=== PATIENT | female | born 1940 | race Caucasian/White ===

== ENCOUNTER → 2016-08-02 | Outpatient (CLI) | payer OTHER ==
[~2016-08-02] MED LIST: ALBUAER19 INH; ARTIOIN27 OPB; CARV6.25 PO; CHOL4POW6 PO; CILO100T PO; CLOP1TAB15 PO; COEN100C11 PO; ERGO1CAP35 PO; HYDR25TA4 PO; LORA-741 PO; MAGN1TAB15 PO; MISCCAP80 PO; MULT-190 PO; NAPR-1168 PO; NITR0.4S UT; OMEG10002 PO; POLYSOL OPB; PXL/40 PO; TIOTCAP INH; januvia PO
--- NOTE | 2016-08-02 15:49 | MAMMOGRAPHY REPORT ---
UNILATERAL LEFT DIGITAL DIAGNOSTIC MAMMOGRAM TOMOSYNTHESIS AND TARGETED LEFT ULTRASOUND: 08/02/2016 CLINICAL HISTORY: 76 year old woman called back from screening mammography for clustered microcalcif ications and nodular asymmetry within the left breast. Family history of breast cancer = sister. TECHNIQUE: Spot magnification left CC and ML, spot compression left CC and MLO 2-D digital anterolis thesis images were obtained. COMPARISON: Comparison is made to exam dated: 07/15/2016 mammogram - [facility]. BREAST COMPOSITION: The tissue of the left breast is almost entirely fatty. FINDINGS: There is an 8 mm cluster of amorphous and smudgy microcalcifications in the upper outer m iddle one third of the left breast. Although these could represent benign fibrocystic changes, no c lear layering is demonstrated on the spot magnification MLO view and therefore they're indeterminate . Further evaluation with a stereotactic guided biopsy is recommended. On the spot compression CC and MLO views of the anterior left breast including tomosynthesis images, there is no obvious focal mass or architectural distortion. There is an asymmetric 4 cm island of tissue when comparing to th e contralateral right breast. Further evaluation with ultrasound was performed. Targeted ultrasound was performed in the upper outer anterior left breast. There is an island of de nse fibronodular glandular tissue with irregular hypoechoic ducts within, measuring approximately 13 .6 x 7.9 x 13.4 mm. This correlates with the asymmetry seen mammographically in the left upper oute r anterior breast. Although this may simply represent stromal fibrosis, it is indeterminate and fur ther evaluation with tissue sampling is recommended. IMPRESSION: ACR BI-RADS CATEGORY 4B: INTERMEDIATE SUSPICION FOR MALIGNANCY, TARGETED ULTRASOUND ACR BI-RADS CATEGORY 4B: INTERMEDIATE SUSPICION FOR MALIGNANCY 1. Stereotactic guided left breast biopsy is recommended for a cluster of amorphous microcalcificat ions in the upper outer quadrant. 2. Ultrasound guided core needle biopsy is recommended for an island of dense fibroglandular tissue with irregular hypoechoic ducts in the 1:00 periareolar left breast. These results and recommendations were discussed with the patient at the time of the exam. She tent atively scheduled the biopsies prior to leaving our department. Approximately 10% of breast cancers are not detected with mammography. A negative mammographic repor t should not delay biopsy if a clinically suggestive mass is present. Karen Parra M.D. ay/:08/02/2016 15:09:58 Senior Accountant Cpa: Linnea Zuniga RT(R)(M), [facility] letter sent: Abnormal / BI-RADS Code: ACR BI-RADS Category 4B: Intermediate Suspicion For Malignancy Ultrasound BI-RADS: AC R BI-RADS Category 4B: Intermediate Suspicion For Malignancy
== END | disposition home or self-care (01) ==
LOC: C.MAMM 13:57
PROVIDERS: ATTEND Nurse Practitioner Family
DX: R92.0 Mammographic microcalcification found on diagnostic imaging of breast (principal); N64.9 Disorder of breast, unspecified

== ENCOUNTER → 2016-08-16 | Outpatient (CLI) | payer OTHER ==
--- NOTE | 2016-08-16 11:03 | Discharge Instructions ---
Discharge Instructions Procedure Procedure Date: Aug 16, 2016. Reason for visit: Left breast clustered microcalcifications and solid mass. Discharge Discharge Date: Aug 16, 2016. Discharge Diagnosis: post left breast stereotactic guided biopsy and ultrasound guided core biopsy Medications Restart Stopped Medication(s): continue regular medications Instructions Activity Recommendations: Additional Limitations (see below) Return to School/Work: no limitations Recommended Home Diet: No Limitations Provider Instructions: ACTIVITY RECOMMENDATIONS: * No lifting, pushing, pulling or exercising the affected side for three days. RETURN TO SCHOOL/WORK: * You may return to work/school after the procedure, but do not perform any strenuous activities for 24 to 48 hours. MEDICATIONS: * Tylenol (two 325 mg) every four to six hours if needed for mild pain (if not allergic to Tylenol). DIET: * Resume previous diet. SPECIAL CARE INSTRUCTIONS: * Keep biopsy site dry for 24 hours. May shower after 24 hours, but do not soak (bathe) incision. * May remove Tegaderm (plastic patch) tomorrow AFTER showering. * Leave the steri-strips on for one week. Allow the steri-strips to fall off by themselves. If not off after one week, you may remove them. You may place a Bandaid crosswise over the strips, if desired. * Apply ice 10 minutes on and 10 minutes off as needed. * Wear a bra at bedtime to sleep more comfortably for 2-3 days. * Your referring physician should have the results after approximately 5 to 7 business days. * Call for unusual bleeding, fever, drainage, etc or if you have any questions call [phone] during normal business hours or after hours call Dr Parra, . FOLLOW UP VISIT: Follow-up with Referring Physician as scheduled. Allergies Coded Allergies: Tramadol (Verified Allergy, Intermediate, "OUT OF BODY EXPERIENCE", ) Codeine (Unverified Allergy, Unknown, "OUT OF BODY EXPERIENCE", 04/19/16) ONLY HAPPENED WITH CODEINE + TYLENOL: CODEINE BY ITSELF IS OKAY Ifrah Royal Recommendations: Call your doctor if: * Temperature above 101 degrees * Pain not relieved by pain medicine ordered * There is increased drainage or redness from any incision * You have any unanswered questions or concerns. Your Doctors Instructions noted above were prepared by provider Karen Parra. Patient Signature Section: Patient Instructions Signature Page Paige Kat Patient (or Guardian) Signature/Date: I have read and understand the instructions given to me by my caregivers. Caregiver/RN/Doctor Signature/Date: The above-named patient and/or guardian has received patient instructions on this date. + Original Patient Signature Page (only) stays with chart. Please make copy for patient.
--- NOTE | 2016-08-16 12:34 | MAMMOGRAPHY REPORT ---
MULTIPLE STEREOTACTIC GUIDED BIOPSIES LEFT BREAST: 08/16/2016 CLINICAL HISTORY: Indeterminate clustered microcalcifications in the upper outer middle one third of the left breast, and indeterminate island of dense fibroglandular tissue with irregular intersperse d milk ducts in the 1:00 periareolar left breast. Patient presented for stereotactic guided biopsy and ultrasound guided core biopsy in the left breast. PATIENT CONSENT: After explaining the risks, benefits and alternatives of the procedure to the patie nt, informed consent was obtained both verbally and in writing. Specific risks include: Bleeding, i nfection, puncture of adjacent structure, nontarget biopsy, sampling error and medication reaction. The patient's risk of bleeding and bruising is slightly higher considering she is currently taking Plavix, but the procedure is low risk and considered safe to perform. PROCEDURE DESCRIPTION: A time-out was performed and the left breast was confirmed as the site of bot h biopsies. The stereotactic guided biopsy was performed first. The patient was placed prone on the stereotactic biopsy table and the left breast was placed in CC f rom above compression. A public health dentist image was obtained that demonstrated the clustered microcalcification s in question. They are amenable to sterotactic biopsy. Then +15 and -15 stereo pair images were obtained. The calcifications were targeted utilizing the coordinates obtained by the computer. The skin was prepped with Betadine. 1% Lidocaine with and without epinipherine was administered as local anesthesia. A small skin incision was made. Through the incision, the needle was inserted to the d epth determined by the computer. 10 samples were obtained using a Kybalioniva 9-gauge vacuum-assiste d biopsy device. The specimen radiograph demonstrated several apparel trimmings sales representative microcalcifications, th erefore, a metallic marker was placed at the biopsy site. There was no immediate complication. Hemos tasis was achieved after several minutes of manual compression. The samples were sent to pathology in an appropriately labeled container. Then the ultrasound-guided core needle biopsy in the 1:00 periareolar left breast was performed. Wi th the patient supine, repeat targeted ultrasound was performed in the 1:00 periareolar left breast. The island of dense fiber granular tissue with irregular milked ducts is again identified. 1% buf fered lidocaine with and without epinephrine was administered as local anesthesia. A small incision was made in the skin of the breast. Through the incision, 4 samples were obtained with a 12-gauge the lateral biopsy device. A ribbon shaped metallic marker was placed at the biopsy site. The edith ent tolerated the procedure well and there was no immediate complication. Hemostasis was achieved a fter manual compression. Postprocedure CC and ML views of the left breast were obtained. There is a new dumbbell-shaped meta llic biopsy marker in the upper outer middle one third of the breast, at the site of the stereotacti c guided biopsy. There is a small 1.8 x 1.6 x 3.8 cm hematoma at the site of the stereotactic biops y. No significant postbiopsy hematoma is seen in the 1:00 periareolar left breast at the site of th e ultrasound-guided biopsy. IMPRESSION: STEREOTACTIC GUIDED BIOPSY Status post the retracted guided biopsy and ultrasound-guided core biopsy in the upper outer quadran t of the left breast, with biopsy markers placed at each site. The patient will receive notification of the biopsy results from referring physician. Karen Parra M.D. ay/:08/16/2016 11:17:16 [employer] Administrator: Jacqueline CONTEH (R)), [facility]
--- NOTE | 2016-08-16 12:34 | MAMMOGRAPHY REPORT ---
THIS REPORT HAS BEEN AMENDED. ULTRASOUND GUIDED BIOPSY: 08/16/2016 CLINICAL HISTORY: Indeterminate island of dense tissue with irregular ducts within. Patient present s for ultrasound-guided core biopsy. Also stereotactic biopsy of indeterminate clustered micro-calc ifications in the upper outer middle one third of the left breast. Please refer to the report from left breast stereotactic guided biopsy performed at the same time fo r full detail. IMPRESSION: ULTRASOUND GUIDED BIOPSY Please refer to the report from left breast stereotactic guided biopsy performed at the same time fo r full detail. Karen Parra M.D. ay/:08/16/2016 11:06:20 Alum Mixer: Jacqueline MCCRAY(R)(M), [facility] AMENDMENT: 08/25/2016 Karen Parra M.D. Pathology from the stereotactic guided biopsy of clustered microcalcifications in the upper outer mi ddle one third of the left breast yielded fibroadenomatoid change with associated microcalcification . Atypical lobular hyperplasia noted within fibroadenomatoid change. Negative for DCIS and invasiv e carcinoma. Pathology results from the ultrasound-guided core biopsy in the 1:00 periareolar left breast yielded fibrocystic change, usual ductal hyperplasia. Negative for DCIS and invasive carcinoma. Given the finding of atypical lobular hyperplasia at the site of the stereotactic biopsy in the uppe r outer middle one third of the left breast, which is denoted by the linear biopsy marker clip as op posed to the ribbon clip which is located anteriorly within the breast (this biopsy is located 9.6 c m distal to the nipple), surgical consultation for surgical excision is recommended.
--- NOTE | 2016-08-16 12:37 | MAMMOGRAPHY REPORT ---
UNILATERAL LEFT DIAGNOSTIC MAMMOGRAM WITH CAD: 08/16/2016 CLINICAL HISTORY: Status post left breast stereotactic biopsy and ultrasound-guided core biopsy. Please refer to the report from left breast stereotactic guided biopsy performed at the same time fo r full detail. IMPRESSION: POST PROCEDURE IMAGING FOR MARKER PLACEMENT Please refer to the report from left breast stereotactic guided biopsy performed at the same time fo r full detail. Approximately 10% of breast cancers are not detected with mammography. A negative mammographic repor t should not delay biopsy if a clinically suggestive mass is present. Karen Parra M.D. ay/:08/16/2016 11:05:17 Flight Communications Officer: Jacqueline MCCRAY(R)(M), [facility] BI-RADS Code: Post Procedure Imaging For Marker Placement
== END | disposition home or self-care (01) ==
LOC: C.MAMM 09:33
PROVIDERS: ATTEND Nurse Practitioner Family
DX: D24.2 Benign neoplasm of left breast (principal); R92.0 Mammographic microcalcification found on diagnostic imaging of breast; N60.12 Diffuse cystic mastopathy of left breast

== ENCOUNTER → 2016-10-19 | Outpatient (CLI) | payer OTHER ==
[2016-10-19 11:10] LABS: BASO % 0.4 %; BASO ABS # 0.02 K/uL (0-0.2); COMPLETE YES; EOS % 1.6 %; HEMATOCRIT 39.2 % (37-47); IG% 0.5 %; LYMPH % 34.1 %; LYMPH ABS # 1.86 K/uL (1.2-3.4); MEAN CELL VOLUME 92.7 fL (80-100); MEAN CORPUSCULAR HEMOGLOBIN 31.7 pg (25-34); MEAN CORPUSCULAR HGB CONC 34.2 g/dl (32-36); MEAN PLATELET VOLUME 10.7 fL (7.4-10.4); MONO % 6.6 %; NEUT % 56.8 %; PLATELET COUNT 230 K/uL (130-400); RED BLOOD COUNT 4.23 M/uL (4.2-5.4); WHITE BLOOD COUNT 5.46 K/uL (4.8-10.8)
[2016-10-19 11:27] LABS: ESTIMATED AVERAGE GLUCOSE 143 mg/dl; HA1C FLAG Normal (Normal)
[2016-10-19 11:47] LABS: ALT/SGPT 26 U/L (12-78); AST/SGOT 17 U/L (15-37); BLOOD UREA NITROGEN 16 mg/dl (7-18); BUN/CREATININE RATIO 21.1 (10-20); CALCIUM 8.9 mg/dl (8.5-10.1); CARBON DIOXIDE 31 mmol/L (21-32); CHLORIDE 104 mmol/L (98-107); CREATININE 0.77 mg/dl (0.60-1.20); GLUCOSE 158 mg/dl (70-99); MAGNESIUM 1.9 mg/dl (1.8-2.4); POTASSIUM 3.6 mmol/L (3.5-5.1); SODIUM 142 mmol/L (136-145)
[2016-10-19 11:55] LABS: ALKALINE PHOSPHATASE 77 U/L (45-117); CHOLESTEROL 237 mg/dl (0-200); CHOLESTEROL/HDL RATIO 4.6; HDL CHOLESTEROL 51 mg/dl; LDL CHOLESTEROL CALCULATED 131 mg/dl; TRIGLYCERIDES 273 mg/dl (0-150); VERY LOW DENSITY LIPOPROT CALC 55 mg/dl
== END | disposition home or self-care (01) ==
LOC: C.LAB 10:35
PROVIDERS: ATTEND Nurse Practitioner Family
DX: I10 Essential (primary) hypertension (principal); E78.00 Pure hypercholesterolemia, unspecified; E11.9 Type 2 diabetes mellitus without complications; E83.42 Hypomagnesemia; I51.9 Heart disease, unspecified; E55.9 Vitamin D deficiency, unspecified

== ENCOUNTER → 2017-03-16 | Outpatient (CLI) | payer OTHER ==
--- NOTE | 2017-03-16 15:20 | MAMMOGRAPHY REPORT ---
UNILATERAL LEFT DIGITAL DIAGNOSTIC MAMMOGRAM TOMOSYNTHESIS WITH CAD AND TARGETED LEFT ULTRASOUND: 03/01 CLINICAL HISTORY: 77-year-old woman presents for evaluation of the left breast. She is experiencing severe pain both medially and laterally in the left breast and also an occasional abnormal sensation of her left nipple in which even fabric touching it is painful. She has a history of 2 prior biopsie s in the left breast performed August 2016. The stereotactic biopsy in the upper outer middle one t hird of the left breast denoted an area of atypia. The anterior biopsy marker clip denoted an area o f benign tissue. TECHNIQUE: Left breast tomosynthesis in addition to standard 2D mammography was performed. Current st udy was also evaluated with a Computer Aided Detection (CAD) system. COMPARISON: Comparison is made to exams dated: 08/16/2016 ultrasound biopsy, 08/16/2016 mammogram, 08/01 stereotactic biopsy, 08/02/2016 ultrasound, 08/02/2016 mammogram, and 07/15/2016 mammogram - [facility]. BREAST COMPOSITION: The tissue of the left breast is almost entirely fatty. FINDINGS: Square-shaped pain markers overlie the lateral and medial middle one third of the left kalin st. 2 metallic biopsy marker clips remain in place from prior stereotactic and ultrasound-guided bio psies. The dumbbell-shaped clip in the upper outer middle one third of the left breast has an associ ated 2 cm linear dense tract, denoting the tract of the biopsy needle. This also represents the area of biopsy-proven atypia. No new suspicious mass, architectural distortion or cluster of microcalcif ications is seen in the left breast. Targeted ultrasound was performed of the left breast with particular attention to the medial and late ral aspects as well as the periareolar breast in the areas of pain described by the patient. Sonogra phically normal tissue is seen without evidence of a suspicious solid or cystic mass. IMPRESSION: ACR BI-RADS CATEGORY 4: SUSPICIOUS, TARGETED ULTRASOUND ACR BI-RADS CATEGORY 4: SUSPICIO US 1. Surgical consultation for surgical excision is recommended in the area of prior stereotactic biop sy, which yielded atypia on pathology. This is represented by the dumbbell-shaped metallic biopsy ma rker clip in the upper outer middle one third of the left breast. Several surgeon's names and phone numbers were provided to the patient. 2. No new suspicious mammographic or targeted sonographic abnormalities to explain the patient's lat eral, periareolar and medial left breast pain. A biopsy tract is still visible in the upper outer mi ddle one third of the left breast, suggesting this could be contributing to the lateral pain, but it is doubtful this would be causing the periareolar or medial pain. Therefore, clinical follow-up is r ecommended. Conservative management with NSAIDs, Evening Charlotte Oil and mineral supplements were d iscussed with the patient. 3. Bilateral mammography is due in July 2017Jan2017, and would recommend remaining a diagn ostic patient to evaluate post surgical changes in the left breast and also for routine mammography o f the right breast. These results and recommendations were discussed with the patient at the time of the exam. Approximately 10% of breast cancers are not detected with mammography. A negative mammographic report should not delay biopsy if a clinically suggestive mass is present. Karen Parra M.D. ay/:03/16/2017 12:17:32 Stock Driver: Shannan Hendrickson, [facility] letter sent: Abnormal 4/5 BI-RADS Code: ACR BI-RADS Category 4: Suspicious Ultrasound BI-RADS: ACR BI-RADS Category 4: Suspici ous
== END | disposition home or self-care (01) ==
LOC: C.MAMM 09:55
PROVIDERS: ATTEND Family Medicine
DX: N64.4 Mastodynia (principal)

== ENCOUNTER → 2017-07-19 | Outpatient (CLI) | payer OTHER ==
[2017-07-19 13:14] LABS: BASO % 0.4 %; BASO ABS # 0.03 K/uL (0-0.2); COMPLETE YES; EOS % 1.5 %; HEMATOCRIT 43.3 % (37-47); LYMPH % 29.7 %; LYMPH ABS # 2.18 K/uL (1.2-3.4); MEAN CELL VOLUME 95.6 fL (80-100); MEAN CORPUSCULAR HEMOGLOBIN 32.7 pg (25-34); MEAN CORPUSCULAR HGB CONC 34.2 g/dl (32-36); MONO % 8.5 %; NEUT % 58.9 %; PLATELET COUNT 267 K/uL (130-400); RED BLOOD COUNT 4.53 M/uL (4.2-5.4); WHITE BLOOD COUNT 7.33 K/uL (4.8-10.8)
[2017-07-19 13:37] LABS: ESTIMATED AVERAGE GLUCOSE 123 mg/dl; HA1C FLAG Normal (Normal)
[2017-07-19 13:45] LABS: ALT/SGPT 36 U/L (12-78); AST/SGOT 28 U/L (15-37); BLOOD UREA NITROGEN 14 mg/dl (7-18); CALCIUM 8.9 mg/dl (8.5-10.1); CARBON DIOXIDE 28 mmol/L (21-32); CHLORIDE 105 mmol/L (98-107); CHOLESTEROL 295 mg/dl (0-200); CREATININE 0.92 mg/dl (0.60-1.20); GLUCOSE 127 mg/dl (70-99); POTASSIUM 3.6 mmol/L (3.5-5.1); SODIUM 140 mmol/L (136-145)
[2017-07-19 13:48] LABS: ALKALINE PHOSPHATASE 87 U/L (45-117); CHOLESTEROL/HDL RATIO 5.9; HDL CHOLESTEROL 50 mg/dl; TRIGLYCERIDES 464 mg/dl (0-150)
[2017-07-19 15:45] LABS: RATIO 230.6 mcg/mg (0-30.0)
== END | disposition home or self-care (01) ==
LOC: C.LAB 12:42
PROVIDERS: ATTEND Nurse Practitioner Family
DX: I10 Essential (primary) hypertension (principal); E78.00 Pure hypercholesterolemia, unspecified; E11.9 Type 2 diabetes mellitus without complications; R32 Unspecified urinary incontinence; M81.0 Age-related osteoporosis without current pathological fracture; F41.8 Other specified anxiety disorders

== ENCOUNTER → 2017-10-03 | Outpatient (CLI) | payer OTHER ==
--- NOTE | 2017-10-03 15:42 | MAMMOGRAPHY REPORT ---
BILATERAL DIGITAL DIAGNOSTIC MAMMOGRAM TOMOSYNTHESIS WITH CAD: 10/03/2017 CLINICAL HISTORY: 77-year-old woman presents for bilateral mammography. She has a history of prior l eft breast biopsies in which a stereotactic biopsy performed in the left upper outer middle one third of the breast yielded atypical lobular hyperplasia. She has not yet had that area excised but has c onsultation with a breast surgeon scheduled for next week. TECHNIQUE: Bilateral breast tomosynthesis in addition to standard 2D mammography was performed. 2D e xaggerated lateral CC views were also obtained. Current study was also evaluated with a Computer Aid ed Detection (CAD) system. COMPARISON: Comparison is made to exams dated: 03/16/2017 ultrasound, 03/16/2017 mammogram, 08/16/2016 ultrasound biopsy, 08/16/2016 mammogram, 08/02/2016 ultrasound, and 07/15/2016 mammogram - [facility]. BREAST COMPOSITION: The tissue of both breasts is almost entirely fatty. FINDINGS: There are stable biopsy marker clips in the left upper outer anterior and middle one third of the breast. The biopsy proven atypical lobular hyperplasia is denoted by the dumbbell-shaped biop sy marker clip in the middle one third of the left upper outer quadrant, approximately 10 cm from the nipple. Surgical consultation for surgical excisional biopsy is recommended. A ribbon-shaped biopsy marker clip is seen in the upper outer anterior left breast, denoting a prior benign biopsy. There are mild vascular calcifications bilaterally. No new suspicious masses, cluste red calcifications, areas of architectural distortion or asymmetries are seen bilaterally. IMPRESSION: ACR BI-RADS CATEGORY 4: SUSPICIOUS 1. Surgical consultation and surgical excisional biopsy is recommended for biopsy-proven atypia in t he upper outer middle one third of the left breast, denoted by a dumbbell-shaped biopsy marker clip l ocated approximately 10 cm from the nipple. 2. Otherwise stable mammographic appearance of the breasts, without mammographic evidence of maligna ncy bilaterally. These results and recommendations were discussed with the patient at the time of the exam. She johniee ntly has a surgical consultation scheduled for next week. Approximately 10% of breast cancers are not detected with mammography. A negative mammographic report should not delay biopsy if a clinically suggestive mass is present. Karen Parra M.D. ay/:10/03/2017 11:43:20 Milk Driver: Vida MCCRAY(R)(M), [facility] letter sent: Abnormal 4/5 BI-RADS Code: ACR BI-RADS Category 4: Suspicious
== END | disposition home or self-care (01) ==
LOC: C.MAMM 10:56
PROVIDERS: ATTEND Nurse Practitioner Family
DX: N62 Hypertrophy of breast (principal)

== ENCOUNTER → 2017-11-23 | Outpatient (CLI) | payer OTHER | END | disposition home or self-care (01) | LOC: C.LAB 15:44 | PROVIDERS: ATTEND Physician Assistant | DX: I48.91 Unspecified atrial fibrillation (principal) ==

== ENCOUNTER → 2017-12-06 | Outpatient (CLI) | payer OTHER ==
[2017-11-16 16:39] LABS: HEMATOCRIT 41.3 % (37-47); HEMOGLOBIN 14.1 g/dL (12.0-16.0); MEAN CELL VOLUME 94.5 fL (80-100); MEAN CORPUSCULAR HEMOGLOBIN 32.3 pg (25-34); MEAN CORPUSCULAR HGB CONC 34.1 g/dl (32-36); MEAN PLATELET VOLUME 11.6 fL (7.4-10.4); PLATELET COUNT 242 K/uL (130-400); RED CELL DISTRIBUTION WIDTH CV 13.9 % (11.5-14.5); RED CELL DISTRIBUTION WIDTH SD 48.1 fL (36.4-46.3); WHITE BLOOD COUNT 6.04 K/uL (4.8-10.8)
[2017-11-16 17:04] LABS: ALBUMIN 3.8 gm/dl (3.4-5.0); ALT/SGPT 32 U/L (12-78); AST/SGOT 21 U/L (15-37); BLOOD UREA NITROGEN 14 mg/dl (7-18); CALCIUM 9.6 mg/dl (8.5-10.1); CARBON DIOXIDE 26 mmol/L (21-32); CREATININE 0.85 mg/dl (0.60-1.20); GLUCOSE 108 mg/dl (70-99); POTASSIUM 3.5 mmol/L (3.5-5.1); SODIUM 142 mmol/L (136-145)
[2017-11-16 17:14] LABS: ALKALINE PHOSPHATASE 89 U/L (45-117); TOTAL PROTEIN 7.3 gm/dl (6.4-8.2)
[~2017-12-06] MED LIST changes: +GADAVIST IV PRN
--- NOTE | 2017-12-07 15:08 | MAMMOGRAPHY REPORT ---
BREAST MRI OF BOTH BREASTS : 12/06/2017 CLINICAL HISTORY: 77-year-old woman presents for preoperative assessment. A stereotactic guided left breast biopsy performed on 08/16/2016 in the upper outer quadrant approximate 2:00 axis yielded atypi marlena lobular hyperplasia. Patient has a family history of breast cancer = sister. COMPARISON: Comparison is made to exams dated: 08/02/2016 mammogram, 08/02/2016 ultrasound, 08/16/2016 st ereotactic biopsy, 08/16/2016 mammogram, 08/16/2016 ultrasound biopsy, and 03/16/2017 mammogram - [facility]. TECHNIQUE: Using a 1.5 Tori magnet and dedicated breast coil, multisequence axial images were obtain ed through the breasts. After uneventful IV administration of 11.5 mL of Gadavist, dynamic multiphas e contrast-enhanced axial images, and sagittal postcontrast were obtained. Temporal subtraction axia l images and 3-D MIP images are provided. Everything was then reviewed on a 3-D workstation, [employer]. FINDINGS: There is no significant background parenchymal enhancement in either breast. There is a focus of mark ceptibility artifact in the 2:00 middle one third of the left breast, denoting the site of prior ster eotactic guided biopsy which yielded atypical lobular hyperplasia within fibroadenomatoid change. Th ere is no appreciable enhancement in the area of prior biopsy within the left 2:00 breast. Overall, no suspicious enhancing mass, non-mass enhancement, suspicious kinetics or architectural distortion i s identified bilaterally. No focal area of skin thickening or nipple retraction. No suspicious axil sulema lymphadenopathy. IMPRESSION: ACR BI-RADS CATEGORY 4: SUSPICIOUS 1. Focus of susceptibility artifact in the 2:00 middle one third of the left breast denoting the sit e of prior stereotactic guided biopsy which yielded atypical lobular hyperplasia. No appreciable enh ancement is identified in the area of prior biopsy on the current MRI, nevertheless surgical excision is still recommended given the initial pathology results. 2. No other suspicious findings in the left breast. 3. No MRI evidence of malignancy in the right breast. The patient will be called to schedule an appointment. Karen Parra M.D. ay/:12/06/2017 21:48:57 Drum Builder: manufacturing assistant, [facility] letter sent: Abnormal 4/5 BI-RADS Code: ACR BI-RADS Category 4: Suspicious
== END | disposition home or self-care (01) ==
LOC: C.MRI 13:58
PROVIDERS: ATTEND Surgery
DX: N60.92 Unspecified benign mammary dysplasia of left breast (principal); Z01.818 Encounter for other preprocedural examination; Z80.3 Family history of malignant neoplasm of breast

== ENCOUNTER 2020-02-17 13:37 | Inpatient (IN) ==
[2020-02-17] MEDS ORDERED: STAT IV Infusion **Titration per Protocol STA (13:53)
[2020-02-17] MEDS ORDERED: dilTIAZem HCl 5 MG/ML 5 ML VIAL IV STA (13:53)
--- NOTE | 2020-02-17 14:06 | Emergency Department Note ---
Impression & Plan Acute dyspnea, Near syncope, Atrial fibrillation with rapid ventricular response ED Provider Note Provider: Craig Reeves MD DATE OF SERVICE: 02/17/2020 CHIEF COMPLAINT: Shortness of breath, near syncope HISTORY OF PRESENT ILLNESS: Patient is a 80-year-old female with a history of COPD, diabetes, hypertension, atrial fibrillation currently on Xarelto, metoprolol, and digoxin presenting today via ambulance from home. Patient states yesterday she began to notice some shortness of breath with exertion and prickly this morning had shortness of breath when getting up try to walk across the room. Denies home oxygen use at this time. States compliance with her medications. Patient denies any chest pain or recent fever. Patient states that she did not have any falls or actual syncope. Patient states she is feeling good better now having laid still for a while but she states she was very fearful that she would earlier. She states she follows with Dr. Wiggins of cardiology. REVIEW OF SYSTEMS: A total of 10 review of systems was obtained and negative except as stated above in the HPI. PAST MEDICAL HISTORY: As noted above MEDICATIONS: Reviewed medication list which includes digoxin, Xarelto among others SOCIAL HISTORY: Lives at home with , former smoker PHYSICAL EXAM: GENERAL: alert and oriented in no acute distress on stretcher on oxygen nasal cannula Head: normocephalic and atraumatic EYES: No injection, discharge or icterus. ENT: Mucous membranes pink and moist. LUNGS: Airway patent. No retractions. Breath sounds clear HEART: Irregularly irregular and tachycardic rate and rhythm. No chest wall tenderness ABDOMEN: Soft and non-tender, without guarding or rebound. SKIN: Acyanotic, warm, dry, without rashes EXTREMITIES: Without significant tenderness or deformity with trace pedal edema bilaterally. NEUROLOGICAL: No focal deficits. No aphasia. No facial droop or slurred speech. EK bpm atrial fibrillation with rapid ventricular response, diffuse inferior lateral ST depression and T wave inversions noted. There is question of some slight ST elevation in aVR and V1. Compared to previous CONTINUOUS CARDIAC MONITORING: was ordered and showed a heart rate of 110's- 150's bpm in atrial fibrillation with rapid ventricular response Patient's hypertension was referred to the hospitalist HOSPITAL COURSE: 1400 Patient was first seen and H&P performed. 1537 Patient reassessed and updated. Patient was agreed with the plan for admission. Heart rates now in the 110's, SBP 123. [address] Urias the hospitalist service. Patient's laboratory studies and imaging reviewed. Differential includes Infection, dehydration, metabolic abnormality, hypo/hyperglycemia, electrolyte disturbance, anemia, hypoxia, cardiac sources, intracerebral event, toxicologic, neurologic, as well as other pathologies. IMPRESSION/MEDICAL DECISION MAKING: Patient presents complaint of shortness of breath starting yesterday with exertion as well as near syncope several times. No actual trauma reported. No fever reported. Low suspicion this represent an infectious cause or coronavirus. Some trace pedal edema but no gross evidence of fluid overload on exam. Chest x-ray without evidence of pneumonia pneumothorax or pulmonary edema. Patient denies a history of oxygen usage and now requiring oxygen as she is satting in the 80s at home. Reading the recent primary care visit this week it does appear that she qualified for home oxygen although has not been set up yet. Patient's EKG is concerning with mild ischemic changes although again the patient denies any active chest pain and actually states feeling better since he is been laying flat. The A. fib RVR consider either him to start on diltiazem drip. Patient states compliance with Xarelto at home for anticoagulation. Electrolytes and thyroid function were sent. Electrolytes without significant abnormality besides some mild hypomagnesemia and IV magnesium supplementation was ordered. Troponin value is detectable but not abnormal question some demand component related to her rapid rate. DIAGNOSIS: Shortness of breath, near-syncope, atrial fibrillation with rapid ventricular response DISPOSITION: Hospitalist will evaluate Patient was agreeable with this plan. Critical Care I have personally spent 33 minutes of critical care time in the direct management of this patient. This includes bedside care, interpretation of diagnostic studies, and testing, discussion with consultants, patient, and family members, and other required patient management activities. These 33 minutes is in excess of all separately billable procedures. Past Med/Surg History Social History Preferred Language: German Communication Ability: Effective Visual Impairment: No Limitations Hearing Ability: Hard of Hearing marital status: Current Living Situation: Spouse current occupational status: retired Feels Safe at Home: Yes Smoking Status: Former smoker Tobacco Type: cigarettes ; Age Started Using Tobacco: 16 ; Age Quit Using Tobacco: 62 ; packs per day: 0.5 ; Second Hand Exposure: No ; Hx Alcohol Use: Yes Alcohol type: wine Alcohol Intake Frequency: Daily Alcohol Intake Frequency Comment: 1-2 drinks/day Hx Substance Use: No Childhood Exposure to Second-Hand Smoke: Yes Dental Care, Regularly: Yes Physical Activity Frequency: Does not Exercise Seatbelt Use: always Sunscreen Use: No Allergies Allergies Allergy/AdvReac Type Severity Reaction Status Date / Time tramadol Allergy Intermediate "OUT OF Verified 02/14/20 15:51 BODY EXPERIENCE" codeine Allergy Unknown "OUT OF Verified 02/14/20 15:51 BODY EXPERIENCE" metformin AdvReac Intermediate Diarrhea Verified 02/14/20 15:51 raloxifene AdvReac Unknown SWELLING Verified 02/14/20 15:51 Home Meds Home Medications Medication Instructions Recorded Confirmed coenzyme Q10 200 mg tablet PO tab 12/18/18 02/14/20 nitroglycerin 0.4 mg sublingual SL .place 1 tab under th #1 tab 12/18/18 02/14/20 tablet varicella-zoster gE vac,2 of 2 50 0.5 ml IM .INJECT 0.5 ML Once A 12/18/18 02/14/20 mcg IM suspension #0.5 ea blood sugar diagnostic #10 ea 01/19/19 02/14/20 lancets #50 ea 01/19/19 02/14/20 magnesium chloride 71.5 mg 71.5 mg PO DAILY tab 01/19/19 02/14/20 (magnesium chloride) tablet,delayed release vitamin A-vitamin C-vit E-min 1 tab PO DAILY 01/19/19 02/14/20 naproxen sodium 550 mg tablet PO .TAKE 1 TABLET DAILY. PRN #30 09/04/19 02/14/20 tab cholestyramine (with sugar) 4 gram 4 gm PO .COMPLEX ea 02/14/20 02/14/20 powder for susp in a packet Previous Rx's Medication Instructions Recorded albuterol sulfate 90 mcg/actuation See Rx Instructions INHALATION 01/25/19 aerosol inhaler .COMPLEX PRN #18 gm fluticasone 250 mcg-salmeterol 50 1 puffs INH BID #14 ea 02/09/19 mcg/dose blistr powdr for inhalation lorazepam 0.5 mg tablet 0.5 mg PO BID PRN #30 tab 07/07/19 glimepiride 1 mg tablet 1 mg PO DAILY #90 tab 01/03/20 rivaroxaban 20 mg tablet 20 mg PO DAILY #90 tab 09/04/19 cyanocobalamin (vitamin B-12) 1,000 mcg SL DAILY #90 tab 10/02/19 1,000 mcg sublingual tablet ergocalciferol (vitamin D2) 1,250 1,250 mcg PO WEEKLY #12 cap 10/02/19 mcg (50,000 unit) capsule paroxetine HCl 40 mg tablet 40 mg PO DAILY #90 tab 10/02/19 nitrofurantoin macrocrystal 100 mg 100 mg PO HS #30 cap 10/03/19 capsule nitrofurantoin 100 mg PO BID 14 Days #28 cap 10/08/19 monohydrate/macrocrystals 100 mg capsule atorvastatin 80 mg tablet 80 mg PO DAILY #90 tab 11/26/19 digoxin 125 mcg (0.125 mg) tablet 125 mcg PO DAILY #90 tab 11/26/19 ezetimibe 10 mg tablet 10 mg PO DAILY #90 tab 11/27/19 metoprolol succinate 100 mg 150 mg PO .COMPLEX #75 tab 12/05/19 tablet,extended release 24 hr umeclidinium 62.5 mcg/actuation 1 puffs INH DAILY #30 ea 01/29/20 blister powder for inhalation diphth,pertus(acell),tetanus 2.5 0.5 ml IM ONCE #0.5 ml 02/14/20 Lf unit-8 mcg-5 Lf/0.5mL IM syringe oxycodone-acetaminophen 5 mg-325 1 tab PO Q8H PRN #60 tab 02/14/20 mg tablet blood-glucose meter #1 ea 02/15/20 Results & Data (ED) Vital Signs Vital Signs - 24 hr 02/17/20 13:37 02/17/20 13:52 Temperature 36.7 C 36.7 C Temperature Source Oral Oral Pulse Rate 150 H 150 H Pulse Rate [Apical] 150 H Pulse Rhythm Irregular Respiratory Rate 28 H 28 H Respiratory Effort / Characteristics Short of Breath Short of Breath Respiratory Pattern Tachypnea Blood Pressure 121/100 Blood Pressure [Right Arm] 121/100 Blood Pressure Mean 107 Blood Pressure Mean [Right Arm] 107 Blood Pressure Position Sitting Pulse Oximetry 99 99 Oxygen Delivery Method Nasal Cannula Nasal Cannula Oxygen Flow Rate 4 4 Sepsis Recent Fever Within 48 Hours No Sepsis New/Unexplained Change in Mental Status N/A Sepsis Action Taken by Nursing No Action Required Laboratory Data Result diagrams: 02/17/20 14:00 02/17/20 14:00 Lab Results 02/17/20 02/17/20 02/17/20 Range/Units 14:00 14:00 14:00 WBC 9.16 (4.8-10.8) K/uL RBC 4.90 (4.2-5.4) M/uL Hgb 15.7 (12.0-16.0) g/dL Hct 45.3 (37-47) % MCV 92.4 (80-100) fL MCH 32.0 (25-34) pg MCHC 34.7 (32-36) g/dL RDW Std Deviation 47.3 H (36.4-46.3) fL RDW Coeff of Loli 14.0 (11.5-14.5) % Plt Count 256 (130-400) K/uL MPV 11.4 H (7.4-10.4) fL Immature Gran % (Auto) 0.4 % Neut % (Auto) 71.4 % Lymph % (Auto) 19.9 % [place] % (Auto) 7.5 % Eos % (Auto) 0.5 % Baso % (Auto) 0.3 % Neut # (Auto) 6.53 H (1.4-6.5) K/uL Lymph # (Auto) 1.82 (1.2-3.4) K/uL [place] # (Auto) 0.69 H (0.11-0.59) K/uL Eos # (Auto) 0.05 (0-0.5) K/uL Baso # (Auto) 0.03 (0-0.2) K/uL Immature Gran # (Auto) 0.04 H (0.00-0.02) K/uL PT 11.5 (9.0-12.0) Seconds INR 1.1 (0.9-1.1) APTT 25.1 (21.0-31.0) Seconds PTT Ratio 0.9 Sodium 142 (136-145) mmol/L Potassium 3.6 (3.5-5.1) mmol/L Chloride 108 H (98-107) mmol/L Carbon Dioxide 23 (21-32) mmol/L Anion Gap 12.0 H (3-11) BUN 20 H (7-18) mg/dl Creatinine 1.12 (0.6-1.2) mg/dl Est Cr Clr Drug Dosing 52.9 ml/min Est GFR ( Amer) 53.7 Est GFR (Non-Af Amer) 46.4 BUN/Creatinine Ratio 17.4 (10-20) Glucose 206 H (70-99) mg/dl Calcium 9.5 (8.5-10.1) mg/dl Magnesium 1.7 L (1.8-2.4) mg/dl Total Bilirubin 1.0 (0.2-1) mg/dl AST 20 (15-37) U/L ALT 22 (12-78) U/L Alkaline Phosphatase 89 (45-117) U/L Troponin I 0.035 (0-0.045) ng/ml Total Protein 7.6 (6.4-8.2) gm/dl Albumin 3.5 (3.4-5.0) gm/dl Globulin 4.1 H (2.5-4.0) gm/dl Albumin/Globulin Ratio 0.9 (0.9-2) TSH (0.300-4.500) uIu/ml Free T4 (0.8-1.6) ng/dl Digoxin (0.8-2.0) ng/ml 02/17/20 02/17/20 Range/Units 14:00 14:00 WBC (4.8-10.8) K/uL RBC (4.2-5.4) M/uL Hgb (12.0-16.0) g/dL Hct (37-47) % MCV (80-100) fL MCH (25-34) pg MCHC (32-36) g/dL RDW Std Deviation (36.4-46.3) fL RDW Coeff of Loli (11.5-14.5) % Plt Count (130-400) K/uL MPV (7.4-10.4) fL Immature Gran % (Auto) % Neut % (Auto) % Lymph % (Auto) % [place] % (Auto) % Eos % (Auto) % Baso % (Auto) % Neut # (Auto) (1.4-6.5) K/uL Lymph # (Auto) (1.2-3.4) K/uL [place] # (Auto) (0.11-0.59) K/uL Eos # (Auto) (0-0.5) K/uL Baso # (Auto) (0-0.2) K/uL Immature Gran # (Auto) (0.00-0.02) K/uL PT (9.0-12.0) Seconds INR (0.9-1.1) APTT (21.0-31.0) Seconds PTT Ratio Sodium (136-145) mmol/L Potassium (3.5-5.1) mmol/L Chloride (98-107) mmol/L Carbon Dioxide (21-32) mmol/L Anion Gap (3-11) BUN (7-18) mg/dl Creatinine (0.6-1.2) mg/dl Est Cr Clr Drug Dosing ml/min Est GFR ( Amer) Est GFR (Non-Af Amer) BUN/Creatinine Ratio (10-20) Glucose (70-99) mg/dl Calcium (8.5-10.1) mg/dl Magnesium (1.8-2.4) mg/dl Total Bilirubin (0.2-1) mg/dl AST (15-37) U/L ALT (12-78) U/L Alkaline Phosphatase (45-117) U/L Troponin I (0-0.045) ng/ml Total Protein (6.4-8.2) gm/dl Albumin (3.4-5.0) gm/dl Globulin (2.5-4.0) gm/dl Albumin/Globulin Ratio (0.9-2) TSH 5.580 H (0.300-4.500) uIu/ml Free T4 1.14 (0.8-1.6) ng/dl Digoxin 0.3 L (0.8-2.0) ng/ml Administered Medications Diltiazem HCl 125 mg/ Dextrose 125 mls @ 5 mls/hr IV .Q24H [facility]; Protocol Stop: 03/18/20 13:59 Last Admin: 02/17/20 14:46 Dose: 5 mg/hr, 5 mls/hr Documented by: [id number] Cosigned by: [id number] Discontinued Medications Diltiazem HCl (Cardizem) 10 mg IV NOW STA Stop: 02/17/20 13:54 Last Admin: 02/17/20 14:46 Dose: 10 mg Documented by: [id number] Cosigned by: [id number] Magnesium Sulfate/Dextrose (Magnesium Sulfate / D5w) 1 gm in 100 mls @ 100 mls/hr IV NOW STA Stop: 02/17/20 15:34 Last Admin: 02/17/20 15:36 Dose: 100 mls/hr Documented by: [id number] Miscellaneous () 1 ea N/A NOW STA Stop: 02/17/20 13:54 Last Admin: 02/17/20 15:45 Dose: Not Given Documented by: [id number] Discharge Plan Visit Data Chief Complaint: Shortness of Breath/Dyspnea Stated Complaint: sob ED Provider: Craig Reeves Discharge Problem: Acute dyspnea, Near syncope, Atrial fibrillation with rapid ventricular response Forms Stand Alone Forms: [facility] [employer] [facility] Prescriptions Prescriptions: No Action fluticasone propion-salmeterol [Advair Diskus] 250-50 mcg/dose blister with device 1 puffs INH BID Qty: 14 RF: 2 lorazepam 0.5 mg tablet 0.5 mg PO BID PRN (Reason: anxiety) Qty: 30 RF: 0 glimepiride 1 mg tablet 1 mg PO DAILY Qty: 90 RF: 1 cyanocobalamin (vitamin B-12) 1,000 mcg tablet, sublingual 1,000 mcg SL DAILY Qty: 90 RF: 1 ergocalciferol (vitamin D2) 1,250 mcg (50,000 unit) capsule 1,250 mcg PO WEEKLY Qty: 12 RF: 1 paroxetine HCl 40 mg tablet 40 mg PO DAILY Qty: 90 RF: 1 nitrofurantoin monohyd/m-cryst [Macrobid] 100 mg capsule 100 mg PO BID 14 Days Qty: 28 RF: 0 atorvastatin 80 mg tablet 80 mg PO DAILY Qty: 90 RF: 3 digoxin 125 mcg (0.125 mg) tablet 125 mcg PO DAILY Qty: 90 RF: 3 ezetimibe [Zetia] 10 mg tablet 10 mg PO DAILY Qty: 90 RF: 1 metoprolol succinate 100 mg tablet extended release 24 hr 150 mg PO .COMPLEX Qty: 75 RF: 3 Incruse Ellipta 62.5 mcg/actuation blister with device 1 puffs INH DAILY Qty: 30 RF: 5 (DME) blood-glucose meter [[employer] Verio Flex meter] Misc See Rx Instructions .ROUTE .MEDSUPPLY Qty: 1 RF: 0 Boostrix Tdap 2.5-8-5 Lf-mcg-Lf/0.5mL syringe 0.5 ml IM ONCE Qty: 0.5 RF: 0 oxycodone-acetaminophen 5-325 mg tablet 1 tab PO Q8H PRN (Reason: pain) Qty: 60 RF: 0 nitrofurantoin macrocrystal 100 mg capsule 100 mg PO HS Qty: 30 RF: 6 rivaroxaban 20 mg tablet 20 mg PO DAILY Qty: 90 RF: 1 coenzyme Q10 200 mg tablet PO RF: 0 varicella-zoster gE vac,2 of 2 50 mcg suspension for reconstitution 0.5 ml IM .INJECT 0.5 ML Once A Qty: 0.5 RF: 0 nitroglycerin 0.4 mg tablet, sublingual SL .place 1 tab under th Qty: 1 RF: 0 vitamin A-vitamin C-vit E-min tablet 1 tab PO DAILY RF: 0 (DME) lancets [OneTouch UltraSoft Lancets[place] [facility] [place] Dose Instructions .ROUTE .MEDSUPPLY Qty: 50 RF: 0 (DME) OneTouch Verio test strips strip See Dose Instructions .ROUTE .MEDSUPPLY Qty: 10 RF: 0 Slow-Mag 71.5 mg tablet,delayed release (DR/EC) 71.5 mg PO DAILY RF: 0 albuterol sulfate 90 mcg/actuation HFA aerosol inhaler See Rx Instructions inhalation .COMPLEX PRN (Reason: shortness of breath or wheezing) Qty: 18 RF: 2 naproxen sodium 550 mg tablet PO .TAKE 1 TABLET DAILY. PRNQty: 30 RF: 0 cholestyramine (with sugar) 4 gram powder in packet 4 gm PO .COMPLEX RF: 0
[2020-02-17 14:22] LABS: INR 1.1 (0.9-1.1); Partial Thromboplastin Ratio 0.9; Partial Thromboplastin Time 25.1 Seconds (21.0-31.0); Prothrombin Time 11.5 Seconds (9.0-12.0)
--- NOTE | 2020-02-17 14:30 | XRay Report ---
XR chest 1V portable HISTORY: Dyspnea COMPARISON: Chest 01/01/2016. FINDINGS: The heart remains mildly enlarged. No pneumothorax. No pleural effusions. No new focal lung consolidations to suggest pneumonia. Mild diffuse interstitial thickening which is likely chronic. N o evidence for pulmonary edema. IMPRESSION: No significant change compared to the prior study. No acute process. Stable cardiomegaly. ACT 112: Negative or not required by law. Electronically signed by: Darshan Naranjo M.D. 02/17/2020 2:29 PM
[2020-02-17 14:33] LABS: Albumin Level 3.5 gm/dl (3.4-5.0); BUN Creatinine Ratio 17.4 (10-20); Calcium 9.5 mg/dl (8.5-10.1); Creatinine Clr Calc Pharmacy 52.9 ml/min; Est GFR (African American) 53.7; Est GFR (Non-African American) 46.4; Magnesium 1.7 mg/dl (1.8-2.4); Potassium 3.6 mmol/L (3.5-5.1)
[2020-02-17] MEDS ORDERED: MAGNESIUM SULFATE / D5W 1 GM/100 ML BAG IV STA (14:35)
[2020-02-17 14:38] LABS: Albumin Globulin Ratio 0.9 (0.9-2); Globulin 4.1 gm/dl (2.5-4.0); Total Protein 7.6 gm/dl (6.4-8.2); Troponin I 0.035 ng/ml (0-0.045)
[2020-02-17 14:45] LABS: Basophils # (auto) 0.03 K/uL (0-0.2); Basophils % (auto) 0.3 %; Eosinophils # (auto) 0.05 K/uL (0-0.5); Eosinophils % (auto) 0.5 %; Hematocrit (blood only) 45.3 % (37-47); Hemoglobin 15.7 g/dL (12.0-16.0); Immature Granulocytes # (auto) 0.04 K/uL (0.00-0.02); Immature Granulocytes % (auto) 0.4 %; Lymphocytes # (auto) 1.82 K/uL (1.2-3.4); Lymphocytes % (auto) 19.9 %; Mean Corpuscular Hgb Conc 34.7 g/dL (32-36); Mean Corpuscular Volume 92.4 fL (80-100); Mean Platelet Volume 11.4 fL (7.4-10.4); Monocytes # (auto) 0.69 K/uL (0.11-0.59); Monocytes % (auto) 7.5 %; Neutrophils # (auto) 6.53 K/uL (1.4-6.5); Neutrophils % (auto) 71.4 %; Platelet Count 256 K/uL (130-400); RDW Standard Deviation 47.3 fL (36.4-46.3); White Blood Count 9.16 K/uL (4.8-10.8)
[2020-02-17] MEDS: dilTIAZem HCL 125 MG in DEXTROSE 5% 100 ML IV SCH (14:46)
[2020-02-17 15:06] LABS: Thyroid Stimulating Hormone 5.58 uIu/ml (0.300-4.500)
[2020-02-17 15:19] LABS: T4 Free Thyroxine 1.14 ng/dl (0.8-1.6)
--- NOTE | 2020-02-17 15:57 | History & Physical Report ---
Date of Service February 17, 2020 Assessment & Plan (1) Atrial fibrillation with rapid ventricular response: Due to missing 48 hours of home rate control medications. - Continue on Cardizem drip, will give dose of metoprolol succinate 100 mg now as well as digoxin 0.125 mg now - Consider cardiology consult, follows with Dr. Wiggins as outpatient - Check 2D echo - Melinda for anticoagulation - Check troponin now, not obtained in the ER, if elevated will trend - Allow heart healthy diet - Recently had A1c and lipids checked as outpatient (2) Acute dyspnea: Secondary to above. CXR reviewed, no acute processes. No COVID-19 known contacts, no recent travel, afebrile, no cough- no suspicion for COVID-19 infection. Unlikely PE because pt is already anticoagulated. - As above (3) COPD (chronic obstructive pulmonary disease): History of such, patient has recently been seen by PCP within the past week and is being set up for home supplemental oxygen. - Will ask CM to assist with planning if needed. - Per outpatient notes, patient is required to have a Tdap prior to being qualified for oxygen - Continue Incruse inhaler - Noted that pt is on oxycodone/acetaminophen for pain and ativan for anxiety (4) Diastolic dysfunction: Chronic, stable. - Echo as above (5) Essential hypertension: BP was 120/80 in the ED; lower while on diltiazem gtt. - Continue metoprolol, digoxin as above (6) Hypercholesterolemia: Recent lipid panel reveals total cholesterol of 283. - Continue high intensity statin, atorvastatin 80 mg daily, acetamide 10 mg daily - HH/DM diet, encourage exercise (7) Peripheral vascular disease: History of such (8) Type 2 diabetes mellitus: Last A1c = 6.3 on 02/11/2020. - Hold glimepiride - ISS with Accu-Thai ACH (9) Osteoporosis: Remote smoking hx. - Continue Vit D supplementation - Encouraged weight-bearing exercises (10) Vitamin D deficiency: - Continue vitamin D supplementation (11) Urge and stress incontinence: Follows with [facility] [place] urology as outpatient, will need follow-up prior to discharge. Patient has recently finished taking long course of nitrofurantoin as outpatient for UTI: In September had E. coli (resistant to Cipro and Levaquin) and Jul 2019 had Proteus mirabilis (resistant to ampicillin and cefazolin). - Pt planning on using azo as an outpatient - consider asking urology for recs regarding OTC meds? (12) DVT prophylaxis: Melinda Griffin CODE: Full code History of Present Illness Primary Care Provider: Yusuf Chaudhry, III, [employer] This is a 80-year-old female with PMHx of CAD, chronic diastolic CHF, HTN, A. fib on Xarelto, HLD, DM type II, COPD, remote smoking history, peripheral vascular disease, osteoporosis, vitamin D deficiency who presented to the ER today via ambulance due to increased dyspnea on exertion. Her is present with her bedside and supports the history. Last evening she began feeling worse and therefore did not take her medications at that time either. She reports significant sensation of shortness of breath especially on exertion, worse whenever she attempted to stand up earlier this morning. "I felt the worst I ever have felt in my life, it was very scary". Pt is well aware of her diagnosis of afib, although has never felt palpitations before, she felt the blood rushing through her veins this morning. She admits to nausea but no vomiting, and denies any sensation of heart palpitations or flutter, no dizziness, lightheadedness, LOC or falls. Medications at home for rate control include digoxin and metoprolol succinate, and she has not taken either medication within the last 48 hours. She states sometimes she and her get up late in the morning, and therefore she skips her morning dose. Patient recently saw her PCP where they were initiating home oxygen therapy and filling out paperwork for her to be on home supplemental O2. She is currently on 4L in the ER. Patient states she feels much better at this point. Another complaint of the patient's includes overactive bladder, where she recently was seeing Dr. Urias, however since he has recently departed [facility], she has not been rescheduled. Patient reports chronic incontinence and was going to start taking [id number] Azo tomorrow (prior to this event), see if this improved her symptoms. Patient has been started on Cardizem drip, heart rate at bedside bounces between 110s to 120s. Will resume metoprolol and digoxin with doses now. Allergies Allergy/AdvReac Type Severity Reaction Status Date / Time tramadol Allergy Intermediate "OUT OF Verified 02/17/20 15:49 BODY EXPERIENCE" codeine Allergy Unknown "OUT OF Verified 02/17/20 15:49 BODY EXPERIENCE" metformin AdvReac Intermediate Diarrhea Verified 02/17/20 15:49 raloxifene AdvReac Unknown SWELLING Verified 02/17/20 15:49 Home Medications Home Medications Medication Instructions Recorded Confirmed Type coenzyme Q10 200 mg tablet 200 mg PO DAILY tab 12/18/18 02/17/20 History nitroglycerin 0.4 mg sublingual 0.4 mg SL UD PRN #1 tab 12/18/18 02/17/20 History tablet blood sugar diagnostic #10 ea 01/19/19 02/14/20 History lancets #50 ea 01/19/19 02/14/20 History magnesium chloride 71.5 mg 71.5 mg PO DAILY tab 01/19/19 02/17/20 History (magnesium chloride) tablet,delayed release fluticasone 250 mcg-salmeterol 50 1 puffs INH BID #14 ea 02/09/19 02/17/20 Rx mcg/dose blistr powdr for inhalation lorazepam 0.5 mg tablet 0.5 mg PO BID PRN #30 tab 07/07/19 02/17/20 Rx glimepiride 1 mg tablet 1 mg PO DAILY #90 tab 08/03/19 02/17/20 Rx naproxen sodium 550 mg tablet 550 mg PO DAILY PRN #30 tab 09/04/19 02/17/20 History rivaroxaban 20 mg tablet 20 mg PO DAILY #90 tab 09/04/19 02/17/20 Rx cyanocobalamin (vitamin B-12) 1,000 mcg SL DAILY #90 tab 10/02/19 02/17/20 Rx 1,000 mcg sublingual tablet ergocalciferol (vitamin D2) 1,250 1,250 mcg PO WEEKLY #12 cap 10/02/19 02/17/20 Rx mcg (50,000 unit) capsule paroxetine HCl 40 mg tablet 40 mg PO DAILY #90 tab 10/02/19 02/17/20 Rx atorvastatin 80 mg tablet 80 mg PO DAILY #90 tab 11/26/19 02/17/20 Rx digoxin 125 mcg (0.125 mg) tablet 125 mcg PO DAILY #90 tab 11/26/19 02/17/20 Rx ezetimibe 10 mg tablet 10 mg PO DAILY #90 tab 11/27/19 02/17/20 Rx metoprolol succinate 100 mg 150 mg PO .COMPLEX #75 tab 12/05/19 02/17/20 Rx tablet,extended release 24 hr umeclidinium 62.5 mcg/actuation 1 puffs INH DAILY #30 ea 01/29/20 02/17/20 Rx blister powder for inhalation oxycodone-acetaminophen 5 mg-325 1 tab PO Q8H PRN #60 tab 02/14/20 02/17/20 Rx mg tablet blood-glucose meter #1 ea 02/15/20 Rx C,E,zinc,copper 80-[id number]-grh 1 cap PO DAILY 02/17/20 02/17/20 History [Ocuvite Adult 50 Plus] multivit with min-folic acid 0 mcg PO DAILY 02/17/20 02/17/20 History [Adult Multivitamin Gummies] Past Med/Surg History Social History Preferred Language: [place] Communication Ability: Effective Visual Impairment: No Limitations Hearing Ability: Hard of Hearing Furnace Firer Required: No Beliefs That Will Affect Care: None marital status: Current Living Situation: Spouse current occupational status: retired Other Information That Helps Us Care for You: No Feels Safe at Home: Yes Safety Concerns: Feels Safe At This Time Smoking Status: Former smoker Tobacco Type: cigarettes ; Age Started Using Tobacco: 16 ; Age Quit Using Tobacco: 62 ; packs per day: 0.5 ; Second Hand Exposure: No ; Hx Alcohol Use: Yes Alcohol type: wine Alcohol Intake Frequency: Daily Alcohol Intake Frequency Comment: 1-2 drinks/day Hx Substance Use: No Childhood Exposure to Second-Hand Smoke: Yes Dental Care, Regularly: Yes Physical Activity Frequency: Does not Exercise Seatbelt Use: always Sunscreen Use: No Review of Systems Review of Systems: Constitutional: No fever, sweats or chills Eyes: No diplopia, no worsening or blurred vision ENT: normal hearing, no trouble swallowing Respiratory: No cough, sputum, dyspnea at rest or on exertion Cardiovascular: See HPI. No chest pain, tightness, pressure Abdomen: No pain, nausea, vomiting, diarrhea or constipation Musculoskeletal: No joint pain, calf pain, swelling Neurologic: No weakness, numbness/tingling, or balance problems Psychiatric: No anxiety or depression Skin: No rash or itch Physical Exam Physical Exam: General: awake, alert, no apparent distress Head: Normocephalic, atraumatic ENT: PERRL, EOMI, no pharyngeal exudate, mucous membranes moist Chest: Clear to auscultation, on 4L via NC, no adventitious breath sounds Cardiac: Irregularly irregular, HR bounces between 110-120s at bedside, no murmur, no JVD, irregular peripheral pulses, good capillary refill Abdominal: NABS x 4 quadrants, soft, nondistended, nontender to palpation, no rebound, guarding or tenderness Extremities: Normal inspection, no peripheral edema or erythema, calfs nontender to palpation Psych: Normal mood and affect Neuro: AAO x 3, strength intact bilaterally and rated 5/5, no motor deficits, speech is clear, no peripheral sensory deficits Results & Data Results & Data ([facility]) Vital Signs (Past 12 Hours) Vital Signs Temp Pulse Pulse Resp BP BP Pulse Ox 02/17/20 13:52 36.7 C 150 H 150 H 28 H 121/100 99 02/17/20 13:37 36.7 C 150 H 28 H 121/100 99 Diagnostic Findings XR chest 1V portable HISTORY: Dyspnea COMPARISON: Chest 01/01/2016. FINDINGS: The heart remains mildly enlarged. No pneumothorax. No pleural effusions. No new focal lung consolidations to suggest pneumonia. Mild diffuse interstitial thickening which is likely chronic. No evidence for pulmonary edema. IMPRESSION: No significant change compared to the prior study. No acute process. Stable cardiomegaly. Code Status & VTE Plan Code Status Full code-discussed with the patient and her Supervising Physician Co-Signing Physician Notes I supervised Rachelle Hopepr PA-C on this admission. I interviewed and examined the patient independently of her. The plan is as written in her note except for any following changes/exceptions: None Pleasant 80yo F w/ hx of afib who had seen Dr. Wiggins in the past. Didn't feel well the last few days and skipped home meds. In the ED, her HR was up to 150. Now on diltiazem gtt with HR in the 100 range when I saw her. Feeling better, and BP is remaining stable ~100/70. PG Care Time/CCT Total # of Minutes Spent Total Time Spent with Patient: Total time spent is greater than 50% in coordination of care (as documented) at patient's floor/unit and/or counseling patient: Coding Level of Care Code 25172 Initial Inpt Care Lvl 3 Diagnoses Atrial fibrillation with rapid ventricular response I48.91 Acute dyspnea R06.00 COPD (chronic obstructive pulmonary disease) J44.9 Diastolic dysfunction I51.89 Essential hypertension I10 Hypercholesterolemia E78.00 Peripheral vascular disease I73.9 Type 2 diabetes mellitus E11.9 Osteoporosis M81.0 Osteoporosis type: age-related Presence of current pathological fracture: without current pathological fracture Vitamin D deficiency E55.9 Urge and stress incontinence N39.46 DVT prophylaxis Z29.9 (1) Osteoporosis Osteoporosis type: age-related Presence of current pathological fracture: without current pathological fracture Qualified Code(s): M81.0 - Age-related osteoporosis without current pathological fracture
[2020-02-17] MEDS ORDERED: ONDANSETRON INJ 2 MG/ML 2 ML VIAL IV PRN (18:24)
[2020-02-17] MEDS ORDERED: GLUCOSE 40% GEL 15 GM TUBE PO PRN (18:24)
[2020-02-17] MEDS ORDERED: ACETAMINOPHEN 325 MG TAB PO PRN (18:24)
[2020-02-17] MEDS ORDERED: DEXTROSE 50% 50 ML SYRINGE IV PRN (18:24)
[2020-02-17] MEDS ORDERED: CARBOHYDRATES FOR HYPOGLYCEMIA PO PRN (18:24)
[2020-02-17] MEDS ORDERED: LORazepam 0.5 MG TAB PO PRN (18:24)
[2020-02-17] MEDS ORDERED: METOPROLOL SUCC 50MG EXT REL TAB PO STA (18:24)
[2020-02-17] MEDS ORDERED: GLUCOSE 10 TABS/TUBE PO PRN (18:24)
[2020-02-17] MEDS ORDERED: DIGOXIN 0.125 MG TAB PO STA (18:24)
[2020-02-17] MEDS ORDERED: GLUCAGON FOR INJ 1 MG VIAL SQ PRN (18:24)
[2020-02-17] MEDS ORDERED: Nursing to Pharmacy Communication SCH (19:00)
[2020-02-17] MEDS: INSULIN ASPART 100 UNITS/ML 3 ML PEN SC SCH ×2 (19:25→19:54)
[2020-02-17] MEDS: RIVAROXABAN 20 MG TAB PO SCH (20:14)
--- NOTE | 2020-02-17 23:16 | Electrocardiogram Report ---
Test Reason : Blood Pressure : / mmHG Vent. Rate : 146 BPM Atrial Rate : 153 BPM P-R Int : 000 ms QRS Dur : 086 ms QT Int : 310 ms P-R-T Axes : 000 008 221 degrees QTc Int : 483 ms Atrial fibrillation with rapid ventricular response Marked ST abnormality, possible inferolateral subendocardial injury Abnormal ECG When compared with ECG of 27-DEC-2004 13:25, Atrial fibrillation has replaced Sinus rhythm Vent. rate has increased BY [address] now depressed in Inferior leads ST now depressed in Lateral leads T wave inversion now evident in Inferior leads T wave inversion now evident in Lateral leads Confirmed by Chris Silva ([id number]) on 02/17/2020 11:15:47 PM Referred By: REFERRED SELF Confirmed By:Chris Silva
[2020-02-17 23:20] LABS: Appearance Urine Turbid (Clear); Bacteria Urine Automated 4+ (Negative); Blood Urine 1+ (Negative); Color Urine Dark Yellow; Epithelial Cell Urine Auto >30 /lpf (0-5); Glucose Urine UA Negative (Negative); Ketones Urine Trace (Negative); Leukocyte Esterase Urine 2+ (Negative); Nitrite Urine Negative (Negative); Protein Urine 3+ (Negative); Specific Gravity Urine 1.029 (1.000-1.030); Urobilinogen Urine Negative (Negative); WBC Urine Automated >30 /hpf (0-5)
[2020-02-17 23:29] LABS: Bilirubin Urine 1+ (Negative); Ictotest Urine Positive (Negative)
[2020-02-17 23:47] LABS: RBC Urine Automated 0-4 /hpf (0-4)
[2020-02-18] MEDS: dilTIAZem HCL 125 MG in DEXTROSE 5% 100 ML IV SCH (01:05)
[2020-02-18 05:57] LABS: Hematocrit (blood only) 42.7 % (37-47); Hemoglobin 14.1 g/dL (12.0-16.0); Mean Corpuscular Hemoglobin 31.3 pg (25-34); Mean Corpuscular Volume 94.7 fL (80-100); Mean Platelet Volume 11.4 fL (7.4-10.4); Platelet Count 250 K/uL (130-400); RDW Coefficient of Variation 14.4 % (11.5-14.5); RDW Standard Deviation 49.3 fL (36.4-46.3); Red Blood Count 4.51 M/uL (4.2-5.4); White Blood Count 8.93 K/uL (4.8-10.8)
[2020-02-18 06:33] LABS: Albumin Level 3.2 gm/dl (3.4-5.0); BUN Creatinine Ratio 20.1 (10-20); Calcium 9.1 mg/dl (8.5-10.1); Creatinine Clr Calc Pharmacy 41.5 ml/min; Est GFR (African American) 40.3; Est GFR (Non-African American) 34.8; Magnesium 2.1 mg/dl (1.8-2.4); Potassium 3.9 mmol/L (3.5-5.1)
[2020-02-18 06:36] LABS: Albumin Globulin Ratio 0.8 (0.9-2); Bilirubin,Total 0.8 mg/dl (0.2-1); Globulin 3.8 gm/dl (2.5-4.0)
[2020-02-18] MEDS: INSULIN ASPART 100 UNITS/ML 3 ML PEN SC SCH ×4 (08:14→20:54)
[2020-02-18] MEDS: METOPROLOL SUCC 50MG EXT REL TAB PO SCH ×2 (08:15→18:02)
[2020-02-18] MEDS: CYANOCOBALAMIN 500 MCG TABLET (VITAMIN B-12) PO SCH (08:16)
[2020-02-18] MEDS: FLUTICASONE/VILANTEROL 100/25MCG 14 PUFFS/INHALER INH SCH (08:16)
[2020-02-18] MEDS: PARoxetine HCL 20 MG TAB PO SCH (08:16)
[2020-02-18] MEDS: UMECLIDINIUM BROMIDE 62.5MCG/BLISTER 7 PUFFS/INHALER INH SCH (08:16)
[2020-02-18] MEDS: CEROVITE ADV FORMULA TAB PO SCH (08:17)
[2020-02-18] MEDS: MAGNESIUM CHLORIDE 64MG DELAYED REL TAB PO SCH (08:17)
[2020-02-18] MEDS: ATORVASTATIN 40 MG TAB PO SCH (08:17)
[2020-02-18] MEDS: EZETIMIBE 10 MG TABLET PO SCH (08:17)
[2020-02-18] MEDS ORDERED: GLIMEPIRIDE 2 MG TAB PO SCH ×2 (09:00)
[2020-02-18] MEDS ORDERED: NON-FORMULARY MEDICATION (Coenzyme Q10 200 MG) PO SCH (09:00)
[2020-02-18] MEDS ORDERED: RIVAROXABAN 20 MG TAB PO SCH (09:00)
--- NOTE | 2020-02-18 12:06 | XCELERA ---
[id number] \\[id number]
--- NOTE | 2020-02-18 14:47 | Hospitalist Progress Note ---
Date of Service February 18, 2020 Assessment & Plan (1) Acute dyspnea: Thought to be due to afib with RVR; however, NOT better today despite better rate control. CXR reviewed, no acute processes. No COVID-19 known contacts, no recent travel, afebrile, no cough- no suspicion for COVID-19 infection. Unlikely PE because pt is already anticoagulated. - Atypical angina? Cardiology consulted. (2) Atrial fibrillation with rapid ventricular response: Due to missing 48 hours of home rate control medications. - Continue on Cardizem drip - Continue beta-ana rosa and digoxin - Cardiology consult - Check 2D echo - Melinda for anticoagulation (3) COPD (chronic obstructive pulmonary disease): History of such, patient has recently been seen by PCP within the past week and is being set up for home supplemental oxygen. - Will ask CM to assist with planning if needed. - Continue Incruse inhaler - Noted that pt is on oxycodone/acetaminophen for pain and Ativan for anxiety (4) Diastolic dysfunction: Chronic, stable. - Echo as above (5) Essential hypertension: BP was 120/80 in the ED; lower while on diltiazem gtt. Now stable. - Continue metoprolol, digoxin as above (6) Hypercholesterolemia: Recent lipid panel reveals total cholesterol of 283. - Continue high intensity statin, atorvastatin 80 mg daily, acetamide 10 mg daily - HH/DM diet, encourage exercise (7) Type 2 diabetes mellitus: Last A1c = 6.3 on 02/11/2020. - Hold glimepiride - ISS with Accu-Cheks ACHS (8) Urge and stress incontinence: [place] [facility] [place], will need follow-up prior to discharge. Patient has recently finished taking long course of nitrofurantoin as outpatient for UTI: In September had E. coli (resistant to Cipro and Levaquin) and Jul 2019 had Proteus mirabilis (resistant to ampicillin and cefazolin). - Pt planning on using azo as an outpatient - consider asking urology for recs regarding OTC meds? (9) Osteoporosis: Remote smoking hx. - Continue Vit D supplementation - Encouraged weight-bearing exercises (10) DVT prophylaxis: TEDs Xarelto CODE: Full code Admission and Anticipated Discharge Date Admission Date: February 17, 2020 Subjective Still with shortness of breath when she moves or even talks and eats. Not much better even with rate control. Reports no fevers/chills, chest pain, abdominal pain, nausea, or vomiting. Physical Exam Constitutional: WD/WN, vitals as above Eyes: EOM intact bilaterally; no conjunctival abnormality ENMT: external ear and nose normal, oropharynx normal Neck: trachea midline, no thyromegaly normal visual inspection Respiratory: normal respiratory effort, lungs clear to auscultation no respiratory distress Cardiovascular: Rate/Rhythm: regular rate and + irregularly irregular Heart Sounds: normal S1 and normal S2 Vessels: no JVD Extremities: no edema Gastrointestinal (Abdomen): Inspection/Auscultation: abdomen normal to inspection; abdomen not distended Musculoskeletal: no cyanosis or clubbing, extremities motor strength 5/5 Skin: no rashes, warm and dry Neurologic: moves all extremities and awake Psychiatric: Orientation: alert, oriented to person and cooperative Results & Data Results & Data ([facility]) Vital Signs (Past 12 Hours) Vital Signs Temp Pulse Pulse Resp BP Pulse Ox Pulse Ox 02/18/20 11:15 36.8 C 91 H 20 116/73 20 L 02/18/20 08:08 97 H 02/18/20 08:00 92 02/18/20 07:53 97 H 02/18/20 07:22 36.4 C L 73 26 H 101/62 97 02/18/20 03:24 36.5 C 68 20 112/64 98 PG Care Time/CCT Total # of Minutes Spent Total Time Spent with Patient: Total time spent is greater than 50% in coordination of care (as documented) at patient's floor/unit and/or counseling patient: Coding Level of Care Code 69475 Subseq Hosp Care Lvl 3 Diagnoses Acute dyspnea R06.00 Atrial fibrillation with rapid ventricular response I48.91 COPD (chronic obstructive pulmonary disease) J44.9 Diastolic dysfunction I51.89 Essential hypertension I10 Hypercholesterolemia E78.00 Type 2 diabetes mellitus E11.9 Urge and stress incontinence N39.46 Osteoporosis M81.0 Osteoporosis type: age-related Presence of current pathological fracture: without current pathological fracture DVT prophylaxis Z29.9 (1) Osteoporosis Osteoporosis type: age-related Presence of current pathological fracture: without current pathological fracture Qualified Code(s): M81.0 - Age-related osteoporosis without current pathological fracture
[2020-02-18] MEDS: RIVAROXABAN 20 MG TAB PO SCH (20:52)
[2020-02-19] MEDS: FLUTICASONE/VILANTEROL 100/25MCG 14 PUFFS/INHALER INH SCH (07:55)
[2020-02-19] MEDS: UMECLIDINIUM BROMIDE 62.5MCG/BLISTER 7 PUFFS/INHALER INH SCH (07:55)
[2020-02-19] MEDS: METOPROLOL SUCC 50MG EXT REL TAB PO SCH ×2 (07:56→15:57)
[2020-02-19] MEDS: ATORVASTATIN 40 MG TAB PO SCH (07:56)
[2020-02-19] MEDS: MAGNESIUM CHLORIDE 64MG DELAYED REL TAB PO SCH (07:56)
[2020-02-19] MEDS: PARoxetine HCL 20 MG TAB PO SCH (07:56)
[2020-02-19] MEDS: CEROVITE ADV FORMULA TAB PO SCH (07:56)
[2020-02-19] MEDS: CYANOCOBALAMIN 500 MCG TABLET (VITAMIN B-12) PO SCH (07:57)
[2020-02-19] MEDS: EZETIMIBE 10 MG TABLET PO SCH (07:57)
[2020-02-19] MEDS: INSULIN ASPART 100 UNITS/ML 3 ML PEN SC SCH ×4 (07:59→20:09)
[2020-02-19 08:01] LABS: Hematocrit (blood only) 42.8 % (37-47); Hemoglobin 14.6 g/dL (12.0-16.0); Mean Corpuscular Hemoglobin 32.8 pg (25-34); Mean Corpuscular Hgb Conc 34.1 g/dL (32-36); Mean Corpuscular Volume 96.2 fL (80-100); Mean Platelet Volume 11.6 fL (7.4-10.4); Platelet Count 243 K/uL (130-400); RDW Coefficient of Variation 14.2 % (11.5-14.5); RDW Standard Deviation 50.1 fL (36.4-46.3); Red Blood Count 4.45 M/uL (4.2-5.4); White Blood Count 8.79 K/uL (4.8-10.8)
[2020-02-19 08:28] LABS: Albumin Level 3.3 gm/dl (3.4-5.0); Calcium 9.5 mg/dl (8.5-10.1); Creatinine Clr Calc Pharmacy 47.2 ml/min; Est GFR (Non-African American) 40.6; Magnesium 2.1 mg/dl (1.8-2.4); Potassium 3.7 mmol/L (3.5-5.1)
[2020-02-19 08:33] LABS: Albumin Globulin Ratio 0.8 (0.9-2); Globulin 3.9 gm/dl (2.5-4.0); Total Protein 7.2 gm/dl (6.4-8.2)
--- NOTE | 2020-02-19 09:45 | Cardiology Consultation ---
Date of Consultation February 19, 2020 Assessment & Plan (1) Atrial fibrillation with rapid ventricular response: AFib w/ RVR rate of 146 in the ED. Missed 2 days of metoprolol and Digoxin. Dilt drip during this admission 15mg->5mg, since tapered off. 02/17/20 ecg. AFIB w/ RVR. Ventricular rate of 146. Marked ST abnormality, possible inferolateral subendocardial injury. Interpreted by Dr. Silva. 02/18/20 ECHO: Normal LV systolic function. No regional wall motion abnormalities. borderline concentric LVH. EF 55-60%. Mild TR 02/17/20 cxr: No significant change compared to the prior study. No acute process. Stable cardiomegaly. Interpreted by Dr. Naranjo. Plan: Repeat ecg and troponin. Continue FRANCISCO J hoses. Present on Admission?: Yes (2) Acute dyspnea: Differential diagnosis: Subendocardial demand ischemia due to AFib w/ RVR vs. ACS vs. COPD exacerbation vs. PE. Patient's breathing has improved and lung exam CTAB, therefore less suggestive of etiology that needs immediate intervention. No chest pain, mild elevation of troponin and lack on ST elevation on ecg points more towards subendocardial demand ischemia as opposed to STEMI. Unremarkable cxr and clear lungs less likely COPD exacerbation. Anticoagulated and no overt risk factors for PE. Elevated NT-proBNP 7000s. No personal or family hx of blood clots or bleeding disorders. No prolonged immobilization, travel, hormone use. Patient passed walk test w/ desats to low 90s. Stable from cardiology standpoint. Plan: recheck ecg and troponin as per above. 1 dose of 325 mg Aspirin in the hospital. Continue home regimen of metroprolol succinate ER 150 mg PO daily, digoxin 125 mcg PO daily, and daily baby Aspirin. Present on Admission?: Yes (3) COPD (chronic obstructive pulmonary disease): Lung exam clear to auscultation bilaterally and is reassuring. Plan: Continue home regimen. Present on Admission?: Yes Supervising Physician Co-Signing Physician Notes Patient seen and examined. Agree with Dr. Elias's assessment and plan. Minor troponin elevation likely a supply demand mismatch (rapid AFib in the face of LVH). Encouraged medication compliance. Right heart enlarged but normal systolic function. Flattened interventricular septum suggested of RV pressure and volume overload. Suspect pulmonary etiology of her shortness of breath. History of Present Illness Attending Physician: Wong Urias MD History of Present Illness Paige Kat is an 80 year old female w/ hx of CAD s/p multiple stents, AFib on Xarelto, and COPD who presented w/ acute dyspnea on 02/17/20 after missing home medications for 48 hours. Described as "gasping for air." Patient denies any chest pain. Cardiology was consulted to rule out ACS because there were new ST depressions on ECG and a mildly elevated troponin of .097. ECG showed AVR w/ RVR w/ rate of 146 after which the patient was placed on diltiazem drip 15 mg, decreased to 5 mg, since tapered off 30 minutes ago. The patient notes that her breathing has improved from yesterday and current denies any complaints other than a single episode of sensation of "gasping for air" a few minutes ago. Denies any fever/chills, CARL, dizziness, vision changes, N/V, CP, SOB, constipation, diarrhea, urinary symptoms, weakness or numbness/tingling. Allergies Allergy/AdvReac Type Severity Reaction Status Date / Time tramadol Allergy Intermediate "OUT OF Verified 02/26/20 15:40 BODY EXPERIENCE" codeine Allergy Unknown "OUT OF Verified 02/26/20 15:40 BODY EXPERIENCE" metformin AdvReac Intermediate Diarrhea Verified 02/26/20 15:40 raloxifene AdvReac Unknown SWELLING Verified 02/26/20 15:40 Home Medications Home Medications Medication Instructions Recorded Confirmed Type coenzyme Q10 200 mg tablet 200 mg PO DAILY tab 12/18/18 02/28/20 History nitroglycerin 0.4 mg sublingual 0.4 mg SL UD PRN #1 tab 12/18/18 02/28/20 History tablet blood sugar diagnostic #10 ea 01/19/19 02/28/20 History lancets #50 ea 01/19/19 02/28/20 History magnesium chloride 71.5 mg 71.5 mg PO DAILY tab 01/19/19 02/28/20 History (magnesium chloride) tablet,delayed release glimepiride 1 mg tablet 1 mg PO DAILY #90 tab 08/03/19 02/28/20 Rx naproxen sodium 550 mg tablet 550 mg PO DAILY PRN #30 tab 09/04/19 02/28/20 History rivaroxaban 20 mg tablet 20 mg PO DAILY #90 tab 09/04/19 02/28/20 Rx ergocalciferol (vitamin D2) 1,250 1,250 mcg PO WEEKLY #12 cap 10/02/19 02/28/20 Rx mcg (50,000 unit) capsule paroxetine HCl 40 mg tablet 40 mg PO DAILY #90 tab 10/02/19 02/28/20 Rx atorvastatin 80 mg tablet 80 mg PO DAILY #90 tab 11/26/19 02/28/20 Rx digoxin 125 mcg (0.125 mg) tablet 125 mcg PO DAILY #90 tab 11/26/19 02/28/20 Rx ezetimibe 10 mg tablet 10 mg PO DAILY #90 tab 11/27/19 02/28/20 Rx oxycodone-acetaminophen 5 mg-325 1 tab PO Q8H PRN #60 tab 02/14/20 02/28/20 Rx mg tablet blood-glucose meter #1 ea 02/15/20 02/28/20 Rx Ocuvite Adult 50 Plus 1 cap PO DAILY 02/17/20 02/28/20 History aspirin [Aspir-81] 81 mg PO DAILY #30 tab 02/20/20 02/28/20 Rx metoprolol succinate 100 mg 150 mg PO .COMPLEX tab 02/26/20 02/28/20 History tablet,extended release 24 hr multivitamin with minerals-folic 200 mcg PO DAILY tab 02/26/20 02/28/20 History acid 200 mcg chewable tablet albuterol sulfate 90 mcg/actuation 2 puff INH Q6H PRN #18 gm 02/28/20 02/28/20 Rx aerosol inhaler umeclidinium 62.5 mcg-vilanterol 1 puffs INH DAILY #60 ea 02/28/20 02/28/20 Rx 25 mcg/actuation powdr for inhalation lorazepam 0.5 mg tablet 0.5 mg PO BID PRN #30 tab 03/06/20 Rx Patient History Medical History (Updated 02/28/20 @ 16:05 by Ary Chahal MD) Acute UTI Arteriosclerosis of coronary artery Atrial fibrillation Depression with anxiety Diastolic dysfunction Essential hypertension Former smoker Hypercholesterolemia Lobular hyperplasia, atypical, breast Memory loss Osteoporosis Peripheral vascular disease Sensorineural hearing loss (SNHL) of both ears Urge and stress incontinence Urgency incontinence Well tolerated Botox. RTO in 1 month with nursing, 2 months with MD with PVR. Call us sooner PRN issues. Bladder appears inflamed, persistent UTI effect possible - will extend Cipro x an additional week to ensure complete treatment gianfranco-procedure. Vitamin D deficiency Surgical History History of cataract surgery History of coronary artery stent placement RCA and LAD History of intravascular stent placement left superficial femoral artery History of oophorectomy left History of shoulder surgery left History of surgery on wrist History of tubal ligation Family History Sister Myocardial infarction Environmental allergies FH: deafness or hearing loss Breast cancer Mother Coronary heart disease Father Diabetes Denies family history of Ovarian cancer Prostate cancer Bleeding disorder Colorectal cancer Colonic polyp Social History Smoking Status: Former smoker Tobacco Type: Cigarettes Age Started Using Tobacco: 16; Age Quit Using Tobacco: 62; packs per day: 0.5; Second Hand Exposure: No; Hx Alcohol Use: Yes Alcohol type: wine Alcohol Intake Frequency Comment: 1-2 drinks/day Hx Substance Use: No Preferred Language: Maldivian Communication Ability: Effective Visual Impairment: No Limitations Hearing Ability: Hard of Hearing Translator And Interpreter Required: No Beliefs That Will Affect Care: None marital status: Current Living Situation: Spouse current occupational status: retired Feels Safe at Home: Yes Childhood Exposure to Second-Hand Smoke: Yes Dental Care, Regularly: Yes Physical Activity Frequency: Does not Exercise Seatbelt Use: always Sunscreen Use: No Review of Systems Review of Systems: Constitutional: Denies fever, chills, malaise, weight change Eyes: Denies vision changes Cardiovascular: Denies chest pain Respiratory: Denies shortness of breath Gastrointestinal: Denies abdominal pain, nausea, vomiting, constipation, diarrhea Genitourinary: Denies urinary symptoms including dysuria Musculoskeletal: Denies weakness, muscle aches/pain, joint aches/pain Neurological: Denies headache, numbness, tingling, focal weakness Physical Exam Physical Exam: Vital signs stable General: A&Ox3. NAD. Cooperative. HEENT: Atraumatic, normocephalic. EOMI. Pulm: CTAB A&P. -wheezes, -rales, -rhonchi. No increased work of breathing. No respiratory distress. Cardiac: Regular rate irregularly irregular rhythm, -mrg. No carotid bruits on auscultation. Radial pulses intact and symmetrical. Abdominal: Nontender, nondistended, soft. Musculoskeletal: 1+ bilateral lower extremity edema. Results & Data ([facility]) Vital Signs (Past 12 Hours) Vital Signs Temp Pulse Resp BP BP Pulse Ox 02/19/20 07:36 36.7 C 82 22 111/65 93 02/19/20 03:10 36.5 C 65 17 116/56 L 98 02/18/20 23:15 36.3 C L 83 22 131/79 96 PG Care Time/CCT Total # of Minutes Spent Total Time Spent with Patient: Total time spent is greater than 50% in coordination of care (as documented) at patient's floor/unit and/or counseling patient: 30 minutes Coding Level of Care Code 23732 Inpt Consult Level 4 Diagnoses Atrial fibrillation with rapid ventricular response I48.91 Acute dyspnea R06.00 COPD (chronic obstructive pulmonary disease) J44.9
[2020-02-19] MEDS: dilTIAZem HCL 125 MG in DEXTROSE 5% 100 ML IV SCH (14:40)
--- NOTE | 2020-02-19 18:24 | Hospitalist Progress Note ---
Date of Service February 19, 2020 Assessment & Plan (1) Acute dyspnea: Thought to be due to afib with RVR; however, NOT better today despite better rate control. CXR reviewed, no acute processes. No COVID-19 known contacts, no recent travel, afebrile, no cough- no suspicion for COVID-19 infection. Unlikely PE because pt is already anticoagulated. - Cardiology consulted & feel it is not related to angina and is more lung- related. (2) Atrial fibrillation with rapid ventricular response: Due to missing 48 hours of home rate control medications. - Stopped Cardizem drip on 02/18 for good HR control. - Continue beta-ana rosa and digoxin - Cardiology consult - Check 2D echo -> EF ok. - Xarelto for anticoagulation (3) COPD (chronic obstructive pulmonary disease): History of such, patient has recently been seen by PCP within the past week and is being set up for home supplemental oxygen. - Continue Incruse inhaler - Noted that pt is on oxycodone/acetaminophen for pain and Ativan for anxiety (4) Diastolic dysfunction: Chronic, stable. - Echo as above (5) Essential hypertension: BP was 120/80 in the ED; lower while on diltiazem gtt. Now stable at 110/70. - Continue metoprolol, digoxin as above (6) Hypercholesterolemia: Recent lipid panel reveals total cholesterol of 283. - Continue high intensity statin, atorvastatin 80 mg daily, acetamide 10 mg daily - HH/DM diet, encourage exercise (7) Type 2 diabetes mellitus: Last A1c = 6.3% on 02/11/2020. - Hold glimepiride - [facility] (8) Urge and stress incontinence: [place] [facility] [place], will need follow-up prior to discharge. Patient has recently finished taking long course of nitrofurantoin as outpatient for UTI: In September had E. coli (resistant to Cipro and Levaquin) and Jul 2019 had Proteus mirabilis (resistant to ampicillin and cefazolin). - Pt planning on using azo as an outpatient - consider asking urology for recs regarding OTC meds? (9) Osteoporosis: Remote smoking hx. - Continue Vit D supplementation - Encouraged weight-bearing exercises (10) DVT prophylaxis: Melinda Griffin Admission and Anticipated Discharge Date Admission Date: February 17, 2020 Subjective Doing better today, though still somewhat limited when it comes to exercise tolerance. Reports no fevers/chills, chest pain, abdominal pain, nausea, or vomiting. Physical Exam Constitutional: WD/WN, vitals as above Eyes: EOM intact bilaterally; no conjunctival abnormality ENMT: external ear and nose normal, oropharynx normal Neck: trachea midline, no thyromegaly normal visual inspection Respiratory: normal respiratory effort, lungs clear to auscultation no respiratory distress Cardiovascular: Rate/Rhythm: regular rate and + irregularly irregular Heart Sounds: normal S1 and normal S2 Vessels: no JVD Extremities: no edema Gastrointestinal (Abdomen): Inspection/Auscultation: abdomen normal to inspection; abdomen not distended Musculoskeletal: no cyanosis or clubbing, extremities motor strength 5/5 Skin: no rashes, warm and dry Neurologic: moves all extremities and awake Psychiatric: Orientation: alert, oriented to person and cooperative Results & Data Results & Data ([facility]) Vital Signs (Past 12 Hours) Vital Signs Temp Pulse Resp BP BP Pulse Ox 02/19/20 15:27 36.4 C L 83 18 112/71 93 02/19/20 11:32 36.6 C 75 18 115/66 94 02/19/20 07:36 36.7 C 82 22 111/65 93 PG Care Time/CCT Total # of Minutes Spent Total Time Spent with Patient: Total time spent is greater than 50% in coordination of care (as documented) at patient's floor/unit and/or counseling patient: Coding Level of Care Code 61012 Subseq Hosp Care Lvl 2 Diagnoses Acute dyspnea R06.00 Atrial fibrillation with rapid ventricular response I48.91 COPD (chronic obstructive pulmonary disease) J44.9 Diastolic dysfunction I51.89 Essential hypertension I10 Hypercholesterolemia E78.00 Type 2 diabetes mellitus E11.9 Urge and stress incontinence N39.46 Osteoporosis M81.0 Osteoporosis type: age-related Presence of current pathological fracture: without current pathological fracture DVT prophylaxis Z29.9 (1) Osteoporosis Osteoporosis type: age-related Presence of current pathological fracture: without current pathological fracture Qualified Code(s): M81.0 - Age-related osteoporosis without current pathological fracture
[2020-02-19] MEDS: RIVAROXABAN 20 MG TAB PO SCH (20:05)
[2020-02-20 06:09] LABS: Hematocrit (blood only) 42.4 % (37-47); Mean Corpuscular Hemoglobin 31.4 pg (25-34); Mean Corpuscular Volume 95.1 fL (80-100); Mean Platelet Volume 11.7 fL (7.4-10.4); Platelet Count 253 K/uL (130-400); RDW Coefficient of Variation 13.9 % (11.5-14.5); RDW Standard Deviation 48.1 fL (36.4-46.3); Red Blood Count 4.46 M/uL (4.2-5.4); White Blood Count 8.34 K/uL (4.8-10.8)
[2020-02-20 06:49] LABS: Albumin Globulin Ratio 0.8 (0.9-2); Albumin Level 3.2 gm/dl (3.4-5.0); BUN Creatinine Ratio 37.8 (10-20); Bilirubin,Total 0.6 mg/dl (0.2-1); Calcium 9.2 mg/dl (8.5-10.1); Creatinine Clr Calc Pharmacy 64.9 ml/min; Est GFR (African American) 68.2; Est GFR (Non-African American) 58.8; Globulin 4.1 gm/dl (2.5-4.0); Potassium 3.6 mmol/L (3.5-5.1); Total Protein 7.3 gm/dl (6.4-8.2)
[2020-02-20] MEDS: INSULIN ASPART 100 UNITS/ML 3 ML PEN SC SCH ×2 (08:01→11:52)
[2020-02-20] MEDS: FLUTICASONE/VILANTEROL 100/25MCG 14 PUFFS/INHALER INH SCH (08:05)
[2020-02-20] MEDS: CYANOCOBALAMIN 500 MCG TABLET (VITAMIN B-12) PO SCH (08:06)
[2020-02-20] MEDS: PARoxetine HCL 20 MG TAB PO SCH (08:06)
[2020-02-20] MEDS: UMECLIDINIUM BROMIDE 62.5MCG/BLISTER 7 PUFFS/INHALER INH SCH (08:06)
[2020-02-20] MEDS: ATORVASTATIN 40 MG TAB PO SCH (08:06)
[2020-02-20] MEDS: MAGNESIUM CHLORIDE 64MG DELAYED REL TAB PO SCH (08:07)
[2020-02-20] MEDS: METOPROLOL SUCC 50MG EXT REL TAB PO SCH (08:07)
[2020-02-20] MEDS: CEROVITE ADV FORMULA TAB PO SCH (08:07)
[2020-02-20] MEDS: EZETIMIBE 10 MG TABLET PO SCH (08:07)
--- NOTE | 2020-02-20 19:52 | Discharge Summary ---
Date of Service February 20, 2020 Admission HPI Per Admitting Provider This is a 80-year-old female with PMHx of CAD, chronic diastolic CHF, HTN, A. fib on Xarelto, HLD, DM type II, COPD, remote smoking history, peripheral vascular disease, osteoporosis, vitamin D deficiency who presented to the ER today via ambulance due to increased dyspnea on exertion. Her is present with her bedside and supports the history. Last evening she began feeling worse and therefore did not take her medications at that time either. She reports significant sensation of shortness of breath especially on exertion, worse whenever she attempted to stand up earlier this morning. "I felt the worst I ever have felt in my life, it was very scary". Pt is well aware of her diagnosis of afib, although has never felt palpitations before, she felt the blood rushing through her veins this morning. She admits to nausea but no vomiting, and denies any sensation of heart palpitations or flutter, no dizziness, lightheadedness, LOC or falls. Medications at home for rate control include digoxin and metoprolol succinate, and she has not taken either medication within the last 48 hours. She states sometimes she and her get up late in the morning, and therefore she skips her morning dose. Patient recently saw her PCP where they were initiating home oxygen therapy and filling out paperwork for her to be on home supplemental O2. She is currently on 4L in the ER. Patient states she feels much better at this point. Another complaint of the patient's includes overactive bladder, where she recently was seeing Dr. Urias, however since he has recently departed [facility], she has not been rescheduled. Patient reports chronic incontinence and was going to start taking [id number] Azo tomorrow (prior to this event), see if this improved her symptoms. Patient has been started on Cardizem drip, heart rate at bedside bounces between 110s to 120s. Will resume metoprolol and digoxin with doses now. Principal Diagnosis Atrial fibrillation with RVR Possible COPD vs. atypical angina -> Testing still pending Discharge Exam Constitutional WD/WN, vitals as above Eyes EOM intact bilaterally; no conjunctival abnormality ENMT external ear and nose normal, oropharynx normal Neck trachea midline, no thyromegaly normal visual inspection Respiratory normal respiratory effort, lungs clear to auscultation no respiratory distress Cardiovascular Rate/Rhythm: regular rate and + irregularly irregular Heart Sounds: normal S1 and normal S2 Vessels: no JVD Extremities: no edema Gastrointestinal (Abdomen) Inspection/Auscultation: abdomen normal to inspection; abdomen not distended Musculoskeletal no cyanosis or clubbing, extremities motor strength 5/5 Skin no rashes, warm and dry Neurologic moves all extremities and awake Psychiatric Orientation: alert, oriented to person and cooperative Discharge Data Allergies Allergy/AdvReac Type Severity Reaction Status Date / Time tramadol Allergy Intermediate "OUT OF Verified 02/17/20 15:49 BODY EXPERIENCE" codeine Allergy Unknown "OUT OF Verified 02/17/20 15:49 BODY EXPERIENCE" metformin AdvReac Intermediate Diarrhea Verified 02/17/20 15:49 raloxifene AdvReac Unknown SWELLING Verified 02/17/20 15:49 Consultations 02/17/20 15:24 ED Decision to Admit Stat 02/17/20 18:24 Consult Case Management - Discharge Planning Routine 02/18/20 14:47 Consult Cardiology Routine 02/20/20 12:56 [facility] COPD/Pnx Program Referral Routine Hospital Course (1) Acute dyspnea: Thought to be due to afib with RVR; however, NOT better today despite better rate control. CXR reviewed, no acute processes. No COVID-19 known contacts, no recent travel, afebrile, no cough- no suspicion for COVID-19 infection. Unlikely PE because pt is already anticoagulated. - Cardiology consulted & feel it is not related to angina and is more lung- related. - By discharge, it was ~50 - 60% improved. The patient wanted to go home which I feel was acceptable/safe for her to do with her in agreement. I did walk with her on the day of discharge, and she seems to get less out of breath and more just overall fatigued with walking. Would pursue the following testing outpatient as soon as able: 1) PFTs -> Had them several years ago, was possibly diagnosed with emphysema, but she is unclear. Currently on triple-therapy, so not sure if we can really improve this. No wheezing on exam and good air movement, so I felt COPD exacerbation was unlikely 2) Dobutamine stress test -> After walking with her today, I do feel that atypical angina needs to be ruled out. Her tiredness/dizziness could be an atypical angina symptom. She has had prior vascular stenting in 2013, so clearly she has some vascular disease. This should be done KASSIDY, and I did offer this to her, but she preferred going home. Discussed with CHF/COPD PA who will work with her to get this done. Can also follow up with her PCP. (2) Atrial fibrillation with rapid ventricular response: Due to missing 48 hours of home rate control medications. - Stopped Cardizem drip on 02/18 for good HR control. - Continue beta-ana rosa and digoxin - Cardiology consult - Check 2D echo -> EF ok. - Xarelto for anticoagulation - On discharge, home regimen was controlling heart rate. (3) COPD (chronic obstructive pulmonary disease): History of such, patient has recently been seen by PCP within the past week and is being set up for home supplemental oxygen. - Continue Incruse inhaler - Noted that pt is on oxycodone/acetaminophen for pain and Ativan for anxiety (4) Diastolic dysfunction: Chronic, stable. - Echo as above (5) Essential hypertension: BP was 120/80 in the ED; lower while on diltiazem gtt. Now stable at 110/70. - Continue metoprolol, digoxin as above (6) Hypercholesterolemia: Recent lipid panel reveals total cholesterol of 283. - Continue high intensity statin, atorvastatin 80 mg daily, acetamide 10 mg daily - HH/DM diet, encourage exercise (7) Type 2 diabetes mellitus: Last A1c = 6.3% on 02/11/2020. - Hold glimepiride - [facility] (8) Urge and stress incontinence: Follows with [facility] urology as outpatient, will need follow-up prior to discharge. Patient has recently finished taking long course of nitrofurantoin as outpatient for UTI: In September had E. coli (resistant to Cipro and Levaquin) and Jul 2019 had Proteus mirabilis (resistant to ampicillin and cefazolin). - Pt planning on using azo as an outpatient (9) Osteoporosis: Remote smoking hx. - Continue Vit D supplementation - Encouraged weight-bearing exercises (10) DVT prophylaxis: TEDs, Xarelto Total Time Total Time Spent Total Time Spent (In Minutes): 35 Discharge Plan Discharge Items Patient Disposition: Home - Self-Care Reason For Visit: AFIB W/RVR Discharge Diagnosis: Shortness of breath; likely atrial fibrillation with fast heart rate; also possibly COPD/emphysema worsening Activity: Resume your previous activity Non-emergency contact: Primary Care Provider, Weighbridge Operator and Certified Industrial Hygienist Call non-emergency contact if: your symptoms worsen Follow-up/Referrals: Ben Wiggins MD [Physician] - 02/26/20 3:15 pm (PLEASE ARRIVE 30 MINUTES BEFORE APPOINTMENT TIME) Yusuf Chaudhry III, CRNP [Primary Care Provider] - 02/26/20 9:20 am (PLLEASE ARRIVE 25 MINUTES BEFORE APPOINTMENT TIME) Britany Ching PA-C [Physician [employer] Solution Architect] - (Britany Ching will call on Tuesday to check in with you and arrange follow-up.) Diet: Heart Healthy Addtl Attending Provider Instructions: You were admitted with shortness of breath. We initially thought that this was due to your fast heart rate; however, as we discussed this morning, you are only feeling about 1/2 way better despite your heart rate being under control for about 2 days. We will maintain your medications to bring your heart back into a good rate. Take 1 1/2 tablets (150 mg) of metoprolol in the morning, then a 1/2 tablet (50 mg) in the afternoon as prescribed by your doctor. We also added a baby aspirin (81 mg) to help reduce risk of stroke and heart attack. Please wait to hear from Britany Ching on Tuesday. She is our "shortness of breath" expert and will help you navigate the next steps to help get you feeling back to your usual self. This will likely include a lung test called "PFTs" which you had done a few years back. It may also include a stress test to check that your heart is getting appropriate blood flow when you are exerting yourself. Please also touch base with your family doctor to be sure you are getting all the coordination of your care. Pending Studies at Discharge: No Stand-Alone Forms: [facility], Smoking Cessation Medications and DC Order Prescriptions: New aspirin [Aspir-81] 81 mg tablet,delayed release (DR/EC) 81 mg PO DAILY Qty: 30 RF: 0 Continued fluticasone propion-salmeterol [Advair Diskus] 250-50 mcg/dose blister with device 1 puffs INH BID Qty: 14 RF: 2 lorazepam 0.5 mg tablet 0.5 mg PO BID PRN (Reason: anxiety) Qty: 30 RF: 0 glimepiride 1 mg tablet 1 mg PO DAILY Qty: 90 RF: 1 cyanocobalamin (vitamin B-12) 1,000 mcg tablet, sublingual 1,000 mcg SL DAILY Qty: 90 RF: 1 ergocalciferol (vitamin D2) 1,250 mcg (50,000 unit) capsule 1,250 mcg PO WEEKLY Qty: 12 RF: 1 paroxetine HCl 40 mg tablet 40 mg PO DAILY Qty: 90 RF: 1 atorvastatin 80 mg tablet 80 mg PO DAILY Qty: 90 RF: 3 digoxin 125 mcg (0.125 mg) tablet 125 mcg PO DAILY Qty: 90 RF: 3 ezetimibe [Zetia] 10 mg tablet 10 mg PO DAILY Qty: 90 RF: 1 metoprolol succinate 100 mg tablet extended release 24 hr 150 mg PO .COMPLEX Qty: 75 RF: 3 Incruse Ellipta 62.5 mcg/actuation blister with device 1 puffs INH DAILY Qty: 30 RF: 5 (DME) blood-glucose meter [OneTouch Verio Flex meter] Misc See Rx Instructions .ROUTE .MEDSUPPLY Qty: 1 RF: 0 oxycodone-acetaminophen 5-325 mg tablet 1 tab PO Q8H PRN (Reason: pain) Qty: 60 RF: 0 rivaroxaban 20 mg tablet 20 mg PO DAILY Qty: 90 RF: 1 coenzyme Q10 200 mg tablet 200 mg PO DAILY RF: 0 nitroglycerin 0.4 mg tablet, sublingual 0.4 mg SL UD PRN (Reason: Chest Pain) Qty: 1 RF: 0 (DME) lancets [OneTouch UltraSoft Lancets] misc See Dose Instructions .ROUTE .MEDSUPPLY Qty: 50 RF: 0 (DME) OneTouch Verio test strips strip See Dose Instructions .ROUTE .MEDSUPPLY Qty: 10 RF: 0 Slow-Mag 71.5 mg tablet,delayed release (DR/EC) 71.5 mg PO DAILY RF: 0 naproxen sodium 550 mg tablet 550 mg PO DAILY PRN (Reason: Pain) Qty: 30 RF: 0 Adult Multivitamin Gummies 200 mcg Tablet,Chewable 0 mcg PO DAILY RF: 0 Ocuvite Adult 50 Plus 250-5-1 mg Capsule 1 cap PO DAILY RF: 0 Discharge Orders: Discharge Order (Routine); Ordered 02/20/20 Ordered By: Wong Urias Admission Data Admit Date/Time: 02/17/20 17:10 Attending Provider: Wong Urias Admit Provider: Christie Hopper Primary Care Provider: Yusuf Chaudhry III Other Providers: Wong Urias ; Ben Wiggins ; Britany Ching Other Interventions: Discharge Summary Assessment (RN) Last Done: 02/20/20 13:54 DC Date/Time DO NOT enter until pt leaves facility: 02/20/20 15:00 Coding Level of Care Code D/C Day Management >30 mins Diagnoses Acute dyspnea R06.00 Atrial fibrillation with rapid ventricular response I48.91 COPD (chronic obstructive pulmonary disease) J44.9 Diastolic dysfunction I51.89 Essential hypertension I10 Hypercholesterolemia E78.00 Type 2 diabetes mellitus E11.9 Urge and stress incontinence N39.46 Osteoporosis M81.0 Osteoporosis type: age-related Presence of current pathological fracture: without current pathological fracture DVT prophylaxis Z29.9
[2020-02-24] MEDS ORDERED: ERGOCALCIFEROL 50,000 UNITS CAP PO SCH (09:00)
== END 2020-02-20 15:00 | disposition home or self-care (01) | DRG 309 ==
LOC: ED 13:37 → 2E 17:10

== ENCOUNTER 2022-10-23 02:54 | Inpatient (IN) ==
[2022-10-23 03:48] LABS: Basophils # (auto) 0.05 K/uL (0-0.2); Basophils % (auto) 0.5 %; Eosinophils # (auto) 0.08 K/uL (0-0.50); Eosinophils % (auto) 0.8 %; Hematocrit (blood only) 41.5 % (37.0-47.0); Hemoglobin 13.8 g/dl (12.0-16.0); Immature Granulocytes # (auto) 0.24 K/uL (0.01-0.20); Immature Granulocytes % (auto) 2.3 %; Lymphocytes # (auto) 1.37 K/uL (1.2-3.4); Mean Corpuscular Hgb Conc 33.3 g/dL (32.0-36.0); Mean Corpuscular Volume 93.3 fL (80.0-100.0); Mean Platelet Volume 11.8 fL (9.4-12.4); Monocytes # (auto) 0.72 K/uL (0.11-0.59); Monocytes % (auto) 6.9 %; Neutrophils # (auto) 8.05 K/uL (1.40-6.50); Neutrophils % (auto) 76.5 %; Platelet Count 207 K/uL (130-400); RDW Coefficient of Variation 13.8 % (11.5-14.5); RDW Standard Deviation 47.5 fL (36.4-46.3); Red Blood Count 4.45 M/uL (4.20-5.40); White Blood Count 10.51 K/ul (4.8-10.8)
[2022-10-23] MEDS ORDERED: METOPROLOL TARTRATE 1 MG/ML VIAL IV STA ×2 (03:57→04:43)
[2022-10-23 04:02] LABS: Albumin Globulin Ratio 1.3 (0.9-2); Albumin Level 3.9 gm/dl (3.4-5.0); BUN Creatinine Ratio 23.5 (10-20); Bilirubin,Total 1.2 mg/dl (0.2-1.0); Calcium 8.9 mg/dl (8.6-10.3); Est GFR (African American) 62.3 ml/min; Est GFR (Non-African American) 53.7 ml/min; Globulin 3.1 gm/dl (2.5-4.0); Potassium 3.2 mmol/L (3.5-5.1)
[2022-10-23] MEDS: POTASSIUM CHLORIDE / WTR 10 MEQ/100 ML PLCT IV SCH ×2 (04:57→05:53)
[2022-10-23 05:18] LABS: Magnesium 1.6 mg/dl (1.7-2.4)
[2022-10-23] MEDS ORDERED: oxyCODONE/ACETAMINOPHEN 5mg/325mg TAB PO PRN (05:19)
[2022-10-23] MEDS ORDERED: LORazepam 0.5 MG TAB PO PRN (05:19)
[2022-10-23] MEDS ORDERED: CARBOHYDRATES FOR HYPOGLYCEMIA PO PRN (06:01)
[2022-10-23] MEDS ORDERED: DEXTROSE 50% 50 ML SYRINGE IV PRN (06:01)
[2022-10-23] MEDS ORDERED: GLUCAGON FOR INJ 1 MG VIAL SQ PRN (06:01)
[2022-10-23] MEDS ORDERED: GLUCOSE 10 TAB/TUBE PO PRN (06:01)
[2022-10-23] MEDS ORDERED: GLUCOSE 40% GEL 15 GM TUBE PO PRN (06:01)
--- NOTE | 2022-10-23 06:04 | History & Physical Report ---
Date of Service October 23, 2022 Assessment & Plan (1) COVID-19: Plan: 82yo female presenting with Covid-19 infection. Tested POSITIVE two days ago. She became fatigued and short of breath prompting her to come to the ER. Mildly hypoxic in the ER requiring supplemental O2. -Admit to medical -Maintain isolation precautions -Initiate Dexamethasone 6mg IV daily -Initiate Remdesivir per protocol -Tylenol as needed -Mucinex BID (2) COPD (chronic obstructive pulmonary disease): Plan: Chronic. No wheezing appreciated on exam -Albuterol HFA PRN -Continue Anoro Ellipta (3) Atrial fibrillation with rapid ventricular response: Plan: Patient presented in AF with RVR. Heart rate has improved with Metoprolol 5mg IV -Continue Rivaroxaban -Continue metoprolol 150mg po qAM and 100mg po qPM -Continue Digoxin -Check digoxin level (4) Type 2 diabetes mellitus: Plan: Chronic. Patient on Glimepiride as outpatient. Well controlled for age - HgbA1C on 09/09/22 = 6.3 -Hold oral agents -Lantus 5u BID with ISS -Goal blood sugar 110 - 140 (5) Hypercholesterolemia: Plan: Chronic. -Continue Atorvastatin (6) Essential hypertension: Plan: Chronic. Blood pressure stable -Continue Metoprolol (7) Depression with anxiety: Plan: Chronic -Continue Paxil F/E/N - Heplock. K repletion 40mEq, Mg repletion with 2gm IV, repeat chemistry in AM, CC/AHA diet as tolerated Ppx - Continue Rivaroxaban Code - Full Dispo - Admit to medical History of Present Illness Chief Complaint: Shortness of breath Primary Care Provider: Yusuf Chaudhry, III, GABRIELLE Paige Kat is an 82yo female with history of atrial fibrillation on Rivaroxaban anticoagulation, HLP, HTN, CAD presenting with Covid-19 infection. Patient reports that she and her took home Covid-19 tests 2 days ago which were POSITIVE. She has overall been feeling well. This evening prior to arrival she became acutely short of breath with racing heart and palpitations. Also with worsening fatigue. She came to the ER via EMS - saturations of 88% on room air. She does not use oxygen at home. Patient in atrial fibrillation with RVR upon arrival to the ER - HR of 120's. She was administered Metoprolol 5mg IV x 2 doses with some improvement. Saturations of 90% on room air. Supplemental O2 placed with improvement - now 95% on 3L. Patient is fully vaccinated. Has never had Covid before. ER Course: Metoprolol 5mg IV x 2 KCl 10mEq IV Allergies Allergy/AdvReac Type Severity Reaction Status Date / Time tramadol Allergy Intermediate "OUT OF Verified 09/30/22 12:53 BODY EXPERIENCE" codeine Allergy Unknown "OUT OF Verified 09/30/22 12:53 BODY EXPERIENCE" metformin AdvReac Intermediate Diarrhea Verified 09/30/22 12:53 raloxifene AdvReac Unknown SWELLING Verified 09/30/22 12:53 Home Medications Medication Instructions Recorded Confirmed Type coenzyme Q10 200 mg tablet 200 mg PO DAILY 12/18/18 09/30/22 History blood sugar diagnostic (OneTouch #10 ea 01/19/19 09/30/22 History Verio test strips) lancets (More[employer] Se[employer] InternationalTouch UltraSoft #50 ea 01/19/19 09/30/22 History Lancets) magnesium chloride 71.5 mg 71.5 mg PO DAILY 01/19/19 09/30/22 History (magnesium chloride) tablet,delayed release (Slow-Mag) oxycodone-acetaminophen 5 mg-325 1 tab PO Q8H PRN pain #60 tabs 02/14/20 09/30/22 Rx mg tablet blood-glucose meter (OneTouch #1 ea 02/15/20 09/30/22 Rx Verio Flex Meter) vit C,E,zinc,copper-[id number] 250 1 cap PO DAILY 02/17/20 09/30/22 History mg-lutein 5 mg-zeaxanthin 1 mg capsule (Ocuvite Adult 50 Plus) multivitamin with minerals-folic 200 mcg PO DAILY 02/26/20 09/30/22 History acid 200 mcg chewable tablet (Adult Multivitamin Gummies) umeclidinium 62.5 mcg-vilanterol 1 inh inhalation DAILY #1 inhaler 07/28/21 09/30/22 Rx 25 mcg/actuation powdr for inhalation (Anoro Ellipta) nitroglycerin 0.4 mg sublingual 0.4 mg sublingual UD PRN Chest 01/18/22 09/30/22 Rx tablet Pain #7 tabs atorvastatin 80 mg tablet 80 mg PO DAILY #90 tabs 02/24/22 09/30/22 Rx rivaroxaban 20 mg tablet 20 mg PO DAILY #90 tabs 03/11/22 09/30/22 Rx paroxetine HCl 40 mg tablet See Rx Instructions .Route 04/06/22 09/30/22 Rx .COMPLEX #90 tabs diclofenac sodium 1 % topical gel 2 g topical QID #100 grams 04/20/22 09/30/22 Rx glimepiride 1 mg tablet 1 mg PO DAILY #90 tabs 05/21/22 09/30/22 Rx metoprolol succinate 100 mg 150 mg PO .COMPLEX #225 tabs 06/16/22 09/30/22 Rx tablet,extended release 24 hr digoxin 125 mcg (0.125 mg) tablet 125 mcg PO DAILY #90 tabs 07/27/22 09/30/22 Rx ezetimibe 10 mg tablet (Zetia) 10 mg PO DAILY #90 tabs 07/27/22 09/30/22 Rx ergocalciferol (vitamin D2) 1,250 1,250 mcg PO WEEKLY #12 caps 08/16/22 09/30/22 Rx mcg (50,000 unit) capsule lorazepam 0.5 mg tablet 0.5 mg PO BID PRN anxiety #30 tabs 08/30/22 09/30/22 Rx albuterol sulfate 90 mcg/actuation 2 puff inhalation Q6H PRN 09/28/22 09/30/22 Rx aerosol inhaler Shortness Of Breath Or Wheezing #18 grams Past Med/Surg History Medical History Acute UTI Arteriosclerosis of coronary artery Atrial fibrillation Depression with anxiety Diastolic dysfunction Essential hypertension Former smoker Hypercholesterolemia Lobular hyperplasia, atypical, breast Memory loss Osteoporosis Peripheral vascular disease Sensorineural hearing loss (SNHL) of both ears Urge and stress incontinence Urgency incontinence Vitamin D deficiency Surgical History History of cataract surgery History of coronary artery stent placement History of intravascular stent placement History of oophorectomy History of shoulder surgery History of surgery on wrist History of tubal ligation Family History Sister Myocardial infarction Environmental allergies FH: deafness or hearing loss Breast cancer Mother Coronary heart disease Father Diabetes Denies family history of Ovarian cancer Prostate cancer Bleeding disorder Colorectal cancer Colonic polyp Social History Smoking Status: Former smoker Tobacco Type: Cigarettes Age Started Using Tobacco: 16; Age Quit Using Tobacco: 62; packs per day: 0.5; Second Hand Exposure: No; Hx Alcohol Use: Yes Alcohol type: wine Alcohol Intake Frequency: 4 or More x per/Week Alcohol Intake Frequency Comment: 1-2 drinks/day Hx Substance Use: No Preferred Language: Faroese Communication Ability: Effective Visual Impairment: No Limitations Hearing Ability: Hard of Hearing Sql Data Analyst Required: No Beliefs That Will Affect Care: None marital status: Current Living Situation: Spouse current occupational status: retired current occupation: retired inkeeper from [employer] Feels Safe at Home: Yes Childhood Exposure to Second-Hand Smoke: Yes Dental Care, Regularly: No Physical Activity Frequency: Does not Exercise Seatbelt Use: always Sunscreen Use: No Assistive Devices: Denture - Upper and Glasses Review of Systems Review of Systems: All systems reviewed & are unremarkable except as noted in HPI & below Physical Exam Physical Exam: General: patient resting comfortably, NAD, non-toxic in appearance, AA&O x 4 Skin: warm, dry, intact, no rashes or lesions HEENT: NC/AT, PERRL, EOMI, anicteric sclera, conjunctiva without injection, external ear normal to inspection and nontender, nares patent, moist mucus membranes, dentition intact, no oropharyngeal lesions, neck supple, trachea midline, no LAD, no thyromegaly, no JVD Heart: +S1/S2, regular, no m/r/g Lungs: equal air entry bilaterally, no rales/rhonchi/wheezes Abd: +BS, soft, NT/ND, no masses/organomegaly/ascites Ext: warm, 2+ pulses in UE/LE bilaterally, no clubbing/cyanosis or edema Neuro: nonfocal, patient AA&O x 4, speech intact, no facial droop, moving all extremities on command with equal strength 5/5 Results & Data Results & Data Vital Signs (Past 12 Hours) Vital Signs Temp Pulse Pulse Resp BP Pulse Ox O2 Del Method 10/23/22 05:00 97 H 22 125/74 95 Nasal Cannula 10/23/22 04:32 99 H 22 93 Nasal Cannula 10/23/22 04:09 116 H 20 128/81 95 Nasal Cannula 10/23/22 04:08 116 H 128/81 10/23/22 03:39 95 Nasal Cannula 10/23/22 03:16 90 Room Air, Nasal Cannula 10/23/22 03:16 Room Air 10/23/22 03:16 36.6 C 117 H 26 H 121/80 90 Room Air 10/23/22 03:07 120 H O2 Flow Rate 10/23/22 05:00 2 10/23/22 04:32 3 10/23/22 04:09 3 10/23/22 04:08 10/23/22 03:39 3 10/23/22 03:16 0 10/23/22 03:16 10/23/22 03:16 10/23/22 03:07 Laboratory Results Laboratory Results WBC 10.51 K/ul (4.8-10.8) 10/23/22 03:23 RBC 4.45 M/uL (4.20-5.40) 10/23/22 03:23 Hgb 13.8 g/dl (12.0-16.0) 10/23/22 03:23 Hct 41.5 % (37.0-47.0) 10/23/22 03: MCV 93.3 fL (80.0-100.0) 10/23/22 03:23 MCH 31.0 pg (25.0-34.0) 10/23/22 03: MCHC 33.3 g/dL (32.0-36.0) 10/23/22 03:23 RDW Std Deviation 47.5 fL (36.4-46.3) H 10/23/22 03:23 RDW Coeff of Loli 13.8 % (11.5-14.5) 10/23/22 03: Plt Count 207 K/uL (130-400) 10/23/22 03:23 MPV 11.8 fL (9.4-12.4) 10/23/22 03:23 Immature Gran % (Auto) 2.3 % 10/23/22 03:23 Neut % (Auto) 76.5 % 10/23/22 03:23 Lymph % (Auto) 13.0 % 10/23/22 03:23 [place] % (Auto) 6.9 % 10/23/22 03:23 Eos % (Auto) 0.8 % 10/23/22 03:23 Baso % (Auto) 0.5 % 10/23/22 03:23 Neut # (Auto) 8.05 K/uL (1.40-6.50) H 10/23/22 03:23 Lymph # (Auto) 1.37 K/uL (1.2-3.4) 10/23/22 03:23 [place] # (Auto) 0.72 K/uL (0.11-0.59) H 10/23/22 03:23 Eos # (Auto) 0.08 K/uL (0-0.50) 10/23/22 03: Baso # (Auto) 0.05 K/uL (0-0.2) 10/23/22 03: Immature Gran # (Auto) 0.24 K/uL (0.01-0.20) H 10/23/22 03:23 Sodium 145 mmol/L (136-145) 10/23/22 03: Potassium 3.2 mmol/L (3.5-5.1) L 10/23/22 03: Chloride 107 mmol/L (98-107) 10/23/22 03: Carbon Dioxide 27 mmol/L (21-32) 10/23/22 03:23 Anion Gap 11 (3-11) 10/23/22 03:23 BUN 23 mg/dl (6-23) 10/23/22 03: Creatinine 0.98 mg/dl (0.6-1.2) 10/23/22 03:23 Est Cr Clr Drug Dosing 54.0 ml/min 10/23/22 03:23 Est GFR ( Amer) 62.3 ml/min 10/23/22 03:23 Est GFR (Non-Af Amer) 53.7 ml/min 10/23/22 03:23 BUN/Creatinine Ratio 23.5 (10-20) H 10/23/22 03:23 Glucose 276 mg/dl (70-99(Fasting)) H 10/23/22 03:23 Calcium 8.9 mg/dl (8.6-10.3) 10/23/22 03:23 Magnesium 1.6 mg/dl (1.7-2.4) L 10/23/22 03:23 Total Bilirubin 1.2 mg/dl (0.2-1.0) H 10/23/22 03:23 AST 23 U/L (13-39) 10/23/22 03:23 ALT 19 U/L (7-52) 10/23/22 03:23 Alkaline Phosphatase 72 U/L (34-104) 10/23/22 03: Total Protein 7.0 gm/dl (6.0-8.3) 10/23/22 03: Albumin 3.9 gm/dl (3.4-5.0) 10/23/22 03: Globulin 3.1 gm/dl (2.5-4.0) 10/23/22 03: Albumin/Globulin Ratio 1.3 (0.9-2) 10/23/22 03:23 SARS-CoV-2, RNA, NAAT POSITIVE (NEGATIVE) A* 10/23/22 03:24 Code Status & VTE Plan VTE Prophylaxis Plan VTE Prophylaxis will be ordered: Yes PG Care Time/CCT Total # of Minutes Spent Total Time Spent with Patient: Total time spent is greater than 50% in coordination of care (as documented) at patient's floor/unit and/or counseling patient: Coding Level of Care Code 41657 INT INP/OBS CARE 3/75MIN Diagnoses COVID-19 U07.1 COPD (chronic obstructive pulmonary disease) J44.9 Atrial fibrillation with rapid ventricular response I48.91 Type 2 diabetes mellitus E11.9 Hypercholesterolemia E78.00 Essential hypertension I10 Depression with anxiety F41.8
--- NOTE | 2022-10-23 07:47 | Emergency Department Note ---
ED Provider Note CHIEF COMPLAINT: [] HISTORY OF PRESENT ILLNESS: This [] patient presents to the emergency department [] REVIEW OF SYSTEMS: A review of systems was performed with positives and pertinent negatives listed in the history of present illness. 10 systems were reviewed and are otherwise negative. ALLERGIES: see below MEDICATIONS: see below PMH: see below SOCIAL HISTORY: see below DDx: [] PHYSICAL EXAM: Vital signs reviewed. General: Well-appearing, in no significant distress. HEENT: No scleral icterus, PERRLA, neck supple. Atraumatic. Cardiovascular: Regular rate and rhythm, no extra sounds. Pulmonary: Clear to auscultation bilaterally, normal work of breathing. Abdomen: Soft, nontender, nondistended, positive bowel sounds. Musculoskeletal: Atraumatic, no peripheral edema. Neurologic: Patient awake alert and oriented x 3, speech is clear Skin: Warm, dry, no rash EMERGENCY DEPARTMENT COURSE/MDM: [] MONITORING: An order for cardiac monitoring was placed and the patient is noted to be in a [] at [] beats per minute. RADIOLOGY: EKG: DISPOSITION: Past Med/Surg History Medical History Acute UTI Arteriosclerosis of coronary artery Atrial fibrillation Depression with anxiety Diastolic dysfunction Essential hypertension Former smoker Hypercholesterolemia Lobular hyperplasia, atypical, breast Memory loss Osteoporosis Peripheral vascular disease Sensorineural hearing loss (SNHL) of both ears Urge and stress incontinence Urgency incontinence Vitamin D deficiency Surgical History History of cataract surgery History of coronary artery stent placement History of intravascular stent placement History of oophorectomy History of shoulder surgery History of surgery on wrist History of tubal ligation Family History Sister Myocardial infarction Environmental allergies FH: deafness or hearing loss Breast cancer Mother Coronary heart disease Father Diabetes Denies family history of Ovarian cancer Prostate cancer Bleeding disorder Colorectal cancer Colonic polyp Social History Smoking Status: Former smoker Tobacco Type: Cigarettes Age Started Using Tobacco: 16; Age Quit Using Tobacco: 62; packs per day: 0.5; Second Hand Exposure: No; Hx Alcohol Use: Yes Alcohol type: wine Alcohol Intake Frequency: 4 or More x per/Week Alcohol Intake Frequency Comment: 1-2 drinks/day Hx Substance Use: No Preferred Language: Portuguese Communication Ability: Effective Visual Impairment: No Limitations Hearing Ability: Hard of Hearing Application Development Liaison Required: No Beliefs That Will Affect Care: None marital status: Current Living Situation: Spouse current occupational status: retired current occupation: retired inkeeper from [employer] Feels Safe at Home: Yes Childhood Exposure to Second-Hand Smoke: Yes Dental Care, Regularly: No Physical Activity Frequency: Does not Exercise Seatbelt Use: always Sunscreen Use: No Assistive Devices: Denture - Upper and Glasses Allergies Allergies Allergy/AdvReac Type Severity Reaction Status Date / Time tramadol Allergy Intermediate "OUT OF Verified 10/23/22 06:26 BODY EXPERIENCE" codeine Allergy Unknown "OUT OF Verified 10/23/22 06:26 BODY EXPERIENCE" metformin AdvReac Intermediate Diarrhea Verified 10/23/22 06:26 raloxifene AdvReac Unknown SWELLING Verified 10/23/22 06:26 Home Meds Home Medications Medication Instructions Recorded Confirmed coenzyme Q10 200 mg tablet 200 mg PO DAILY 12/18/18 10/23/22 blood sugar diagnostic (OneTouch #10 ea 01/19/19 09/30/22 Verio test strips) lancets (OneTouch UltraSoft #50 ea 01/19/19 09/30/22 Lancets) magnesium chloride 71.5 mg 71.5 mg PO DAILY 01/19/19 10/23/22 (magnesium chloride) tablet,delayed release (Slow-Mag) vit C,E,zinc,copper-bhsgb5p 250 1 cap PO DAILY 02/17/20 10/23/22 mg-lutein 5 mg-zeaxanthin 1 mg capsule (Ocuvite Adult 50 Plus) multivitamin with minerals-folic 200 mcg PO DAILY 02/26/20 10/23/22 acid 200 mcg chewable tablet (Adult Multivitamin Gummies) Previous Rx's Medication Instructions Recorded oxycodone-acetaminophen 5 mg-325 1 tab PO Q8H PRN pain #60 tabs 02/14/20 mg tablet blood-glucose meter (OneTouch #1 ea 02/15/20 Verio Flex Meter) umeclidinium 62.5 mcg-vilanterol 1 inh inhalation DAILY #1 inhaler 07/28/21 25 mcg/actuation powdr for inhalation (Anoro Ellipta) nitroglycerin 0.4 mg sublingual 0.4 mg sublingual UD PRN Chest 01/18/22 tablet Pain #7 tabs atorvastatin 80 mg tablet 80 mg PO DAILY #90 tabs 02/24/22 paroxetine HCl 40 mg tablet See Rx Instructions .Route 04/06/22 .COMPLEX #90 tabs diclofenac sodium 1 % topical gel 2 g topical QID #100 grams 04/20/22 glimepiride 1 mg tablet 1 mg PO DAILY #90 tabs 05/21/22 metoprolol succinate 100 mg 150 mg PO .COMPLEX #225 tabs 06/16/22 tablet,extended release 24 hr digoxin 125 mcg (0.125 mg) tablet 125 mcg PO DAILY #90 tabs 07/27/22 ergocalciferol (vitamin D2) 1,250 1,250 mcg PO WEEKLY #12 caps 08/16/22 mcg (50,000 unit) capsule lorazepam 0.5 mg tablet 0.5 mg PO BID PRN anxiety #30 tabs 08/30/22 albuterol sulfate 90 mcg/actuation 2 puff inhalation Q6H PRN 09/28/22 aerosol inhaler Shortness Of Breath Or Wheezing #18 grams Results & Data (ED) Vital Signs Vital Signs - 24 hr 10/23/22 03:07 10/23/22 03:16 10/23/22 03:16 Temperature 36.6 C Temperature Source Oral Pulse Rate 120 H 117 H Pulse Rate [Apical] Respiratory Rate 26 H Respiratory Effort / Characteristics Short of Breath SOB on Exertion Respiratory Depth Normal Respiratory Pattern Tachypnea Blood Pressure 121/80 Blood Pressure Mean 93 Blood Pressure Position Semi-fowlers Pulse Oximetry 90 Oxygen Delivery Method Room Air Room Air Oxygen Flow Rate Sepsis Recent Fever Within 48 Hours No Sepsis New/Unexplained Change in Mental Status N/A Sepsis Action Taken by Nursing No Action Required Oxygen Flow Rate - Titration Pulse Oximetry Post Tiitration 10/23/22 03:16 10/23/22 03:39 10/23/22 04:08 Temperature Temperature Source Pulse Rate 116 H Pulse Rate [Apical] Respiratory Rate Respiratory Effort / Characteristics Respiratory Depth Respiratory Pattern Blood Pressure 128/81 Blood Pressure Mean Blood Pressure Position Pulse Oximetry 90 95 Oxygen Delivery Method Room Air Nasal Cannula Nasal Cannula Oxygen Flow Rate 0 3 Sepsis Recent Fever Within 48 Hours Sepsis New/Unexplained Change in Mental Status Sepsis Action Taken by Nursing Oxygen Flow Rate - Titration 2 Pulse Oximetry Post Tiitration 99 10/23/22 04:09 10/23/22 04:32 10/23/22 05:00 Temperature Temperature Source Pulse Rate 116 H 97 H Pulse Rate [Apical] 99 H Respiratory Rate 20 22 22 Respiratory Effort / Characteristics Non-Labored Spontaneous Respiratory Depth Normal Respiratory Pattern Regular Blood Pressure 128/81 125/74 Blood Pressure Mean 96 91 Blood Pressure Position Pulse Oximetry 95 93 95 Oxygen Delivery Method Nasal Cannula Nasal Cannula Nasal Cannula Oxygen Flow Rate 3 3 2 Sepsis Recent Fever Within 48 Hours Sepsis New/Unexplained Change in Mental Status Sepsis Action Taken by Nursing Oxygen Flow Rate - Titration Pulse Oximetry Post Tiitration 10/23/22 06:33 10/23/22 07:07 Temperature Temperature Source Pulse Rate 99 H 106 H Pulse Rate [Apical] Respiratory Rate 20 Respiratory Effort / Characteristics Respiratory Depth Respiratory Pattern Blood Pressure 121/61 Blood Pressure Mean 81 Blood Pressure Position Pulse Oximetry 95 Oxygen Delivery Method Nasal Cannula Oxygen Flow Rate 3 Sepsis Recent Fever Within 48 Hours Sepsis New/Unexplained Change in Mental Status Sepsis Action Taken by Nursing Oxygen Flow Rate - Titration Pulse Oximetry Post Tiitration Laboratory Data 10/23/22 03:23 10/23/22 03:23 Lab Results 10/23/22 10/23/22 10/23/22 Range/Units 03:23 03:23 03:24 WBC 10.51 (4.8-10.8) K/ul RBC 4.45 (4.20-5.40) M/uL Hgb 13.8 (12.0-16.0) g/dl Hct 41.5 (37.0-47.0) % MCV 93.3 (80.0-100.0) fL MCH 31.0 (25.0-34.0) pg MCHC 33.3 (32.0-36.0) g/dL RDW Std Deviation 47.5 H (36.4-46.3) fL RDW Coeff of Loli 13.8 (11.5-14.5) % Plt Count 207 (130-400) K/uL MPV 11.8 (9.4-12.4) fL Immature Gran % (Auto) 2.3 % Neut % (Auto) 76.5 % Lymph % (Auto) 13.0 % Newberry % (Auto) 6.9 % Eos % (Auto) 0.8 % Baso % (Auto) 0.5 % Neut # (Auto) 8.05 H (1.40-6.50) K/uL Lymph # (Auto) 1.37 (1.2-3.4) K/uL Newberry # (Auto) 0.72 H (0.11-0.59) K/uL Eos # (Auto) 0.08 (0-0.50) K/uL Baso # (Auto) 0.05 (0-0.2) K/uL Immature Gran # (Auto) 0.24 H (0.01-0.20) K/uL Sodium 145 (136-145) mmol/L Potassium 3.2 L (3.5-5.1) mmol/L Chloride 107 (98-107) mmol/L Carbon Dioxide 27 (21-32) mmol/L Anion Gap 11 (3-11) BUN 23 (6-23) mg/dl Creatinine 0.98 (0.6-1.2) mg/dl Est Cr Clr Drug Dosing 54.0 ml/min Est GFR ( Amer) 62.3 ml/min Est GFR (Non-Af Amer) 53.7 ml/min BUN/Creatinine Ratio 23.5 H (10-20) Glucose 276 H (70-99(Fasting)) mg/dl Calcium 8.9 (8.6-10.3) mg/dl Magnesium 1.6 L (1.7-2.4) mg/dl Total Bilirubin 1.2 H (0.2-1.0) mg/dl AST 23 (13-39) U/L ALT 19 (7-52) U/L Alkaline Phosphatase 72 (34-104) U/L Total Protein 7.0 (6.0-8.3) gm/dl Albumin 3.9 (3.4-5.0) gm/dl Globulin 3.1 (2.5-4.0) gm/dl Albumin/Globulin Ratio 1.3 (0.9-2) SARS-CoV-2, RNA, NAAT POSITIVE A* (NEGATIVE) Administered Medications Discontinued Medications Potassium Chloride (K Yovani / Wtr) 10 meq in 100 mls @ 100 mls/hr IV Q1H WINSTON; Protocol Stop: 10/23/22 06:44 Last Admin: 10/23/22 05:53 Dose: 100 mls/hr Documented By: Infusion: 10/23/22 05:53 Dose: 100 mls/hr Documented By: Admin: 10/23/22 04:57 Dose: 100 mls/hr Documented By: GILMAR Metoprolol Tartrate (Metoprolol Tartrate 1 Mg/Ml Vial) 5 mg IV NOW STA Stop: 10/23/22 03:58 Last Admin: 10/23/22 04:08 Dose: 5 mg Documented By: GILMAR Metoprolol Tartrate (Metoprolol Tartrate 1 Mg/Ml Vial) 5 mg IV NOW STA Stop: 10/23/22 04:44 Last Admin: 10/23/22 04:58 Dose: 5 mg Documented By: GILMAR Discharge Plan Visit Data Chief Complaint: Shortness of Breath/Dyspnea Stated Complaint: Covid Positive ED Provider: Keke Elizondo Forms Stand Alone Forms: [facility] [place] [employer] Prescriptions Prescriptions: No Action (DME) blood-glucose meter [[employer] Verio Flex meter] Misc See Rx Instructions .ROUTE .MEDSUPPLY Qty: 1 0RF Rx Instructions: Test once daily; Dx code- E11.9 umeclidinium-vilanterol [Anoro Ellipta] 62.5-25 mcg/actuation blister with device 1 inh inhalation DAILY 0RF Anoro Ellipta 62.5-25 mcg/actuation blister with device 1 inh INH DAILY Qty: 1 0RF nitroglycerin 0.4 mg tablet, sublingual 0.4 mg SL UD PRN (Reason: Chest Pain) Qty: 7 1RF atorvastatin 80 mg tablet 80 mg PO DAILY Qty: 90 3RF paroxetine HCl 40 mg tablet See Rx Instructions .ROUTE .COMPLEX Qty: 90 3RF Dose Instruction: TAKE ONE TABLET BY MOUTH DAILY Rx Instructions: TAKE ONE TABLET BY MOUTH DAILY glimepiride 1 mg tablet 1 mg PO DAILY Qty: 90 1RF metoprolol succinate 100 mg tablet extended release 24 hr 150 mg PO .COMPLEX Qty: 225 3RF Rx Instructions: 150 mg PO in the morning and 100MG in the afternoon digoxin 125 mcg (0.125 mg) tablet 125 mcg PO DAILY Qty: 90 3RF ergocalciferol (vitamin D2) 1,250 mcg (50,000 unit) capsule 1,250 mcg PO WEEKLY Qty: 12 1RF lorazepam 0.5 mg tablet 0.5 mg PO BID PRN (Reason: anxiety) Qty: 30 2RF albuterol sulfate 90 mcg/actuation HFA aerosol inhaler 2 puff INH Q6H PRN (Reason: Shortness Of Breath Or Wheezing) Qty: 18 3RF oxycodone-acetaminophen 5-325 mg tablet 1 tab PO Q8H PRN (Reason: pain) Qty: 60 0RF Xarelto 20 mg tablet 20 mg PO DAILY 0RF diclofenac sodium 1 % gel 2 g topical QID Qty: 100 3RF Rx Instructions: apply to single elbow, wrist or hand; for hand includes palm/fingers/back of hand coenzyme Q10 200 mg tablet 200 mg PO DAILY (DME) lancets [OneTouch UltraSoft Lancets] misc See Dose Instructions .ROUTE .MEDSUPPLY Qty: 50 Rx Instructions: As directed (DME) OneTouch Verio test strips strip See Dose Instructions .ROUTE .MEDSUPPLY Qty: 10 Rx Instructions: As directed Slow-Mag 71.5 mg tablet,delayed release (DR/EC) 71.5 mg PO DAILY Ocuvite Adult 50 Plus 250-5-1 mg Capsule 1 cap PO DAILY Adult Multivitamin Gummies 200 mcg tablet,chewable 200 mcg PO DAILY Referrals Referrals: Yusuf Chaudhry III, CRNP [Primary Care Provider] -
--- NOTE | 2022-10-23 08:03 | Hospitalist Progress Note ---
Date of Service October 23, 2022 Assessment & Plan (1) COVID-19: Plan: 82 y/o female w/ PMHx of pulm HTN, neurogenic bladder, COPD, DM2, diastolic CHF, HTN, HLD, anxiety/depression, and afib on Xarelto presenting with dyspnea, covid pos since 2 days ago, symptom onset ~6 days ago. -3L O2 requirement on admission, w/ increase to 5L on 10/23/22 late morning (desaturations to upper 80s on 3L-4L). -Continue IV dexamethasone 6mg daily and remdesivir protocol -Goal O2 90% or greater (2) Pulmonary embolism: Plan: -CTA PE w/ extensive bilateral PEs w/ likely LLL small pulmonary infarcts. Possible Xarelto treatment failure. -Last dose of Xarelto 4PM 10/23/22 (was ordered as QDD daily with dinner). -Consult hematology, recs appreciated. Recommends checking anti Xa level (should result within 30 minutes). Further management (timing of starting IV heparin standard no bolus) per manufacturing supervisor 2nd shift who will communicate w/ hematology. (3) Atrial fibrillation with rapid ventricular response: Plan: Patient presented in AF with RVR. ~120s? 1 dose of IV Lopressor given. Rate improved. -Continue home metoprolol succinate 150mg po qAM and 100mg po qPM -Continue Digoxin. Digoxin level 0.4, slightly subtherapeutic, but will defer increasing dose. -Replete K (goal 4.0) and Mg (goal 2.0). (4) COPD (chronic obstructive pulmonary disease): Plan: Chronic. No wheezing appreciated on exam -Albuterol HFA PRN -Continue Anoro Ellipta (5) Type 2 diabetes mellitus: Plan: Chronic. Patient on Glimepiride as outpatient. Well controlled for age - HgbA1C on 09/09/22 = 6.3 -Hold oral agents -Lantus 5u BID ->8u BID. SSI. -Goal blood sugar 120 - 160. (6) Hypercholesterolemia: Plan: Chronic. Continue Atorvastatin (7) Essential hypertension: Plan: Chronic. Blood pressure stable. Continue Metoprolol (8) Depression with anxiety: Plan: Chronic. Continue Paxil Plan F/E/N - H/H, DM2. anticoag: was on Xarelto, pending switch to IV heparin drip Code - Full Dispo - med surg ->PCU Supervising Physician Co-Signing Physician Notes I saw and examined patient. I agree with assessment and plan, and have discussed care with Dr. Vilchis. continue low dose heparin for now. Await further recs from Heme/Onc. Check TTE. continue treatment for COVID with Remdesivir and Dexamethasone. Pt started on IV protonix. Subjective Patient states that her breathing is only slightly better. Dizziness, worse w/ getting up. Unsure of onset of covid symptoms; near end of last weak. Has had productive sputum. No fevers. Review of Systems Review of Systems: All systems reviewed & are unremarkable except as noted in HPI & below Physical Exam Physical Exam: General: Grossly A&O. NAD. Cooperative. HEENT: Atraumatic, normocephalic. Pulm: CTAB. -wheezes, -rales, -rhonchi. No respiratory distress. Cardiac: RRR, -mrg. No LE edema. Abdominal: Nontender, nondistended, soft. Results & Data Results & Data Vital Signs (Past 12 Hours) Vital Signs Temp Pulse Pulse Resp BP Pulse Ox O2 Del Method 10/23/22 07:07 106 H 10/23/22 06:33 99 H 20 121/61 95 Nasal Cannula 10/23/22 05:00 97 H 22 125/74 95 Nasal Cannula 10/23/22 04:32 99 H 22 93 Nasal Cannula 10/23/22 04:09 116 H 20 128/81 95 Nasal Cannula 10/23/22 04:08 116 H 128/81 10/23/22 03:39 95 Nasal Cannula 10/23/22 03:16 90 Room Air, Nasal Cannula 10/23/22 03:16 Room Air 10/23/22 03:16 36.6 C 117 H 26 H 121/80 90 Room Air 10/23/22 03:07 120 H O2 Flow Rate 10/23/22 07:07 10/23/22 06:33 3 10/23/22 05:00 2 10/23/22 04:32 3 10/23/22 04:09 3 10/23/22 04:08 10/23/22 03:39 3 10/23/22 03:16 0 10/23/22 03:16 10/23/22 03:16 10/23/22 03:07 Diagnostic Findings Chest CTA 10/23/22 13:06 CT ANGIOGRAM OF THE CHEST CLINICAL HISTORY: Dyspnea. COMPARISON STUDY: Chest x-ray dated 10/23/2022. TECHNIQUE: Following the IV administration of 113 cc of Optiray 320, CT angiogram of the chest was performed from the upper abdomen to the thoracic inlet utilizing the pulmonary embolus protocol. Images are reviewed in the axial, sagittal, and coronal planes. 3-D MIPS images are created and assessed. IV contrast was administered without complication. A dose lowering technique was utilized adhering to the principles of ALARA. CT DOSE: 476.79 mGy.cm FINDINGS: Thyroid: Imaged portions of the thyroid gland are normal in size and attenuation. Thoracic aorta: There is atherosclerotic calcification of the thoracic aorta, which is normal in caliber and demonstrates standard bovine variant arch anatomy. The thoracic aorta is not well-opacified. Pulmonary vasculature: The pulmonary trunk is dilated measuring up to 3.6 cm in diameter. This suggests pulmonary artery hypertension. There is extensive bilateral pulmonary embolus. Thrombus is seen within the mid to distal right main pulmonary artery. This extends into the right upper, middle, and lower lobe pulmonary arteries into segmental and subsegmental branches. There is thrombus within the left lower lobe pulmonary artery which extends into segmental and subsegmental branches. There is segmental and subsegmental pulmonary embolus within branches of the left upper lobe and lingula. Heart: The heart is enlarged and without pericardial effusion. The coronary arteries are densely calcified. Lungs and pleural spaces: The trachea and central airways are clear. There are 2 groundglass opacities at the left apex seen on image #272 and #267 which measure up to 10 mm. An additional groundglass opacity in the right middle lobe is seen on image #141. A 5 mm left upper lobe pulmonary nodule is seen on image #245. There are foci of pleural-based consolidation in the left lower lobe. No pleural effusion is identified. There are scattered calcified granulomas. Mediastinum: There is no mediastinal lymphadenopathy. Yolanda: Clear. Axillae: There is no axillary lymphadenopathy. Upper abdomen: Partially visualized upper abdominal viscera is within normal limits. Skeletal structures: The skeletal structures are osteopenic. Degenerative change is noted in the shoulders and thoracic spine. A benign-appearing expansile lucency is noted in the left scapula. No destructive bony lesion is seen. IMPRESSION: 1. Extensive bilateral pulmonary embolus as above. 2. Cardiomegaly with evidence of pulmonary artery hypertension. 3. There are foci of subpleural consolidation in the left lower lobe which likely represent small pulmonary infarcts. 4. There are groundglass opacities in the right upper and middle lobes. These may be inflammatory. An additional 5 mm pulmonary nodule is seen in the left upper lobe. A 3-4 month follow-up chest CT is recommended for reassessment. 5. Additional findings as above. ACT 112: Positive. There are findings on this exam that require communication between the performing entity and the patient following Patient Test Result Information Act ([place] Act 112) guidelines. Electronically signed by: Miah Truong M.D. 10/23/2022 5:18 PM Resident Activity Tracking Resident Involvement: Resident Care Provided Care Provided: Adult Hospital Medicine
[2022-10-23] MEDS ORDERED: ALBUTEROL HFA 8 GM INHALER INH PRN (08:41)
[2022-10-23] MEDS ORDERED: POTASSIUM CHLORIDE CRTAB 20 MEQ TABCR PO STA (08:41)
[2022-10-23] MEDS ORDERED: ONDANSETRON INJ 2 MG/ML 2 ML VIAL IV PRN (08:41)
[2022-10-23] MEDS ORDERED: ACETAMINOPHEN 325 MG TAB PO PRN (08:41)
[2022-10-23] MEDS ORDERED: REMDESIVIR 200 MG in SODIUM CHLORIDE 0.9% 210 ML IV ONE (09:15)
--- NOTE | 2022-10-23 09:36 | XRay Report ---
SINGLE VIEW CHEST CLINICAL HISTORY: Dyspnea FINDINGS: An AP, portable, upright chest radiograph is compared to study dated 02/17/2020. The examina tion is degraded by portable technique and patient rotation. The heart is enlarged noting atheroscle rotic calcification of the thoracic aorta. The pulmonary vasculature is noncongested. Chronic interst itial thickening is similar to previous. The lungs and pleural spaces are clear noting bibasilar scar ring/atelectasis. No pneumothorax is seen. The skeletal structures are osteopenic. The bony thorax is grossly intact. Arthritic change is seen in the shoulders. IMPRESSION: Cardiomegaly with no active disease in the chest. ACT 112: Negative or not required by law. Electronically signed by: Miah Truong M.D. 10/23/2022 9:35 AM
[2022-10-23] MEDS: guaiFENesin 600 MG TABCR PO SCH ×2 (10:21→19:32)
[2022-10-23] MEDS: PARoxetine HCL 20 MG TAB PO SCH (10:21)
[2022-10-23] MEDS: dexAMETHasone 6 MG in SYRINGE 0 ML IV SCH (10:21)
[2022-10-23] MEDS: ATORVASTATIN 40 MG TAB PO SCH (10:23)
[2022-10-23] MEDS: METOPROLOL SUCC 50MG EXT REL TAB PO SCH ×2 (10:23→19:33)
[2022-10-23] MEDS: UMECLIDINIUM/VILANTEROL 62.5/25MCG 7 PUFFS/INHALER INH SCH (10:24)
[2022-10-23] MEDS: INSULIN ASPART PER UNIT CHARGE SC SCH ×4 (10:30→20:49)
[2022-10-23] MEDS: LANTUS PER UNIT CHARGE SQ SCH ×2 (11:20→20:51)
--- NOTE | 2022-10-23 12:33 | Electrocardiogram Report ---
Test Reason : Blood Pressure : / mmHG Vent. Rate : 106 BPM Atrial Rate : 110 BPM P-R Int : 000 ms QRS Dur : 088 ms QT Int : 366 ms P-R-T Axes : 000 -50 077 degrees QTc Int : 486 ms Poor data quality, interpretation may be adversely affected Atrial fibrillation with rapid ventricular response Left axis deviation Minimal voltage criteria for LVH, may be normal variant Inferior infarct , age undetermined Inferior ST abnormality Abnormal ECG When compared with ECG of 17-FEB-2020 13:50, QRS axis Shifted left Inferior infarct is now Present ST elevation has replaced ST depression in Inferior leads T wave inversion less evident in Lateral leads Confirmed by Ben Wiggins ([id number]) on 10/23/2022 12:33:01 PM Referred By: REFERRED SELF Confirmed By:Ben Wiggins
[2022-10-23] MEDS: MAGNESIUM SULFATE / D5W 1 GM/100 ML BAG IV SCH ×4 (13:49→20:09)
[2022-10-23 14:45] LABS: Magnesium 1.8 mg/dl (1.7-2.4)
[2022-10-23 14:53] LABS: BUN Creatinine Ratio 32.1 (10-20); Calcium 8.8 mg/dl (8.6-10.3); Creatinine Clr Calc Pharmacy 62.3 ml/min; Est GFR (Non-African American) 64.7 ml/min; Potassium 4.5 mmol/L (3.5-5.1)
[2022-10-23 15:18] LABS: C Reactive Protein 5.96 mg/dl (0-0.5)
[2022-10-23 15:55] LABS: Appearance Urine Turbid (Clear); Bacteria Urine Automated 4+ (Negative); Bilirubin Urine Negative (Negative); Blood Urine Negative (Negative); Cast Urine Automated 0 /lpf (0-5); Color Urine Dark Yellow; Epithelial Cell Urine Auto >30 /lpf (0-5); Glucose Urine UA Negative (Negative); Ketones Urine Negative (Negative); Leukocyte Esterase Urine Trace (Negative); Nitrite Urine Positive (Negative); Protein Urine 2+ (Negative); Specific Gravity Urine 1.034 (1.000-1.030); Urobilinogen Urine Negative (Negative); WBC Urine Automated >30 /hpf (0-5)
[2022-10-23] MEDS: DIGOXIN 0.125 MG TAB PO SCH (15:58)
[2022-10-23] MEDS ORDERED: OPTIRAY 320 500ml IV ONE (16:09)
[2022-10-23 16:16] LABS: RBC Urine Automated 0-4 /hpf (0-4)
[2022-10-23] MEDS ORDERED: RIVAROXABAN 20 MG TAB PO SCH (16:30)
--- NOTE | 2022-10-23 17:20 | CT Scan Report ---
CT ANGIOGRAM OF THE CHEST CLINICAL HISTORY: Dyspnea. COMPARISON STUDY: Chest x-ray dated 10/23/2022. TECHNIQUE: Following the IV administration of 113 cc of Optiray 320, CT angiogram of the chest was pe rformed from the upper abdomen to the thoracic inlet utilizing the pulmonary embolus protocol. Images are reviewed in the axial, sagittal, and coronal planes. 3-D MIPS images are created and assessed. I V contrast was administered without complication. A dose lowering technique was utilized adhering to the principles of ALARA. CT DOSE: 476.79 mGy.cm FINDINGS: Thyroid: Imaged portions of the thyroid gland are normal in size and attenuation. Thoracic aorta: There is atherosclerotic calcification of the thoracic aorta, which is normal in daisha camilla and demonstrates standard bovine variant arch anatomy. The thoracic aorta is not well-opacified. Pulmonary vasculature: The pulmonary trunk is dilated measuring up to 3.6 cm in diameter. This sugges ts pulmonary artery hypertension. There is extensive bilateral pulmonary embolus. Thrombus is seen wi thin the mid to distal right main pulmonary artery. This extends into the right upper, middle, and lo wer lobe pulmonary arteries into segmental and subsegmental branches. There is thrombus within the le ft lower lobe pulmonary artery which extends into segmental and subsegmental branches. There is segme ntal and subsegmental pulmonary embolus within branches of the left upper lobe and lingula. Heart: The heart is enlarged and without pericardial effusion. The coronary arteries are densely calc ified. Lungs and pleural spaces: The trachea and central airways are clear. There are 2 groundglass opacitie s at the left apex seen on image #272 and #267 which measure up to 10 mm. An additional groundglass o pacity in the right middle lobe is seen on image #141. A 5 mm left upper lobe pulmonary nodule is see n on image #245. There are foci of pleural-based consolidation in the left lower lobe. No pleural eff usion is identified. There are scattered calcified granulomas. Mediastinum: There is no mediastinal lymphadenopathy. Yolanda: Clear. Axillae: There is no axillary lymphadenopathy. Upper abdomen: Partially visualized upper abdominal viscera is within normal limits. Skeletal structures: The skeletal structures are osteopenic. Degenerative change is noted in the shou lders and thoracic spine. A benign-appearing expansile lucency is noted in the left scapula. No destr uctive bony lesion is seen. IMPRESSION: 1. Extensive bilateral pulmonary embolus as above. 2. Cardiomegaly with evidence of pulmonary artery hypertension. 3. There are foci of subpleural consolidation in the left lower lobe which likely represent small pul monary infarcts. 4. There are groundglass opacities in the right upper and middle lobes. These may be inflammatory. An additional 5 mm pulmonary nodule is seen in the left upper lobe. A 3-4 month follow-up chest CT is r ecommended for reassessment. 5. Additional findings as above. ACT 112: Positive. There are findings on this exam that require communication between the performing entity and the patient following Patient Test Result Information Act ([place] Act 112) guidelines. Electronically signed by: Miah Truong M.D. 10/23/2022 5:18 PM
--- NOTE | 2022-10-23 20:23 | Oncology Consultation ---
Date of Consultation October 23, 2022 Assessment & Plan (1) Pulmonary embolism: (2) COVID-19: (3) Atrial fibrillation with rapid ventricular response: Plan 82 year old with atrial fibrillation on chronic anticoagulation with xarelto who presented with COVID 19 ifection and was found to be hypoxic. CTA Chest revealed extensive bilateral pulmonary embolism. -Although no therapeutic range has been established for DOACS, recommended checking anti Xa level as some studies have shown that it is safe to start Heparin if level is <25. Unfortunately, our lab is only able to assess heparin Anti Xa level and not rivaroxaban anti Xa. It is also unclear if patient was compliant with xarelto prior to admission as I have not seen her in person to ask this question. If PE's occurred in the setting of compliance, then she has obviously failed xarelto and would need to start IV heparin KASSIDY regardless of when it was last administered. -Although you could ideally wait till her next dose of xarelto is due to start IV heparin (tomorrow,4pm) her current clinical situation In the setting of significant pulmonary embolism, increasing oxygen demand,possible xarelto and COVID 19 infection, would recommend starting IV heparin at this time. Recommend close monitoring for bleeding and stop IV heparin if there are any signs of bleeding. History of Present Illness Reason for Consultation: CTA with extensive PE. Covid pos. 5L O2 req. Attending Physician: Ben Hebert, History of Present Illness 82yo female with history of atrial fibrillation on chronic anticoagulation with xarelto who presented with worsening shortness of breath in the setting of covid 19 infection. She was found to have atrial fibrillation with RVR on arrival to the ER and oxygen saturation was 88% on room air. She was placed on supplemental O2. CTA chest revealed extensive bilateral pulmonary embolus, Cardiomegaly with evidence of pulmonary artery hypertension, foci of subpleural consolidation in the left lower lobe which likely representing small pulmonary infarcts and groundglass opacities in the right upper and middle lobes. Allergies Allergy/AdvReac Type Severity Reaction Status Date / Time tramadol Allergy Intermediate "OUT OF Verified 10/23/22 06:26 BODY EXPERIENCE" codeine Allergy Unknown "OUT OF Verified 10/23/22 06:26 BODY EXPERIENCE" metformin AdvReac Intermediate Diarrhea Verified 10/23/22 06:26 raloxifene AdvReac Unknown SWELLING Verified 10/23/22 06:26 Home Medications Medication Instructions Recorded Confirmed Type coenzyme Q10 200 mg tablet 200 mg PO DAILY 12/18/18 10/23/22 History blood sugar diagnostic (OneTouch #10 ea 01/19/19 09/30/22 History Verio test strips) lancets (OneTouch UltraSoft #50 ea 01/19/19 09/30/22 History Lancets) magnesium chloride 71.5 mg 71.5 mg PO DAILY 01/19/19 10/23/22 History (magnesium chloride) tablet,delayed release (Slow-Mag) oxycodone-acetaminophen 5 mg-325 1 tab PO Q8H PRN pain #60 tabs 02/14/20 10/23/22 Rx mg tablet blood-glucose meter (OneTouch #1 ea 02/15/20 09/30/22 Rx Verio Flex Meter) vit C,E,zinc,copper-[id number] 250 1 cap PO DAILY 02/17/20 10/23/22 History mg-lutein 5 mg-zeaxanthin 1 mg capsule (Ocuvite Adult 50 Plus) multivitamin with minerals-folic 200 mcg PO DAILY 02/26/20 10/23/22 History acid 200 mcg chewable tablet (Adult Multivitamin Gummies) umeclidinium 62.5 mcg-vilanterol 1 inh inhalation DAILY #1 inhaler 07/28/21 10/23/22 Rx 25 mcg/actuation powdr for inhalation (Anoro Ellipta) nitroglycerin 0.4 mg sublingual 0.4 mg sublingual UD PRN Chest 01/18/22 10/23/22 Rx tablet Pain #7 tabs atorvastatin 80 mg tablet 80 mg PO DAILY #90 tabs 02/24/22 10/23/22 Rx paroxetine HCl 40 mg tablet See Rx Instructions .Route 04/06/22 10/23/22 Rx .COMPLEX #90 tabs diclofenac sodium 1 % topical gel 2 g topical QID #100 grams 04/20/22 10/23/22 Rx glimepiride 1 mg tablet 1 mg PO DAILY #90 tabs 05/21/22 10/23/22 Rx metoprolol succinate 100 mg 150 mg PO .COMPLEX #225 tabs 06/16/22 10/23/22 Rx tablet,extended release 24 hr digoxin 125 mcg (0.125 mg) tablet 125 mcg PO DAILY #90 tabs 07/27/22 10/23/22 Rx ergocalciferol (vitamin D2) 1,250 1,250 mcg PO WEEKLY #12 caps 08/16/22 10/23/22 Rx mcg (50,000 unit) capsule lorazepam 0.5 mg tablet 0.5 mg PO BID PRN anxiety #30 tabs 08/30/22 10/23/22 Rx albuterol sulfate 90 mcg/actuation 2 puff inhalation Q6H PRN 09/28/22 10/23/22 Rx aerosol inhaler Shortness Of Breath Or Wheezing #18 grams Patient History Medical History Acute UTI Arteriosclerosis of coronary artery Atrial fibrillation Depression with anxiety Diastolic dysfunction Essential hypertension Former smoker Hypercholesterolemia Lobular hyperplasia, atypical, breast Memory loss Osteoporosis Peripheral vascular disease Sensorineural hearing loss (SNHL) of both ears Urge and stress incontinence Urgency incontinence Vitamin D deficiency Surgical History History of cataract surgery History of coronary artery stent placement History of intravascular stent placement History of oophorectomy History of shoulder surgery History of surgery on wrist History of tubal ligation Family History Sister Myocardial infarction Environmental allergies FH: deafness or hearing loss Breast cancer Mother Coronary heart disease Father Diabetes Denies family history of Ovarian cancer Prostate cancer Bleeding disorder Colorectal cancer Colonic polyp Social History Smoking Status: Former smoker Tobacco Type: Cigarettes Age Started Using Tobacco: 16; Age Quit Using Tobacco: 62; packs per day: 0.5; Second Hand Exposure: No; Hx Alcohol Use: No Hx Substance Use: No Preferred Language: [place] Communication Ability: Effective Visual Impairment: No Limitations Hearing Ability: Hard of Hearing Clinical Coordinator Required: No Beliefs That Will Affect Care: None marital status: Current Living Situation: Spouse Current Living Situation Comment: Vargas current occupational status: retired current occupation: retired inkeeper from [employer] Feels Safe at Home: Yes Childhood Exposure to Second-Hand Smoke: Yes Dental Care, Regularly: No Physical Activity Frequency: Does not Exercise Seatbelt Use: always Sunscreen Use: No Assistive Devices: Denture - Upper and Glasses Results & Data Vital Signs (Past 12 Hours) Vital Signs Temp Pulse Pulse Resp BP Pulse Ox O2 Del Method 10/23/22 19:35 36.6 C 85 18 136/81 99 Nasal Cannula 10/23/22 16:30 Nasal Cannula 10/23/22 16:42 36.6 C 87 18 125/71 100 Nasal Cannula 10/23/22 15:58 94 H 10/23/22 09:24 Nasal Cannula 10/23/22 09:00 36.6 C 113 H 20 129/56 L 93 Nasal Cannula 10/23/22 12:21 36.6 C 102 H 18 133/79 96 Nasal Cannula 10/23/22 08:38 36.6 C 113 H 20 129/56 L 93 Nasal Cannula O2 Flow Rate 10/23/22 19:35 5 10/23/22 16:30 6 10/23/22 16:42 6 10/23/22 15:58 10/23/22 09:24 5 10/23/22 09:00 5 10/23/22 12:21 5 10/23/22 08:38 5
[2022-10-23 20:29] LABS: INR 1.4 (0.9-1.1); Partial Thromboplastin Ratio 1.5; Partial Thromboplastin Time 41.6 Seconds (21.0-31.0); Prothrombin Time 14.4 Seconds (9.0-12.0)
[2022-10-23] MEDS ORDERED: Heparin IV Adult Wt-Based Low-Dose *NO* Bolus Protocol IV STA (21:14)
[2022-10-23] MEDS: HEPARIN SODIUM/DEXTROSE 25,000 UNITS/500 ML BAG IV SCH (22:12)
[2022-10-23] MEDS ORDERED: LANTUS PER UNIT CHARGE SQ ONE (23:53)
[2022-10-24 04:56] LABS: Hemoglobin 11.8 g/dl (12.0-16.0); Mean Corpuscular Hemoglobin 30.6 pg (25.0-34.0); Mean Corpuscular Hgb Conc 32.8 g/dL (32.0-36.0); Mean Corpuscular Volume 93.5 fL (80.0-100.0); Mean Platelet Volume 11.9 fL (9.4-12.4); Platelet Count 191 K/uL (130-400); RDW Coefficient of Variation 13.8 % (11.5-14.5); RDW Standard Deviation 46.7 fL (36.4-46.3); Red Blood Count 3.85 M/uL (4.20-5.40); White Blood Count 10.58 K/ul (4.8-10.8)
[2022-10-24 05:27] LABS: Albumin Globulin Ratio 1.3 (0.9-2); Albumin Level 3.4 gm/dl (3.4-5.0); BUN Creatinine Ratio 37.3 (10-20); Bilirubin,Total 0.7 mg/dl (0.2-1.0); Calcium 8.9 mg/dl (8.6-10.3); Creatinine Clr Calc Pharmacy 69.8 ml/min; Est GFR (Non-African American) 74.2 ml/min; Globulin 2.7 gm/dl (2.5-4.0); Magnesium 2.4 mg/dl (1.7-2.4); Total Protein 6.1 gm/dl (6.0-8.3)
[2022-10-24 05:41] LABS: Partial Thromboplastin Ratio 2.3
[2022-10-24 05:43] LABS: Partial Thromboplastin Time 63.3 Seconds (21.0-31.0)
--- NOTE | 2022-10-24 07:00 | Hospitalist Progress Note ---
Date of Service October 24, 2022 Assessment & Plan (1) COVID-19: Plan: 82 y/o female w/ PMHx of pulm HTN, neurogenic bladder, COPD, DM2, diastolic CHF, HTN, HLD, anxiety/depression, and afib on Xarelto presenting with dyspnea, covid pos since 2 days prior to admission, symptom onset ~6 days prior to admission. Admitted on 10/23 for COVID-19 and bilateral PEs. -3L O2 requirement on admission, w/ increase to 5L on 10/23/22 late morning (desaturations to upper 80s on 3L-4L). -Continue IV dexamethasone 6mg daily and remdesivir protocol - Mucinex 1200mg PO BID - wean supplemental O2 as tolerated to maintain SpO2 88-92% (COPD) - plan for PEs as below (2) Pulmonary embolism: Plan: CTA PE w/ extensive bilateral PEs w/ likely LLL small pulmonary infarcts. Possible Xarelto treatment failure, exacerbated by COVID-19. - Last dose of Xarelto 4PM 10/23/22 (was ordered as QDD daily with dinner) - anti-Xa LMW level >1.5, suggesting adequate Xarelto compliance - supports possibility of true Xarelto failure - check TTE - Hematology on board - appreciate recs - continue Heparin gtt low dose - defer to Hematology for further changes and recs on chronic anti-coagulation (3) Atrial fibrillation with rapid ventricular response: Plan: Patient presented in AF with RVR. ~120s? 1 dose of IV Lopressor given. Rate improved, RVR resolved. Now rate-controlled a-fib 60s-80s. - Continue home metoprolol succinate 150mg po qAM and 100mg po qPM - Continue Digoxin 0.125mg daily - Digoxin level 0.4, slightly subtherapeutic, but will defer increasing dose as currently rate controlled (4) COPD (chronic obstructive pulmonary disease): Plan: Chronic, GOLD B-C, last PFTs in 2019. No wheezing appreciated on exam - Albuterol HFA PRN - Continue Anoro Ellipta - consider repeat PFTs as outpatient - defer to pulm/PCP (5) Type 2 diabetes mellitus: Plan: Chronic. Patient on Glimepiride as outpatient. Well controlled for age - HgbA1C on 09/09/22 = 6.3 -Hold oral agents -Lantus 5u BID ->8u BID. SSI. -Goal blood sugar 120 - 160. (6) Hypercholesterolemia: Plan: Chronic. Continue Atorvastatin (7) Essential hypertension: Plan: Chronic. Blood pressure stable. Continue Metoprolol (8) Depression with anxiety: Plan: Chronic. Continue Paxil Plan F/E/N - DM2 anticoag: was on Xarelto, pending switch to IV heparin drip Code - Full Dispo - PCU Admission and Anticipated Discharge Date Admission Date: October 23, 2022 Subjective Patient reports that breathing is significantly improved since starting on Heparin gtt last night. Reports that she takes her Xarelto between 8-10pm every night at home and only misses ~1 dose per month. Denies chest pain. Breathing comfortably on 5L/min supplemental O2 via nasal cannula. Review of Systems Review of Systems: All systems reviewed & are unremarkable except as noted in HPI & below Physical Exam Physical Exam: General: A&Ox3. NAD. Cooperative. HEENT: Atraumatic, normocephalic. Pulm: CTAB A&P. -wheezes, -rales, -rhonchi. Symmetrical chest rise. No increase work of breathing. No respiratory distress. Cardiac: RRR, -mrg. Radial pulses intact and symmetrical. Abdominal: soft, non-tender, non-distended, BS x 4 Skin: warm, dry, no rash Results & Data Results & Data Vital Signs (Past 12 Hours) Vital Signs Temp Pulse Pulse Resp BP Pulse Ox O2 Del Method 10/24/22 03:07 36.4 C L 70 18 163/98 H 100 Nasal Cannula 10/23/22 20:00 Nasal Cannula 10/24/22 00:35 67 10/23/22 22:55 36.7 C 62 17 137/86 97 Nasal Cannula 10/23/22 19:35 36.6 C 85 18 136/81 99 Nasal Cannula O2 Flow Rate 10/24/22 03:07 5 10/23/22 20:00 5 10/24/22 00:35 10/23/22 22:55 5 10/23/22 19:35 5 Resident Activity Tracking Resident Involvement: Resident Care Provided Care Provided: Adult Hospital Medicine
[2022-10-24] MEDS: INSULIN ASPART PER UNIT CHARGE SC SCH ×4 (08:02→19:55)
[2022-10-24] MEDS: LANTUS PER UNIT CHARGE SQ SCH ×2 (08:03→20:48)
[2022-10-24] MEDS: METOPROLOL SUCC 50MG EXT REL TAB PO SCH ×2 (08:06→19:34)
[2022-10-24] MEDS: ATORVASTATIN 40 MG TAB PO SCH (08:06)
[2022-10-24] MEDS: guaiFENesin 600 MG TABCR PO SCH ×2 (08:07→19:34)
[2022-10-24] MEDS: PARoxetine HCL 20 MG TAB PO SCH (08:07)
[2022-10-24] MEDS: UMECLIDINIUM/VILANTEROL 62.5/25MCG 7 PUFFS/INHALER INH SCH (08:07)
[2022-10-24] MEDS: dexAMETHasone 6 MG in SYRINGE 0 ML IV SCH (08:07)
[2022-10-24] MEDS ORDERED: LANTUS PER UNIT CHARGE SQ SCH (09:00)
[2022-10-24] MEDS: REMDESIVIR 100 MG in SODIUM CHLORIDE 0.9% 230 ML IV SCH (11:06)
[2022-10-24] MEDS: PANTOprazole 40 MG TAB PO SCH (12:14)
[2022-10-24] MEDS: DIGOXIN 0.125 MG TAB PO SCH (17:13)
[2022-10-25] MEDS: HEPARIN SODIUM/DEXTROSE 25,000 UNITS/500 ML BAG IV SCH (00:02)
[2022-10-25 06:52] LABS: Basophils # (auto) 0.03 K/uL (0-0.2); Basophils % (auto) 0.2 %; Eosinophils # (auto) 0.01 K/uL (0-0.50); Eosinophils % (auto) 0.1 %; Hematocrit (blood only) 35.4 % (37.0-47.0); Immature Granulocytes # (auto) 0.24 K/uL (0.01-0.20); Immature Granulocytes % (auto) 1.8 %; Lymphocytes # (auto) 1.85 K/uL (1.2-3.4); Lymphocytes % (auto) 13.6 %; Mean Corpuscular Hemoglobin 30.8 pg (25.0-34.0); Mean Corpuscular Hgb Conc 33.9 g/dL (32.0-36.0); Mean Corpuscular Volume 90.8 fL (80.0-100.0); Mean Platelet Volume 12.3 fL (9.4-12.4); Monocytes # (auto) 0.65 K/uL (0.11-0.59); Monocytes % (auto) 4.8 %; Neutrophils # (auto) 10.81 K/uL (1.40-6.50); Neutrophils % (auto) 79.5 %; Platelet Count 199 K/uL (130-400); RDW Coefficient of Variation 13.2 % (11.5-14.5); RDW Standard Deviation 43.9 fL (36.4-46.3); White Blood Count 13.59 K/ul (4.8-10.8)
[2022-10-25 07:17] LABS: Partial Thromboplastin Ratio > 5.1
[2022-10-25 07:19] LABS: Partial Thromboplastin Time > 139.0 Seconds (21.0-31.0)
[2022-10-25 07:24] LABS: BUN Creatinine Ratio 48.1 (10-20); C Reactive Protein 2.64 mg/dl (0-0.5); Calcium 8.6 mg/dl (8.6-10.3); Creatinine Clr Calc Pharmacy 67.7 ml/min; Est GFR (African American) 83.3 ml/min; Est GFR (Non-African American) 71.9 ml/min; Magnesium 1.9 mg/dl (1.7-2.4); Potassium 3.5 mmol/L (3.5-5.1)
--- NOTE | 2022-10-25 07:37 | Hospitalist Progress Note ---
Date of Service October 25, 2022 Assessment & Plan (1) COVID-19: Plan: 82 y/o female w/ PMHx of pulm HTN, neurogenic bladder, COPD, DM2, diastolic CHF, HTN, HLD, anxiety/depression, and afib on Xarelto presenting with dyspnea, covid pos since 2 days prior to admission, symptom onset ~6 days prior to admission. Admitted on 10/23 for COVID-19 and bilateral PEs. -3L O2 requirement on admission, w/ increase to 5L on 10/23/22 late morning (desaturations to upper 80s on 3L-4L). -Continue IV dexamethasone 6mg daily and remdesivir protocol - Mucinex 1200mg PO BID - wean supplemental O2 as tolerated to maintain SpO2 88-92% (COPD) - plan for PEs as below (2) Pulmonary embolism: Plan: CTA PE w/ extensive bilateral PEs w/ likely LLL small pulmonary infarcts. Possible Xarelto treatment failure, exacerbated by COVID-19. - Last dose of Xarelto 4PM 10/23/22 (was ordered as QDD daily with dinner) - anti-Xa LMW level >1.5, suggesting adequate Xarelto compliance - supports possibility of true Xarelto failure - check TTE - Hematology on board - appreciate recs - continue Heparin gtt low dose - defer to Hematology for further changes and recs on chronic anti-coagulation (3) Atrial fibrillation with rapid ventricular response: Plan: Patient presented in AF with RVR. ~120s? 1 dose of IV Lopressor given. Rate improved, RVR resolved. Now rate-controlled a-fib 60s-80s. - Continue home metoprolol succinate 150mg po qAM and 100mg po qPM - Continue Digoxin 0.125mg daily - Digoxin level 0.4, slightly subtherapeutic, but will defer increasing dose as currently rate controlled (4) COPD (chronic obstructive pulmonary disease): Plan: Chronic, GOLD B-C, last PFTs in 2019. No wheezing appreciated on exam - Albuterol HFA PRN - Continue Anoro Ellipta - consider repeat PFTs as outpatient - defer to pulm/PCP (5) Type 2 diabetes mellitus: Plan: Chronic. Patient on Glimepiride as outpatient. Well controlled for age - HgbA1C on 09/09/22 = 6.3 -Hold oral agents -Lantus 5u BID ->8u BID. SSI. -Goal blood sugar 120 - 160. (6) Hypercholesterolemia: Plan: Chronic. Continue Atorvastatin (7) Essential hypertension: Plan: Chronic. Blood pressure stable. Continue Metoprolol (8) Depression with anxiety: Plan: Chronic. Continue Paxil Plan F/E/N - DM2 anticoag: was on Xarelto, pending switch to IV heparin drip Code - Full Dispo - PCU Admission and Anticipated Discharge Date Admission Date: October 23, 2022 Results & Data Results & Data Vital Signs (Past 12 Hours) Vital Signs Temp Pulse Resp BP Pulse Ox O2 Del Method O2 Flow Rate 10/25/22 05:08 36.5 C 71 18 167/77 H 97 Nasal Cannula 2 10/24/22 23:58 36.4 C L 60 18 152/80 H 98 Nasal Cannula 2 10/24/22 20:01 Nasal Cannula 2
--- NOTE | 2022-10-25 07:46 | Oncology Consultation ---
Date of Consultation October 25, 2022 History of Present Illness Attending Physician: Bautista Garcia DO Allergies Allergy/AdvReac Type Severity Reaction Status Date / Time tramadol Allergy Intermediate "OUT OF Verified 10/23/22 06:26 BODY EXPERIENCE" codeine Allergy Unknown "OUT OF Verified 10/23/22 06:26 BODY EXPERIENCE" metformin AdvReac Intermediate Diarrhea Verified 10/23/22 06:26 raloxifene AdvReac Unknown SWELLING Verified 10/23/22 06:26 Home Medications Medication Instructions Recorded Confirmed Type coenzyme Q10 200 mg tablet 200 mg PO DAILY 12/18/18 10/23/22 History blood sugar diagnostic (OneTouch #10 ea 01/19/19 09/30/22 History Verio test strips) lancets (OneTouch UltraSoft #50 ea 01/19/19 09/30/22 History Lancets) magnesium chloride 71.5 mg 71.5 mg PO DAILY 01/19/19 10/23/22 History (magnesium chloride) tablet,delayed release (Slow-Mag) oxycodone-acetaminophen 5 mg-325 1 tab PO Q8H PRN pain #60 tabs 02/14/20 10/23/22 Rx mg tablet blood-glucose meter (OneTouch #1 ea 02/15/20 09/30/22 Rx Verio Flex Meter) vit C,E,zinc,copper-[id number] 250 1 cap PO DAILY 02/17/20 10/23/22 History mg-lutein 5 mg-zeaxanthin 1 mg capsule (Ocuvite Adult 50 Plus) multivitamin with minerals-folic 200 mcg PO DAILY 02/26/20 10/23/22 History acid 200 mcg chewable tablet (Adult Multivitamin Gummies) umeclidinium 62.5 mcg-vilanterol 1 inh inhalation DAILY #1 inhaler 07/28/21 10/23/22 Rx 25 mcg/actuation powdr for inhalation (Anoro Ellipta) nitroglycerin 0.4 mg sublingual 0.4 mg sublingual UD PRN Chest 01/18/22 10/23/22 Rx tablet Pain #7 tabs atorvastatin 80 mg tablet 80 mg PO DAILY #90 tabs 02/24/22 10/23/22 Rx paroxetine HCl 40 mg tablet See Rx Instructions .Route 04/06/22 10/23/22 Rx .COMPLEX #90 tabs diclofenac sodium 1 % topical gel 2 g topical QID #100 grams 04/20/22 10/23/22 Rx glimepiride 1 mg tablet 1 mg PO DAILY #90 tabs 05/21/22 10/23/22 Rx metoprolol succinate 100 mg 150 mg PO .COMPLEX #225 tabs 06/16/22 10/23/22 Rx tablet,extended release 24 hr digoxin 125 mcg (0.125 mg) tablet 125 mcg PO DAILY #90 tabs 07/27/22 10/23/22 Rx ergocalciferol (vitamin D2) 1,250 1,250 mcg PO WEEKLY #12 caps 08/16/22 10/23/22 Rx mcg (50,000 unit) capsule lorazepam 0.5 mg tablet 0.5 mg PO BID PRN anxiety #30 tabs 08/30/22 10/23/22 Rx albuterol sulfate 90 mcg/actuation 2 puff inhalation Q6H PRN 09/28/22 10/23/22 Rx aerosol inhaler Shortness Of Breath Or Wheezing #18 grams Patient History Medical History Acute UTI Arteriosclerosis of coronary artery Atrial fibrillation Depression with anxiety Diastolic dysfunction Essential hypertension Former smoker Hypercholesterolemia Lobular hyperplasia, atypical, breast Memory loss Osteoporosis Peripheral vascular disease Sensorineural hearing loss (SNHL) of both ears Urge and stress incontinence Urgency incontinence Vitamin D deficiency Surgical History History of cataract surgery History of coronary artery stent placement History of intravascular stent placement History of oophorectomy History of shoulder surgery History of surgery on wrist History of tubal ligation Family History Sister Myocardial infarction Environmental allergies FH: deafness or hearing loss Breast cancer Mother Coronary heart disease Father Diabetes Denies family history of Ovarian cancer Prostate cancer Bleeding disorder Colorectal cancer Colonic polyp Social History Smoking Status: Former smoker Tobacco Type: Cigarettes Age Started Using Tobacco: 16; Age Quit Using Tobacco: 62; packs per day: 0.5; Second Hand Exposure: No; Hx Alcohol Use: No Hx Substance Use: No Preferred Language: Irish Communication Ability: Effective Visual Impairment: No Limitations Hearing Ability: Hard of Hearing Machine Room Engineer Required: No Beliefs That Will Affect Care: None marital status: Current Living Situation: Spouse Current Living Situation Comment: Vargas current occupational status: retired current occupation: retired inkeeper from [employer] Feels Safe at Home: Yes Childhood Exposure to Second-Hand Smoke: Yes Dental Care, Regularly: No Physical Activity Frequency: Does not Exercise Seatbelt Use: always Sunscreen Use: No Assistive Devices: Denture - Upper and Glasses Results & Data Vital Signs (Past 12 Hours) Vital Signs Temp Pulse Resp BP Pulse Ox O2 Del Method O2 Flow Rate 10/25/22 07:43 36.2 C L 67 18 168/80 H 100 Nasal Cannula 2 10/25/22 05:08 36.5 C 71 18 167/77 H 97 Nasal Cannula 2 10/24/22 23:58 36.4 C L 60 18 152/80 H 98 Nasal Cannula 2 10/24/22 20:01 Nasal Cannula 2
--- NOTE | 2022-10-25 07:47 | Progress Note ---
Date of Service October 25, 2022 Assessment & Plan (1) Pulmonary embolism: (2) COVID-19: (3) Atrial fibrillation with rapid ventricular response: Plan 82-year-old female who presented with worsening shortness of breath due to COVID-19 infection and bilateral PEs. Of note, she was on chronic anticoagulation with Xarelto for atrial fibrillation prior to presentation. Endorses compliance with Xarelto. Currently on therapeutic unfractionated heparin and would like to be discharged home. -Given failure of anticoagulation with Xarelto, would recommend switching to warfarin. Recommend starting weight-based therapeutic low molecular weight heparin (Lovenox) 1 mg/kg twice daily. -Can start warfarin 5 mg p.o. daily this evening and continue with Lovenox until INR is between 2-3 for at least 2 consecutive days. Would recommend referral to Coumadin clinic upon discharge from hospital for monitoring of INR and dose adjustment of Coumadin -Discussed importance of age-appropriate screening to rule out underlying malignancy. Admission and Anticipated Discharge Date Admission Date: October 23, 2022 Subjective Doing very well this morning. States that shortness of breath has significantly improved and she would like to go home. Currently on 2 L/min supplemental O2 Review of Systems Review of Systems: All systems reviewed & are unremarkable except as noted in Subjective Results & Data Vital Signs (Past 12 Hours) Vital Signs Temp Pulse Resp BP Pulse Ox O2 Del Method O2 Flow Rate 10/25/22 07:43 36.2 C L 67 18 168/80 H 100 Nasal Cannula 2 10/25/22 05:08 36.5 C 71 18 167/77 H 97 Nasal Cannula 2 10/24/22 23:58 36.4 C L 60 18 152/80 H 98 Nasal Cannula 2 10/24/22 20:01 Nasal Cannula 2
[2022-10-25] MEDS: PARoxetine HCL 20 MG TAB PO SCH (09:02)
[2022-10-25] MEDS: METOPROLOL SUCC 50MG EXT REL TAB PO SCH (09:02)
[2022-10-25] MEDS: dexAMETHasone 6 MG in SYRINGE 0 ML IV SCH (09:02)
[2022-10-25] MEDS: guaiFENesin 600 MG TABCR PO SCH (09:02)
[2022-10-25] MEDS: PANTOprazole 40 MG TAB PO SCH (09:02)
[2022-10-25] MEDS: ATORVASTATIN 40 MG TAB PO SCH (09:03)
[2022-10-25] MEDS: UMECLIDINIUM/VILANTEROL 62.5/25MCG 7 PUFFS/INHALER INH SCH (09:03)
[2022-10-25] MEDS: LANTUS PER UNIT CHARGE SQ SCH (09:28)
[2022-10-25] MEDS: INSULIN ASPART PER UNIT CHARGE SC SCH ×3 (09:28→17:20)
--- NOTE | 2022-10-25 09:57 | XCELERA ---
[id number] [id number]
[2022-10-25 10:01] LABS: Partial Thromboplastin Ratio 4.6
[2022-10-25 10:07] LABS: Partial Thromboplastin Time 127.6 Seconds (21.0-31.0)
[2022-10-25] MEDS ORDERED: WARFARIN SOD 10 MG TAB PO ONE (10:51)
[2022-10-25 11:35] LABS: Partial Thromboplastin Ratio 3.2
[2022-10-25 11:47] LABS: Partial Thromboplastin Time 87.5 Seconds (21.0-31.0)
[2022-10-25] MEDS: REMDESIVIR 100 MG in SODIUM CHLORIDE 0.9% 230 ML IV SCH (12:29)
--- NOTE | 2022-10-25 16:19 | Discharge Summary ---
Date of Service October 25, 2022 Admission HPI Per Admitting Provider Paige Kat is an 82yo female with history of atrial fibrillation on Rivaroxaban anticoagulation, HLP, HTN, CAD presenting with Covid-19 infection. Patient reports that she and her took home Covid-19 tests 2 days ago which were POSITIVE. She has overall been feeling well. This evening prior to arrival she became acutely short of breath with racing heart and palpitations. Also with worsening fatigue. She came to the ER via EMS - saturations of 88% on room air. She does not use oxygen at home. Patient in atrial fibrillation with RVR upon arrival to the ER - HR of 120's. She was administered Metoprolol 5mg IV x 2 doses with some improvement. Saturations of 90% on room air. Supplemental O2 placed with improvement - now 95% on 3L. Patient is fully vaccinated. Has never had Covid before. ER Course: Metoprolol 5mg IV x 2 KCl 10mEq IV Admission Exam Per Admitting Provider General: patient resting comfortably, NAD, non-toxic in appearance, AA&O x 4 Skin: warm, dry, intact, no rashes or lesions HEENT: NC/AT, PERRL, EOMI, anicteric sclera, conjunctiva without injection, external ear normal to inspection and nontender, nares patent, moist mucus membranes, dentition intact, no oropharyngeal lesions, neck supple, trachea midline, no LAD, no thyromegaly, no JVD Heart: +S1/S2, regular, no m/r/g Lungs: equal air entry bilaterally, no rales/rhonchi/wheezes Abd: +BS, soft, NT/ND, no masses/organomegaly/ascites Ext: warm, 2+ pulses in UE/LE bilaterally, no clubbing/cyanosis or edema Neuro: nonfocal, patient AA&O x 4, speech intact, no facial droop, moving all extremities on command with equal strength 5/5 Principal Diagnosis Pulmonary Embolism Discharge Exam Constitutional WD/WN, vitals as above Eyes PERRL, conjunctivae normal, anicteric sclerae ENMT external ear and nose normal, oropharynx normal Neck trachea midline, no thyromegaly Respiratory normal respiratory effort, lungs clear to auscultation Cardiovascular RRR, no murmur, no edema Gastrointestinal (Abdomen) Inspection/Auscultation: abdomen normal to inspection Percussion/Palpation: abdomen soft; abdomen nontender Skin no rashes, warm and dry Discharge Data Allergies Allergy/AdvReac Type Severity Reaction Status Date / Time tramadol Allergy Intermediate "OUT OF Verified 10/23/22 06:26 BODY EXPERIENCE" codeine Allergy Unknown "OUT OF Verified 10/23/22 06:26 BODY EXPERIENCE" metformin AdvReac Intermediate Diarrhea Verified 10/23/22 06:26 raloxifene AdvReac Unknown SWELLING Verified 10/23/22 06:26 Consultations 10/23/22 19:06 Consult Hematology Routine Ordered Studies 10/23/22 13:06 CT angio chest PE protocol Urgent Hospital Course (1) COVID-19: 82 y/o female w/ PMHx of pulm HTN, neurogenic bladder, COPD, DM2, diastolic CHF, HTN, HLD, anxiety/depression, and afib on Xarelto presenting with dyspnea, covid pos since 2 days prior to admission, symptom onset ~6 days prior to admission. Admitted on 10/23 for COVID-19 and bilateral PEs. -Will adjust patient's Xarelto to 15mg BID for 21 days given recent PE and noncompliance, after which can switch back to Xarelto 20mg daily. -Patient to follow up with PCP -consider discussing depression regarding chronic illness with PCP. (1) COVID-19 -3L O2 requirement on admission, weaned to room air - Patient given IV dexamethasone and remdesivir, discontinue on discharge - given mucinex inpatient (2) Pulmonary embolism: CTA PE w/ extensive bilateral PEs w/ likely LLL small pulmonary infarcts. - Patient states in the weeks prior to admission she would occasionally skip her medications due to depression over chronic illness, at most skipped 5 days non- consecutively - anti-Xa LMW level >1.5 - TTE EF 55-60% - Hematology on board - originally recommended warfarin with lovenox bridge given concern xarelto failure, patient had not disclosed skipping medication at that time. - Per discussion with patient and family and considering difficulty of adhering to warfarin dosing with lovenox bridge, we will continue using Xarelto for anticoagulation at this time. Start Xarelto 15mg BID for 21 days, after which may transition back to Xarelto 20mg daily. (3) Atrial fibrillation with rapid ventricular response: Patient presented in AF with RVR. ~120s. 1 dose of IV Lopressor given. Rate improved, RVR resolved. Now rate-controlled a-fib 60s-80s. - Continue home metoprolol succinate 150mg po qAM and 100mg po qPM - Continue Digoxin 0.125mg daily - Digoxin level 0.4, slightly subtherapeutic (4) COPD (chronic obstructive pulmonary disease): Chronic, GOLD B-C, last PFTs in 2019. No wheezing appreciated on exam - Albuterol HFA PRN - Continue Anoro Ellipta - consider repeat PFTs as outpatient - defer to pulm/PCP (5) Type 2 diabetes mellitus: Chronic. Patient on Glimepiride as outpatient. Well controlled for age - HgbA1C on 09/09/22 = 6.3 -was on SSI inpatient, resume home meds on discharge (6) Hypercholesterolemia: Chronic. Continue Atorvastatin (7) Essential hypertension: Chronic. Blood pressure stable. Continue Metoprolol (8) Depression with anxiety: Chronic. Continue Paxil (2) Pulmonary embolism: (3) Atrial fibrillation with rapid ventricular response: (4) COPD (chronic obstructive pulmonary disease): (5) Type 2 diabetes mellitus: (6) Hypercholesterolemia: (7) Essential hypertension: (8) Depression with anxiety: Total Time Total Time Spent Total Time Spent (In Minutes): see attenting attestation Discharge Plan Discharge Items Patient Disposition: Home - Self-Care Reason For Visit: SHORTNESS OF BREATH Discharge Diagnosis: COVID atrial fibrillation with rapid ventricular response Activity: Resume your previous activity Non-emergency contact: Primary Care Provider Call non-emergency contact if: you have any medication questions and your symptoms worsen Follow-up/Referrals: Yusuf Chaudhry III, CRNP [Primary Care Provider] - 10/28/22 4:00 pm (Your follow up appt is September @ 4pm with Elly Schreiber) Diet: Carb Consistent or DM2 and Heart Healthy Addtl Attending Provider Instructions: You were admitted to the hospital for Pulmonary Embolism, due to a combination of COVID-19 infection and missing your Xarelto doses. You were treated with bloo d thinners and oxygen, and your symptoms have improved. We discussed whether it was appropriate to continue your Xarelto at this time or to switch to a different medication called Warfarin. Blood thinners need to be taken daily to stay at a therapeutic range. Your Xarelto should continue working effectively once it is resumed, however for the next 3 weeks we will have you on Xarelto 15mg tablets twice a day to bring you back to effective range, after which you can go back to Xarelto 20mg once a day. A discharge summary will be sent to your primary care physician to ensure continuity of care. Please bring this discharge summary with you to your next office appointment so that your provider can review it at that time. Follow-up appointments: Make a follow-up appointment with your PCP within the next week. It is very important that you follow up with them shortly after discharge from the hospital. Keep all your follow-up appointments as already scheduled. If you cannot make an appointment, notify your provider. Medications: Your medication list has been reviewed and reconciled upon discharge to ensure accuracy and continuity of care. An updated list of all your medications is included with your hospital discharge paperwork. Please review this list closely, and make note of any changes. * We sent a new medication called Xarelto to your pharmacy. Take Xarelto 15mg one tablet twice a day for 21 days. You may start the first dose tonight. * By 11/15/22, you may return to your usual dosage of Xarelto 20mg tablet once a day in the evening. Take your medications as instructed; do not skip a dose of your medicines. Make sure all of your doctors know every medicine you are taking (including wsvv-odi-qmmtlgw medicines, vitamins, and supplements). Call your primary care provider before taking any new medicines (including cbor-cfm-jazzobv medicines, vitamins, and supplements), because some of these may interact with your current medications, or may make your symptoms worse. Tell your primary care provider if you cannot afford your medications. CONTACT YOUR PRIMARY CARE PROVIDER if you experience any of the following: Difficulty breathing Increased depression Difficulty following your treatment plan, or difficulty taking medications CALL 911 OR GO TO THE EMERGENCY DEPARTMENT if you experience any of the following: Sudden, severe abdominal pain or nausea/vomiting Severe chest pain, or chest pain that radiates (moves) to your jaw or arm Sudden, severe shortness of breath or difficulty breathing Thank you for allowing us to participate in your care. Pending Studies at Discharge: No Stand-Alone Forms: My [facility], Smoking Cessation Medications and DC Order Prescriptions: New Xarelto 15 mg tablet 15 mg PO BID 21 Days Qty: 42 0RF Rx Instructions: must administer with a meal/food Continued (DME) blood-glucose meter [Globe Wirelessuch Verio Flex meter] [facility] [place] See Rx Instructions .ROUTE .MEDSUPPLY Qty: 1 0RF Rx Instructions: Test once daily; Dx code- E11.9 umeclidinium-vilanterol [Anoro Ellipta] 62.5-25 mcg/actuation blister with device 1 inh inhalation DAILY 0RF Anoro Ellipta 62.5-25 mcg/actuation blister with device 1 inh INH DAILY Qty: 1 0RF nitroglycerin 0.4 mg tablet, sublingual 0.4 mg SL UD PRN (Reason: Chest Pain) Qty: 7 1RF atorvastatin 80 mg tablet 80 mg PO DAILY Qty: 90 3RF paroxetine HCl 40 mg tablet See Rx Instructions .ROUTE .COMPLEX Qty: 90 3RF Dose Instruction: TAKE ONE TABLET BY MOUTH DAILY Rx Instructions: TAKE ONE TABLET BY MOUTH DAILY glimepiride 1 mg tablet 1 mg PO DAILY Qty: 90 1RF metoprolol succinate 100 mg tablet extended release 24 hr 150 mg PO .COMPLEX Qty: 225 3RF Rx Instructions: 150 mg PO in the morning and 100MG in the afternoon digoxin 125 mcg (0.125 mg) tablet 125 mcg PO DAILY Qty: 90 3RF ergocalciferol (vitamin D2) 1,250 mcg (50,000 unit) capsule 1,250 mcg PO WEEKLY Qty: 12 1RF lorazepam 0.5 mg tablet 0.5 mg PO BID PRN (Reason: anxiety) Qty: 30 2RF albuterol sulfate 90 mcg/actuation HFA aerosol inhaler 2 puff INH Q6H PRN (Reason: Shortness Of Breath Or Wheezing) Qty: 18 3RF oxycodone-acetaminophen 5-325 mg tablet 1 tab PO Q8H PRN (Reason: pain) Qty: 60 0RF Xarelto 20 mg tablet 20 mg PO DAILY 0RF diclofenac sodium 1 % gel 2 g topical QID Qty: 100 3RF Rx Instructions: apply to single elbow, wrist or hand; for hand includes palm/fingers/back of hand coenzyme Q10 200 mg tablet 200 mg PO DAILY (DME) lancets [800APPTouch UltraSoft Lancets] [facility] [place] See Dose Instructions .ROUTE .MEDSUPPLY Qty: 50 Rx Instructions: As directed (DME) OneTouch Verio test strips strip See Dose Instructions .ROUTE .MEDSUPPLY Qty: 10 Rx Instructions: As directed Slow-Mag 71.5 mg tablet,delayed release (DR/EC) 71.5 mg PO DAILY Ocuvite Adult 50 Plus 250-5-1 mg Capsule 1 cap PO DAILY Adult Multivitamin Gummies 200 mcg tablet,chewable 200 mcg PO DAILY Discharge Orders: Discharge Order (Routine); Ordered 10/25/22 Ordered By: Mehnaz Snyder/Other Patient Handouts: High Blood Sugar (Hyperglycemia), Hypoglycemia (Low Blood Sugar), Managing Type 2 Diabetes Admission Data Admit Date/Time: 10/23/22 05:37 Attending Provider: Bautista Garcia Admit Provider: Deidre Kelley Primary Care Provider: Yusuf Chaudhry III Other Providers: Nohemy Botello Resident Activity Tracking Resident Involvement: Resident Care Provided Care Provided: Adult [facility]
[2022-10-25] MEDS: DIGOXIN 0.125 MG TAB PO SCH (17:24)
[2022-10-25] MEDS ORDERED: INSULIN ASPART PER UNIT CHARGE SC ONE (17:56)
[2022-10-25] MEDS ORDERED: LANTUS PER UNIT CHARGE SQ ONE (17:56)
--- NOTE | 2022-10-25 18:51 | Communication Note ---
Date of Service: October 25, 2022 I personally examined the patient and verified all [place] points of history and exam, discussed case, and agree with decision making with Dr Nicholson. Due to EMR configuration, I am unable to directly addend resident discharge summary. Patient feels better and would very much like to go home. Daughter and son-in-law are present whenever I see her. We have an extensive discussion and answer all questions the best my ability and to her satisfaction, Dr. Nicholson later revisits and has an extensive discussion with patient and . During that discussion patient opts to go home. She notes to me/Dr. Nicholson that while she was claiming adherence to Xarelto on prior HPI's, the reality was that she was putting up a flight about taking her medications with her , and missed at least 45 doses of Xarelto that she will admit to. Daughter also notes that she is very concerned about patient's ability to follow through with Lovenox injections twice daily, and loosely infers that she is also worried about patient's ability to follow through with INR checks. In light of this, we then discussed the risk/benefit of revisiting Xareltolooking at it as less likely (but not clearly not) a treatment failure given that she was missing doses, and had COVIDwhich certainly could lead to venous thromboembolic disease. We also discussed however, that its not clear that she simply formed a clot from missing a few dosesand that a change in mechanism to Lovenox/Coumadin is still quite rationalbut does entail more monitoring/etc. After I have discussion with patient/daughter/yyp-[id number] notes that she would prefer to stick with LovenoxCoumadin, while daughter seem more comfortable with patient going back on DOAC. She did note that she would prefer that we discussed the situation with patient and her husbandgiven that the is patient's primary caregiver. Later Dr. Nicholson revisited and patient opted for home back on Xarelto. Close outpatient follow-up PEin setting of COVID, missing doses of Xareltosee discussion above, extensive discussion about the risks/benefits of both approaches, and the vague uncertainty about whether or not she truly failed Xarelto versus formed clots because of having COVID while not taking her Xareltoeither way agree with hematology/oncology that outpatient screening for malignancy is aguilera as well. Given that after consideration and discussions, patient opted to resume Xareltowill treat as a "new start" given that if it truly was from missing doses, she really needs to be treated as though it is a new clot/new start of medicationto that end 15 mg twice daily for 21 days, and then 20 mg daily thereafter. Close outpatient follow-up. Otherwise as above.
--- NOTE | 2022-10-25 18:51 | Billing Data ---
Date of Service October 25, 2022 Coding Level of Care Code 98610 IN/OBS DISCH 30 MIN/LESS
[2022-10-25] MEDS ORDERED: LANTUS PER UNIT CHARGE SQ SCH (21:00)
== END 2022-10-25 17:57 | disposition home or self-care (01) | DRG 177 ==
LOC: ED 02:54 → 2N 05:37 → SUATTDRO 05:37 → 2N 08:07 → 2S 16:35

== ENCOUNTER 2024-06-22 18:36 | Inpatient (IN) ==
--- NOTE | 2024-06-22 19:07 | Emergency Department Note ---
Impression & Plan Acute alteration in mental status, Falls frequently, Acute subdural hematoma ED Provider Note NAME: BROOKE QUEEN AGE: 84 SEX: F : 1940 ARRIVES VIA: Walk-In INFORMANT: Patient, the patient's significant other ED PROVIDER(S): Camilla Toussaint DO CHIEF COMPLAINT: Frequent falls HPI: The patient is an 84-year-old female who presented to the emergency department for an evaluation of frequent falls. The patient is been having problems with falls of the course of the last few weeks. She struck her head at least twice especially over the last 48 hours. She saw her family doctor. She was sent for an MRI of the brain which revealed a subdural hematoma. She was sent to the emergency department for further evaluation. The patient denies having any severe headache. She denies having any back pain or pelvic pain. She has been able to ambulate but her significant other states she is been more confused especially over the last 24 hours. ROS: See above HPI for pertinent positives & negatives. A total of 10 systems reviewed and were otherwise negative. PAST MEDICAL HISTORY: See Below PAST SURGICAL HISTORY: See Below FAMILY HISTORY: See Below SOCIAL HISTORY: See Below HOME MEDICATIONS: See Below ALLERGIES: See Below VITALS: See Below PHYSICAL EXAMINATION: GENERAL: Patient is awake alert in no acute distress patient is resting comfortably and showing no signs of anxiety EYES: The conjunctivae are clear. The pupils are round and reactive. There is periorbital ecchymosis over the right eye. This is age-indeterminate. EARS, NOSE, MOUTH AND THROAT: The nose is without any evidence of any deformity. Mucous membranes are moist. Tongue is midline. NECK: The neck is nontender and supple. RESPIRATORY: Normal respiratory effort is noted there is no evidence of wheezing rhonchi or rales CARDIOVASCULAR: Regular rate and rhythm noted there no murmurs rubs or gallops normal S1 normal S2. GASTROINTESTINAL: The abdomen is soft. Abdomen is nontender. BACK: No midline tenderness or or step-off noted range of motion in flexion extension as well as rotation no signs of muscle spasm noted MUSCULOSKELETAL/EXTREMITIES: There is no evidence of gross deformity full range of motion is noted in the hips and shoulders. SKIN: There is no obvious evidence of any rash. There are no petechiae, pallor or cyanosis noted. NEUROLOGIC: The patient is awake and alert. She is oriented to person place and situation. Strength was symmetric but diminished. MEDICAL DECISION MAKING: The patient is an 84-year-old female who presented to the emergency department for an evaluation of altered mental status. The patient has been having problems over the course of the last several days noted by her significant other. She is also had problems with falls frequently. She had 1 frequent fall where she fell and hit the right side of her head. The patient was sent for an MRI by her primary care physician earlier today. This revealed a small subdural hematoma. She was sent to the emergency department for further evaluation. CT was repeated approximately 8 hours after the MRI. There was no significant change. There was no mass effect. The patient has not taken Xarelto since last evening but at the request of neurosurgery the patient was treated with Kcentra. I discussed the patient's laboratory and radiographic studies with her. I discussed her condition with the neurosurgeon at [facility]. They did not recommend transfer at this time and feel the patient can be managed here given the stability of the subdural hematoma on repeat imaging. For this reason the [facility] hospitalist was notified about the patient. Triage Nursing notes reviewed. Prior medical records reviewed Vital Signs: reviewed and remarkable for no significant abnormalities Differential diagnosis: Fracture, dislocation, contusion, intra-abdominal, pneumothorax, intrathoracic, intracranial, neurologic, compartment syndrome, rhabdomyolysis, as well as other pathologies. ER treatment provided: See below Diagnostics interpreted by me: ECG: EKG was obtained in the emergency department. My interpretation is atrial fibrillation at 73 bpm. There was no ectopy. ST segment depression and T wave abnormalities were noted in the inferior and lateral leads. This was compared to a tracing from October 23, 2022. No changes were noted. Cardiac Monitoring: An order was placed for continuous cardiac monitoring. The monitor shows a rate of 80 bpm with sinus rhythm. Laboratory studies: As stated above and show below. Imaging studies: See below. Radiographic imaging was reviewed by myself Consultation(s): I discussed this case with Dr. Pete who is on-call for neurosurgery at [facility]. I discussed this case with Dr. Warner who is on-call for hematology. Dr. Jean was notified about the patient. Critical care I have personally spent greater than 35 minutes of critical care time in the direct management of this patient. This includes bedside care, interpretation of diagnostic studies, and testing, discussion with consultants, patient, and family members, and other required patient management activities. This 35 minutes is in excess of all separately billable procedures. Past Med/Surg History Problem List (Updated 06/22/24 @ 22:02 by Camilla Toussaint DO) Acute subdural hematoma (Acute) Falls frequently (Acute) Acute alteration in mental status (Acute) Dementia Visual hallucinations Auditory hallucinations Hypothyroidism Stress incontinence Hypomagnesemia Unrefreshed by sleep Varicose veins of both lower extremities Chronic pelvic pain in female Neurogenic bladder Recurrent UTI (urinary tract infection) Pulmonary hypertension Hypersomnia Obesity (BMI 30.0-34.9) COPD (chronic obstructive pulmonary disease) COPD (chronic obstructive pulmonary disease) case management patient Urge and stress incontinence (Chronic) Urgency incontinence (Chronic) Well tolerated Botox. RTO in 1 month with nursing, 2 months with MD with [facility]. Call us sooner PRN issues. Bladder appears inflamed, persistent UTI effect possible - will extend Cipro x an additional week to ensure complete treatment gianfranco-procedure. Claudication (Chronic) Type 2 diabetes mellitus (Chronic) Vitamin D deficiency (Chronic) Sensorineural hearing loss (SNHL) of both ears (Chronic) Peripheral vascular disease (Chronic) Osteoporosis (Chronic) Memory loss (Chronic) Lobular hyperplasia, atypical, breast (Chronic) Hypercholesterolemia (Chronic) Essential hypertension (Chronic) Diastolic dysfunction (Chronic) Depression with anxiety (Chronic) Atrial fibrillation (Chronic) Arteriosclerosis of coronary artery (Chronic) Medical History Atrial fibrillation with rapid ventricular response Pulmonary embolism COVID-19 Acute UTI Former smoker Surgical History History of intravascular stent placement left superficial femoral artery History of coronary artery stent placement RCA and LAD History of tubal ligation History of shoulder surgery left History of oophorectomy left History of surgery on wrist History of cataract surgery Family History Sister Myocardial infarction Environmental allergies FH: deafness or hearing loss Breast cancer Mother Coronary heart disease Father Diabetes Denies family history of Ovarian cancer Prostate cancer Bleeding disorder Colorectal cancer Colonic polyp Social History Smoking Status: Never smoker Tobacco Type: Cigarettes Age Started Using Tobacco: 16; Age Quit Using Tobacco: 62; packs per day: 0.5; Second Hand Exposure: No; Do You Dip or Chew Tobacco: No; Hx Alcohol Use: No Hx Substance Use: No Preferred Language: Palauan Communication Ability: Effective Visual Impairment: No Limitations Hearing Ability: Hard of Hearing Bias Cutting Machine Operator Required: No Beliefs That Will Affect Care: None marital status: Current Living Situation: Spouse Current Living Situation Comment: [place] current occupational status: retired current occupation: retired inkeeper from [employer] How many Children do You have: 1 Feels Safe at Home: Yes Childhood Exposure to Second-Hand Smoke: Yes Diet: regular caffeine: No during the past year weight has: remained stable Dental Care, Regularly: No Physical Activity Frequency: Does not Exercise Seatbelt Use: always Sunscreen Use: No Assistive Devices: None Allergies Allergies Allergy/AdvReac Type Severity Reaction Status Date / Time tramadol Allergy Intermediate "OUT OF Verified 06/14/24 13:45 BODY EXPERIENCE" codeine Allergy Unknown "OUT OF Verified 06/14/24 13:45 BODY EXPERIENCE" metformin AdvReac Intermediate Diarrhea Verified 06/14/24 13:45 raloxifene AdvReac Unknown SWELLING Verified 06/14/24 13:45 Home Meds Home Medications Medication Instructions Recorded Confirmed coenzyme Q10 200 mg tablet 200 mg PO DAILY 12/18/18 06/14/24 blood sugar diagnostic (OneTouch #10 ea 01/19/19 06/14/24 Verio test strips) lancets (IndependaTouch UltraSoft #50 ea 01/19/19 06/14/24 Lancets) magnesium chloride 71.5 mg 71.5 mg PO DAILY 01/19/19 06/14/24 (magnesium chloride) tablet,delayed release (Slow-Mag) multivitamin with minerals-folic 200 mcg PO DAILY 02/26/20 06/14/24 acid 200 mcg chewable tablet (Adult Multivitamin Gummies) [id number] 250 mg-dha 90 1 cap PO DAILY 10/05/23 06/14/24 mg-epa 160 po-jxoj-[id number]-zeax capsule (Ocuvite Adult 50 Plus) melatonin 5 mg capsule mg PO HS 06/14/24 06/14/24 Previous Rx's Medication Instructions Recorded blood-glucose meter (IndependaTouch #1 ea 02/15/20 Verio Flex Meter) umeclidinium 62.5 mcg-vilanterol 1 inh inhalation DAILY #1 inhaler 07/28/21 25 mcg/actuation powdr for inhalation (Anoro Ellipta) diclofenac sodium 1 % topical gel 2 g topical QID #100 grams 04/20/22 albuterol sulfate 90 mcg/actuation 2 puff inhalation Q6H PRN 09/28/22 aerosol inhaler Shortness Of Breath Or Wheezing #18 grams rivaroxaban 20 mg tablet 20 mg PO DAILY #90 tabs 03/23/23 metoprolol succinate 100 mg 150 mg (1.5 x 100 mg) PO .COMPLEX 06/27/23 tablet,extended release 24 hr #225 tabs atorvastatin 80 mg tablet 80 mg PO DAILY #90 tabs 07/08/23 digoxin 125 mcg (0.125 mg) tablet 125 mcg PO DAILY #90 tabs 08/02/23 ezetimibe 10 mg tablet (Zetia) 10 mg PO DAILY #90 tabs 08/10/23 nitroglycerin 0.4 mg sublingual 0.4 mg sublingual UD PRN Chest 08/22/23 tablet Pain #7 tabs glimepiride 1 mg tablet 1 mg PO DAILY #90 tabs 01/03/24 ergocalciferol (vitamin D2) 1,250 1,250 mcg PO WEEKLY #12 caps 01/23/24 mcg (50,000 unit) capsule levothyroxine 50 mcg tablet 50 mcg PO DAILY #90 tabs 03/21/24 (Synthroid) paroxetine HCl 40 mg tablet See Rx Instructions .Route 04/18/24 .COMPLEX #90 tabs cephalexin 500 mg capsule 500 mg PO BID 7 days #14 caps 05/11/24 lorazepam 0.5 mg tablet 0.5 mg PO .COMPLEX PRN anxiety 1 06/14/24 day #2 tabs lorazepam 0.5 mg tablet 0.5 mg PO BID PRN anxiety #30 tabs 06/18/24 Results & Data (ED) Vital Signs Vital Signs - 24 hr 06/22/24 18:45 06/22/24 18:59 Temperature 36.7 C Temperature Source Skin Pulse Rate 86 86 Respiratory Rate 18 Respiratory Effort / Characteristics Non-Labored Spontaneous Respiratory Depth Normal Respiratory Pattern Regular Blood Pressure 138/69 Blood Pressure Mean 92 Pulse Oximetry 97 Oxygen Delivery Method Room Air Sepsis Recent Fever Within 48 Hours No Sepsis New/Unexplained Change in Mental Status N/A Sepsis Action Taken by Nursing No Action Required Home Medications Current Medication List: was personally reviewed by me Laboratory Data Attestation: I reviewed the patient's lab results. 06/22/24 21:00 06/22/24 21:00 Lab Results 06/22/24 Range/Units 21:00 WBC 7.71 (4.8-10.8) K/ul RBC 4.17 L (4.20-5.40) M/uL Hgb 12.8 (12.0-16.0) g/dl Hct 38.3 (37.0-47.0) % MCV 91.8 (80.0-100.0) fL MCH 30.7 (25.0-34.0) pg MCHC 33.4 (32.0-36.0) g/dL RDW Std Deviation 46.6 H (36.4-46.3) fL RDW Coeff of Loli 13.7 (11.5-14.5) % Plt Count 205 (130-400) K/uL MPV 11.4 (9.4-12.4) fL Immature Gran % (Auto) 1.0 % Neut % (Auto) 65.5 % Lymph % (Auto) 22.7 % [place] % (Auto) 9.2 % Eos % (Auto) 1.2 % Baso % (Auto) 0.4 % Neut # (Auto) 5.05 (1.40-6.50) K/uL Lymph # (Auto) 1.75 (1.20-3.40) K/uL [place] # (Auto) 0.71 H (0.11-0.59) K/uL Eos # (Auto) 0.09 (0.00-0.50) K/uL Baso # (Auto) 0.03 (0.00-0.20) K/uL Immature Gran # (Auto) 0.08 (0.01-0.20) K/uL PT 12.5 H (9.0-12.0) Seconds INR 1.2 H (0.9-1.1) APTT 29 (21-31) Seconds PTT Ratio 1.1 Sodium 140 (136-145) mmol/L Potassium 4.2 (3.5-5.1) mmol/L Chloride 106 (98-107) mmol/L Carbon Dioxide 28 (21-32) mmol/L Anion Gap 6 (3-11) BUN 21 (6-23) mg/dl Creatinine 0.70 (0.6-1.2) mg/dl Est Cr Clr Drug Dosing 62.5 ml/min eGFR 85.23 BUN/Creatinine Ratio 30.0 H (10-20) Glucose 114 H (70-99(Fasting)) mg/dl Calcium 9.6 (8.6-10.3) mg/dl Total Bilirubin 1.6 H (0.2-1.0) mg/dl AST 33 (13-39) U/L ALT 25 (7-52) U/L Alkaline Phosphatase 56 (34-104) U/L Total Creatine Kinase 118 (26-192) U/L Troponin I High Sens 16.7 H (0-14) pg/ml Total Protein 6.5 (6.0-8.3) gm/dl Albumin 3.7 (3.4-5.0) gm/dl Globulin 2.8 (2.5-4.0) gm/dl Albumin/Globulin Ratio 1.3 (0.9-2) Lipase 17 (11-82) U/L Imaging Data Attestation: I personally reviewed and interpreted this imaging study as follows: My Impression: CT the brain was obtained in the emergency department. My interpretation is small subdural hematoma in the interhemispheric falx. There was no mass effect. Final report below. Radiologist's Impression: Patient: BROOKE QUEEN (Female) : 40 Status: ER Date: 06/22/24 19:42 Room #: History: Reason for exam: Trauma. Slices: 0 Priors: Tech: Exam request generated by [email or web address] interface Exams: XR PELVIS, 1-2 views Referring Phy: CASE^ALISIA^Tegan Ordering Phy: Camilla Toussaint Accession Numbers: [id number] Final Report EXAM: XR Pelvis, 1 or 2 Views CLINICAL HISTORY: Reason for exam: Trauma. TECHNIQUE: Frontal view of the pelvis. COMPARISON: Pelvis and hip radiographs on 08/11/2015 FINDINGS: Bones/joints: No displaced fracture or dislocation identified. Mild degenerative changes of the hips. No bony lesion. Soft tissues: Normal. No radiopaque foreign body identified. Other: Vascular calcifications. Stent noted over the lower lumbar spine. IMPRESSION: No displaced fracture or dislocation identified. Radiologist: Blane Collazo M.D. Electronically Signed: 06/22/24 20:50 Study first marked ready to read at 19:50, study last marked ready to read at 19:50, initial results transmitted at 20:50 Patient: BROOKE QUEEN (Female) : 40 Status: ER Date: 06/22/24 19:15 Room #: History: Reason for exam: Trauma. Slices: 0 Priors: Tech: Exam request generated by [employer] interface Exams: CT HEAD Without Contrast Referring Phy: MIGUEL^CAMILLA^Dayday Ordering Phy: Camilla Toussaint Accession Numbers: [id number] Final Report EXAM: CT Head Without Intravenous Contrast CLINICAL HISTORY: Reason for exam: Trauma. TECHNIQUE: Axial computed tomography images of the head/brain without intravenous contrast. CTDI is 38.49 mGy and DLP is 624.41 mGy-cm. Automated exposure control was utilized for the study. A dose lowering technique was utilized adhering to the principles of ALARA. COMPARISON: MRI brain on 06/22/2024 FINDINGS: Brain: No acute infarct identified. Trace acute subdural blood along the interhemispheric falx and right tentorium. No mass effect or midline shift. Scattered areas of hypoattenuation in the supratentorial white matter likely represent chronic small vessel ischemic changes. Ventricles and sulci: Prominence of the ventricles and sulci is likely secondary to cerebral volume loss. Bones: Normal. No bony lesion or acute fracture. Subcutaneous tissues: Normal. Sinuses: Normal. No air-fluid levels or mucosal thickening. Mastoid air cells: Normal. Orbits: Bilateral lens implants. Other: Atherosclerotic calcifications in the intracranial vasculature. IMPRESSION: 1. Trace acute subdural blood along the interhemispheric falx and right tentorium. 2. Chronic small vessel ischemic changes and cerebral volume loss. Radiologist: Blane Collazo M.D. Electronically Signed: 06/22/24 20:16 Study first marked ready to read at 19:17, study last marked ready to read at 19:17, initial results transmitted at 20:16 Communications: Clear Time Type Notes 06/22/24 20:22 Call Doctor Regarding Int racranial Hemorrhage, called Dr. Toussaint on 06/22 20:22 (-05:00) Patient: BROOKE QUEEN (Female) : 40 Status: ER Date: 06/22/24 19:15 Room #: History: Reason for exam: Trauma. Slices: 0 Priors: Tech: Exam request generated by [employer] interface Exams: CT C SPINE Referring Phy: MIGUEL^CAMILLA^Dayday Ordering Phy: Camilla Toussaint Accession Numbers: [id number] Final Report EXAM: CT Cervical Spine Without Intravenous Contrast CLINICAL HISTORY: Reason for exam: Trauma. TECHNIQUE: Axial computed tomography images of the cervical spine without intravenous contrast. CTDI is 21.82 mGy and DLP is 423.06 mGy-cm. Automated exposure control was utilized for the study. A dose lowering technique was utilized adhering to the principles of ALARA. COMPARISON: None FINDINGS: Bones: Normal alignment. No acute fracture or bony lesion. Disc spaces: No subluxation. Degenerative changes of the spine. Soft tissues: Normal. Other: Atherosclerotic changes of the vasculature. IMPRESSION: No acute traumatic abnormality. Radiologist: Kambrie Zay, M.D. Electronically Signed: 06/22/24 20:13 Study first marked ready to read at 19:17, study last marked ready to read at 19:17, initial results transmitted at 20:13 Patient: BROOKE QUEEN (Female) : 40 Status: ER Date: 06/22/24 19:41 Room #: History: Reason for exam: Trauma. Slices: 0 Priors: Tech: Exam request generated by [employer] interface Exams: XR CXR 1 VIEW Referring Phy: CASE^ALISIA^Tegan Ordering Phy: Camilla Toussaint Accession Numbers: [id number] Final Report EXAM: XR Chest, 1 View CLINICAL HISTORY: Reason for exam: Trauma. TECHNIQUE: Frontal view of the chest. COMPARISON: Chest radiograph on 10/23/2022 FINDINGS: Hardware: None. Lungs/pleura: Prominent lung markings. No focal consolidation. No pleural effusion or pneumothorax. Heart/mediastinum: Enlargement of the cardiac silhouette. Atherosclerotic changes in aorta. Soft tissues: Unremarkable. Bones: No acute fracture. Upper abdomen: Normal. IMPRESSION: Prominent lung markings may be secondary to technique versus pulmonary vasculature congestion. Radiologist: Blane Collazo M.D. Electronically Signed: 06/22/24 20:25 Study first marked ready to read at 19:50, study last marked ready to read at 19:50, initial results transmitted at 20:25 Discharge Plan Visit Data Chief Complaint: Abnormal Labs/Diagnostic Testing Stated Complaint: CALLED IN AFTER TESTING ED Provider: Camilla Toussaint Discharge Problem: Acute alteration in mental status, Falls frequently, Acute subdural hematoma Patient Disposition: Being Evaluated by Hospitalist Forms Stand Alone Forms: My [facility] [employer] Prescriptions Prescriptions: No Action (DME) blood-glucose meter [OneTouch Verio Flex meter] Misc See Rx Instructions .ROUTE .MEDSUPPLY Qty: 1 0RF Rx Instructions: Test once daily; Dx code- E11.9 umeclidinium-vilanterol [Anoro Ellipta] 62.5-25 mcg/actuation blister with device 1 inh inhalation DAILY 0RF Anoro Ellipta 62.5-25 mcg/actuation blister with device 1 inh INH DAILY Qty: 1 0RF albuterol sulfate 90 mcg/actuation HFA aerosol inhaler 2 puff INH Q6H PRN (Reason: Shortness Of Breath Or Wheezing) Qty: 18 3RF rivaroxaban 20 mg tablet 20 mg PO DAILY Qty: 90 3RF Hold Instructions: per Neuro Rx Instructions: must administer with evening meal metoprolol succinate 100 mg tablet extended release 24 hr 150 mg PO .COMPLEX Qty: 225 3RF Rx Instructions: 150 mg PO in the morning and 100MG in the afternoon atorvastatin 80 mg tablet 80 mg PO DAILY Qty: 90 3RF digoxin 125 mcg (0.125 mg) tablet 125 mcg PO DAILY Qty: 90 3RF ezetimibe [Zetia] 10 mg tablet 10 mg PO DAILY Qty: 90 3RF nitroglycerin 0.4 mg tablet, sublingual 0.4 mg SL UD PRN (Reason: Chest Pain) Qty: 7 1RF glimepiride 1 mg tablet 1 mg PO DAILY Qty: 90 3RF ergocalciferol (vitamin D2) 1,250 mcg (50,000 unit) capsule 1,250 mcg PO WEEKLY Qty: 12 1RF paroxetine HCl 40 mg tablet See Rx Instructions .ROUTE .COMPLEX Qty: 90 3RF Dose Instruction: TAKE ONE TABLET BY MOUTH DAILY Rx Instructions: TAKE ONE TABLET BY MOUTH DAILY cephalexin 500 mg capsule 500 mg PO BID 7 Days Qty: 14 0RF lorazepam 0.5 mg tablet 0.5 mg PO BID PRN (Reason: anxiety) Qty: 30 2RF diclofenac sodium 1 % gel 2 g topical QID Qty: 100 3RF Rx Instructions: apply to single elbow, wrist or hand; for hand includes palm/fingers/back of hand Ocuvite Adult 50 Plus 250 mg (90 mg-160 mg) capsule 1 cap PO DAILY coenzyme Q10 200 mg tablet 200 mg PO DAILY (DME) lancets [OneTouch UltraSoft Lancets] misc See Dose Instructions .ROUTE .MEDSUPPLY Qty: 50 Rx Instructions: As directed (DME) OneTouch Verio test strips strip See Dose Instructions .ROUTE .MEDSUPPLY Qty: 10 Rx Instructions: As directed Slow-Mag 71.5 mg tablet,delayed release (DR/EC) 71.5 mg PO DAILY levothyroxine [Synthroid] 50 mcg tablet 50 mcg PO DAILY Qty: 90 1RF Rx Instructions: Take first thing in the morning on an empty stomach. Do not take other medications or eat for 30 minutes after taking levothyroxine. melatonin 5 mg capsule PO HS lorazepam 0.5 mg tablet 0.5 mg PO .COMPLEX PRN (Reason: anxiety) 1 Days Qty: 2 0RF Rx Instructions: take 1 hour prior to procedure, may repeat at time of procedure prn Adult Multivitamin Gummies 200 mcg tablet,chewable 200 mcg PO DAILY Referrals Referrals: Yusuf Chaudhry III, CRNP [Primary Care Provider] -
[2024-06-22 21:32] LABS: Basophils # (auto) 0.03 K/uL (0.00-0.20); Basophils % (auto) 0.4 %; Eosinophils # (auto) 0.09 K/uL (0.00-0.50); Eosinophils % (auto) 1.2 %; Hematocrit (blood only) 38.3 % (37.0-47.0); Hemoglobin 12.8 g/dl (12.0-16.0); Immature Granulocytes # (auto) 0.08 K/uL (0.01-0.20); Lymphocytes # (auto) 1.75 K/uL (1.20-3.40); Lymphocytes % (auto) 22.7 %; Mean Corpuscular Hemoglobin 30.7 pg (25.0-34.0); Mean Corpuscular Hgb Conc 33.4 g/dL (32.0-36.0); Mean Corpuscular Volume 91.8 fL (80.0-100.0); Mean Platelet Volume 11.4 fL (9.4-12.4); Monocytes # (auto) 0.71 K/uL (0.11-0.59); Monocytes % (auto) 9.2 %; Neutrophils # (auto) 5.05 K/uL (1.40-6.50); Neutrophils % (auto) 65.5 %; Platelet Count 205 K/uL (130-400); RDW Coefficient of Variation 13.7 % (11.5-14.5); RDW Standard Deviation 46.6 fL (36.4-46.3); Red Blood Count 4.17 M/uL (4.20-5.40); White Blood Count 7.71 K/ul (4.8-10.8)
[2024-06-22 21:37] LABS: Albumin Globulin Ratio 1.3 (0.9-2); Albumin Level 3.7 gm/dl (3.4-5.0); Bilirubin,Total 1.6 mg/dl (0.2-1.0); Calcium 9.6 mg/dl (8.6-10.3); Creatinine Clr Calc Pharmacy 62.5 ml/min; Globulin 2.8 gm/dl (2.5-4.0); Potassium 4.2 mmol/L (3.5-5.1); Total Protein 6.5 gm/dl (6.0-8.3)
[2024-06-22 21:41] LABS: Troponin I High Sensitivity 16.7 pg/ml (0-14)
[2024-06-22 21:45] LABS: INR 1.2 (0.9-1.1); Partial Thromboplastin Ratio 1.1; Partial Thromboplastin Time 29 Seconds (21-31); Prothrombin Time 12.5 Seconds (9.0-12.0)
[2024-06-22] MEDS ORDERED: PROTHROMBIN COMP CONC- KCENTRA 2,000 UNITS in SYRINGE 0 ML IV STA (21:54)
[2024-06-22] MEDS: KCENTRA (500unit vial) 2000 units IVP IV ONE (22:47)
--- NOTE | 2024-06-22 22:50 | History & Physical Report ---
Date of Service June 22, 2024 Assessment & Plan (1) Acute subdural hematoma: (2) Falls frequently: (3) Acute alteration in mental status: (4) Dementia: (5) Visual hallucinations: (6) Auditory hallucinations: (7) Atrial fibrillation: (8) Type 2 diabetes mellitus: Plan Acute subdural hematoma- Noted on MRI of the brain to be trace acute/subacute subdural hematoma CT of brain this evening, as assessed by [facility] neurosurgery, did not show significant change compared to morning MRI. Therefore, patient will be admitted to [facility] for follow-up, and get repeat CT scan in the a.m. Xarelto will be reversed with Kcentra while in the ED Consult to neurology Atrial fibrillation/hypertension- On chronic Xarelto, which will be held and reversed as noted above Continue digoxin and metoprolol succinate Troponin 16.7 on admission, ordered follow-up with the a.m., likely supply/demand mismatch Auditory and visual hallucinations- Patient does have history of regular, not considered excessive, alcohol use for entire adult life There may be an element of Warnicke's encephalopathy No abnormalities noted on brain imaging to explain May benefit from an EEG when available Consult to neurology Urinary urge and stress incontinence- Pure wick to be used Follow urine culture and sensitivity reports that she has an appointment on 07/[address] Rollins to have some type of device implanted If worsens during the admission, urology can be consulted COPD- Continue usual inhalers History of Present Illness Chief Complaint: The patient was brought to the emergency department after an outpatient MRI of brain that was ordered due to auditory and visual hallucinations, showed a trace acute/subacute subdural hematoma. Primary Care Provider: Yusuf Chaudhry III, GABRIELLE The patient is an 84-year-old female with a past medical history including dementia, hypothyroidism, urinary urge and stress incontinence, neurogenic bladder, recurrent urine tract infection, pulm hypertension, COPD, diabetes mellitus type 2, SNHL bilaterally, essential hypertension, atrial fibrillation and CAD. Her notes that she has been having gradual worsening confusion over the past few months, has been falling frequently over the past month. Her 2 most recent falls were on Tuesday 06/19, and 06/21. Due to worsening confusion and increased frequency of falling, and worsening auditory visual loose nations, she had an MRI performed in the outpatient setting, which also showed a trace acute/subacute subdural hematoma. Her reports that during the middle of the night last evening, she had gone out to the front door, and he found her out lying on the road, reporting that she was walking with friends, that she fell, and they left her alone. reports that he has since rearranged housing and doors locking that she can no longer do that. CT scan of brain in the ED this evening, as reviewed by [facility] neurosurgery, reports that there was no significant change from the previous MRI done earlier today, patient to be admitted to [facility] for monitoring. She has been taking her Xarelto regularly, and she did receive Kcentra reversal while in the ED. Allergies Allergy/AdvReac Type Severity Reaction Status Date / Time tramadol Allergy Intermediate "OUT OF Verified 06/14/24 13:45 BODY EXPERIENCE" codeine Allergy Unknown "OUT OF Verified 06/14/24 13:45 BODY EXPERIENCE" metformin AdvReac Intermediate Diarrhea Verified 06/14/24 13:45 raloxifene AdvReac Unknown SWELLING Verified 06/14/24 13:45 Home Medications Medication Instructions Recorded Confirmed Type coenzyme Q10 200 mg tablet 200 mg PO DAILY 12/18/18 06/14/24 History blood sugar diagnostic (OneTouch #10 ea 01/19/19 06/14/24 History Verio test strips) lancets (OneTouch UltraSoft #50 ea 01/19/19 06/14/24 History Lancets) magnesium chloride 71.5 mg 71.5 mg PO DAILY 01/19/19 06/14/24 History (magnesium chloride) tablet,delayed release (Slow-Mag) blood-glucose meter (OneTouch #1 ea 02/15/20 06/14/24 Rx Verio Flex Meter) multivitamin with minerals-folic 200 mcg PO DAILY 02/26/20 06/14/24 History acid 200 mcg chewable tablet (Adult Multivitamin Gummies) umeclidinium 62.5 mcg-vilanterol 1 inh inhalation DAILY #1 inhaler 07/28/21 06/14/24 Rx 25 mcg/actuation powdr for inhalation (Anoro Ellipta) diclofenac sodium 1 % topical gel 2 g topical QID #100 grams 04/20/22 06/14/24 Rx albuterol sulfate 90 mcg/actuation 2 puff inhalation Q6H PRN 09/28/22 06/14/24 Rx aerosol inhaler Shortness Of Breath Or Wheezing #18 grams rivaroxaban 20 mg tablet 20 mg PO DAILY #90 tabs 03/23/23 06/14/24 Rx metoprolol succinate 100 mg 150 mg (1.5 x 100 mg) PO .COMPLEX 06/27/23 06/14/24 Rx tablet,extended release 24 hr #225 tabs atorvastatin 80 mg tablet 80 mg PO DAILY #90 tabs 07/08/23 06/14/24 Rx digoxin 125 mcg (0.125 mg) tablet 125 mcg PO DAILY #90 tabs 08/02/23 06/14/24 Rx ezetimibe 10 mg tablet (Zetia) 10 mg PO DAILY #90 tabs 08/10/23 06/14/24 Rx nitroglycerin 0.4 mg sublingual 0.4 mg sublingual UD PRN Chest 08/22/23 06/14/24 Rx tablet Pain #7 tabs [id number] 250 mg-dha 90 1 cap PO DAILY 10/05/23 06/14/24 History mg-epa 160 kb-psut-sani-zeax capsule (Ocuvite Adult 50 Plus) glimepiride 1 mg tablet 1 mg PO DAILY #90 tabs 01/03/24 06/14/24 Rx ergocalciferol (vitamin D2) 1,250 1,250 mcg PO WEEKLY #12 caps 01/23/24 06/14/24 Rx mcg (50,000 unit) capsule levothyroxine 50 mcg tablet 50 mcg PO DAILY #90 tabs 03/21/24 06/14/24 Rx (Synthroid) paroxetine HCl 40 mg tablet See Rx Instructions .Route 04/18/24 06/14/24 Rx .COMPLEX #90 tabs cephalexin 500 mg capsule 500 mg PO BID 7 days #14 caps 05/11/24 06/14/24 Rx lorazepam 0.5 mg tablet 0.5 mg PO .COMPLEX PRN anxiety 1 06/14/24 06/14/24 Rx day #2 tabs melatonin 5 mg capsule mg PO HS 06/14/24 06/14/24 History lorazepam 0.5 mg tablet 0.5 mg PO BID PRN anxiety #30 tabs 06/18/24 Rx Past Med/Surg History Problem List (Updated 06/22/24 @ 22:02 by Ben Toussaint DO) Acute subdural hematoma (Acute) Falls frequently (Acute) Acute alteration in mental status (Acute) Dementia Visual hallucinations Auditory hallucinations Hypothyroidism Stress incontinence Hypomagnesemia Unrefreshed by sleep Varicose veins of both lower extremities Chronic pelvic pain in female Neurogenic bladder Recurrent UTI (urinary tract infection) Pulmonary hypertension Hypersomnia Obesity (BMI 30.0-34.9) COPD (chronic obstructive pulmonary disease) COPD (chronic obstructive pulmonary disease) case management patient Urge and stress incontinence (Chronic) Urgency incontinence (Chronic) Well tolerated Botox. RTO in 1 month with nursing, 2 months with MD with [facility]. Call us sooner PRN issues. Bladder appears inflamed, persistent UTI effect possible - will extend Cipro x an additional week to ensure complete treatment gianfranco-procedure. Claudication (Chronic) Type 2 diabetes mellitus (Chronic) Vitamin D deficiency (Chronic) Sensorineural hearing loss (SNHL) of both ears (Chronic) Peripheral vascular disease (Chronic) Osteoporosis (Chronic) Memory loss (Chronic) Lobular hyperplasia, atypical, breast (Chronic) Hypercholesterolemia (Chronic) Essential hypertension (Chronic) Diastolic dysfunction (Chronic) Depression with anxiety (Chronic) Atrial fibrillation (Chronic) Arteriosclerosis of coronary artery (Chronic) Medical History Atrial fibrillation with rapid ventricular response Pulmonary embolism COVID-19 Acute UTI Former smoker Surgical History History of intravascular stent placement left superficial femoral artery History of coronary artery stent placement RCA and LAD History of tubal ligation History of shoulder surgery left History of oophorectomy left History of surgery on wrist History of cataract surgery Family History Sister Myocardial infarction Environmental allergies FH: deafness or hearing loss Breast cancer Mother Coronary heart disease Father Diabetes Denies family history of Ovarian cancer Prostate cancer Bleeding disorder Colorectal cancer Colonic polyp Social History Smoking Status: Never smoker Tobacco Type: Cigarettes Age Started Using Tobacco: 16; Age Quit Using Tobacco: 62; packs per day: 0.5; Second Hand Exposure: No; Do You Dip or Chew Tobacco: No; Hx Alcohol Use: No Hx Substance Use: No Preferred Language: [place] Communication Ability: Effective Visual Impairment: No Limitations Hearing Ability: Hard of Hearing Fishing Vessel Operator Required: No Beliefs That Will Affect Care: None marital status: Current Living Situation: Spouse Current Living Situation Comment: [facility] current occupational status: retired current occupation: retired inkeeper from [employer] How many Children do You have: 1 Other Information That Helps Us Care for You: No Feels Safe at Home: Yes Safety Concerns: Feels Safe At This Time Childhood Exposure to Second-Hand Smoke: Yes Diet: regular caffeine: No during the past year weight has: remained stable Dental Care, Regularly: No Physical Activity Frequency: Does not Exercise Seatbelt Use: always Sunscreen Use: No Assistive Devices: Cane, Glasses and Walker Review of Systems Review of Systems: The patient denies chest pain, palpitations, shortness of breath, dyspnea on exertion, cough, lower extremity swelling, sore throat, fevers, chills, sweats, nausea, vomiting, diarrhea , constipation, abdominal pain, pelvic pain, blood in urine or stool, dysuria, urinary frequency or urgency, loss of consciousness, rash, abnormal bruising or bleeding, focal weakness, numbness or tingling in arms or legs, generalized arthralgias or myalgias, back or neck pain, or night sweats. The review of systems is otherwise negative other than for that already noted above, and at least 10 systems have been reviewed. Physical Exam Physical Exam: The patient is awake, alert and oriented 3, well developed and well nourished, normocephalic and atraumatic, lying in bed and in no acute distress. HEENT--PERRL, EOMI, mucous membranes and oropharynx dry. Neck--supple. No JVD. No bruits. Thyroid normal, trachea midline, no adenopathy. Heart--normal S1 and S2. No murmurs, rubs or gallops. Lungs--clear bilaterally, no respiratory distress, no accessory muscle use. Abdomen--normal bowel sounds and soft. Nontender. Nondistended, no hernias or masses, no organomegaly. Extremities--no cyanosis or clubbing. No edema. Dermatologic--normal skin turgor, normal color, no abnormal lymph nodes, no rash. Neurologic--cranial nerves II through XII grossly intact. Rheumatologic--normal range of motion. Psychiatric--normal affect. Results & Data Results & Data Vital Signs (Past 12 Hours) Vital Signs Temp Pulse Resp BP Pulse Ox O2 Del Method 06/22/24 18:59 86 06/22/24 18:45 36.7 C 86 18 138/69 97 Room Air Laboratory Results Laboratory Results WBC 7.71 K/ul (4.8-10.8) 06/22/24 21:00 RBC 4.17 M/uL (4.20-5.40) L 06/22/24 21:00 Hgb 12.8 g/dl (12.0-16.0) 06/22/24 21:00 Hct 38.3 % (37.0-47.0) 06/22/24 21:00 MCV 91.8 fL (80.0-100.0) 06/22/24 21:00 MCH 30.7 pg (25.0-34.0) 06/22/24 21:00 MCHC 33.4 g/dL (32.0-36.0) 06/22/24 21:00 RDW Std Deviation 46.6 fL (36.4-46.3) H 06/22/24 21:00 RDW Coeff of Loli 13.7 % (11.5-14.5) 06/22/24 21:00 Plt Count 205 K/uL (130-400) 06/22/24 21:00 MPV 11.4 fL (9.4-12.4) 06/22/24 21:00 Immature Gran % (Auto) 1.0 % 06/22/24 21:00 Neut % (Auto) 65.5 % 06/22/24 21:00 Lymph % (Auto) 22.7 % 06/22/24 21:00 [place] % (Auto) 9.2 % 06/22/24 21:00 Eos % (Auto) 1.2 % 06/22/24 21:00 Baso % (Auto) 0.4 % 06/22/24 21:00 Neut # (Auto) 5.05 K/uL (1.40-6.50) 06/22/24 21:00 Lymph # (Auto) 1.75 K/uL (1.20-3.40) 06/22/24 21:00 [place] # (Auto) 0.71 K/uL (0.11-0.59) H 06/22/24 21:00 Eos # (Auto) 0.09 K/uL (0.00-0.50) 06/22/24 21:00 Baso # (Auto) 0.03 K/uL (0.00-0.20) 06/22/24 21:00 Immature Gran # (Auto) 0.08 K/uL (0.01-0.20) 06/22/24 21:00 PT 12.5 Seconds (9.0-12.0) H 06/22/24 21:00 INR 1.2 (0.9-1.1) H 06/22/24 21:00 APTT 29 Seconds (21-31) 06/22/24 21:00 PTT Ratio 1.1 06/22/24 21:00 Fibrinogen 553 mg/dl (184-400) H 06/22/24 21:11 Heparin Anti-Xa, LM Wt 1.37 IU/ML (< 0.10) 06/22/24 21:11 Sodium 140 mmol/L (136-145) 06/22/24 21:00 Potassium 4.2 mmol/L (3.5-5.1) 06/22/24 21:00 Chloride 106 mmol/L (98-107) 06/22/24 21:00 Carbon Dioxide 28 mmol/L (21-32) 06/22/24 21:00 Anion Gap 6 (3-11) 06/22/24 21:00 BUN 21 mg/dl (6-23) 06/22/24 21:00 Creatinine 0.70 mg/dl (0.6-1.2) 06/22/24 21:00 Est Cr Clr Drug Dosing 62.5 ml/min 06/22/24 21:00 eGFR 85.23 06/22/24 21:00 BUN/Creatinine Ratio 30.0 (10-20) H 06/22/24 21:00 Glucose 114 mg/dl (70-99(Fasting)) H 06/22/24 21:00 Calcium 9.6 mg/dl (8.6-10.3) 06/22/24 21:00 Total Bilirubin 1.6 mg/dl (0.2-1.0) H 06/22/24 21:00 AST 33 U/L (13-39) 06/22/24 21:00 ALT 25 U/L (7-52) 06/22/24 21:00 Alkaline Phosphatase 56 U/L (34-104) 06/22/24 21:00 Total Creatine Kinase 118 U/L (26-192) 06/22/24 21:00 Troponin I High Sens 16.7 pg/ml (0-14) H 06/22/24 21:00 Total Protein 6.5 gm/dl (6.0-8.3) 06/22/24 21:00 Albumin 3.7 gm/dl (3.4-5.0) 06/22/24 21:00 Globulin 2.8 gm/dl (2.5-4.0) 06/22/24 21:00 Albumin/Globulin Ratio 1.3 (0.9-2) 06/22/24 21:00 Lipase 17 U/L (11-82) 06/22/24 21:00 Code Status & VTE Plan Code Status Full code VTE Prophylaxis Plan VTE Prophylaxis will be ordered: Yes PG Care Time/CCT Total # of Minutes Spent Total Time Spent with Patient: Total time spent is greater than 50% in coordination of care (as documented) at patient's floor/unit and/or counseling patient: Coding Level of Care Code 77382 INT INP/OBS CARE 3/75MIN Diagnoses Acute subdural hematoma S06.5XAA Falls frequently R29.6 Acute alteration in mental status R41.82 Dementia F03.90 Visual hallucinations R44.1 Auditory hallucinations R44.0 Chronic atrial fibrillation I48.20 Atrial fibrillation type: unspecified chronic Type 2 diabetes mellitus with other circulatory complication, without long-term current use of insulin E11.59 Diabetes mellitus bed bug exterminator insulin use: without bed bug exterminator use Diabetes mellitus complication status: with circulatory complication Diabetes mellitus complication detail: with other circulatory complications (7) Atrial fibrillation Atrial fibrillation type: unspecified chronic Qualified Code(s): I48.20 - Chronic atrial fibrillation, unspecified (8) Type 2 diabetes mellitus Diabetes mellitus longterm insulin use: without longterm use Diabetes mellitus complication status: with circulatory complication Diabetes mellitus complication detail: with other circulatory complications Qualified Code(s): E11.59 - Type 2 diabetes mellitus with other circulatory complications
[2024-06-22 22:59] LABS: Fibrinogen 553 mg/dl (184-400)
[2024-06-22 23:02] LABS: ANTI-Xa, LMWH(Low Molecular Wt 1.37 IU/ML (< 0.10)
[2024-06-23] MEDS ORDERED: GLUCOSE 10 TAB/TUBE PO PRN (01:06)
[2024-06-23] MEDS ORDERED: DEXTROSE 50% 50 ML SYRINGE IV PRN (01:06)
[2024-06-23] MEDS ORDERED: ALBUTEROL HFA 8 GM INHALER INH PRN (01:06)
[2024-06-23] MEDS ORDERED: GLUCAGON FOR INJ 1 MG VIAL SQ PRN (01:06)
[2024-06-23] MEDS ORDERED: CARBOHYDRATES FOR HYPOGLYCEMIA PO PRN (01:06)
[2024-06-23] MEDS ORDERED: ONDANSETRON INJ 2 MG/ML 2 ML VIAL IV PRN (01:06)
[2024-06-23] MEDS ORDERED: GLUCOSE 40% GEL 15 GM TUBE PO PRN (01:06)
[2024-06-23] MEDS: STAT IV/IM STA (01:18)
[2024-06-23] MEDS: ACETAMINOPHEN 325 MG TAB PO PRN (04:08)
[2024-06-23] MEDS: LEVOTHYROXINE SODIUM 50 MCG TABLET PO SCH (05:59)
[2024-06-23 06:43] LABS: Basophils # (auto) 0.04 K/uL (0.00-0.20); Basophils % (auto) 0.4 %; Eosinophils # (auto) 0.09 K/uL (0.00-0.50); Hematocrit (blood only) 37.2 % (37.0-47.0); Hemoglobin 12.7 g/dl (12.0-16.0); Immature Granulocytes # (auto) 0.06 K/uL (0.01-0.20); Immature Granulocytes % (auto) 0.7 %; Lymphocytes # (auto) 2.54 K/uL (1.20-3.40); Lymphocytes % (auto) 28.3 %; Mean Corpuscular Hemoglobin 31.1 pg (25.0-34.0); Mean Corpuscular Hgb Conc 34.1 g/dL (32.0-36.0); Mean Platelet Volume 11.2 fL (9.4-12.4); Monocytes # (auto) 0.85 K/uL (0.11-0.59); Monocytes % (auto) 9.5 %; Neutrophils # (auto) 5.39 K/uL (1.40-6.50); Neutrophils % (auto) 60.1 %; Platelet Count 201 K/uL (130-400); RDW Coefficient of Variation 13.6 % (11.5-14.5); RDW Standard Deviation 45.6 fL (36.4-46.3); Red Blood Count 4.09 M/uL (4.20-5.40); White Blood Count 8.97 K/ul (4.8-10.8)
--- NOTE | 2024-06-23 07:15 | Electrocardiogram Report ---
Test Reason : Blood Pressure : */* mmHG Vent. Rate : 73 BPM Atrial Rate : * BPM P-R Int : * ms QRS Dur : 82 ms QT Int : 384 ms P-R-T Axes : * 3 232 degrees QTcB Int : 423 ms Atrial fibrillation Abnormal ECG When compared with ECG of 23-Oct-2022 03:34, QRS axis Shifted right Criteria for Inferior infarct are no longer Present ST depression has replaced ST elevation in Inferior leads QT has shortened Confirmed by Kody Mckeon ([id number]) on 06/23/2024 7:14:39 AM Referred By: Charlette Case Confirmed By: Kody Mckeon
[2024-06-23 07:18] LABS: Estimated Average Glucose 131 mg/dl; Hemoglobin A1C 6.2 % (4.5-5.6)
--- NOTE | 2024-06-23 07:22 | Electrocardiogram Report ---
Test Reason : Blood Pressure : */* mmHG Vent. Rate : 88 BPM Atrial Rate : 312 BPM P-R Int : * ms QRS Dur : 88 ms QT Int : 372 ms P-R-T Axes : * 3 250 degrees QTcB Int : 450 ms Atrial fibrillation Abnormal ECG When compared with ECG of 22-Jun-2024 19:23, (unconfirmed) No significant change was found Confirmed by Kody Mckeon ([id number]) on 06/23/2024 7:22:21 AM Referred By: Charlette Case Confirmed By: Kody Mckeon
[2024-06-23 07:27] LABS: Albumin Globulin Ratio 1.3 (0.9-2); Albumin Level 3.6 gm/dl (3.4-5.0); BUN Creatinine Ratio 29.6 (10-20); Bilirubin,Total 1.9 mg/dl (0.2-1.0); Calcium 9.2 mg/dl (8.6-10.3); Creatinine Clr Calc Pharmacy 68.1 ml/min; Globulin 2.8 gm/dl (2.5-4.0); Magnesium 1.6 mg/dl (1.7-2.4); Potassium 4.2 mmol/L (3.5-5.1); Total Protein 6.4 gm/dl (6.0-8.3)
[2024-06-23 07:32] LABS: INR 1.1 (0.9-1.1); Partial Thromboplastin Time 27 Seconds (21-31); Prothrombin Time 11.5 Seconds (9.0-12.0)
[2024-06-23 07:35] LABS: Appearance Urine Clear (Clear); Bacteria Urine Automated 4+ (None Seen); Bilirubin Urine Negative (Negative); Blood Urine Negative (Negative); Cast Urine Automated 0-2 /lpf (0-2); Color Urine Yellow; Epithelial Cell Urine Auto 0-2 /hpf (0-2); Glucose Urine UA Negative (Negative); Ketones Urine 1+ (Negative); Leukocyte Esterase Urine Negative (Negative); Nitrite Urine Positive (Negative); Protein Urine Trace (Negative); RBC Urine Automated 0-2 /hpf (0-2); Specific Gravity Urine 1.022 (1.000-1.030); Urobilinogen Urine Negative (Negative); WBC Urine Automated 0-5 /hpf (0-5)
[2024-06-23] MEDS: INSULIN ASPART PER UNIT CHARGE SC SCH (08:24)
[2024-06-23] MEDS: MAGNESIUM SULFATE / D5W 1 GM/100 ML BAG IV SCH (08:24)
[2024-06-23] MEDS: UMECLIDINIUM/VILANTEROL 62.5/25MCG 7 PUFFS/INHALER INH SCH (08:24)
[2024-06-23] MEDS: METOPROLOL SUCC 25MG EXT REL TAB PO SCH (08:25)
[2024-06-23] MEDS: MAGNESIUM CHLORIDE W/CALCIUM 64MG DELAYED REL TAB PO SCH (08:25)
[2024-06-23] MEDS: ATORVASTATIN 40 MG TAB PO SCH (08:25)
[2024-06-23] MEDS: EZETIMIBE 10 MG TAB PO SCH (08:26)
--- NOTE | 2024-06-23 08:49 | Hospitalist Progress Note ---
Date of Service June 23, 2024 Assessment & Plan (1) Acute subdural hematoma: (2) Falls frequently: (3) Dementia: (4) Visual hallucinations: (5) Auditory hallucinations: (6) Hypothyroidism: (7) COPD (chronic obstructive pulmonary disease): (8) Urge and stress incontinence: (9) Type 2 diabetes mellitus: (10) Peripheral vascular disease: (11) Atrial fibrillation: (12) CAD (coronary artery disease): (13) Essential hypertension: Plan 84-year-old female with past medical history of dementia, hypothyroidism, COPD, type 2 diabetes mellitus, atrial fibrillation on anticoagulation with Xarelto, coronary artery disease status post stents, peripheral vascular disease status post stent, urinary urge and stress incontinence, dementia who has been having recurrent falls, visual and auditory hallucinations with 2 recent falls on 06/19/2024 and , 06/21/2024 with outpatient MRI showing trace acute/subacute subdural hematoma. She was sent to the ED and CT scan was reviewed by neurosurgery at [facility], neurosurgery recommended monitoring at [facility] along with giving Kcentra for reversal of Xarelto which she received in ED #Acute/subacute subdural hematoma #Recurrent falls #Dementia #Auditory/visual hallucinations Outpatient MRI showed acute/subacute subdural hematoma ED discussed this with neurosurgery at [facility] (Dr. Rosales) who reviewed MRI and repeat CT done in ED and showed no significant change and recommended Xarelto reversal with Kcentra and monitoring at [facility] without need to transfer at present. Patient received Kcentra in ED H&H is stable Neurochecks every 4 hours Check orthostatic vital signs and close blood pressure monitoring Hydralazine IV as needed standing systolic blood pressures greater than 140 B12 is 440 TSH is 1.787 Folate is greater than 22.3 Continue telemetry monitoring Check left shoulder x-ray and right hip x-ray Await neurology consult and recommendations Psychiatry consulted regarding hallucinations PT/OT consult #Coronary artery disease status post LAD and RCA stent in May 2022 #Essential hypertension #Hyperlipidemia #Chronic atrial fibrillation on anticoagulation Xarelto #Peripheral vascular disease status post stent Outpatient story writer is Dr. Wiggins Outpatient vascular surgeon is Dr. Samara Lawrence held secondary to subdural hematoma Continue metoprolol for rate control Continue statin Telemetry monitoring 2D echo from September 2022 shows EF of 55% with mild tricuspid regurgitation #Hypothyroidism TSH is 1.787 Continue levothyroxine 50 mcg p.o. daily #Type 2 diabetes mellitus A1c 6.2 Diabetic diet Accu-Cheks before every meal and nightly with sliding scale insulin coverage Monitor glycemic control #COPD Patient not in acute exacerbation Check two-view chest x-ray #Hypomagnesemia Magnesium replacement Monitor levels #Urinary stress and urge incontinence Outpatient urologist Dr. Rollins Patient is scheduled for outpatient procedure with Dr. Rollins on 07/05/2024 Urine culture sent on admission: Results pending CODE STATUS: Full code DVT prophylaxis: Bilateral SCDs, avoid chemical prophylaxis Care plan discussed with patient, nursing staff Admission and Anticipated Discharge Date Admission Date: June 22, 2024 Subjective Patient seen and examined H&P reviewed Labs reviewed Radiology reports from yesterday pending Awaiting CT head report from this morning Neurology has been consulted Patient denies any headache, dizziness or lightheadedness this morning. She is aware of having memory issues and is also aware that she is seeing things that are not there and also has hearing music in her ears which is now playing. Patient states this is been going on for some time but cannot quantify time. Patient tells me this has been going on since she retired but is unable to tell me when she retired She denies any chest pain, shortness of breath, nausea, vomiting, diarrhea, abdominal pain, fever, chills, cough She has urinary incontinence issues, denies dysuria Patient endorses recurrent falls Social history: She lives at home with her . Patient states she does not drive. Patient states she quit tobacco smoking in 1978. Patient states she stopped drinking alcohol 6 months ago and since then has been having a glass of nonalcoholic wine every evening with meals Physical Exam Physical Exam: General: No acute distress Psych: Awake and alert, oriented to month, did not know the date and the year. She knew she was in the hospital. She was able to tell me that current president is Jarrod Ott and the president elect is Gordon Butterfield HEENT: Anicteric sclera, moist oral mucosa, right frontal scalp ecchymosis noted CVS: irregular rate and rhythm Lungs: Bilateral air entry, no wheezing noted Abdomen: Soft, nontender, no rebound, no guarding Ext: No lower extremity edema, no calf tenderness, right hip ecchymosis with tenderness noted, left shoulder ecchymosis with tenderness noted, bilateral elbow abrasions noted Neuro: No focal motor deficits noted Results & Data Results & Data Vital Signs (Past 12 Hours) Vital Signs Temp Pulse Pulse Resp BP BP Pulse Ox 06/23/24 07:00 85 18 179/75 H 95 06/23/24 04:31 36.7 C 89 17 170/90 H 98 06/23/24 02:19 102 H 18 147/77 H 96 06/23/24 01:11 95 H 06/23/24 01:06 16 94 06/23/24 01:00 06/23/24 00:10 36.9 C 89 21 132/70 96 O2 Del Method 06/23/24 07:00 Room Air 06/23/24 04:31 Room Air 06/23/24 02:19 Room Air 06/23/24 01:11 06/23/24 01:06 Room Air 06/23/24 01:00 Room Air 06/23/24 00:10 Room Air Laboratory Results Laboratory Results - last 24 hr 06/22/24 06/22/24 06/23/24 21:00 21:11 06:16 WBC 7.71 8.97 RBC 4.17 L 4.09 L Hgb 12.8 12.7 Hct 38.3 37.2 MCV 91.8 91.0 MCH 30.7 31.1 MCHC 33.4 34.1 RDW Std Deviation 46.6 H 45.6 RDW Coeff of Loli 13.7 13.6 Plt Count 205 201 MPV 11.4 11.2 Immature Gran % (Auto) 1.0 0.7 Neut % (Auto) 65.5 60.1 Lymph % (Auto) 22.7 28.3 Noble % (Auto) 9.2 9.5 Eos % (Auto) 1.2 1.0 Baso % (Auto) 0.4 0.4 Neut # (Auto) 5.05 5.39 Lymph # (Auto) 1.75 2.54 Noble # (Auto) 0.71 H 0.85 H Eos # (Auto) 0.09 0.09 Baso # (Auto) 0.03 0.04 Immature Gran # (Auto) 0.08 0.06 PT 12.5 H 11.5 INR 1.2 H 1.1 APTT 29 27 PTT Ratio 1.1 1.0 Fibrinogen 553 H Heparin Anti-Xa, LM Wt 1.37 Sodium 140 143 Potassium 4.2 4.2 Chloride 106 108 H Carbon Dioxide 28 27 Anion Gap 6 8 BUN 21 21 Creatinine 0.70 0.71 Est Cr Clr Drug Dosing 62.5 68.1 eGFR 85.23 83.79 BUN/Creatinine Ratio 30.0 H 29.6 H Glucose 114 H 136 H POC Glucose Estimat Average Glucose 131 Hemoglobin A1c 6.2 H Calcium 9.6 9.2 Magnesium 1.6 L Total Bilirubin 1.6 H 1.9 H AST 33 30 ALT 25 23 Alkaline Phosphatase 56 50 Total Creatine Kinase 118 Troponin I High Sens 16.7 H Total Protein 6.5 6.4 Albumin 3.7 3.6 Globulin 2.8 2.8 Albumin/Globulin Ratio 1.3 1.3 Lipase 17 Urine Color Urine Appearance Urine pH Ur Specific [place] Urine Protein Urine Glucose (UA) Urine Ketones Urine Blood Urine Nitrite Urine Bilirubin Urine Urobilinogen Ur Leukocyte Esterase Urine WBC (Auto) Urine RBC (Auto) U Hyaline Cast (Auto) U Epithel Cells (Auto) Urine Bacteria (Auto) 06/23/24 06/23/24 06:24 07:10 WBC RBC Hgb Hct MCV MCH MCHC RDW Std Deviation RDW Coeff of Loli Plt Count MPV Immature Gran % (Auto) Neut % (Auto) Lymph % (Auto) Noble % (Auto) Eos % (Auto) Baso % (Auto) Neut # (Auto) Lymph # (Auto) Noble # (Auto) Eos # (Auto) Baso # (Auto) Immature Gran # (Auto) PT INR APTT PTT Ratio Fibrinogen Heparin Anti-Xa, LM Wt Sodium Potassium Chloride Carbon Dioxide Anion Gap BUN Creatinine Est Cr Clr Drug Dosing eGFR BUN/Creatinine Ratio Glucose POC Glucose 123 H Estimat Average Glucose Hemoglobin A1c Calcium Magnesium Total Bilirubin AST ALT Alkaline Phosphatase Total Creatine Kinase Troponin I High Sens Total Protein Albumin Globulin Albumin/Globulin Ratio Lipase Urine Color Yellow Urine Appearance Clear Urine pH 5.0 Ur Specific [place] 1.022 Urine Protein Trace H Urine Glucose (UA) Negative Urine Ketones 1+ H Urine Blood Negative Urine Nitrite Positive A Urine Bilirubin Negative Urine Urobilinogen Negative Ur Leukocyte Esterase Negative Urine WBC (Auto) 0-5 Urine RBC (Auto) 0-2 U Hyaline Cast (Auto) 0-2 U Epithel Cells (Auto) 0-2 Urine Bacteria (Auto) 4+ H Diagnostic Findings MR brain wo/w con 06/22/24 HISTORY: 84 years-old Female F03.90 - Unspecified dementia, unspecified severity, with... Memory loss with dizziness and dementia COMPARISON: 03/07/2015 TECHNIQUE: Multiplanar multisequence MRI of the brain was obtained with and without IV contrast. FINDINGS: There is no restricted diffusion to suggest acute or subacute infarct. Midline structures are unremarkable with degenerative changes of the cervical spine. Trace amount of acute or subacute appearing subdural hemorrhage layers along the right posterior aspect of the falx cerebri on image 18 series 7. This measures up to approximately 2 mm transversely. No intraparenchymal hemorrhage, midline shift or hydrocephalus. Involutional changes with progressively worsening now moderate patchy T2/FLAIR hyperintense foci throughout the white matter. No abnormal intra-axial or extra-axial enhancement. Cerebral venous sinuses and major arterial flow voids appear patent. There is suggestion of high-grade stenosis within the distal V2, V3 and before segments of the left vertebral artery. Prior bilateral lens repair. The skull and soft tissues are unremarkable. Mastoid air cells and middle ear cavities appear clear. IMPRESSION: 1. Trace acute to subacute appearing subdural hemorrhage tracks along the falx cerebri. No midline shift or hydrocephalus. 2. No acute or subacute infarct. 3. Involutional changes with progressively worsened T2/FLAIR hyperintense foci throughout the white matter suggestive of chronic microvascular ischemic disease. 4. Probable stenosis of the distal left vertebral artery. 5. No abnormal enhancement. PG Care Time/CCT Total # of Minutes Spent Total Time Spent with Patient: Total time spent is greater than 50% in coordination of care (as documented) at patient's floor/unit and/or counseling patient: Coding Level of Care Code 88034 SUB INP/OBS CARE 3/50MIN Diagnoses Acute subdural hematoma S06.5XAA Falls frequently R29.6 Dementia F03.90 Visual hallucinations R44.1 Auditory hallucinations R44.0 Hypothyroidism E03.9 Chronic obstructive pulmonary disease, unspecified COPD type J44.9 COPD type: unspecified COPD Urge and stress incontinence N39.46 Type 2 diabetes mellitus with other circulatory complication, without long-term current use of insulin E11.59 Diabetes mellitus termite exterminator insulin use: without termite exterminator use Diabetes mellitus complication status: with circulatory complication Diabetes mellitus complication detail: with other circulatory complications Peripheral vascular disease I73.9 Chronic atrial fibrillation I48.20 Atrial fibrillation type: unspecified chronic CAD (coronary artery disease) I25.10 Essential hypertension I10 (7) COPD (chronic obstructive pulmonary disease) COPD type: unspecified COPD Qualified Code(s): J44.9 - Chronic obstructive pulmonary disease, unspecified (9) Type 2 diabetes mellitus Diabetes mellitus penitentiary insulin use: without termite exterminator use Diabetes mellitus complication status: with circulatory complication Diabetes mellitus complication detail: with other circulatory complications Qualified Code(s): E11.59 - Type 2 diabetes mellitus with other circulatory complications (11) Atrial fibrillation Atrial fibrillation type: unspecified chronic Qualified Code(s): I48.20 - Chronic atrial fibrillation, unspecified
[2024-06-23] MEDS: VITAMIN B COMPLEX TAB PO SCH (09:33)
--- NOTE | 2024-06-23 09:57 | Neurology Consultation ---
Date of Consultation June 23, 2024 Assessment & Plan (1) Acute subdural hematoma: History of Present Illness Attending Physician: Keyshawn Elena MD History of Present Illness pt this morning alert and feeling ok. no headache. speaking well. MRI reviewed, small layer of SDH midline. chart reviewed. pt known to neurology clinic ([facility]), seen for dementia. admission HPI: The patient is an 84-year-old female with a past medical history including dementia, hypothyroidism, urinary urge and stress incontinence, neurogenic bladder, recurrent urine tract infection, pulm hypertension, COPD, diabetes mellitus type 2, SNHL bilaterally, essential hypertension, atrial fibrillation and CAD. Her notes that she has been having gradual worsening confusion over the past few months, has been falling frequently over the past month. Her 2 most recent falls were on Tuesday 06/19, and 06/21. Due to worsening confusion and increased frequency of falling, and wor sening auditory visual loose nations, she had an MRI performed in the outpatient setting, which also showed a trace acute/subacute subdural hematoma. Her reports that during the middle of the night last evening, she had gone out to the front door, and he found her out lying on the road, reporting that she was walking with friends, that she fell, and they left her alone. reports that he has since rearranged housing and doors locking that she can no longer do that. CT scan of brain in the ED this evening, as reviewed by [facility] neurosurgery, reports that there was no significant change from the previous MRI done earlier today, patient to be admitted to [facility] for monitoring. She has been taking her Xarelto regularly, and she did receive Kcentra reversal while in the ED. Allergies Allergy/AdvReac Type Severity Reaction Status Date / Time tramadol Allergy Intermediate "OUT OF Verified 06/14/24 13:45 BODY EXPERIENCE" codeine Allergy Unknown "OUT OF Verified 06/14/24 13:45 BODY EXPERIENCE" metformin AdvReac Intermediate Diarrhea Verified 06/14/24 13:45 raloxifene AdvReac Unknown SWELLING Verified 06/14/24 13:45 Home Medications Medication Instructions Recorded Confirmed Type coenzyme Q10 200 mg tablet 200 mg PO DAILY 12/18/18 06/14/24 History blood sugar diagnostic (RettyTouch #10 ea 01/19/19 06/14/24 History Verio test strips) lancets (OneTouch UltraSoft #50 ea 01/19/19 06/14/24 History Lancets) magnesium chloride 71.5 mg 71.5 mg PO DAILY 01/19/19 06/14/24 History (magnesium chloride) tablet,delayed release (Slow-Mag) blood-glucose meter (OneTouch #1 ea 02/15/20 06/14/24 Rx Verio Flex Meter) multivitamin with minerals-folic 200 mcg PO DAILY 02/26/20 06/14/24 History acid 200 mcg chewable tablet (Adult Multivitamin Gummies) umeclidinium 62.5 mcg-vilanterol 1 inh inhalation DAILY #1 inhaler 07/28/21 06/14/24 Rx 25 mcg/actuation powdr for inhalation (Anoro Ellipta) diclofenac sodium 1 % topical gel 2 g topical QID #100 grams 04/20/22 06/14/24 Rx albuterol sulfate 90 mcg/actuation 2 puff inhalation Q6H PRN 09/28/22 06/14/24 Rx aerosol inhaler Shortness Of Breath Or Wheezing #18 grams rivaroxaban 20 mg tablet 20 mg PO DAILY #90 tabs 03/23/23 06/14/24 Rx metoprolol succinate 100 mg 150 mg (1.5 x 100 mg) PO .COMPLEX 06/27/23 06/14/24 Rx tablet,extended release 24 hr #225 tabs atorvastatin 80 mg tablet 80 mg PO DAILY #90 tabs 07/08/23 06/14/24 Rx digoxin 125 mcg (0.125 mg) tablet 125 mcg PO DAILY #90 tabs 08/02/23 06/14/24 Rx ezetimibe 10 mg tablet (Zetia) 10 mg PO DAILY #90 tabs 08/10/23 06/14/24 Rx nitroglycerin 0.4 mg sublingual 0.4 mg sublingual UD PRN Chest 08/22/23 06/14/24 Rx tablet Pain #7 tabs [id number]- 250 mg-dha 90 1 cap PO DAILY 10/05/23 06/14/24 History mg-epa 160 [id number]-bnmr-ocfj-zeax capsule (Ocuvite Adult 50 Plus) glimepiride 1 mg tablet 1 mg PO DAILY #90 tabs 01/03/24 06/14/24 Rx ergocalciferol (vitamin D2) 1,250 1,250 mcg PO WEEKLY #12 caps 01/23/24 06/14/24 Rx mcg (50,000 unit) capsule levothyroxine 50 mcg tablet 50 mcg PO DAILY #90 tabs 03/21/24 06/14/24 Rx (Synthroid) paroxetine HCl 40 mg tablet See Rx Instructions .Route 04/18/24 06/14/24 Rx .COMPLEX #90 tabs cephalexin 500 mg capsule 500 mg PO BID 7 days #14 caps 05/11/24 06/14/24 Rx lorazepam 0.5 mg tablet 0.5 mg PO .COMPLEX PRN anxiety 1 06/14/24 06/14/24 Rx day #2 tabs melatonin 5 mg capsule mg PO HS 06/14/24 06/14/24 History lorazepam 0.5 mg tablet 0.5 mg PO BID PRN anxiety #30 tabs 06/18/24 Rx Patient History Medical History Atrial fibrillation with rapid ventricular response Pulmonary embolism COVID-19 Acute UTI Former smoker Surgical History History of intravascular stent placement left superficial femoral artery History of coronary artery stent placement RCA and LAD History of tubal ligation History of shoulder surgery left History of oophorectomy left History of surgery on wrist History of cataract surgery Family History Sister Myocardial infarction Environmental allergies FH: deafness or hearing loss Breast cancer Mother Coronary heart disease Father Diabetes Denies family history of Ovarian cancer Prostate cancer Bleeding disorder Colorectal cancer Colonic polyp Social History Smoking Status: Never smoker Tobacco Type: Cigarettes Age Started Using Tobacco: 16; Age Quit Using Tobacco: 62; packs per day: 0.5; Second Hand Exposure: No; Do You Dip or Chew Tobacco: No; Hx Alcohol Use: No Hx Substance Use: No Preferred Language: Belarusian Communication Ability: Effective Visual Impairment: No Limitations Hearing Ability: Hard of Hearing Control Room Technician Required: No Beliefs That Will Affect Care: None marital status: Current Living Situation: Spouse Current Living Situation Comment: [facility] current occupational status: retired current occupation: retired inkeeper from [employer] How many Children do You have: 1 Other Information That Helps Us Care for You: No Feels Safe at Home: Yes Safety Concerns: Feels Safe At This Time Childhood Exposure to Second-Hand Smoke: Yes Diet: regular caffeine: No during the past year weight has: remained stable Dental Care, Regularly: No Physical Activity Frequency: Does not Exercise Seatbelt Use: always Sunscreen Use: No Assistive Devices: Cane, Glasses and Walker Review of Systems Review of Systems: All systems reviewed & are unremarkable except as noted in HPI & below and All systems reviewed & are unremarkable except as noted in Subjective Constitutional: as per Subjective / HPI Eyes: as per Subjective / HPI Ear, Nose, Mouth, Throat: as per Subjective / HPI Respiratory: as per Subjective / HPI Cardiovascular: as per Subjective / HPI Gastrointestinal: as per Subjective / HPI Musculoskeletal: as per Subjective / HPI Integumentary: as per Subjective / HPI Neurologic: as per Subjective / HPI Psychiatric: as per Subjective / HPI Endocrine: as per Subjective / HPI Hematologic / Lymphatic: as per Subjective / HPI Allergy / Immunological: as per Subjective / HPI Exam (Neuro) Physical Exam: HEENT: normocephalic Neuro: Mental: Alert, not sure of year but knew month. knew she was in hospital, not sure of city. , fluent speech, normal comprehension, no apraxia, no neglect, good conversation skills. CN: PERRL, Full EOM, symmetric face, intact sensation t/o face, midline T/U/P, 5/5 SCM/traps. Motor: No abnormal movements, normal tone and bulk, 5/5 t/o bilaterally grossly. Coord: intact upper limbs. Gait: deferred. Impression: 84 yo female with dementia (maybe Lewy body dementia) with acute SDH in setting of falls and on xarelto for atrial fib. Pt had Frank bryant in ED. pt's SDH appears stable and small and should not cause much clinical deficits, likely from the fall she sustained few days ago (and maybe few weeks ago also). Recommendations: 1. 2. Hold all antiplatelet and anticoagula tions: For Patients who needs antiplatelet therapy, may consider restarting low dose ASA 81mg in about 7-10 days only if pt is stable and repeat imaging is reas suring. For patients who needs anticoagulation therapy, need to wait minimum 4 weeks prior to restarting therapy and only if patient is clinically stable and follow up imaging is reassuring. *If found to have subarachnoid hemorrhage, start Nimodipine 60mg PO/NG q4h x 21 days (give 1 hr before or 2 hrs after meals) 3. Images: get non-con CT head in about 24 hrs and if any acute decline in ne urological status. TTE with bubble. 4. Strict BP control: for pt with SBP in 150-200, keep SBP goal range below 140. For pt with SBP above 210, keep SBP range 140-160. Avoid hypotension. *Close monitoring for increase ICP and electrolyte imbalance, especially hyponatremia. 5. If noted for large intracranial vesse l stenosis, slow reduction of BP and allowing permissive HTN next 5-7 days. 6. Long-term SBP goal less than 130. 7. Plenty of hydration including IV flui d if possible (use isotonic solution) next 1-2 days. Avoid hypovolemia and hypotension. 8. Initiate DVT prevention therapy: pneu matic compression. Do not use Lovenox or anticoagulation meds until further notice. 9. Avoid hypoglycemia, serum glucose goa l during hospitalization: 140-180. 10. Long-term HgA1c goal less than 7. 11. Statin use: if pt was never on stati n, do not start statin now, wait until pt is being discharged and start statin on discharge day. Long-term LDL goal of less than 70. If pt was on statin as outpt, ok to continue statin during inpatient. *Avoid using gastric acid suppression meds (i.e. PPI, histamine-2 antagonists) as they are associated with increased risk of hospital-acquired pneumonia. 12. Head of bed up 30 degrees if possibl e. 13. ICU care and telemetry monitoring un til pt stable. 15. Fall precaution and aspiration preca ution. Seizure precaution. Avoid agitation, may consider mild sedation as needed. 17. consulted neurosurgery already. PT/OT evaluation for fpc need/rehab. no need to change or add meds for dementia at this point, this can be managed as outpt (with [facility], when following up). Chart reviewed I have spent more than 50% educating patient about potential diagnosis and neurological evaluation and coordinating care with patient's treatment team. Total time spent (including chart review and coordination of care): 60 min (this includes chart review). Results & Data Vital Signs (Past 12 Hours) Vital Signs Temp Pulse Pulse Resp BP BP Pulse Ox 06/23/24 09:44 104/51 L 06/23/24 07:00 85 18 179/75 H 95 06/23/24 04:31 36.7 C 89 17 170/90 H 98 06/23/24 02:19 102 H 18 147/77 H 96 06/23/24 01:11 95 H 06/23/24 01:06 16 94 06/23/24 01:00 06/23/24 00:10 36.9 C 89 21 132/70 96 O2 Del Method 06/23/24 09:44 06/23/24 07:00 Room Air 06/23/24 04:31 Room Air 06/23/24 02:19 Room Air 06/23/24 01:11 06/23/24 01:06 Room Air 06/23/24 01:00 Room Air 06/23/24 00:10 Room Air PG Care Time/CCT Total # of Minutes Spent Total Time Spent with Patient: Total time spent is greater than 50% in coordination of care (as documented) at patient's floor/unit and/or counseling patient: Coding Level of Care Code 66035 IN/OBS CONSULT LVL 4,60M Diagnoses Acute subdural hematoma S06.5XAA
[2024-06-23] MEDS: CYANOCOBALAMIN 1000 MCG/ML VIAL IM SCH (10:49)
--- NOTE | 2024-06-23 10:57 | CT Scan Report ---
CT OF THE HEAD WITHOUT CONTRAST CLINICAL HISTORY: subdural follow up COMPARISON STUDY: MRI of the brain and head CT June 22, 2024. CT DOSE: 688.24 mGy.cm TECHNIQUE: Helical axial images of the head were obtained without IV contrast. Automated exposure con trol was utilized for the study. A dose lowering technique was utilized adhering to the principles o f ALARA. FINDINGS: Trace acute subdural hemorrhage along the right falx and right tentorium is unchanged. This measures 2 mm in thickness. The ventricular system is stable. White matter hypodensities are unchang ed and represent small vessel disease. The basal cisterns are patent. No extra-axial collections are present. There are no findings to suggest acute dural sinus thrombosis or acute territorial infarct. No significant calvarial abnormalities are present. Visualized portions of the sinuses and mastoid ai r cells are clear. IMPRESSION: No change in trace acute subdural hemorrhage along the right falx and tentorium. ACT 112: Negative or not required by law. Electronically signed by: Kendell Perez M.D. 06/23/2024 10:55 AM
--- NOTE | 2024-06-23 12:28 | CT Scan Report ---
Exam(s): CT C SPINE EXAM: CT Cervical Spine Without Intravenous Contrast CLINICAL HISTORY: Reason for exam: Trauma. TECHNIQUE: Axial computed tomography images of the cervical spine without intravenous contrast. CTDI is 21.82 mGy and DLP is 423.06 mGy-cm. Automated exposure control was utilized for the study. A dose lowering technique was utilized adhering to the principles of ALARA. COMPARISON: None FINDINGS: Bones: Normal alignment. No acute fracture or bony lesion. Disc spaces: No subluxation. Degenerative changes of the spine. Soft tissues: Normal. Other: Atherosclerotic changes of the vasculature. IMPRESSION: No acute traumatic abnormality. Electronically signed by: Blane Collazo M.D. 06/22/24 20:13 PM
--- NOTE | 2024-06-23 12:29 | CT Scan Report ---
Exam(s): CT HEAD Without Contrast EXAM: CT Head Without Intravenous Contrast CLINICAL HISTORY: Reason for exam: Trauma. TECHNIQUE: Axial computed tomography images of the head/brain without intravenous contrast. CTDI is 38.49 mGy and DLP is 624.41 mGy-cm. Automated exposure control was utilized for the study. A dose lowering technique was utilized adhering to the principles of ALARA. COMPARISON: MRI brain on 06/22/2024 FINDINGS: Brain: No acute infarct identified. Trace acute subdural blood along the interhemispheric falx and right tentorium. No mass effect or midline shift. Scattered areas of hypoattenuation in the supratentorial white matter likely represent chronic small vessel ischemic changes. Ventricles and sulci: Prominence of the ventricles and sulci is likely secondary to cerebral volume loss. Bones: Normal. No bony lesion or acute fracture. Subcutaneous tissues: Normal. Sinuses: Normal. No air-fluid levels or mucosal thickening. Mastoid air cells: Normal. Orbits: Bilateral lens implants. Other: Atherosclerotic calcifications in the intracranial vasculature. IMPRESSION: 1. Trace acute subdural blood along the interhemispheric falx and right tentorium. 2. Chronic small vessel ischemic changes and cerebral volume loss. Communications: Call Doctor Intracranial Hemorrhage Electronically signed by: Blane Collazo M.D. 06/22/24 20:16 PM
--- NOTE | 2024-06-23 12:29 | XRay Report ---
Exam(s): XR CXR 1 VIEW EXAM: XR Chest, 1 View CLINICAL HISTORY: Reason for exam: Trauma. TECHNIQUE: Frontal view of the chest. COMPARISON: Chest radiograph on 10/23/2022 FINDINGS: Hardware: None. Lungs/pleura: Prominent lung markings. No focal consolidation. No pleural effusion or pneumothorax. Heart/mediastinum: Enlargement of the cardiac silhouette. Atherosclerotic changes in aorta. Soft tissues: Unremarkable. Bones: No acute fracture. Upper abdomen: Normal. IMPRESSION: Prominent lung markings may be secondary to technique versus pulmonary vasculature congestion. Electronically signed by: Blane Collazo M.D. 06/22/24 20:25 PM
--- NOTE | 2024-06-23 12:29 | XRay Report ---
Exam(s): XR PELVIS, 1-2 views EXAM: XR Pelvis, 1 or 2 Views CLINICAL HISTORY: Reason for exam: Trauma. TECHNIQUE: Frontal view of the pelvis. COMPARISON: Pelvis and hip radiographs on 08/11/2015 FINDINGS: Bones/joints: No displaced fracture or dislocation identified. Mild degenerative changes of the hips. No bony lesion. Soft tissues: Normal. No radiopaque foreign body identified. Other: Vascular calcifications. Stent noted over the lower lumbar spine. IMPRESSION: No displaced fracture or dislocation identified. Electronically signed by: Blane Collazo M.D. 06/22/24 20:50 PM
--- NOTE | 2024-06-23 14:08 | Psychiatric Consultation ---
Date of Consultation June 23, 2024 Impression / Recommendations Impression Diagnostically consistent with dementia, suspect possibly Lewy Body given description of fluctuating periods of confusion with hallucinations that wax and wane. SSRIs carry risk for bleeding given platelet aggregation effects but given that subdural hematoma has been stable and given high risks for serotonin withdrawal if Paxil is held for prolonged period of time and recent anxiety felt reasonable to restart this. Would also start mirtazapine to help with sleep promotion and in effort to avoid future need for lorazepam given confusion and recent falls. Antipsychotics could be considered in the future if hallucinations cause increased distress. However, would avoid unless necessary due to all antipsychotic medications carry black box warning for increased risk of all- cause mortality in setting of dementia. Overall, I spent a total of 60 minutes with this case including review of chart records, review of labwork, review of EKG QTc, direct evaluation of the patient at bedside, counseling the patient, discussion of the patient with the hospitalist provider, discussion with the psychiatric liason during clinical rounds, review of collateral historian information from the family and do cumentation in the electronic health record. (1) Acute subdural hematoma: (2) Dementia: (3) Visual hallucinations: (4) Auditory hallucinations: Plan -Restart Paxil 40mg daily -Restart mirtazapine 7.5mg HS, and can later titrate as needed up to 15mg HS, to help with recent increased anxiety and insomnia -Discontinue prior to admission lorazepam on discharge (not prescribed currently) as recent outpatient script timing coincides with increased confusion and fall episodes -In the future if AH and VH become more distressing could consider use of abilify 2.5mg qd or Seroquel 12.5mg HS, though caution given increased risk of mortality in setting of dementia -For behavioral emergency: could trial Seroquel 12.5mg po BID prn for agitation OR olanzapine 2.5 mg IM x 1 (DO NOT exceed 10mg per 24 hours, check EKG if IM dose required, NEVER co-administer with IM or IV benzodiazepines). Caution for potential for hypotension if either are used. -DO NOT use haldol given concern for lewy body dementia and EPS risk Psych History Identifying Data Paige is a 84-year-old woman with a past medical history including dementia, hypothyroidism, urinary urge and stress incontinence, neurogenic bladder, recurrent urine tract infection, pulm hypertension, COPD, diabetes mellitus type 2, SNHL bilaterally, essential hypertension, atrial fibrillation and CAD admitted medically for subdural hematoma. Psychiatry consulted for auditory and visual hallucinations. Chief Complaint "I see deer coming out of the [place]". History of Present Illness Paige was admitted following evidence of subdural hematoma on imaging after recent fall and increased confusion at home. She and her report auditory hallucinations (often of hearing her daughter) and visual hallucinations of seeing "deer", puppies, kittens, thinking she sees her neighbor mowing his lawn but no evidence he's done this and thinking her daughter is the home (or this morning thought she was in the hospital). Experienced recent increase in anxiety which she attributes to "my life" and expands as believing her daughter is on the wrong path (though this seems to be tied into some of her hallucinations). She reports being a good sleeper ("I can sleep on a picket fence") but her reports days she sleeps during the day and then is awake and wandering most of the night. Recently started on lorazepam 0.5mg BID on 06/18/2024 which confirms she was taking twice daily. However in recent days she had episode of wandering when she thought downstairs steps entrance was to an upper level (they live on single level) and fell down the stairs and then wandering outside and her found her on the ground. She has been on Paxil for many years and finds this helpful and without side effects. Denies any distress from hallucinations, confirms this except that sometimes her belief that their daughter is around can be bothersome and impact her mood. Allergies Allergy/AdvReac Type Severity Reaction Status Date / Time tramadol Allergy Intermediate "OUT OF Verified 06/14/24 13:45 BODY EXPERIENCE" codeine Allergy Unknown "OUT OF Verified 06/14/24 13:45 BODY EXPERIENCE" metformin AdvReac Intermediate Diarrhea Verified 06/14/24 13:45 raloxifene AdvReac Unknown SWELLING Verified 06/14/24 13:45 Home Medications Medication Instructions Recorded Confirmed Type coenzyme Q10 200 mg tablet 200 mg PO DAILY 12/18/18 06/14/24 History blood sugar diagnostic (OneTouch #10 ea 01/19/19 06/14/24 History Verio test strips) lancets (J. HilburnTouch UltraSoft #50 ea 01/19/19 06/14/24 History Lancets) magnesium chloride 71.5 mg 71.5 mg PO DAILY 01/19/19 06/14/24 History (magnesium chloride) tablet,delayed release (Slow-Mag) blood-glucose meter (OneTouch #1 ea 02/15/20 06/14/24 Rx Verio Flex Meter) multivitamin with minerals-folic 200 mcg PO DAILY 02/26/20 06/14/24 History acid 200 mcg chewable tablet (Adult Multivitamin Gummies) umeclidinium 62.5 mcg-vilanterol 1 inh inhalation DAILY #1 inhaler 07/28/21 06/14/24 Rx 25 mcg/actuation powdr for inhalation (Anoro Ellipta) diclofenac sodium 1 % topical gel 2 g topical QID #100 grams 04/20/22 06/14/24 Rx albuterol sulfate 90 mcg/actuation 2 puff inhalation Q6H PRN 09/28/22 06/14/24 Rx aerosol inhaler Shortness Of Breath Or Wheezing #18 grams rivaroxaban 20 mg tablet 20 mg PO DAILY #90 tabs 03/23/23 06/14/24 Rx metoprolol succinate 100 mg 150 mg (1.5 x 100 mg) PO .COMPLEX 06/27/23 06/14/24 Rx tablet,extended release 24 hr #225 tabs atorvastatin 80 mg tablet 80 mg PO DAILY #90 tabs 07/08/23 06/14/24 Rx digoxin 125 mcg (0.125 mg) tablet 125 mcg PO DAILY #90 tabs 08/02/23 06/23/24 Rx ezetimibe 10 mg tablet (Zetia) 10 mg PO DAILY #90 tabs 08/10/23 06/23/24 Rx nitroglycerin 0.4 mg sublingual 0.4 mg sublingual UD PRN Chest 08/22/23 06/14/24 Rx tablet Pain #7 tabs [id number]-ays-ptzzy2 250 mg-dha 90 1 cap PO DAILY 10/05/23 06/14/24 History mg-epa 160 uq-ipbj-dwqa-zeax capsule (Ocuvite Adult 50 Plus) glimepiride 1 mg tablet 1 mg PO DAILY #90 tabs 01/03/24 06/14/24 Rx ergocalciferol (vitamin D2) 1,250 1,250 mcg PO WEEKLY #12 caps 01/23/24 06/14/24 Rx mcg (50,000 unit) capsule levothyroxine 50 mcg tablet 50 mcg PO DAILY #90 tabs 03/21/24 06/23/24 Rx (Synthroid) paroxetine HCl 40 mg tablet See Rx Instructions .Route 04/18/24 06/14/24 Rx .COMPLEX #90 tabs cephalexin 500 mg capsule 500 mg PO BID 7 days #14 caps 05/11/24 06/14/24 Rx lorazepam 0.5 mg tablet 0.5 mg PO .COMPLEX PRN anxiety 1 06/14/24 06/14/24 Rx day #2 tabs melatonin 5 mg capsule mg PO HS 06/14/24 06/14/24 History lorazepam 0.5 mg tablet 0.5 mg PO BID PRN anxiety #30 tabs 06/18/24 06/23/24 Rx atorvastatin 80 mg tablet 80 mg PO DAILY 06/23/24 06/23/24 History metoprolol succinate 100 mg mg PO 06/23/24 History tablet,extended release 24 hr paroxetine HCl 40 mg tablet 40 mg PO DAILY 06/23/24 06/23/24 History Patient History Medical History Atrial fibrillation with rapid ventricular response Pulmonary embolism COVID-19 Acute UTI Former smoker Surgical History History of intravascular stent placement left superficial femoral artery History of coronary artery stent placement RCA and LAD History of tubal ligation History of shoulder surgery left History of oophorectomy left History of surgery on wrist History of cataract surgery Family History Sister Myocardial infarction Environmental allergies FH: deafness or hearing loss Breast cancer Mother Coronary heart disease Father Diabetes Denies family history of Ovarian cancer Prostate cancer Bleeding disorder Colorectal cancer Colonic polyp Social History Smoking Status: Never smoker Tobacco Type: Cigarettes Age Started Using Tobacco: 16; Age Quit Using Tobacco: 62; packs per day: 0.5; Second Hand Exposure: No; Do You Dip or Chew Tobacco: No; Hx Alcohol Use: No Hx Substance Use: No Preferred Language: Belarusian Communication Ability: Effective Visual Impairment: No Limitations Hearing Ability: Hard of Hearing Drafter Plumbing Required: No Beliefs That Will Affect Care: None marital status: Current Living Situation: Spouse Current Living Situation Comment: [facility] current occupational status: retired current occupation: retired inkeeper from [employer] How many Children do You have: 1 Other Information That Helps Us Care for You: No Feels Safe at Home: Yes Safety Concerns: Feels Safe At This Time Childhood Exposure to Second-Hand Smoke: Yes Diet: regular caffeine: No during the past year weight has: remained stable Dental Care, Regularly: No Physical Activity Frequency: Does not Exercise Seatbelt Use: always Sunscreen Use: No Assistive Devices: Cane, Glasses and Walker Physical Exam Psychiatric: Eye Contact: good eye contact Motor Behavior: no abnormal motor movements; n EPS Speech: normal rate/rhythm/volume of speech Affect: euthymic affect Thought Process: + looseness of associations Thought Content: + paranoid Suicidal Thoughts: denies suicidal thoughts Homicidal Thoughts: denies homicidal thoughts Hallucinations: + auditory hallucinations (intermittent) and + visual hallucinations (intermittent) Vital Signs (Past 24 Hours): Last Vital Signs Temp 36.5 C 06/23/24 10:32 Pulse 83 06/23/24 11:35 Resp 20 06/23/24 10:32 BP 157/91 H 06/23/24 10:32 Pulse Ox 97 06/23/24 10:32 O2 Del Method Room Air 06/23/24 10:32 Results & Data (PSY) Medications Administered Acetaminophen (Acetaminophen 325 Mg Tab) 650 mg PO Q4H PRN PRN Reason: Pain or Fever Stop: 07/23/24 01:05 Last Admin: 06/23/24 12:37 Dose: 650 mg Documented By: Admin: 06/23/24 04:08 Dose: 650 mg Documented By: DIANNA Atorvastatin Calcium (Atorvastatin 40 Mg Tab) 80 mg PO DAILY [facility] Stop: 07/23/24 08:59 Last Admin: 06/23/24 08:25 Dose: 80 mg Documented By: EVER Cyanocobalamin (Cyanocobalamin 1000 Mcg/Ml Vial) 1,000 mcg IM Q48H [facility] Stop: 06/25/24 09:31 Last Admin: 06/23/24 10:49 Dose: 1,000 mcg Documented By: EVER Ezetimibe (Ezetimibe 10 Mg Tab) 10 mg PO DAILY [facility] Stop: 07/23/24 08:59 Last Admin: 06/23/24 08:26 Dose: 10 mg Documented By: EVER Insulin Aspart (Insulin Aspart Per Unit Charge) 0 units SC ACHS [facility] Stop: 07/23/24 07:29 Last Admin: 06/23/24 12:36 Dose: 4 units Documented By: EVER Co-signed By: ROSANA Admin: 06/23/24 08:24 Dose: 3 units Documented By: EVER Co-signed By: Levothyroxine Sodium (Levothyroxine Sodium 50 Mcg Tablet) 50 mcg PO DAILYBB [facility] Stop: 07/23/24 06:29 Last Admin: 06/23/24 05:59 Dose: 50 mcg Documented By: DIANNA Magnesium Chloride (Magnesium Chloride W/Calcium 64mg Delayed Rel Tab) 64 mg PO DAILY [facility] Stop: 07/23/24 08:59 Last Admin: 06/23/24 08:25 Dose: 64 mg Documented By: EVER Metoprolol Succinate (Metoprolol Succ 25mg Ext Rel Tab) 125 mg PO BID [facility] Stop: 07/23/24 08:59 Last Admin: 06/23/24 08:25 Dose: 125 mg Documented By: EVER Umeclidinium/Vilanterol (Umeclidinium/Vilanterol 62.5/25mcg 7 Puffs/Inhaler) 1 puffs INH DAILY [facility] Stop: 07/23/24 08:59 Last Admin: 06/23/24 08:24 Dose: 1 puffs Documented By: EVER Vitamin B Complex (Vitamin B Complex Tab) 1 tab PO QAM [facility] Stop: 07/23/24 08:59 Last Admin: 06/23/24 09:33 Dose: 1 tab Documented By: EVER Coding Level of Care Code 53160 IN/OBS CONSULT LVL 4,60M Diagnoses Acute subdural hematoma S06.5XAA Dementia F03.90 Visual hallucinations R44.1 Auditory hallucinations R44.0
[2024-06-23] MEDS: PARoxetine HCL 20 MG TAB PO SCH (14:44)
--- NOTE | 2024-06-23 15:50 | XRay Report ---
EXAM: Radiographs of the Right Hip 3 Views INDICATION: Full. TECHNIQUE: Front view pelvis and AP and frog leg lateral views of the right hip. COMPARISON: 06/22/2016 FINDINGS: Limitations: None. Bones/joints: No fracture, erosion or dislocation. Soft tissues: There is soft tissue contusion adjacent to the right proximal femur. No soft tissue gas collection or radiopaque foreign body. Atherosclerosis of the proximal thighs noted. There is a stent in the right common iliac artery. IMPRESSION: No evident fracture. If additional imaging is clinically warranted, CT is more sensitive. ACT 112: Negative or not required by law. Electronically signed by Eleanor Collazo 06-23-2024 3:50 PM
--- NOTE | 2024-06-23 15:52 | XRay Report ---
EXAM: Radiographs of the Left Shoulder Complete 3 views INDICATION: Trauma. TECHNIQUE: 3 views of the left shoulder. COMPARISON: Comparison made to chest x-ray including the left shoulder 10/23/2022 FINDINGS: Bones/joints: No fracture, subluxation or dislocation. Visualized left ribs intact. There is mild glenohumeral and acromioclavicular spurring. Probable mild glenohumeral narrowing. There is no change in a room sclerotic focus of lucent expansion of the anterior glenoid consistent with a chronic benign lesion or consequence of prior trauma. Soft tissues: No abnormality noted. No radiopaque foreign body noted. IMPRESSION: No acute abnormality of the left shoulder. ACT 112: Negative or not required by law. Electronically signed by Eleanor Collazo 06-23-2024 3:52 PM
[2024-06-23] MEDS: DIGOXIN 0.125 MG TAB PO SCH (16:50)
[2024-06-23] MEDS: MIRTAZAPINE TAB 15 MG TAB PO SCH (20:26)
[2024-06-23] MEDS: hydrALAZINE HCL 20 MG/ML VIAL IV PRN (21:36)
[2024-06-24 05:56] LABS: Basophils # (auto) 0.03 K/uL (0.00-0.20); Basophils % (auto) 0.3 %; Eosinophils # (auto) 0.08 K/uL (0.00-0.50); Eosinophils % (auto) 0.9 %; Hematocrit (blood only) 38.8 % (37.0-47.0); Immature Granulocytes # (auto) 0.07 K/uL (0.01-0.20); Immature Granulocytes % (auto) 0.8 %; Lymphocytes % (auto) 23.6 %; Mean Corpuscular Hemoglobin 30.5 pg (25.0-34.0); Mean Corpuscular Hgb Conc 33.5 g/dL (32.0-36.0); Mean Corpuscular Volume 91.1 fL (80.0-100.0); Mean Platelet Volume 11.4 fL (9.4-12.4); Monocytes # (auto) 0.87 K/uL (0.11-0.59); Monocytes % (auto) 9.3 %; Neutrophils # (auto) 6.06 K/uL (1.40-6.50); Neutrophils % (auto) 65.1 %; Platelet Count 207 K/uL (130-400); RDW Coefficient of Variation 13.6 % (11.5-14.5); RDW Standard Deviation 45.1 fL (36.4-46.3); Red Blood Count 4.26 M/uL (4.20-5.40); White Blood Count 9.31 K/ul (4.8-10.8)
[2024-06-24 06:06] LABS: Albumin Globulin Ratio 1.2 (0.9-2); Albumin Level 3.7 gm/dl (3.4-5.0); BUN Creatinine Ratio 32.3 (10-20); Calcium 9.2 mg/dl (8.6-10.3); Creatinine Clr Calc Pharmacy 74.4 ml/min; Magnesium 1.9 mg/dl (1.7-2.4); Potassium 4.1 mmol/L (3.5-5.1); Total Protein 6.7 gm/dl (6.0-8.3)
[2024-06-24 07:19] LABS: Partial Thromboplastin Ratio 0.9; Partial Thromboplastin Time 24 Seconds (21-31); Prothrombin Time 11.2 Seconds (9.0-12.0)
--- NOTE | 2024-06-24 08:25 | CT Scan Report ---
EXAM: CT head/brain wo con CLINICAL HISTORY: reassess subdural hematoma approx. 24 hour follow up jr TECHNIQUE: Axial noncontrast CT scan of the brain was performed from the skull base to the high parietal region, and sagittal and coronal reconstructed images were obtained. One of the following dose reduction techniques was utilized for this exam: Automated exposure control, adjustment of the mA and/or kV according to patient size, and use of iterative reconstruction. COMPARISON: 06/22/2024 FINDINGS: Posterior falx acute subdural hematoma measures 3.2 mm in depth. No definite intracerebral hematoma. No definite calvarium fractures. There are confluent ill-defined [id number] areas noted in the periventricular white matter as well as tiny hypodense areas in the subcortical white matter bilaterally, suggestive of microvascular ischemic changes. The ventricular system, cortical sulci, and basal cisterns are prominent and consistent with senile changes. The visualized brain parenchyma shows a normal appearance. Trevizo-white matter differentiation is maintained. No midline shifts or deformity. Normal CT appearance of the posterior fossa structures namely the cerebellar hemispheres, brainstem, and cerebellar peduncles. The IACs are unremarkable. The cerebello-pontine angles are clear. The osseous structures in the skull base are unremarkable. The scanned paranasal sinuses are clear. Atherosclerotic calcifications of the vertebral arteries are noted. IMPRESSION: 1. Posterior falx acute subdural hematoma measures 3.2 mm in depth. Unchanged. 2. No definite intracerebral hematomas. 3. Microvascular ischemic changes and senile changes. 4. No significant interval changes. 5. MRI with diffusion imaging is advised to detect any acute evolving ischemic insult if clinically warranted. Electronically signed by Ez Mcguire 06-24-2024 08:25 AM
[2024-06-24] MEDS: MAGNESIUM SULFATE / D5W 1 GM/100 ML BAG IV ONE (08:44)
--- NOTE | 2024-06-24 09:39 | Hospitalist Progress Note ---
Date of Service June 24, 2024 Assessment & Plan (1) Acute subdural hematoma: (2) Falls frequently: (3) Dementia: (4) Visual hallucinations: (5) Auditory hallucinations: (6) Hypothyroidism: (7) COPD (chronic obstructive pulmonary disease): (8) Urge and stress incontinence: (9) Type 2 diabetes mellitus: (10) Peripheral vascular disease: (11) Atrial fibrillation: (12) CAD (coronary artery disease): (13) Essential hypertension: Plan 84-year-old female with past medical history of dementia, hypothyroidism, COPD, type 2 diabetes mellitus, atrial fibrillation on anticoagulation with Xarelto, coronary artery disease status post stents, peripheral vascular disease status post stent, urinary urge and stress incontinence, dementia who has been having recurrent falls, visual and auditory hallucinations with 2 recent falls on 06/19/2024 and , 06/21/2024 with outpatient MRI showing trace acute/subacute subdural hematoma. She was sent to the ED and CT scan was reviewed by neurosurgery at [facility], neurosurgery recommended monitoring at [facility] along with giving Kcentra for reversal of Xarelto which she received in ED #Acute metabolic encephalopathy: Likely secondary to fall with head trauma, subdural hematoma and underlying UTI in setting of dementia: Present on admission #Acute/subacute subdural hematoma #Recurrent falls #Dementia #Auditory/visual hallucinations Outpatient MRI showed acute/subacute subdural hematoma ED discussed this with neurosurgery at [facility] (Dr. Rosales) who reviewed MRI and repeat CT done in ED and showed no significant change and recommended Xarelto reversal with Kcentra and monitoring at [facility] without need to transfer at present. Patient received Kcentra in ED H&H is stable Neurochecks every 4 hours Check orthostatic vital signs and close blood pressure monitoring Hydralazine IV as needed standing systolic blood pressures greater than 140 B12 is 440 TSH is 1.787 Folate is greater than 22.3 Continue telemetry monitoring Neurology saw the patient and recommended blood pressure control, repeat head CT this morning which did not show any change and have recommended waiting minimum 4 weeks before starting anticoagulation therapy and only if patient is clinically stable and follow-up imaging is reassuring Psychiatry saw the patient and recommended resuming Paxil, start mirtazapine 7.5 mg p.o. nightly and can later titrate as needed up to 50 mg nightly to help with recent increase anxiety and insomnia. As per psychiatry, discontinue lorazepam on discharge and avoid benzodiazepines As per psychiatry, in the future if auditory hallucinations and visual hallucinations become more distressing, could consider use of Abilify 2.5 mg daily or Seroquel 12.5 mg nightly though caution given increased risk of mortality in setting of dementia. As per psychiatry, do not use Haldol given concern for Lewy body dementia and EPS risk. For behavioral emergency, could trial Seroquel 12.5 mg p.o. twice daily as needed for agitation or olanzapine 2.5 mg IM x 1 (do not exceed 10 mg per 24 hours and check EKG if IM dose required) Awaiting PT/OT consult #Coronary artery disease status post LAD and RCA stent in May 2022 #Essential hypertension #Hyperlipidemia #Chronic atrial fibrillation on anticoagulation Xarelto #Peripheral vascular disease status post stent Outpatient complaints coordinator is Dr. Wiggins Outpatient vascular surgeon is Dr. Samara Lawrence held secondary to subdural hematoma Continue metoprolol for rate control Continue statin Telemetry monitoring 2D echo from September 2022 shows EF of 55% with mild tricuspid regurgitation #Hypothyroidism TSH is 1.787 Continue levothyroxine 50 mcg p.o. daily #Type 2 diabetes mellitus A1c 6.2 Diabetic diet Accu-Cheks before every meal and nightly with sliding scale insulin coverage Monitor glycemic control #COPD Patient not in acute exacerbation Check two-view chest x-ray #Hypomagnesemia Magnesium replacement Monitor levels #Urinary stress and urge incontinence Outpatient urologist Dr. Rollins Patient is scheduled for outpatient procedure with Dr. Rollins on 07/05/2024 Urine culture from 06/23/2024 shows Klebsiella pneumoniae: Sensitivity pending Start ceftriaxone 1 g IV daily given patient with encephalopathy CODE STATUS: Full code DVT prophylaxis: Bilateral SCDs, avoid chemical prophylaxis Care plan discussed with patient, nursing staff Vargas was updated yesterday and will update today Admission and Anticipated Discharge Date Admission Date: June 22, 2024 Subjective Patient seen and examined Labs and radiology reviewed Telemetry reviewed As per nursing staff, patient did not sleep all night Patient is sleeping comfortably but arousable. She knows she is in the hospital and is able to tell me the year is 2023 She was seen by psychiatry yesterday and recommendations reviewed Patient tells me she ate breakfast but confirm with nursing staff and patient has yet to eat breakfast She denies nausea, vomiting, abdominal pain, chest pain or shortness of breath Repeat CT of the head done this morning which shows no change in subdural hematoma Physical Exam Physical Exam: General: No acute distress Psych: Awake and oriented to self, place and year HEENT: Anicteric sclera, moist oral mucosa, right frontal scalp ecchymosis noted CVS: irregular rate and rhythm Lungs: Bilateral air entry, no wheezing noted Abdomen: Soft, nontender, no rebound, no guarding Ext: No lower extremity edema, no calf tenderness, right hip ecchymosis with tenderness noted, left shoulder ecchymosis with tenderness noted, bilateral elbow abrasions noted Neuro: No focal motor deficits noted Results & Data Results & Data Vital Signs (Past 12 Hours) Vital Signs Temp Pulse Pulse Resp BP Pulse Ox O2 Del Method 06/24/24 07:39 37.5 C 83 14 168/87 H 96 Room Air 06/24/24 07:28 91 H 06/24/24 03:48 37.0 C 91 H 17 147/64 H 100 Room Air 06/24/24 00:13 87 17 139/76 06/23/24 22:00 20 170/97 H 94 Room Air 06/23/24 21:55 91 H Laboratory Results Laboratory Results - last 24 hr 06/23/24 06/23/24 06/23/24 11:30 16:31 21:22 WBC RBC Hgb Hct MCV MCH MCHC RDW Std Deviation RDW Coeff of Loli Plt Count MPV Immature Gran % (Auto) Neut % (Auto) Lymph % (Auto) Marin % (Auto) Eos % (Auto) Baso % (Auto) Neut # (Auto) Lymph # (Auto) Marin # (Auto) Eos # (Auto) Baso # (Auto) Immature Gran # (Auto) PT INR APTT PTT Ratio Sodium Potassium Chloride Carbon Dioxide Anion Gap BUN Creatinine Est Cr Clr Drug Dosing eGFR BUN/Creatinine Ratio Glucose POC Glucose 165 H 126 H 89 Calcium Magnesium Total Bilirubin AST ALT Alkaline Phosphatase Total Protein Albumin Globulin Albumin/Globulin Ratio 06/24/24 06/24/24 06/24/24 05:39 06:33 07:12 WBC 9.31 RBC 4.26 Hgb 13.0 Hct 38.8 MCV 91.1 MCH 30.5 MCHC 33.5 RDW Std Deviation 45.1 RDW Coeff of Loli 13.6 Plt Count 207 MPV 11.4 Immature Gran % (Auto) 0.8 Neut % (Auto) 65.1 Lymph % (Auto) 23.6 Marin % (Auto) 9.3 Eos % (Auto) 0.9 Baso % (Auto) 0.3 Neut # (Auto) 6.06 Lymph # (Auto) 2.20 Marin # (Auto) 0.87 H Eos # (Auto) 0.08 Baso # (Auto) 0.03 Immature Gran # (Auto) 0.07 PT Cancelled 11.2 INR Cancelled 1.0 APTT Cancelled 24 PTT Ratio Cancelled 0.9 Sodium 140 Potassium 4.1 Chloride 106 Carbon Dioxide 25 Anion Gap 9 BUN 21 Creatinine 0.65 Est Cr Clr Drug Dosing 74.4 eGFR 86.76 BUN/Creatinine Ratio 32.3 H Glucose 137 H POC Glucose 140 H Calcium 9.2 Magnesium 1.9 Total Bilirubin 2.0 H AST 30 ALT 22 Alkaline Phosphatase 56 Total Protein 6.7 Albumin 3.7 Globulin 3.0 Albumin/Globulin Ratio 1.2 Diagnostic Findings Cervical Spine CT 06/22/24 18:58 Exam(s): CT C SPINE EXAM: CT Cervical Spine Without Intravenous Contrast CLINICAL HISTORY: Reason for exam: Trauma. TECHNIQUE: Axial computed tomography images of the cervical spine without intravenous contrast. CTDI is 21.82 mGy and DLP is 423.06 mGy-cm. Automated exposure control was utilized for the study. A dose lowering technique was utilized adhering to the principles of ALARA. COMPARISON: None FINDINGS: Bones: Normal alignment. No acute fracture or bony lesion. Disc spaces: No subluxation. Degenerative changes of the spine. Soft tissues: Normal. Other: Atherosclerotic changes of the vasculature. IMPRESSION: No acute traumatic abnormality. Electronically signed by: Blane Collazo M.D. 06/22/24 20:13 PM Chest X-Ray 06/22/24 18:58 Exam(s): XR CXR 1 VIEW EXAM: XR Chest, 1 View CLINICAL HISTORY: Reason for exam: Trauma. TECHNIQUE: Frontal view of the chest. COMPARISON: Chest radiograph on 10/23/2022 FINDINGS: Hardware: None. Lungs/pleura: Prominent lung markings. No focal consolidation. No pleural effusion or pneumothorax. Heart/mediastinum: Enlargement of the cardiac silhouette. Atherosclerotic changes in aorta. Soft tissues: Unremarkable. Bones: No acute fracture. Upper abdomen: Normal. IMPRESSION: Prominent lung markings may be secondary to technique versus pulmonary vasculature congestion. Electronically signed by: Blane Collazo M.D. 06/22/24 20:[address] 06/22/24 18:58 CR Exam(s): CT HEAD Without Contrast EXAM: CT Head Without Intravenous Contrast CLINICAL HISTORY: Reason for exam: Trauma. TECHNIQUE: Axial computed tomography images of the head/brain without intravenous contrast. CTDI is 38.49 mGy and DLP is 624.41 mGy-cm. Automated exposure control was utilized for the study. A dose lowering technique was utilized adhering to the principles of ALARA. COMPARISON: MRI brain on 06/22/2024 FINDINGS: Brain: No acute infarct identified. Trace acute subdural blood along the interhemispheric falx and right tentorium. No mass effect or midline shift. Scattered areas of hypoattenuation in the supratentorial white matter likely represent chronic small vessel ischemic changes. Ventricles and sulci: Prominence of the ventricles and sulci is likely secondary to cerebral volume loss. Bones: Normal. No bony lesion or acute fracture. Subcutaneous tissues: Normal. Sinuses: Normal. No air-fluid levels or mucosal thickening. Mastoid air cells: Normal. Orbits: Bilateral lens implants. Other: Atherosclerotic calcifications in the intracranial vasculature. IMPRESSION: 1. Trace acute subdural blood along the interhemispheric falx and right tentorium. 2. Chronic small vessel ischemic changes and cerebral volume loss. Communications: Call Doctor Intracranial Hemorrhage Electronically signed by: Blane Collazo M.D. 06/22/24 20:16 PM Pelvis X-Ray 06/22/24 18:58 Exam(s): XR PELVIS, 1-2 views EXAM: XR Pelvis, 1 or 2 Views CLINICAL HISTORY: Reason for exam: Trauma. TECHNIQUE: Frontal view of the pelvis. COMPARISON: Pelvis and hip radiographs on 08/11/2015 FINDINGS: Bones/joints: No displaced fracture or dislocation identified. Mild degenerative changes of the hips. No bony lesion. Soft tissues: Normal. No radiopaque foreign body identified. Other: Vascular calcifications. Stent noted over the lower lumbar spine. IMPRESSION: No displaced fracture or dislocation identified. Electronically signed by: Blane Collazo M.D. 06/22/24 20:[address] 06/23/24 08:00 CT OF THE HEAD WITHOUT CONTRAST CLINICAL HISTORY: subdural follow up COMPARISON STUDY: MRI of the brain and head CT June 22, 2024. CT DOSE: 688.24 mGy.cm TECHNIQUE: Helical axial images of the head were obtained without IV contrast. Automated exposure control was utilized for the study. A dose lowering technique was utilized adhering to the principles of ALARA. FINDINGS: Trace acute subdural hemorrhage along the right falx and right tentorium is unchanged. This measures 2 mm in thickness. The ventricular system is stable. White matter hypodensities are unchanged and represent small vessel disease. The basal cisterns are patent. No extra-axial collections are present. There are no findings to suggest acute dural sinus thrombosis or acute territorial infarct. No significant calvarial abnormalities are present. Visualized portions of the sinuses and mastoid air cells are clear. IMPRESSION: No change in trace acute subdural hemorrhage along the right falx and tentorium. ACT 112: Negative or not required by law. Electronically signed by: Kendell Perez M.D. 06/23/2024 10:55 AM Hip/Pelvis X-Ray 06/23/24 11:45 EXAM: Radiographs of the Right Hip 3 Views INDICATION: Full. TECHNIQUE: Front view pelvis and AP and frog leg lateral views of the right hip. COMPARISON: 06/22/2016 FINDINGS: Limitations: None. Bones/joints: No fracture, erosion or dislocation. Soft tissues: There is soft tissue contusion adjacent to the right proximal femur. No soft tissue gas collection or radiopaque foreign body. Atherosclerosis of the proximal thighs noted. There is a stent in the right common iliac artery. IMPRESSION: No evident fracture. If additional imaging is clinically warranted, CT is more sensitive. ACT 112: Negative or not required by law. Electronically signed by Eleanor Collazo 06-23-2024 3:50 PM Shoulder X-Ray 06/23/24 11:45 EXAM: Radiographs of the Left Shoulder Complete 3 views INDICATION: Trauma. TECHNIQUE: 3 views of the left shoulder. COMPARISON: Comparison made to chest x-ray including the left shoulder 10/23/2022 FINDINGS: Bones/joints: No fracture, subluxation or dislocation. Visualized left ribs intact. There is mild glenohumeral and acromioclavicular spurring. Probable mild glenohumeral narrowing. There is no change in a room sclerotic focus of lucent expansion of the anterior glenoid consistent with a chronic benign lesion or consequence of prior trauma. Soft tissues: No abnormality noted. No radiopaque foreign body noted. IMPRESSION: No acute abnormality of the left shoulder. ACT 112: Negative or not required by law. Electronically signed by Eleanor Collazo 06-23-2024 3:[address] 06/24/24 07:00 EXAM: CT head/brain wo con CLINICAL HISTORY: reassess subdural hematoma approx. 24 hour follow up jr TECHNIQUE: Axial noncontrast CT scan of the brain was performed from the skull base to the high parietal region, and sagittal and coronal reconstructed images were obtained. One of the following dose reduction techniques was utilized for this exam: Automated exposure control, adjustment of the mA and/or kV according to patient size, and use of iterative reconstruction. COMPARISON: 06/22/2024 FINDINGS: Posterior falx acute subdural hematoma measures 3.2 mm in depth. No definite intracerebral hematoma. No definite calvarium fractures. There are confluent ill-defined [id number] areas noted in the periventricular white matter as well as tiny hypodense areas in the subcortical white matter bilaterally, suggestive of microvascular ischemic changes. The ventricular system, cortical sulci, and basal cisterns are prominent and consistent with senile changes. The visualized brain parenchyma shows a normal appearance. Trevizo-white matter differentiation is maintained. No midline shifts or deformity. Normal CT appearance of the posterior fossa structures namely the cerebellar hemispheres, brainstem, and cerebellar peduncles. The IACs are unremarkable. The cerebello-pontine angles are clear. The osseous structures in the skull base are unremarkable. The scanned paranasal sinuses are clear. Atherosclerotic calcifications of the vertebral arteries are noted. IMPRESSION: 1. Posterior falx acute subdural hematoma measures 3.2 mm in depth. Unchanged. 2. No definite intracerebral hematomas. 3. Microvascular ischemic changes and senile changes. 4. No significant interval changes. 5. MRI with diffusion imaging is advised to detect any acute evolving ischemic insult if clinically warranted. Electronically signed by Ez Mcguire 06-24-2024 08:25 AM PG Care Time/CCT Total # of Minutes Spent Total Time Spent with Patient: Total time spent is greater than 50% in coordination of care (as documented) at patient's floor/unit and/or counseling patient: Coding Level of Care Code 63295 SUB INP/OBS CARE 50MIN Diagnoses Acute subdural hematoma S06.5XAA Falls frequently R29.6 Dementia F03.90 Visual hallucinations R44.1 Auditory hallucinations R44.0 Hypothyroidism E03.9 Chronic obstructive pulmonary disease, unspecified COPD type J44.9 COPD type: unspecified COPD Urge and stress incontinence N39.46 Type 2 diabetes mellitus with other circulatory complication, without long-term current use of insulin E11.59 Diabetes mellitus complication detail: with other circulatory complications Diabetes mellitus complication status: with circulatory complication Diabetes mellitus intermodal dispatcher insulin use: without correction use Peripheral vascular disease I73.9 Chronic atrial fibrillation I48.20 Atrial fibrillation type: unspecified chronic CAD (coronary artery disease) I25.10 Essential hypertension I10 (7) COPD (chronic obstructive pulmonary disease) COPD type: unspecified COPD Qualified Code(s): J44.9 - Chronic obstructive pulmonary disease, unspecified (9) Type 2 diabetes mellitus Diabetes mellitus complication detail: with other circulatory complications Diabetes mellitus complication status: with circulatory complication Diabetes mellitus intermodal dispatcher insulin use: without correction use Qualified Code(s): E11.59 - Type 2 diabetes mellitus with other circulatory complications (11) Atrial fibrillation Atrial fibrillation type: unspecified chronic Qualified Code(s): I48.20 - Chronic atrial fibrillation, unspecified
--- NOTE | 2024-06-24 09:58 | Neurology Progress Note ---
Date of Service June 24, 2024 Assessment & Plan (1) Acute subdural hematoma: Admission and Anticipated Discharge Date Admission Date: June 22, 2024 Subjective pt sleepy this morning. per nursing she didn't sleep all night. woke up briefly when called her name. Results & Data Vital Signs (Past 12 Hours) Vital Signs Temp Pulse Pulse Resp BP Pulse Ox O2 Del Method 06/24/24 07:39 37.5 C 83 14 168/87 H 96 Room Air 06/24/24 07:28 91 H 06/24/24 03:48 37.0 C 91 H 17 147/64 H 100 Room Air 06/24/24 00:13 87 17 139/76 06/23/24 22:00 20 170/97 H 94 Room Air Exam (Neuro) Physical Exam: Neuro: Mental: sleepy, woke up briefly and made few sentences. no abnormal movements. Impression: 84 yo female with dementia (maybe Lewy body dementia) with acute SDH in setting of falls and on xarelto for atrial fib. Pt had Frank bryant in ED. pt's SDH appears stable and small and should not cause much clinical deficits, likely from the fall she sustained few days ago (and maybe few weeks ago also). pt clinically unchanged and stable. Repeat CT head this morning stable, no change. Recommendations: as recommended yesterday initial note. continue supportive care. no new recommendations today. behavioral management per psychiatry recommendations. Chart reviewed I have spent more than 50% coordinating care with patient's treatment team. Total time spent (including chart review and coordination of care): 30 min (this includes chart review). PG Care Time/CCT Total # of Minutes Spent Total Time Spent with Patient: Total time spent is greater than 50% in coordination of care (as documented) at patient's floor/unit and/or counseling patient: Coding Level of Care Code 25826 SUB INP/OBS CARE 08/25MIN Diagnoses Acute subdural hematoma S06.5XAA
[2024-06-24] MEDS: cefTRIAXone SODIUM 2,000 MG/50 ML BAG IV SCH (11:50)
--- NOTE | 2024-06-24 12:59 | XRay Report ---
XR chest 2V PA/lateral CLINICAL HISTORY: ?CHF ?PNEUMONIA COMPARISON STUDY: Chest CT October 23, 2022. Chest radiograph June 22, 2024. FINDINGS: The patient is mildly rotated. Lung volumes are normal. Lungs are clear. There is no pneumo thorax or pleural effusion. Cardiomegaly is unchanged. Mediastinal contours are normal. There is no e vidence for pulmonary edema. IMPRESSION: No acute cardiopulmonary findings. Stable cardiomegaly. No radiographic evidence for pul monary edema. ACT 112: Negative or not required by law. Electronically signed by: Kendell Perez M.D. 06/24/2024 12:58 PM
[2024-06-24] MEDS: LOSARTAN POTASSIUM 25 MG TAB PO SCH (13:01)
--- NOTE | 2024-06-24 15:09 | Electrocardiogram Report ---
Test Reason : Blood Pressure : */* mmHG Vent. Rate : 86 BPM Atrial Rate : 104 BPM P-R Int : * ms QRS Dur : 82 ms QT Int : 408 ms P-R-T Axes : * 3 246 degrees QTcB Int : 488 ms Poor data quality, interpretation may be adversely affected Atrial fibrillation Prolonged QT Abnormal ECG When compared with ECG of 23-Jun-2024 05:46, No significant change was found Confirmed by Kody Mckeon ([id number]) on 06/24/2024 3:08:42 PM Referred By: Charlette Case Confirmed By: Kody Mckeon
[2024-06-24] MEDS: QUEtiapine FUMARATE 25 MG TABLET PO SCH (20:35)
[2024-06-25 07:26] LABS: Basophils # (auto) 0.03 K/uL (0.00-0.20); Basophils % (auto) 0.3 %; Hematocrit (blood only) 42.7 % (37.0-47.0); Hemoglobin 14.1 g/dl (12.0-16.0); Lymphocytes # (auto) 1.33 K/uL (1.20-3.40); Lymphocytes % (auto) 13.5 %; Mean Corpuscular Hemoglobin 30.5 pg (25.0-34.0); Mean Corpuscular Volume 92.2 fL (80.0-100.0); Mean Platelet Volume 11.6 fL (9.4-12.4); Monocytes # (auto) 0.91 K/uL (0.11-0.59); Monocytes % (auto) 9.2 %; Neutrophils # (auto) 7.39 K/uL (1.40-6.50); Platelet Count 238 K/uL (130-400); RDW Coefficient of Variation 13.5 % (11.5-14.5); RDW Standard Deviation 45.1 fL (36.4-46.3); Red Blood Count 4.63 M/uL (4.20-5.40); White Blood Count 9.86 K/ul (4.8-10.8)
[2024-06-25 07:39] LABS: Albumin Globulin Ratio 1.2 (0.9-2); Albumin Level 3.8 gm/dl (3.4-5.0); BUN Creatinine Ratio 30.6 (10-20); Bilirubin,Total 1.9 mg/dl (0.2-1.0); Calcium 9.4 mg/dl (8.6-10.3); Creatinine Clr Calc Pharmacy 67.1 ml/min; Globulin 3.2 gm/dl (2.5-4.0)
--- NOTE | 2024-06-25 11:09 | Hospitalist Progress Note ---
Date of Service June 25, 2024 Assessment & Plan (1) Acute subdural hematoma: (2) Falls frequently: (3) Dementia: (4) Visual hallucinations: (5) Auditory hallucinations: (6) Hypothyroidism: (7) COPD (chronic obstructive pulmonary disease): (8) Urge and stress incontinence: (9) Type 2 diabetes mellitus: (10) Peripheral vascular disease: (11) Atrial fibrillation: (12) CAD (coronary artery disease): (13) Essential hypertension: Plan 84-year-old female with past medical history of dementia, hypothyroidism, COPD, type 2 diabetes mellitus, atrial fibrillation on anticoagulation with Xarelto, coronary artery disease status post stents, peripheral vascular disease status post stent, urinary urge and stress incontinence, dementia who has been having recurrent falls, visual and auditory hallucinations with 2 recent falls on 06/19/2024 and , 06/21/2024 with outpatient MRI showing trace acute/subacute subdural hematoma. She was sent to the ED and CT scan was reviewed by neurosurgery at [facility], neurosurgery recommended monitoring at [facility] along with giving Kcentra for reversal of Xarelto which she received in ED #Acute metabolic encephalopathy: Likely secondary to fall with head trauma, subdural hematoma and underlying UTI in setting of dementia: Present on admission #Acute/subacute subdural hematoma #Recurrent falls #Dementia #Auditory/visual hallucinations Outpatient MRI showed acute/subacute subdural hematoma ED discussed this with neurosurgery at [facility] (Dr. Rosales) who reviewed MRI and repeat CT done in ED and showed no significant change and recommended Xarelto reversal with Kcentra and monitoring at [facility] without need to transfer at present. Patient received Kcentra in ED H&H is stable Check orthostatic vital signs and close blood pressure monitoring Hydralazine IV as needed standing systolic blood pressures greater than 150 B12 is 440 TSH is 1.787 Folate is greater than 22.3 Continue telemetry monitoring Neurology saw the patient and recommended blood pressure control, repeat head CT this morning which did not show any change and have recommended waiting minimum 4 weeks before starting anticoagulation therapy and only if patient is clinically stable and follow-up imaging is reassuring Psychiatry saw the patient Psychiatry recommendations are as follows -Continue Paxil, start mirtazapine 7.5 mg p.o. nightly and can later titrate as needed up to 15 mg nightly to help with recent increase anxiety and insomnia. -discontinue lorazepam on discharge and avoid benzodiazepines -if auditory hallucinations and visual hallucinations become more distressing, could consider use of Abilify 2.5 mg daily or Seroquel 12.5 mg nightly though caution given increased risk of mortality in setting of dementia. -Do not use Haldol given concern for Lewy body dementia and EPS risk. For behavioral emergency, could trial Seroquel 12.5 mg p.o. twice daily as needed for agitation or olanzapine 2.5 mg IM x 1 (do not exceed 10 mg per 24 hours and check EKG if IM dose required) As discussed with patient's family including and daughter on 06/24/2024: Seroquel 12.5 mg p.o. nightly started: They are aware of the increased risk of mortality #Coronary artery disease status post LAD and RCA stent in May 2022 #Essential hypertension #Hyperlipidemia #Chronic atrial fibrillation on anticoagulation Xarelto #Peripheral vascular disease status post stent Outpatient emergency medical technician is Dr. Wiggins Outpatient vascular surgeon is Dr. Samara Lawrence held secondary to subdural hematoma Continue metoprolol for rate control Continue statin Stop telemetry monitoring and transferred to [facility] floor 2D echo from September 2022 shows EF of 55% with mild tricuspid regurgitation #Hypothyroidism TSH is 1.787 Continue levothyroxine 50 mcg p.o. daily #Type 2 diabetes mellitus A1c 6.2 Diabetic diet Accu-Cheks before every meal and nightly with sliding scale insulin coverage Monitor glycemic control #COPD Patient not in acute exacerbation Chest x-ray did not show any evidence of infiltrates or consolidation or vascular congestion #Hypomagnesemia Magnesium replacement Monitor levels #Urinary stress and urge incontinence #Urinary tract infection Outpatient urologist Dr. Rollins Patient is scheduled for outpatient procedure with Dr. Rollins on 07/05/2024 Urine culture from 06/23/2024 shows Klebsiella pneumoniae Continue IV ceftriaxone 1 g daily (day 2) CODE STATUS: Full code DVT prophylaxis: Bilateral SCDs, avoid chemical prophylaxis PT has recommended 24-hour home care with home PT Care plan discussed with patient, nursing staff Vargas ([phone]) updated on the phone Admission and Anticipated Discharge Date Admission Date: June 22, 2024 Subjective Patient seen and examined Labs reviewed Overnight events reviewed: Patient received IV hydralazine for elevated blood pressure but no orthostatics were done This morning's orthostatics show that her blood pressure drops Nursing staff educated that IV hydralazine only to be given after checking orthostatic blood pressure and only if standing systolic blood pressures greater than 150 Patient sleepy but arousable and still confused She worked with physical therapy today Physical Exam Physical Exam: General: No acute distress Psych: Awake and oriented to self and person HEENT: Anicteric sclera, moist oral mucosa, right frontal scalp ecchymosis noted CVS: irregular rate and rhythm Lungs: Bilateral air entry, no wheezing noted Abdomen: Soft, nontender, no rebound, no guarding Ext: No lower extremity edema, no calf tenderness, right hip ecchymosis with tenderness noted, left shoulder ecchymosis with tenderness noted, bilateral elbow abrasions noted Results & Data Results & Data Vital Signs (Past 12 Hours) Vital Signs Temp Pulse Pulse Resp BP BP Pulse Ox 06/25/24 08:00 82 06/25/24 08:00 06/25/24 07:57 37.0 C 64 18 164/90 H 97 06/25/24 03:59 187/105 H 06/25/24 03:41 205/101 H 06/25/24 03:19 78 204/102 H 06/25/24 03:00 37.0 C 78 16 97 06/25/24 01:00 06/25/24 00:00 91 H 06/24/24 23:52 36.9 C 87 16 145/71 H 95 Pulse Ox O2 Del Method O2 Del Method 06/25/24 08:00 06/25/24 08:00 Room Air 06/25/24 07:57 Room Air 06/25/24 03:59 06/25/24 03:41 06/25/24 03:19 06/25/24 03:00 Room Air 06/25/24 01:00 94 Room Air 06/25/24 00:00 06/24/24 23:52 Room Air Laboratory Results Laboratory Results - last 24 hr 06/24/24 06/24/24 06/24/24 16:11 20:59 WBC RBC Hgb Hct MCV MCH MCHC RDW Std Deviation RDW Coeff of Loli Plt Count MPV Immature Gran % (Auto) Neut % (Auto) Lymph % (Auto) [place] % (Auto) Eos % (Auto) Baso % (Auto) Neut # (Auto) Lymph # (Auto) [place] # (Auto) Eos # (Auto) Baso # (Auto) Immature Gran # (Auto) Sodium Potassium Chloride Carbon Dioxide Anion Gap BUN Creatinine Est Cr Clr Drug Dosing eGFR BUN/Creatinine Ratio Glucose POC Glucose 114 H 198 H 124 H Calcium Magnesium Total Bilirubin AST ALT Alkaline Phosphatase Total Protein Albumin Globulin Albumin/Globulin Ratio 06/25/24 06/25/24 06:23 07:19 WBC 9.86 RBC 4.63 Hgb 14.1 Hct 42.7 MCV 92.2 MCH 30.5 MCHC 33.0 RDW Std Deviation 45.1 RDW Coeff of Loli 13.5 Plt Count 238 MPV 11.6 Immature Gran % (Auto) 1.0 Neut % (Auto) 75.0 Lymph % (Auto) 13.5 [place] % (Auto) 9.2 Eos % (Auto) 1.0 Baso % (Auto) 0.3 Neut # (Auto) 7.39 H Lymph # (Auto) 1.33 [place] # (Auto) 0.91 H Eos # (Auto) 0.10 Baso # (Auto) 0.03 Immature Gran # (Auto) 0.10 Sodium 141 Potassium 4.0 Chloride 103 Carbon Dioxide 29 Anion Gap 9 BUN 22 Creatinine 0.72 Est Cr Clr Drug Dosing 67.1 eGFR 82.39 BUN/Creatinine Ratio 30.6 H Glucose 170 H POC Glucose 154 H Calcium 9.4 Magnesium 2.0 Total Bilirubin 1.9 H AST 26 ALT 20 Alkaline Phosphatase 61 Total Protein 7.0 Albumin 3.8 Globulin 3.2 Albumin/Globulin Ratio 1.2 PG Care Time/CCT Total # of Minutes Spent Total Time Spent with Patient: Total time spent is greater than 50% in coordination of care (as documented) at patient's floor/unit and/or counseling patient: Coding Level of Care Code 65956 SUB INP/OBS CARE 3/50MIN Diagnoses Acute subdural hematoma S06.5XAA Falls frequently R29.6 Dementia F03.90 Visual hallucinations R44.1 Auditory hallucinations R44.0 Hypothyroidism E03.9 Chronic obstructive pulmonary disease, unspecified COPD type J44.9 COPD type: unspecified COPD Urge and stress incontinence N39.46 Type 2 diabetes mellitus with other circulatory complication, without long-term current use of insulin E11.59 Diabetes mellitus complication detail: with other circulatory complications Diabetes mellitus complication status: with circulatory complication Diabetes mellitus longterm insulin use: without cable braider use Peripheral vascular disease I73.9 Chronic atrial fibrillation I48.20 Atrial fibrillation type: unspecified chronic CAD (coronary artery disease) I25.10 Essential hypertension I10 (7) COPD (chronic obstructive pulmonary disease) COPD type: unspecified COPD Qualified Code(s): J44.9 - Chronic obstructive pulmonary disease, unspecified (9) Type 2 diabetes mellitus Diabetes mellitus complication detail: with other circulatory complications Diabetes mellitus complication status: with circulatory complication Diabetes mellitus longterm insulin use: without longterm use Qualified Code(s): E11.59 - Type 2 diabetes mellitus with other circulatory complications (11) Atrial fibrillation Atrial fibrillation type: unspecified chronic Qualified Code(s): I48.20 - Chronic atrial fibrillation, unspecified
[2024-06-25] MEDS ORDERED: hydrALAZINE HCL 20 MG/ML VIAL IV PRN (16:18)
--- NOTE | 2024-06-26 10:32 | Hospitalist Progress Note ---
Date of Service June 26, 2024 Assessment & Plan (1) Acute subdural hematoma: (2) Falls frequently: (3) Dementia: (4) Visual hallucinations: (5) Auditory hallucinations: (6) Hypothyroidism: (7) COPD (chronic obstructive pulmonary disease): (8) Urge and stress incontinence: (9) Type 2 diabetes mellitus: (10) Peripheral vascular disease: (11) Atrial fibrillation: (12) CAD (coronary artery disease): (13) Essential hypertension: Plan 84-year-old female with past medical history of dementia, hypothyroidism, COPD, type 2 diabetes mellitus, atrial fibrillation on anticoagulation with Xarelto, coronary artery disease status post stents, peripheral vascular disease status post stent, urinary urge and stress incontinence, dementia who has been having recurrent falls, visual and auditory hallucinations with 2 recent falls on 06/19/2024 and , 06/21/2024 with outpatient MRI showing trace acute/subacute subdural hematoma. She was sent to the ED and CT scan was reviewed by neurosurgery at [facility], neurosurgery recommended monitoring at [facility] along with giving Kcentra for reversal of Xarelto which she received in ED #Acute metabolic encephalopathy: Likely secondary to fall with head trauma, subdural hematoma and underlying UTI in setting of dementia: Present on admission #Acute/subacute subdural hematoma #Recurrent falls #Dementia #Auditory/visual hallucinations Outpatient MRI showed acute/subacute subdural hematoma ED discussed this with neurosurgery at [facility] (Dr. Rosales) who reviewed MRI and repeat CT done in ED and showed no significant change and recommended Xarelto reversal with Kcentra and monitoring at [facility] without need to transfer at present. Patient received Kcentra in ED H&H is stable Check orthostatic vital signs: Patient's blood pressure dropped significantly when she stands Hydralazine IV as needed standing systolic blood pressures greater than 150 B12 is 440 TSH is 1.787 Folate is greater than 22.3 Neurology saw the patient and recommended blood pressure control, repeat head CT this morning which did not show any change and have recommended waiting minimum 4 weeks before starting anticoagulation therapy and only if patient is clinically stable and follow-up imaging is reassuring Psychiatry saw the patient Psychiatry recommendations are as follows -Continue Paxil, start mirtazapine 7.5 mg p.o. nightly and can later titrate as needed up to 15 mg nightly to help with recent increase anxiety and insomnia. -discontinue lorazepam on discharge and avoid benzodiazepines -if auditory hallucinations and visual hallucinations become more distressing, could consider use of Abilify 2.5 mg daily or Seroquel 12.5 mg nightly though caution given increased risk of mortality in setting of dementia. -Do not use Haldol given concern for Lewy body dementia and EPS risk. For behavioral emergency, could trial Seroquel 12.5 mg p.o. twice daily as needed for agitation or olanzapine 2.5 mg IM x 1 (do not exceed 10 mg per 24 hours and check EKG if IM dose required) As discussed with patient's family including and daughter on 06/24/2024: Seroquel 12.5 mg p.o. nightly started: They are aware of the increased risk of mortality Somnolent is worse today: Check stat head CT and stat labs #Coronary artery disease status post LAD and RCA stent in May 2022 #Essential hypertension #Hyperlipidemia #Chronic atrial fibrillation on anticoagulation Xarelto #Peripheral vascular disease status post stent Outpatient acid maker is Dr. Wiggins Outpatient vascular surgeon is Dr. Samara Lawrence held secondary to subdural hematoma Continue metoprolol for rate control Continue statin Stop telemetry monitoring and transferred to [facility] floor 2D echo from September 2022 shows EF of 55% with mild tricuspid regurgitation #Hypothyroidism TSH is 1.787 Continue levothyroxine 50 mcg p.o. daily #Type 2 diabetes mellitus A1c 6.2 Diabetic diet Accu-Cheks before every meal and nightly with sliding scale insulin coverage Monitor glycemic control #COPD Patient not in acute exacerbation Chest x-ray did not show any evidence of infiltrates or consolidation or vascular congestion #Hypomagnesemia Magnesium replacement Monitor levels #Urinary stress and urge incontinence #Urinary tract infection Outpatient urologist Dr. Rollins Patient is scheduled for outpatient procedure with Dr. Rollins on 07/05/2024 Urine culture from 06/23/2024 shows Klebsiella pneumoniae Continue IV ceftriaxone 1 g daily (day 3) CODE STATUS: Full code DVT prophylaxis: Bilateral SCDs, avoid chemical prophylaxis PT has recommended 24-hour home care with home PT, likely will need placement Care plan discussed with patient, nursing staff Vargas ([phone]) updated on the phone Admission and Anticipated Discharge Date Admission Date: June 22, 2024 Subjective Patient seen and examined Patient more lethargic than usual She is arousable but disoriented Unable to get a full review of systems Physical Exam Physical Exam: General: No acute distress Psych: Somnolent but arousable and disoriented HEENT: Anicteric sclera, dry oral mucosa, right frontal scalp ecchymosis noted CVS: irregular rate and rhythm Lungs: Bilateral air entry, no wheezing noted Abdomen: Soft, nontender, no rebound, no guarding Ext: No lower extremity edema, no calf tenderness, right hip ecchymosis with tenderness noted, left shoulder ecchymosis, bilateral elbow abrasions noted Results & Data Results & Data Vital Signs (Past 12 Hours) Vital Signs Temp Pulse Resp BP BP Pulse Ox O2 Del Method 06/26/24 08:50 90 20 131/73 95 Room Air 06/26/24 07:35 Room Air 06/26/24 07:23 36.7 C 89 18 129/75 95 Room Air Laboratory Results Laboratory Results - last 24 hr 06/25/24 06/25/24 06/25/24 11:13 16:47 20:56 POC Glucose 156 H 152 H 191 H 06/26/24 08:00 POC Glucose 182 H PG Care Time/CCT Total # of Minutes Spent Total Time Spent with Patient: Total time spent is greater than 50% in coordination of care (as documented) at patient's floor/unit and/or counseling patient: Coding Level of Care Code 74399 SUB INP/OBS CARE 235MIN Diagnoses Acute subdural hematoma S06.5XAA Falls frequently R29.6 Dementia F03.90 Visual hallucinations R44.1 Auditory hallucinations R44.0 Hypothyroidism E03.9 Chronic obstructive pulmonary disease, unspecified COPD type J44.9 COPD type: unspecified COPD Urge and stress incontinence N39.46 Type 2 diabetes mellitus with other circulatory complication, without long-term current use of insulin E11.59 Diabetes mellitus complication detail: with other circulatory complications Diabetes mellitus complication status: with circulatory complication Diabetes mellitus truck terminal manager insulin use: without group home use Peripheral vascular disease I73.9 Chronic atrial fibrillation I48.20 Atrial fibrillation type: unspecified chronic CAD (coronary artery disease) I25.10 Essential hypertension I10 (7) COPD (chronic obstructive pulmonary disease) COPD type: unspecified COPD Qualified Code(s): J44.9 - Chronic obstructive pulmonary disease, unspecified (9) Type 2 diabetes mellitus Diabetes mellitus complication detail: with other circulatory complications Diabetes mellitus complication status: with circulatory complication Diabetes mellitus truck terminal manager insulin use: without truck terminal manager use Qualified Code(s): E11.59 - Type 2 diabetes mellitus with other circulatory complications (11) Atrial fibrillation Atrial fibrillation type: unspecified chronic Qualified Code(s): I48.20 - Chronic atrial fibrillation, unspecified
[2024-06-26 10:53] LABS: Basophils # (auto) 0.04 K/uL (0.00-0.20); Basophils % (auto) 0.3 %; Eosinophils # (auto) 0.15 K/uL (0.00-0.50); Eosinophils % (auto) 1.2 %; Hematocrit (blood only) 38.3 % (37.0-47.0); Hemoglobin 12.9 g/dl (12.0-16.0); Immature Granulocytes # (auto) 0.09 K/uL (0.01-0.20); Immature Granulocytes % (auto) 0.7 %; Lymphocytes # (auto) 2.39 K/uL (1.20-3.40); Lymphocytes % (auto) 19.3 %; Mean Corpuscular Hemoglobin 30.8 pg (25.0-34.0); Mean Corpuscular Hgb Conc 33.7 g/dL (32.0-36.0); Mean Corpuscular Volume 91.4 fL (80.0-100.0); Monocytes % (auto) 11.3 %; Neutrophils # (auto) 8.31 K/uL (1.40-6.50); Neutrophils % (auto) 67.2 %; Platelet Count 261 K/uL (130-400); RDW Coefficient of Variation 13.6 % (11.5-14.5); Red Blood Count 4.19 M/uL (4.20-5.40); White Blood Count 12.38 K/ul (4.8-10.8)
[2024-06-26 11:05] LABS: BUN Creatinine Ratio 39.8 (10-20); Calcium 9.6 mg/dl (8.6-10.3); Creatinine Clr Calc Pharmacy 57.9 ml/min; Magnesium 2.1 mg/dl (1.7-2.4); Potassium 3.8 mmol/L (3.5-5.1)
--- NOTE | 2024-06-26 11:27 | CT Scan Report ---
CT OF THE HEAD WITHOUT CONTRAST CLINICAL HISTORY: change in mentation, SDH COMPARISON STUDY: MRI of the brain June 22, [address] June 24, 2024. CT DOSE: 859.95 mGy.cm TECHNIQUE: Helical axial images of the head were obtained without IV contrast. Automated exposure con trol was utilized for the study. A dose lowering technique was utilized adhering to the principles o f ALARA. FINDINGS: This exam is mildly compromised by motion artifact trace acute subdural hemorrhage along th e posterior falx and right aspect of the tentorium is unchanged. No new sites of hemorrhage are prese nt. There is no mass effect. Ventricular system is stable. Basal cisterns are patent. There are no fi ndings to suggest acute dural sinus thrombosis or acute territorial infarct. White matter hypodensiti es are unchanged and favor small vessel disease. IMPRESSION: 1. No change in trace acute subdural hemorrhage along the posterior falx and right tentorium. No new sites of hemorrhage. 2. No change in appearance of the brain. Exam mildly compromised by motion artifact. ACT 112: Negative or not required by law. Electronically signed by: Kendell Perez M.D. 06/26/2024 11:25 AM
[2024-06-26] MEDS: LACTATED RINGER'S 1,000 ML IV SCH (12:45)
--- NOTE | 2024-06-27 08:42 | Hospitalist Progress Note ---
Date of Service June 27, 2024 Assessment & Plan (1) Acute subdural hematoma: Plan: Secondary to mechanical fall at home, she has dementia and visual and auditory hallucinations at home Mechanical fall resulted in small, non surgical hematoma while on Xarelto, Xar elto reversal with Kcentra,trauma consult did not recommend transfer Acute metabolic encephalopathy: secondary to fall with head trauma, subdural hematoma and underlying UTI( caro sensitive Klebsiella poa) in setting of dementia: Present on admission (2) Dementia: Plan: Psychiatry recommendations are as follows -Continue Paxil, start mirtazapine 7.5 mg p.o. nightly and can later titrate as needed up to 15 mg nightly to help with recent increase anxiety and insomnia. -discontinue lorazepam on discharge and avoid benzodiazepines -if auditory hallucinations and visual hallucinations become more distressing, could consider use of Abilify 2.5 mg daily or Seroquel 12.5 mg nightly though caution given increased risk of mortality in setting of dementia. -Do not use Haldol given concern for Lewy body dementia and EPS risk. For behavioral emergency, could trial Seroquel 12.5 mg p.o. twice daily as needed for agitation or olanzapine 2.5 mg IM x 1 (do not exceed 10 mg per 24 hours and check EKG if IM dose required) Seroquel 12.5 mg p.o. nightly started: They are aware of the increased risk of mortality Palliative care arranging family meeting for friday 06/29 to discuss progression of dementia and goals of care with family (3) CAD (coronary artery disease): Plan: Coronary artery disease status post LAD and RCA stent in May 2022 Essential hypertension Chronic atrial fibrillation on anticoagulation Xarelto, neurology recommended that is elected to restart Xarelto, wait at least 4 weeks to restart (07/20/24) Peripheral vascular disease status post stent History of permanent afib Continue metoprolol for rate control 2D echo from September 2022 shows EF of 55% with mild tricuspid regurgitation (4) Urge and stress incontinence: Plan: likely lead to UTI poa, and metabolic encephalopathy resulting in fall and subdural hematoma Outpatient urologist Dr. Rollins Patient is scheduled for outpatient procedure with Dr. Rollins on 07/05/2024 Urine culture from 06/23/2024 shows Klebsiella pneumoniae-Continue IV ceftriaxone 1 g daily LD 06/29/24 (5) COPD (chronic obstructive pulmonary disease): Plan: COPD Patient not in acute exacerbation Chest x-ray did not show any evidence of infiltrates or consolidation or vascular congestion (6) Type 2 diabetes mellitus: Plan: Type 2 diabetes mellitus A1c 6.2 Diabetic diet Accu-Cheks before every meal and nightly with sliding scale insulin coverage Monitor glycemic control Plan 84-year-old female with past medical history of dementia, hypothyroidism, COPD, type 2 diabetes mellitus, atrial fibrillation on anticoagulation with Xarelto, coronary artery disease status post stents, peripheral vascular disease status post stent, urinary urge and stress incontinence, dementia who has been having recurrent falls, visual and auditory hallucinations with 2 recent falls on 06/19/2024 and , 06/21/2024 with outpatient MRI showing trace acute/subacute subdural hematoma. She was sent to the ED and CT scan was reviewed by neurosurgery at [facility], neurosurgery recommended monitoring at [facility] along with giving Kcentra for reversal of Xarelto which she received in ED Hypothyroidism-stable TSH is 1.787 Continue levothyroxine 50 mcg p.o. daily Hypomagnesemia Magnesium replacement Monitor levels CODE STATUS: Full code DVT prophylaxis: Bilateral SCDs, avoid chemical prophylaxis PT has recommended 24-hour home care with home PT, likely will need placement Vargas ([phone]) Admission and Anticipated Discharge Date Admission Date: June 22, 2024 Subjective pleasantly confused patient no complaints of distress Physical Exam Physical Exam: awake and alert lungs are clear cardiac is regular Results & Data Results & Data Vital Signs (Past 12 Hours) Vital Signs Temp Pulse Resp BP Pulse Ox O2 Del Method 06/27/24 07:28 97.7 F 80 18 155/68 H 90 Room Air Laboratory Results review cbc review chemistry PG Care Time/CCT Total # of Minutes Spent Total Time Spent with Patient: Total time spent is greater than 50% in coordination of care (as documented) at patient's floor/unit and/or counseling patient: Coding Level of Care Code 95280 SUB INP/OBS CARE 3/50MIN Diagnoses Acute subdural hematoma S06.5XAA Dementia F03.90 CAD (coronary artery disease) I25.10 Urge and stress incontinence N39.46 Chronic obstructive pulmonary disease, unspecified COPD type J44.9 COPD type: unspecified COPD Type 2 diabetes mellitus with other circulatory complication, without long-term current use of insulin E11.59 Diabetes mellitus complication detail: with other circulatory complications Diabetes mellitus complication status: with circulatory complication Diabetes mellitus termite treater insulin use: without fdc use (5) COPD (chronic obstructive pulmonary disease) COPD type: unspecified COPD Qualified Code(s): J44.9 - Chronic obstructive pulmonary disease, unspecified (6) Type 2 diabetes mellitus Diabetes mellitus complication detail: with other circulatory complications Diabetes mellitus complication status: with circulatory complication Diabetes mellitus termite treater insulin use: without termite treater use Qualified Code(s): E11.59 - Type 2 diabetes mellitus with other circulatory complications
[2024-06-27 08:43] LABS: Basophils # (auto) 0.04 K/uL (0.00-0.20); Basophils % (auto) 0.4 %; Eosinophils # (auto) 0.23 K/uL (0.00-0.50); Eosinophils % (auto) 2.3 %; Hematocrit (blood only) 36.5 % (37.0-47.0); Hemoglobin 11.8 g/dl (12.0-16.0); Immature Granulocytes # (auto) 0.13 K/uL (0.01-0.20); Immature Granulocytes % (auto) 1.3 %; Mean Corpuscular Hemoglobin 29.9 pg (25.0-34.0); Mean Corpuscular Hgb Conc 32.3 g/dL (32.0-36.0); Mean Corpuscular Volume 92.6 fL (80.0-100.0); Mean Platelet Volume 11.3 fL (9.4-12.4); Monocytes # (auto) 1.04 K/uL (0.11-0.59); Monocytes % (auto) 10.4 %; Neutrophils # (auto) 6.14 K/uL (1.40-6.50); Neutrophils % (auto) 61.6 %; Platelet Count 247 K/uL (130-400); RDW Coefficient of Variation 13.5 % (11.5-14.5); RDW Standard Deviation 46.2 fL (36.4-46.3); Red Blood Count 3.94 M/uL (4.20-5.40); White Blood Count 9.98 K/ul (4.8-10.8)
[2024-06-27 08:44] LABS: Albumin Globulin Ratio 1.1 (0.9-2); Albumin Level 3.2 gm/dl (3.4-5.0); BUN Creatinine Ratio 39.2 (10-20); Bilirubin,Total 1.1 mg/dl (0.2-1.0); Creatinine Clr Calc Pharmacy 64.9 ml/min; Magnesium 1.8 mg/dl (1.7-2.4); Potassium 3.9 mmol/L (3.5-5.1); Total Protein 6.2 gm/dl (6.0-8.3)
--- NOTE | 2024-06-27 12:31 | Palliative Care Consultation ---
Date of Consultation June 27, 2024 Assessment & Plan (1) Acute alteration in mental status: (2) Falls frequently: (3) Acute subdural hematoma: (4) Palliative care by specialist: Plan Margarita is not decisional. I called her and left a detailed message on voiceNCLCil with my contact information and I requested a call back at his convenience. I will not be in house through the holiday but I am fur ironer and can assist by telemed for urgent needs. Thank you for allowing us to participate in the ongoing care of this patient. Please page with any additional concerns. Ghulam Gonzalez DNP Director, Palliative Medicine History of Present Illness Reason for Consultation: goals of care Attending Physician: Bret Rock MD History of Present Illness Margarita is an 84yo female who has been admitted 06/22 with new SDH, hx dementia, hypothyroidism, urinary urge and stress incontinence, neurogenic bladder, recurrent urine tract infection, pulm hypertension, COPD, diabetes mellitus type 2, SNHL bilaterally, essential hypertension, atrial fibrillation and CAD. Hs progressive dementia worsening hallucinations, audio & Visual poor sleep, no routine sleep protocol Chart review indicates family reporting worsening confusion/AMS for past few months with increased frequency of falls through the week. Resides at home with her . prior to 06/22 ED eval, she fell at home 06/19 and again 06/21. per chart: "Her reports that during the middle of the night last evening, she had gone out to the front door, and he found her out lying on the road, reporting that she was walking with friends, that she fell, and they left her alone. reports that he has since rearranged housing and doors locking that she can no longer do that. CT scan of brain in the ED this evening, as reviewed by [facility] neurosurgery, reports that there was no significant change from the previous MRI done earlier today, patient to be admitted to [facility] for monitoring. She has been taking her Xarelto regularly, and she did receive Kcentra reversal while in the ED." An outpatient MRI of brain that was ordered due to worsening auditory and visual hallucinations, showed a trace acute/subacute subdural hematoma. She is seen bedside, no family present She is confused and insists there are people in the room speaking with her about getting their daughter ready for the spring dance and why was I there to disturb them and create delays. She is unable to provide HPI Psych consult from Dr Hernandez 06/23 reviewed and appreciated, it reads in part as follows: "Diagnostically consistent with dementia, suspect possibly Lewy Body given description of fluctuating periods of confusion with hallucinations that wax and wane. SSRIs carry risk for bleeding given platelet aggregation effects but given that subdural hematoma has been stable and given high risks for serotonin withdrawal if Paxil is held for prolonged period of time and recent anxiety felt reasonable to restart this. Would also start mirtazapine to help with sleep promotion and in effort to avoid future need for lorazepam given confusion and recent falls. Antipsychotics could be considered in the future if hallucinations cause increased distress. However, would avoid unless necessary due to all antipsychotic medications carry black box warning for increased risk of all- cause mortality in setting of dementia." Allergies Allergy/AdvReac Type Severity Reaction Status Date / Time tramadol Allergy Intermediate "OUT OF Verified 06/14/24 13:45 BODY EXPERIENCE" codeine Allergy Unknown "OUT OF Verified 06/14/24 13:45 BODY EXPERIENCE" metformin AdvReac Intermediate Diarrhea Verified 06/14/24 13:45 raloxifene AdvReac Unknown SWELLING Verified 06/14/24 13:45 Home Medications Medication Instructions Recorded Confirmed Type coenzyme Q10 200 mg tablet 200 mg PO DAILY 12/18/18 06/14/24 History blood sugar diagnostic (OneTouch #10 ea 01/19/19 06/14/24 History Verio test strips) lancets (OneTouch UltraSoft #50 ea 01/19/19 06/14/24 History Lancets) magnesium chloride 71.5 mg 71.5 mg PO DAILY 01/19/19 06/14/24 History (magnesium chloride) tablet,delayed release (Slow-Mag) blood-glucose meter (OneTouch #1 ea 02/15/20 06/14/24 Rx Verio Flex Meter) multivitamin with minerals-folic 200 mcg PO DAILY 02/26/20 06/14/24 History acid 200 mcg chewable tablet (Adult Multivitamin Gummies) umeclidinium 62.5 mcg-vilanterol 1 inh inhalation DAILY #1 inhaler 07/28/21 06/14/24 Rx 25 mcg/actuation powdr for inhalation (Anoro Ellipta) diclofenac sodium 1 % topical gel 2 g topical QID #100 grams 04/20/22 06/14/24 Rx albuterol sulfate 90 mcg/actuation 2 puff inhalation Q6H PRN 09/28/22 06/14/24 Rx aerosol inhaler Shortness Of Breath Or Wheezing #18 grams rivaroxaban 20 mg tablet 20 mg PO DAILY #90 tabs 03/23/23 06/14/24 Rx metoprolol succinate 100 mg 150 mg (1.5 x 100 mg) PO .COMPLEX 06/27/23 06/14/24 Rx tablet,extended release 24 hr #225 tabs atorvastatin 80 mg tablet 80 mg PO DAILY #90 tabs 07/08/23 06/14/24 Rx digoxin 125 mcg (0.125 mg) tablet 125 mcg PO DAILY #90 tabs 08/02/23 06/23/24 Rx ezetimibe 10 mg tablet (Zetia) 10 mg PO DAILY #90 tabs 08/10/23 06/23/24 Rx nitroglycerin 0.4 mg sublingual 0.4 mg sublingual UD PRN Chest 08/22/23 06/14/24 Rx tablet Pain #7 tabs [id number] 250 mg-dha 90 1 cap PO DAILY 10/05/23 06/14/24 History mg-epa 160 [id number] capsule (Ocuvite Adult 50 Plus) glimepiride 1 mg tablet 1 mg PO DAILY #90 tabs 01/03/24 06/14/24 Rx ergocalciferol (vitamin D2) 1,250 1,250 mcg PO WEEKLY #12 caps 01/23/24 06/14/24 Rx mcg (50,000 unit) capsule levothyroxine 50 mcg tablet 50 mcg PO DAILY #90 tabs 03/21/24 06/23/24 Rx (Synthroid) paroxetine HCl 40 mg tablet See Rx Instructions .Route 04/18/24 06/14/24 Rx .COMPLEX #90 tabs cephalexin 500 mg capsule 500 mg PO BID 7 days #14 caps 05/11/24 06/14/24 Rx lorazepam 0.5 mg tablet 0.5 mg PO .COMPLEX PRN anxiety 1 06/14/24 06/14/24 Rx day #2 tabs melatonin 5 mg capsule mg PO HS 06/14/24 06/14/24 History lorazepam 0.5 mg tablet 0.5 mg PO BID PRN anxiety #30 tabs 06/18/24 06/23/24 Rx atorvastatin 80 mg tablet 80 mg PO DAILY 06/23/24 06/23/24 History metoprolol succinate 100 mg mg PO 06/23/24 History tablet,extended release 24 hr paroxetine HCl 40 mg tablet 40 mg PO DAILY 06/23/24 06/23/24 History Patient History Medical History Atrial fibrillation with rapid ventricular response Pulmonary embolism COVID-19 Acute UTI Former smoker Surgical History History of intravascular stent placement left superficial femoral artery History of coronary artery stent placement RCA and LAD History of tubal ligation History of shoulder surgery left History of oophorectomy left History of surgery on wrist History of cataract surgery Family History Sister Myocardial infarction Environmental allergies FH: deafness or hearing loss Breast cancer Mother Coronary heart disease Father Diabetes Denies family history of Ovarian cancer Prostate cancer Bleeding disorder Colorectal cancer Colonic polyp Social History Smoking Status: Never smoker Tobacco Type: Cigarettes Age Started Using Tobacco: 16; Age Quit Using Tobacco: 62; packs per day: 0.5; Second Hand Exposure: No; Do You Dip or Chew Tobacco: No; Hx Alcohol Use: No Hx Substance Use: No Preferred Language: Maori Communication Ability: Effective Visual Impairment: No Limitations Hearing Ability: Hard of Hearing Quality Management Nurse Required: No Beliefs That Will Affect Care: None marital status: Current Living Situation: Spouse Current Living Situation Comment: [facility] current occupational status: retired current occupation: retired inkeeper from [employer] How many Children do You have: 1 Other Information That Helps Us Care for You: No Feels Safe at Home: Yes Safety Concerns: Feels Safe At This Time Childhood Exposure to Second-Hand Smoke: Yes Diet: regular caffeine: No during the past year weight has: remained stable Dental Care, Regularly: No Physical Activity Frequency: Does not Exercise Seatbelt Use: always Sunscreen Use: No Assistive Devices: Cane, Glasses and Walker Review of Systems Review of Systems: Unobtainable due to cognitive status Physical Exam Physical Exam: Confused at baseline slightly restless, trying to get out of bed but easily redirected and responds well to distraction therapy offers a perseverating audiovisual hallucination of needing to get back to helping a friend's daughter get ready for the spring formal and states is in corner of room asleep. It is noted she is alone in the room and no family is present. bitemp wasting perrla unable to follow commands MM sl dry neck supple, no thyromegaly or stridor Lungs CTA though diminished S1S2, irreg irreg, no gross JVD noted abd soft, NTP, BS+ RAMSAY, strength intact but unable to follow commands skin pink/warm Results & Data Vital Signs (Past 12 Hours) Vital Signs Temp Pulse Resp BP Pulse Ox O2 Del Method 06/27/24 07:28 36.5 C 80 18 155/68 H 90 Room Air Laboratory Results 06/27/24 06/27/24 06/26/24 Range/Units 11:32 08:02 20:32 WBC 9.98 (4.8-10.8) K/ul RBC 3.94 L (4.20-5.40) M/uL Hgb 11.8 L (12.0-16.0) g/dl Hct 36.5 L (37.0-47.0) % MCV 92.6 (80.0-100.0) fL MCH 29.9 (25.0-34.0) pg MCHC 32.3 (32.0-36.0) g/dL RDW Std Deviation 46.2 (36.4-46.3) fL RDW Coeff of Loli 13.5 (11.5-14.5) % Plt Count 247 (130-400) K/uL MPV 11.3 (9.4-12.4) fL Immature Gran % (Auto) 1.3 % Neut % (Auto) 61.6 % Lymph % (Auto) 24.0 % [place] % (Auto) 10.4 % Eos % (Auto) 2.3 % Baso % (Auto) 0.4 % Neut # (Auto) 6.14 (1.40-6.50) K/uL Lymph # (Auto) 2.40 (1.20-3.40) K/uL [place] # (Auto) 1.04 H (0.11-0.59) K/uL Eos # (Auto) 0.23 (0.00-0.50) K/uL Baso # (Auto) 0.04 (0.00-0.20) K/uL Immature Gran # (Auto) 0.13 (0.01-0.20) K/uL PT (9.0-12.0) Seconds INR (0.9-1.1) APTT (21-31) Seconds PTT Ratio Fibrinogen (184-400) mg/dl Heparin Anti-Xa, LM Wt (< 0.10) IU/ML Sodium 144 (136-145) mmol/L Potassium 3.9 (3.5-5.1) mmol/L Chloride 109 H (98-107) mmol/L Carbon Dioxide 29 (21-32) mmol/L Anion Gap 6 (3-11) BUN 29 H (6-23) mg/dl Creatinine 0.74 (0.6-1.2) mg/dl Est Cr Clr Drug Dosing 64.9 ml/min eGFR 79.73 BUN/Creatinine Ratio 39.2 H (10-20) Glucose 138 H (70-99(Fasting)) mg/dl POC Glucose 192 H 122 H 195 H (70-99) mg/dl Estimat Average Glucose mg/dl Hemoglobin A1c (4.5-5.6) % Calcium 9.0 (8.6-10.3) mg/dl Magnesium 1.8 (1.7-2.4) mg/dl Total Bilirubin 1.1 H (0.2-1.0) mg/dl AST 20 (13-39) U/L ALT 14 (7-52) U/L Alkaline Phosphatase 53 (34-104) U/L Total Creatine Kinase (26-192) U/L Troponin I High Sens (0-14) pg/ml Total Protein 6.2 (6.0-8.3) gm/dl Albumin 3.2 L (3.4-5.0) gm/dl Globulin 3.0 (2.5-4.0) gm/dl Albumin/Globulin Ratio 1.1 (0.9-2) Lipase (11-82) U/L Urine Color Urine Appearance (Clear) Urine pH (4.5-7.5) Ur Specific [place] (1.000-1.030) Urine Protein (Negative) Urine Glucose (UA) (Negative) Urine Ketones (Negative) Urine Blood (Negative) Urine Nitrite (Negative) Urine Bilirubin (Negative) Urine Urobilinogen (Negative) Ur Leukocyte Esterase (Negative) Urine WBC (Auto) (0-5) /hpf Urine RBC (Auto) (0-2) /hpf U Hyaline Cast (Auto) (0-2) /lpf U Epithel Cells (Auto) (0-2) /hpf Urine Bacteria (Auto) (None Seen) 06/26/24 06/26/24 06/26/24 Range/Units 11:41 10:34 08:00 WBC 12.38 H (4.8-10.8) K/ul RBC 4.19 L (4.20-5.40) M/uL Hgb 12.9 (12.0-16.0) g/dl Hct 38.3 (37.0-47.0) % MCV 91.4 (80.0-100.0) fL MCH 30.8 (25.0-34.0) pg MCHC 33.7 (32.0-36.0) g/dL RDW Std Deviation 46.0 (36.4-46.3) fL RDW Coeff of Loli 13.6 (11.5-14.5) % Plt Count 261 (130-400) K/uL MPV 11.0 (9.4-12.4) fL Immature Gran % (Auto) 0.7 % Neut % (Auto) 67.2 % Lymph % (Auto) 19.3 % [place] % (Auto) 11.3 % Eos % (Auto) 1.2 % Baso % (Auto) 0.3 % Neut # (Auto) 8.31 H (1.40-6.50) K/uL Lymph # (Auto) 2.39 (1.20-3.40) K/uL [place] # (Auto) 1.40 H (0.11-0.59) K/uL Eos # (Auto) 0.15 (0.00-0.50) K/uL Baso # (Auto) 0.04 (0.00-0.20) K/uL Immature Gran # (Auto) 0.09 (0.01-0.20) K/uL PT (9.0-12.0) Seconds INR (0.9-1.1) APTT (21-31) Seconds PTT Ratio Fibrinogen (184-400) mg/dl Heparin Anti-Xa, LM Wt (< 0.10) IU/ML Sodium 140 (136-145) mmol/L Potassium 3.8 (3.5-5.1) mmol/L Chloride 106 (98-107) mmol/L Carbon Dioxide 27 (21-32) mmol/L Anion Gap 7 (3-11) BUN 33 H (6-23) mg/dl Creatinine 0.83 (0.6-1.2) mg/dl Est Cr Clr Drug Dosing 57.9 ml/min eGFR 69.47 BUN/Creatinine Ratio 39.8 H (10-20) Glucose 163 H (70-99(Fasting)) mg/dl POC Glucose 142 H 182 H (70-99) mg/dl Estimat Average Glucose mg/dl Hemoglobin A1c (4.5-5.6) % Calcium 9.6 (8.6-10.3) mg/dl Magnesium 2.1 (1.7-2.4) mg/dl Total Bilirubin (0.2-1.0) mg/dl AST (13-39) U/L ALT (7-52) U/L Alkaline Phosphatase (34-104) U/L Total Creatine Kinase (26-192) U/L Troponin I High Sens (0-14) pg/ml Total Protein (6.0-8.3) gm/dl Albumin (3.4-5.0) gm/dl Globulin (2.5-4.0) gm/dl Albumin/Globulin Ratio (0.9-2) Lipase (11-82) U/L Urine Color Urine Appearance (Clear) Urine pH (4.5-7.5) Ur Specific [place] (1.000-1.030) Urine Protein (Negative) Urine Glucose (UA) (Negative) Urine Ketones (Negative) Urine Blood (Negative) Urine Nitrite (Negative) Urine Bilirubin (Negative) Urine Urobilinogen (Negative) Ur Leukocyte Esterase (Negative) Urine WBC (Auto) (0-5) /hpf Urine RBC (Auto) (0-2) /hpf U Hyaline Cast (Auto) (0-2) /lpf U Epithel Cells (Auto) (0-2) /hpf Urine Bacteria (Auto) (None Seen) 06/25/24 06/25/24 06/25/24 Range/Units 20:56 16:47 11:13 WBC (4.8-10.8) K/ul RBC (4.20-5.40) M/uL Hgb (12.0-16.0) g/dl Hct (37.0-47.0) % MCV (80.0-100.0) fL MCH (25.0-34.0) pg MCHC (32.0-36.0) g/dL RDW Std Deviation (36.4-46.3) fL RDW Coeff of Loli (11.5-14.5) % Plt Count (130-400) K/uL MPV (9.4-12.4) fL Immature Gran % (Auto) % Neut % (Auto) % Lymph % (Auto) % [place] % (Auto) % Eos % (Auto) % Baso % (Auto) % Neut # (Auto) (1.40-6.50) K/uL Lymph # (Auto) (1.20-3.40) K/uL [place] # (Auto) (0.11-0.59) K/uL Eos # (Auto) (0.00-0.50) K/uL Baso # (Auto) (0.00-0.20) K/uL Immature Gran # (Auto) (0.01-0.20) K/uL PT (9.0-12.0) Seconds INR (0.9-1.1) APTT (21-31) Seconds PTT Ratio Fibrinogen (184-400) mg/dl Heparin Anti-Xa, LM Wt (< 0.10) IU/ML Sodium (136-145) mmol/L Potassium (3.5-5.1) mmol/L Chloride (98-107) mmol/L Carbon Dioxide (21-32) mmol/L Anion Gap (3-11) BUN (6-23) mg/dl Creatinine (0.6-1.2) mg/dl Est Cr Clr Drug Dosing ml/min eGFR BUN/Creatinine Ratio (10-20) Glucose (70-99(Fasting)) mg/dl POC Glucose 191 H 152 H 156 H (70-99) mg/dl Estimat Average Glucose mg/dl Hemoglobin A1c (4.5-5.6) % Calcium (8.6-10.3) mg/dl Magnesium (1.7-2.4) mg/dl Total Bilirubin (0.2-1.0) mg/dl AST (13-39) U/L ALT (7-52) U/L Alkaline Phosphatase (34-104) U/L Total Creatine Kinase (26-192) U/L Troponin I High Sens (0-14) pg/ml Total Protein (6.0-8.3) gm/dl Albumin (3.4-5.0) gm/dl Globulin (2.5-4.0) gm/dl Albumin/Globulin Ratio (0.9-2) Lipase (11-82) U/L Urine Color Urine Appearance (Clear) Urine pH (4.5-7.5) Ur Specific [place] (1.000-1.030) Urine Protein (Negative) Urine Glucose (UA) (Negative) Urine Ketones (Negative) Urine Blood (Negative) Urine Nitrite (Negative) Urine Bilirubin (Negative) Urine Urobilinogen (Negative) Ur Leukocyte Esterase (Negative) Urine WBC (Auto) (0-5) /hpf Urine RBC (Auto) (0-2) /hpf U Hyaline Cast (Auto) (0-2) /lpf U Epithel Cells (Auto) (0-2) /hpf Urine Bacteria (Auto) (None Seen) 06/25/24 06/25/24 06/24/24 Range/Units 07:19 06:23 20:59 WBC 9.86 (4.8-10.8) K/ul RBC 4.63 (4.20-5.40) M/uL Hgb 14.1 (12.0-16.0) g/dl Hct 42.7 (37.0-47.0) % MCV 92.2 (80.0-100.0) fL MCH 30.5 (25.0-34.0) pg MCHC 33.0 (32.0-36.0) g/dL RDW Std Deviation 45.1 (36.4-46.3) fL RDW Coeff of Loli 13.5 (11.5-14.5) % Plt Count 238 (130-400) K/uL MPV 11.6 (9.4-12.4) fL Immature Gran % (Auto) 1.0 % Neut % (Auto) 75.0 % Lymph % (Auto) 13.5 % [place] % (Auto) 9.2 % Eos % (Auto) 1.0 % Baso % (Auto) 0.3 % Neut # (Auto) 7.39 H (1.40-6.50) K/uL Lymph # (Auto) 1.33 (1.20-3.40) K/uL [place] # (Auto) 0.91 H (0.11-0.59) K/uL Eos # (Auto) 0.10 (0.00-0.50) K/uL Baso # (Auto) 0.03 (0.00-0.20) K/uL Immature Gran # (Auto) 0.10 (0.01-0.20) K/uL PT (9.0-12.0) Seconds INR (0.9-1.1) APTT (21-31) Seconds PTT Ratio Fibrinogen (184-400) mg/dl Heparin Anti-Xa, LM Wt (< 0.10) IU/ML Sodium 141 (136-145) mmol/L Potassium 4.0 (3.5-5.1) mmol/L Chloride 103 (98-107) mmol/L Carbon Dioxide 29 (21-32) mmol/L Anion Gap 9 (3-11) BUN 22 (6-23) mg/dl Creatinine 0.72 (0.6-1.2) mg/dl Est Cr Clr Drug Dosing 67.1 ml/min eGFR 82.39 BUN/Creatinine Ratio 30.6 H (10-20) Glucose 170 H (70-99(Fasting)) mg/dl POC Glucose 154 H 124 H (70-99) mg/dl Estimat Average Glucose mg/dl Hemoglobin A1c (4.5-5.6) % Calcium 9.4 (8.6-10.3) mg/dl Magnesium 2.0 (1.7-2.4) mg/dl Total Bilirubin 1.9 H (0.2-1.0) mg/dl AST 26 (13-39) U/L ALT 20 (7-52) U/L Alkaline Phosphatase 61 (34-104) U/L Total Creatine Kinase (26-192) U/L Troponin I High Sens (0-14) pg/ml Total Protein 7.0 (6.0-8.3) gm/dl Albumin 3.8 (3.4-5.0) gm/dl Globulin 3.2 (2.5-4.0) gm/dl Albumin/Globulin Ratio 1.2 (0.9-2) Lipase (11-82) U/L Urine Color Urine Appearance (Clear) Urine pH (4.5-7.5) Ur Specific [place] (1.000-1.030) Urine Protein (Negative) Urine Glucose (UA) (Negative) Urine Ketones (Negative) Urine Blood (Negative) Urine Nitrite (Negative) Urine Bilirubin (Negative) Urine Urobilinogen (Negative) Ur Leukocyte Esterase (Negative) Urine WBC (Auto) (0-5) /hpf Urine RBC (Auto) (0-2) /hpf U Hyaline Cast (Auto) (0-2) /lpf U Epithel Cells (Auto) (0-2) /hpf Urine Bacteria (Auto) (None Seen) 06/24/24 06/24/24 06/24/24 Range/Units 16:11 11: 07:12 WBC (4.8-10.8) K/ul RBC (4.20-5.40) M/uL Hgb (12.0-16.0) g/dl Hct (37.0-47.0) % MCV (80.0-100.0) fL MCH (25.0-34.0) pg MCHC (32.0-36.0) g/dL RDW Std Deviation (36.4-46.3) fL RDW Coeff of Loli (11.5-14.5) % Plt Count (130-400) K/uL MPV (9.4-12.4) fL Immature Gran % (Auto) % Neut % (Auto) % Lymph % (Auto) % [place] % (Auto) % Eos % (Auto) % Baso % (Auto) % Neut # (Auto) (1.40-6.50) K/uL Lymph # (Auto) (1.20-3.40) K/uL [place] # (Auto) (0.11-0.59) K/uL Eos # (Auto) (0.00-0.50) K/uL Baso # (Auto) (0.00-0.20) K/uL Immature Gran # (Auto) (0.01-0.20) K/uL PT (9.0-12.0) Seconds INR (0.9-1.1) APTT (21-31) Seconds PTT Ratio Fibrinogen (184-400) mg/dl Heparin Anti-Xa, LM Wt (< 0.10) IU/ML Sodium (136-145) mmol/L Potassium (3.5-5.1) mmol/L Chloride (98-107) mmol/L Carbon Dioxide (21-32) mmol/L Anion Gap (3-11) BUN (6-23) mg/dl Creatinine (0.6-1.2) mg/dl Est Cr Clr Drug Dosing ml/min eGFR BUN/Creatinine Ratio (10-20) Glucose (70-99(Fasting)) mg/dl POC Glucose 198 H 114 H 140 H (70-99) mg/dl Estimat Average Glucose mg/dl Hemoglobin A1c (4.5-5.6) % Calcium (8.6-10.3) mg/dl Magnesium (1.7-2.4) mg/dl Total Bilirubin (0.2-1.0) mg/dl AST (13-39) U/L ALT (7-52) U/L Alkaline Phosphatase (34-104) U/L Total Creatine Kinase (26-192) U/L Troponin I High Sens (0-14) pg/ml Total Protein (6.0-8.3) gm/dl Albumin (3.4-5.0) gm/dl Globulin (2.5-4.0) gm/dl Albumin/Globulin Ratio (0.9-2) Lipase (11-82) U/L Urine Color Urine Appearance (Clear) Urine pH (4.5-7.5) Ur Specific [place] (1.000-1.030) Urine Protein (Negative) Urine Glucose (UA) (Negative) Urine Ketones (Negative) Urine Blood (Negative) Urine Nitrite (Negative) Urine Bilirubin (Negative) Urine Urobilinogen (Negative) Ur Leukocyte Esterase (Negative) Urine WBC (Auto) (0-5) /hpf Urine RBC (Auto) (0-2) /hpf U Hyaline Cast (Auto) (0-2) /lpf U Epithel Cells (Auto) (0-2) /hpf Urine Bacteria (Auto) (None Seen) 06/24/24 06/24/24 06/23/24 Range/Units 06:33 05:39 21:22 WBC 9.31 (4.8-10.8) K/ul RBC 4.26 (4.20-5.40) M/uL Hgb 13.0 (12.0-16.0) g/dl Hct 38.8 (37.0-47.0) % MCV 91.1 (80.0-100.0) fL MCH 30.5 (25.0-34.0) pg MCHC 33.5 (32.0-36.0) g/dL RDW Std Deviation 45.1 (36.4-46.3) fL RDW Coeff of Loli 13.6 (11.5-14.5) % Plt Count 207 (130-400) K/uL MPV 11.4 (9.4-12.4) fL Immature Gran % (Auto) 0.8 % Neut % (Auto) 65.1 % Lymph % (Auto) 23.6 % [place] % (Auto) 9.3 % Eos % (Auto) 0.9 % Baso % (Auto) 0.3 % Neut # (Auto) 6.06 (1.40-6.50) K/uL Lymph # (Auto) 2.20 (1.20-3.40) K/uL [place] # (Auto) 0.87 H (0.11-0.59) K/uL Eos # (Auto) 0.08 (0.00-0.50) K/uL Baso # (Auto) 0.03 (0.00-0.20) K/uL Immature Gran # (Auto) 0.07 (0.01-0.20) K/uL PT 11.2 Cancelled (9.0-12.0) Seconds INR 1.0 Cancelled (0.9-1.1) APTT 24 Cancelled (21-31) Seconds PTT Ratio 0.9 Cancelled Fibrinogen (184-400) mg/dl Heparin Anti-Xa, LM Wt (< 0.10) IU/ML Sodium 140 (136-145) mmol/L Potassium 4.1 (3.5-5.1) mmol/L Chloride 106 (98-107) mmol/L Carbon Dioxide 25 (21-32) mmol/L Anion Gap 9 (3-11) BUN 21 (6-23) mg/dl Creatinine 0.65 (0.6-1.2) mg/dl Est Cr Clr Drug Dosing 74.4 ml/min eGFR 86.76 BUN/Creatinine Ratio 32.3 H (10-20) Glucose 137 H (70-99(Fasting)) mg/dl POC Glucose 89 (70-99) mg/dl Estimat Average Glucose mg/dl Hemoglobin A1c (4.5-5.6) % Calcium 9.2 (8.6-10.3) mg/dl Magnesium 1.9 (1.7-2.4) mg/dl Total Bilirubin 2.0 H (0.2-1.0) mg/dl AST 30 (13-39) U/L ALT 22 (7-52) U/L Alkaline Phosphatase 56 (34-104) U/L Total Creatine Kinase (26-192) U/L Troponin I High Sens (0-14) pg/ml Total Protein 6.7 (6.0-8.3) gm/dl Albumin 3.7 (3.4-5.0) gm/dl Globulin 3.0 (2.5-4.0) gm/dl Albumin/Globulin Ratio 1.2 (0.9-2) Lipase (11-82) U/L Urine Color Urine Appearance (Clear) Urine pH (4.5-7.5) Ur Specific [place] (1.000-1.030) Urine Protein (Negative) Urine Glucose (UA) (Negative) Urine Ketones (Negative) Urine Blood (Negative) Urine Nitrite (Negative) Urine Bilirubin (Negative) Urine Urobilinogen (Negative) Ur Leukocyte Esterase (Negative) Urine WBC (Auto) (0-5) /hpf Urine RBC (Auto) (0-2) /hpf U Hyaline Cast (Auto) (0-2) /lpf U Epithel Cells (Auto) (0-2) /hpf Urine Bacteria (Auto) (None Seen) 06/23/24 06/23/24 06/23/24 Range/Units 16:31 11:30 07:10 WBC (4.8-10.8) K/ul RBC (4.20-5.40) M/uL Hgb (12.0-16.0) g/dl Hct (37.0-47.0) % MCV (80.0-100.0) fL MCH (25.0-34.0) pg MCHC (32.0-36.0) g/dL RDW Std Deviation (36.4-46.3) fL RDW Coeff of Loli (11.5-14.5) % Plt Count (130-400) K/uL MPV (9.4-12.4) fL Immature Gran % (Auto) % Neut % (Auto) % Lymph % (Auto) % [place] % (Auto) % Eos % (Auto) % Baso % (Auto) % Neut # (Auto) (1.40-6.50) K/uL Lymph # (Auto) (1.20-3.40) K/uL [place] # (Auto) (0.11-0.59) K/uL Eos # (Auto) (0.00-0.50) K/uL Baso # (Auto) (0.00-0.20) K/uL Immature Gran # (Auto) (0.01-0.20) K/uL PT (9.0-12.0) Seconds INR (0.9-1.1) APTT (21-31) Seconds PTT Ratio Fibrinogen (184-400) mg/dl Heparin Anti-Xa, LM Wt (< 0.10) IU/ML Sodium (136-145) mmol/L Potassium (3.5-5.1) mmol/L Chloride (98-107) mmol/L Carbon Dioxide (21-32) mmol/L Anion Gap (3-11) BUN (6-23) mg/dl Creatinine (0.6-1.2) mg/dl Est Cr Clr Drug Dosing ml/min eGFR BUN/Creatinine Ratio (10-20) Glucose (70-99(Fasting)) mg/dl POC Glucose 126 H 165 H 123 H (70-99) mg/dl Estimat Average Glucose mg/dl Hemoglobin A1c (4.5-5.6) % Calcium (8.6-10.3) mg/dl Magnesium (1.7-2.4) mg/dl Total Bilirubin (0.2-1.0) mg/dl AST (13-39) U/L ALT (7-52) U/L Alkaline Phosphatase (34-104) U/L Total Creatine Kinase (26-192) U/L Troponin I High Sens (0-14) pg/ml Total Protein (6.0-8.3) gm/dl Albumin (3.4-5.0) gm/dl Globulin (2.5-4.0) gm/dl Albumin/Globulin Ratio (0.9-2) Lipase (11-82) U/L Urine Color Urine Appearance (Clear) Urine pH (4.5-7.5) Ur Specific [place] (1.000-1.030) Urine Protein (Negative) Urine Glucose (UA) (Negative) Urine Ketones (Negative) Urine Blood (Negative) Urine Nitrite (Negative) Urine Bilirubin (Negative) Urine Urobilinogen (Negative) Ur Leukocyte Esterase (Negative) Urine WBC (Auto) (0-5) /hpf Urine RBC (Auto) (0-2) /hpf U Hyaline Cast (Auto) (0-2) /lpf U Epithel Cells (Auto) (0-2) /hpf Urine Bacteria (Auto) (None Seen) 06/23/24 06/23/24 06/22/24 Range/Units 06:24 06:16 21:11 WBC 8.97 (4.8-10.8) K/ul RBC 4.09 L (4.20-5.40) M/uL Hgb 12.7 (12.0-16.0) g/dl Hct 37.2 (37.0-47.0) % MCV 91.0 (80.0-100.0) fL MCH 31.1 (25.0-34.0) pg MCHC 34.1 (32.0-36.0) g/dL RDW Std Deviation 45.6 (36.4-46.3) fL RDW Coeff of Loli 13.6 (11.5-14.5) % Plt Count 201 (130-400) K/uL MPV 11.2 (9.4-12.4) fL Immature Gran % (Auto) 0.7 % Neut % (Auto) 60.1 % Lymph % (Auto) 28.3 % [place] % (Auto) 9.5 % Eos % (Auto) 1.0 % Baso % (Auto) 0.4 % Neut # (Auto) 5.39 (1.40-6.50) K/uL Lymph # (Auto) 2.54 (1.20-3.40) K/uL [place] # (Auto) 0.85 H (0.11-0.59) K/uL Eos # (Auto) 0.09 (0.00-0.50) K/uL Baso # (Auto) 0.04 (0.00-0.20) K/uL Immature Gran # (Auto) 0.06 (0.01-0.20) K/uL PT 11.5 (9.0-12.0) Seconds INR 1.1 (0.9-1.1) APTT 27 (21-31) Seconds PTT Ratio 1.0 Fibrinogen 553 H (184-400) mg/dl Heparin Anti-Xa, LM Wt 1.37 (< 0.10) IU/ML Sodium 143 (136-145) mmol/L Potassium 4.2 (3.5-5.1) mmol/L Chloride 108 H (98-107) mmol/L Carbon Dioxide 27 (21-32) mmol/L Anion Gap 8 (3-11) BUN 21 (6-23) mg/dl Creatinine 0.71 (0.6-1.2) mg/dl Est Cr Clr Drug Dosing 68.1 ml/min eGFR 83.79 BUN/Creatinine Ratio 29.6 H (10-20) Glucose 136 H (70-99(Fasting)) mg/dl POC Glucose (70-99) mg/dl Estimat Average Glucose 131 mg/dl Hemoglobin A1c 6.2 H (4.5-5.6) % Calcium 9.2 (8.6-10.3) mg/dl Magnesium 1.6 L (1.7-2.4) mg/dl Total Bilirubin 1.9 H (0.2-1.0) mg/dl AST 30 (13-39) U/L ALT 23 (7-52) U/L Alkaline Phosphatase 50 (34-104) U/L Total Creatine Kinase (26-192) U/L Troponin I High Sens (0-14) pg/ml Total Protein 6.4 (6.0-8.3) gm/dl Albumin 3.6 (3.4-5.0) gm/dl Globulin 2.8 (2.5-4.0) gm/dl Albumin/Globulin Ratio 1.3 (0.9-2) Lipase (11-82) U/L Urine Color Yellow Urine Appearance Clear (Clear) Urine pH 5.0 (4.5-7.5) Ur Specific [place] 1.022 (1.000-1.030) Urine Protein Trace H (Negative) Urine Glucose (UA) Negative (Negative) Urine Ketones 1+ H (Negative) Urine Blood Negative (Negative) Urine Nitrite Positive A (Negative) Urine Bilirubin Negative (Negative) Urine Urobilinogen Negative (Negative) Ur Leukocyte Esterase Negative (Negative) Urine WBC (Auto) 0-5 (0-5) /hpf Urine RBC (Auto) 0-2 (0-2) /hpf U Hyaline Cast (Auto) 0-2 (0-2) /lpf U Epithel Cells (Auto) 0-2 (0-2) /hpf Urine Bacteria (Auto) 4+ H (None Seen) 06/22/24 Range/Units 21:00 WBC 7.71 (4.8-10.8) K/ul RBC 4.17 L (4.20-5.40) M/uL Hgb 12.8 (12.0-16.0) g/dl Hct 38.3 (37.0-47.0) % MCV 91.8 (80.0-100.0) fL MCH 30.7 (25.0-34.0) pg MCHC 33.4 (32.0-36.0) g/dL RDW Std Deviation 46.6 H (36.4-46.3) fL RDW Coeff of Loli 13.7 (11.5-14.5) % Plt Count 205 (130-400) K/uL MPV 11.4 (9.4-12.4) fL Immature Gran % (Auto) 1.0 % Neut % (Auto) 65.5 % Lymph % (Auto) 22.7 % [place] % (Auto) 9.2 % Eos % (Auto) 1.2 % Baso % (Auto) 0.4 % Neut # (Auto) 5.05 (1.40-6.50) K/uL Lymph # (Auto) 1.75 (1.20-3.40) K/uL [place] # (Auto) 0.71 H (0.11-0.59) K/uL Eos # (Auto) 0.09 (0.00-0.50) K/uL Baso # (Auto) 0.03 (0.00-0.20) K/uL Immature Gran # (Auto) 0.08 (0.01-0.20) K/uL PT 12.5 H (9.0-12.0) Seconds INR 1.2 H (0.9-1.1) APTT 29 (21-31) Seconds PTT Ratio 1.1 Fibrinogen (184-400) mg/dl Heparin Anti-Xa, LM Wt (< 0.10) IU/ML Sodium 140 (136-145) mmol/L Potassium 4.2 (3.5-5.1) mmol/L Chloride 106 (98-107) mmol/L Carbon Dioxide 28 (21-32) mmol/L Anion Gap 6 (3-11) BUN 21 (6-23) mg/dl Creatinine 0.70 (0.6-1.2) mg/dl Est Cr Clr Drug Dosing 62.5 ml/min eGFR 85.23 BUN/Creatinine Ratio 30.0 H (10-20) Glucose 114 H (70-99(Fasting)) mg/dl POC Glucose (70-99) mg/dl Estimat Average Glucose mg/dl Hemoglobin A1c (4.5-5.6) % Calcium 9.6 (8.6-10.3) mg/dl Magnesium (1.7-2.4) mg/dl Total Bilirubin 1.6 H (0.2-1.0) mg/dl AST 33 (13-39) U/L ALT 25 (7-52) U/L Alkaline Phosphatase 56 (34-104) U/L Total Creatine Kinase 118 (26-192) U/L Troponin I High Sens 16.7 H (0-14) pg/ml Total Protein 6.5 (6.0-8.3) gm/dl Albumin 3.7 (3.4-5.0) gm/dl Globulin 2.8 (2.5-4.0) gm/dl Albumin/Globulin Ratio 1.3 (0.9-2) Lipase 17 (11-82) U/L Urine Color Urine Appearance (Clear) Urine pH (4.5-7.5) Ur Specific [place] (1.000-1.030) Urine Protein (Negative) Urine Glucose (UA) (Negative) Urine Ketones (Negative) Urine Blood (Negative) Urine Nitrite (Negative) Urine Bilirubin (Negative) Urine Urobilinogen (Negative) Ur Leukocyte Esterase (Negative) Urine WBC (Auto) (0-5) /hpf Urine RBC (Auto) (0-2) /hpf U Hyaline Cast (Auto) (0-2) /lpf U Epithel Cells (Auto) (0-2) /hpf Urine Bacteria (Auto) (None Seen) Diagnostic Findings Cervical Spine CT 06/22/24 18:58 Exam(s): CT C SPINE EXAM: CT Cervical Spine Without Intravenous Contrast CLINICAL HISTORY: Reason for exam: Trauma. TECHNIQUE: Axial computed tomography images of the cervical spine without intravenous contrast. CTDI is 21.82 mGy and DLP is 423.06 mGy-cm. Automated exposure control was utilized for the study. A dose lowering technique was utilized adhering to the principles of ALARA. COMPARISON: None FINDINGS: Bones: Normal alignment. No acute fracture or bony lesion. Disc spaces: No subluxation. Degenerative changes of the spine. Soft tissues: Normal. Other: Atherosclerotic changes of the vasculature. IMPRESSION: No acute traumatic abnormality. Electronically signed by: Blane Collazo M.D. 06/22/24 20:13 PM Chest X-Ray 06/22/24 18:58 Exam(s): XR CXR 1 VIEW EXAM: XR Chest, 1 View CLINICAL HISTORY: Reason for exam: Trauma. TECHNIQUE: Frontal view of the chest. COMPARISON: Chest radiograph on 10/23/2022 FINDINGS: Hardware: None. Lungs/pleura: Prominent lung markings. No focal consolidation. No pleural effusion or pneumothorax. Heart/mediastinum: Enlargement of the cardiac silhouette. Atherosclerotic changes in aorta. Soft tissues: Unremarkable. Bones: No acute fracture. Upper abdomen: Normal. IMPRESSION: Prominent lung markings may be secondary to technique versus pulmonary vasculature congestion. Electronically signed by: Blane Collazo M.D. 06/22/24 20:[address] 06/22/24 18:58 CR Exam(s): CT HEAD Without Contrast EXAM: CT Head Without Intravenous Contrast CLINICAL HISTORY: Reason for exam: Trauma. TECHNIQUE: Axial computed tomography images of the head/brain without intravenous contrast. CTDI is 38.49 mGy and DLP is 624.41 mGy-cm. Automated exposure control was utilized for the study. A dose lowering technique was utilized adhering to the principles of ALARA. COMPARISON: MRI brain on 06/22/2024 FINDINGS: Brain: No acute infarct identified. Trace acute subdural blood along the interhemispheric falx and right tentorium. No mass effect or midline shift. Scattered areas of hypoattenuation in the supratentorial white matter likely represent chronic small vessel ischemic changes. Ventricles and sulci: Prominence of the ventricles and sulci is likely secondary to cerebral volume loss. Bones: Normal. No bony lesion or acute fracture. Subcutaneous tissues: Normal. Sinuses: Normal. No air-fluid levels or mucosal thickening. Mastoid air cells: Normal. Orbits: Bilateral lens implants. Other: Atherosclerotic calcifications in the intracranial vasculature. IMPRESSION: 1. Trace acute subdural blood along the interhemispheric falx and right tentorium. 2. Chronic small vessel ischemic changes and cerebral volume loss. Communications: Call Doctor Intracranial Hemorrhage Electronically signed by: Blane Collazo M.D. 06/22/24 20:16 PM Pelvis X-Ray 06/22/24 18:58 Exam(s): XR PELVIS, 1-2 views EXAM: XR Pelvis, 1 or 2 Views CLINICAL HISTORY: Reason for exam: Trauma. TECHNIQUE: Frontal view of the pelvis. COMPARISON: Pelvis and hip radiographs on 08/11/2015 FINDINGS: Bones/joints: No displaced fracture or dislocation identified. Mild degenerative changes of the hips. No bony lesion. Soft tissues: Normal. No radiopaque foreign body identified. Other: Vascular calcifications. Stent noted over the lower lumbar spine. IMPRESSION: No displaced fracture or dislocation identified. Electronically signed by: Blane Collazo M.D. 06/22/24 20:[address] 06/23/24 08:00 CT OF THE HEAD WITHOUT CONTRAST CLINICAL HISTORY: subdural follow up COMPARISON STUDY: MRI of the brain and head CT June 22, 2024. CT DOSE: 688.24 mGy.cm TECHNIQUE: Helical axial images of the head were obtained without IV contrast. Automated exposure control was utilized for the study. A dose lowering technique was utilized adhering to the principles of ALARA. FINDINGS: Trace acute subdural hemorrhage along the right falx and right tentorium is unchanged. This measures 2 mm in thickness. The ventricular system is stable. White matter hypodensities are unchanged and represent small vessel disease. The basal cisterns are patent. No extra-axial collections are present. There are no findings to suggest acute dural sinus thrombosis or acute territorial infarct. No significant calvarial abnormalities are present. Visualized portions of the sinuses and mastoid air cells are clear. IMPRESSION: No change in trace acute subdural hemorrhage along the right falx and tentorium. ACT 112: Negative or not required by law. Electronically signed by: Kendell Perez M.D. 06/23/2024 10:55 AM Hip/Pelvis X-Ray 06/23/24 11:45 EXAM: Radiographs of the Right Hip 3 Views INDICATION: Full. TECHNIQUE: Front view pelvis and AP and frog leg lateral views of the right hip. COMPARISON: 06/22/2016 FINDINGS: Limitations: None. Bones/joints: No fracture, erosion or dislocation. Soft tissues: There is soft tissue contusion adjacent to the right proximal femur. No soft tissue gas collection or radiopaque foreign body. Atherosclerosis of the proximal thighs noted. There is a stent in the right common iliac artery. IMPRESSION: No evident fracture. If additional imaging is clinically warranted, CT is more sensitive. ACT 112: Negative or not required by law. Electronically signed by Eleanor Collazo 06-23-2024 3:50 PM Shoulder X-Ray 06/23/24 11:45 EXAM: Radiographs of the Left Shoulder Complete 3 views INDICATION: Trauma. TECHNIQUE: 3 views of the left shoulder. COMPARISON: Comparison made to chest x-ray including the left shoulder 10/23/2022 FINDINGS: Bones/joints: No fracture, subluxation or dislocation. Visualized left ribs intact. There is mild glenohumeral and acromioclavicular spurring. Probable mild glenohumeral narrowing. There is no change in a room sclerotic focus of lucent expansion of the anterior glenoid consistent with a chronic benign lesion or consequence of prior trauma. Soft tissues: No abnormality noted. No radiopaque foreign body noted. IMPRESSION: No acute abnormality of the left shoulder. ACT 112: Negative or not required by law. Electronically signed by Eleanor Collazo 06-23-2024 3:[address] 06/24/24 07:00 EXAM: CT head/brain wo con CLINICAL HISTORY: reassess subdural hematoma approx. 24 hour follow up jr TECHNIQUE: Axial noncontrast CT scan of the brain was performed from the skull base to the high parietal region, and sagittal and coronal reconstructed images were obtained. One of the following dose reduction techniques was utilized for this exam: Automated exposure control, adjustment of the mA and/or kV according to patient size, and use of iterative reconstruction. COMPARISON: 06/22/2024 FINDINGS: Posterior falx acute subdural hematoma measures 3.2 mm in depth. No definite intracerebral hematoma. No definite calvarium fractures. There are confluent ill-defined [id number] areas noted in the periventricular white matter as well as tiny hypodense areas in the subcortical white matter bilaterally, suggestive of microvascular ischemic changes. The ventricular system, cortical sulci, and basal cisterns are prominent and consistent with senile changes. The visualized brain parenchyma shows a normal appearance. Trevizo-white matter differentiation is maintained. No midline shifts or deformity. Normal CT appearance of the posterior fossa structures namely the cerebellar hemispheres, brainstem, and cerebellar peduncles. The IACs are unremarkable. The cerebello-pontine angles are clear. The osseous structures in the skull base are unremarkable. The scanned paranasal sinuses are clear. Atherosclerotic calcifications of the vertebral arteries are noted. IMPRESSION: 1. Posterior falx acute subdural hematoma measures 3.2 mm in depth. Unchanged. 2. No definite intracerebral hematomas. 3. Microvascular ischemic changes and senile changes. 4. No significant interval changes. 5. MRI with diffusion imaging is advised to detect any acute evolving ischemic insult if clinically warranted. Electronically signed by Ez Mcguire 06-24-2024 08:25 AM Chest X-Ray 06/24/24 11:06 XR chest 2V PA/lateral CLINICAL HISTORY: ?CHF ?PNEUMONIA COMPARISON STUDY: Chest CT October 23, 2022. Chest radiograph June 22, 2024. FINDINGS: The patient is mildly rotated. Lung volumes are normal. Lungs are clear. There is no pneumothorax or pleural effusion. Cardiomegaly is unchanged. Mediastinal contours are normal. There is no evidence for pulmonary edema. IMPRESSION: No acute cardiopulmonary findings. Stable cardiomegaly. No radiographic evidence for pulmonary edema. ACT 112: Negative or not required by law. Electronically signed by: Kendell Perez M.D. 06/24/2024 12:[address] 06/26/24 10:32 CT OF THE HEAD WITHOUT CONTRAST CLINICAL HISTORY: change in mentation, SDH COMPARISON STUDY: MRI of the brain June 22, [address] June 24, 2024. CT DOSE: 859.95 mGy.cm TECHNIQUE: Helical axial images of the head were obtained without IV contrast. Automated exposure control was utilized for the study. A dose lowering technique was utilized adhering to the principles of ALARA. FINDINGS: This exam is mildly compromised by motion artifact trace acute subdural hemorrhage along the posterior falx and right aspect of the tentorium is unchanged. No new sites of hemorrhage are present. There is no mass effect. Ventricular system is stable. Basal cisterns are patent. There are no findings to suggest acute dural sinus thrombosis or acute territorial infarct. White matter hypodensities are unchanged and favor small vessel disease. IMPRESSION: 1. No change in trace acute subdural hemorrhage along the posterior falx and right tentorium. No new sites of hemorrhage. 2. No change in appearance of the brain. Exam mildly compromised by motion artifact. ACT 112: Negative or not required by law. Electronically signed by: Kendell Perez M.D. 06/26/2024 11:25 AM PG Care Time/CCT Total # of Minutes Spent Total Time Spent: 70 Total Time Spent with Patient: Total time spent is greater than 50% in coordination of care (as documented) at patient's floor/unit and/or counseling patient: [place] [address] IN/OBS CONSULT LVL 5,80M Patient Type New History Comprehensive Exam Comprehensive Medical Decision Making High Complexity Diagnoses Acute alteration in mental status R41.82 Falls frequently R29.6 Acute subdural hematoma S06.5XAA Palliative care by specialist Z51.5
--- NOTE | 2024-06-28 12:17 | Hospitalist Progress Note ---
Date of Service June 28, 2024 Assessment & Plan (1) Acute subdural hematoma: Plan: 84-year-old female with past medical history of dementia, hypothyroidism, COPD, type 2 diabetes mellitus, atrial fibrillation on anticoagulation with Xarelto, coronary artery disease status post stents, peripheral vascular disease status post stent, urinary urge and stress incontinence, dementia who has been having recurrent falls, visual and auditory hallucinations with 2 recent falls on 06/19/2024 and , 06/21/2024 with outpatient MRI showing trace acute/subacute subdural hematoma. She was sent to the ED and CT scan was reviewed by neurosurgery at [facility], neurosurgery recommended monitoring at [facility] along with giving Kcentra for reversal of Xarelto which she received in ED Acute SDH -Secondary to mechanical fall at home, she has dementia and visual and auditory hallucinations at home Mechanical fall resulted in small, non surgical hematoma while on Xarelto, Xarelto reversal with Kcentra,trauma consult did not recommend transfer Four CT head non con here all without change in size, 3.2mm SDH Holding home Xarelto and would not resume for 4 weeks if at all Appreciate consult Acute metabolic encephalopathy: secondary to fall with head trauma, subdural hematoma and underlying UTI( caro sensitive Klebsiella poa) in setting of dementia: Present on admission (2) Dementia: Plan: Psychiatry recommendations are as follows Continue Paxil, start mirtazapine 7.5 mg p.o. nightly and can later titrate as needed up to 15 mg nightly to help with recent increase anxiety and insomnia. Discontinue lorazepam on discharge and avoid benzodiazepines If auditory hallucinations and visual hallucinations become more distressing, could consider use of Abilify 2.5 mg daily or Seroquel 12.5 mg nightly though caution given increased risk of mortality in setting of dementia. Do not use Haldol given concern for Lewy body dementia and EPS risk. For behavioral emergency, could trial Seroquel 12.5 mg p.o. twice daily as needed for agitation or olanzapine 2.5 mg IM x 1 (do not exceed 10 mg per 24 hours and check EKG if IM dose required) Seroquel 12.5 mg p.o. nightly started: They are aware of the increased risk of mortality Palliative care arranging family meeting for Friday 06/29 to discuss progression of dementia and goals of care with family (3) CAD (coronary artery disease): Plan: CAD status post LAD and RCA stent in May 2022 Essential hypertension Chronic atrial fibrillation on anticoagulation Xarelto, neurology recommended that is elected to restart Xarelto, wait at least 4 weeks to restart (07/20/24) Peripheral vascular disease status post stent to common iliac 2D echo from September 2022 shows EF of 55% with mild tricuspid regurgitation Continue metoprolol and digoxin for rate control Holding Xarelto COntinue statin, Zetia (4) Urge and stress incontinence: Plan: likely lead to UTI poa, and metabolic encephalopathy resulting in fall and subdural hematoma Outpatient urologist Dr. Rollins Patient is scheduled for outpatient procedure with Dr. Rollins on 07/05/2024 Urine culture from 06/23/2024 shows Klebsiella pneumoniae-Continue IV ceftriaxone 1 g daily last day of tx 06/29/24 (5) COPD (chronic obstructive pulmonary disease): Plan: Patient not in acute exacerbation Chest x-ray did not show any evidence of infiltrates or consolidation or vascular congestion Continue inhalers (6) Type 2 diabetes mellitus: Plan: A1c 6.2 Diabetic diet Accu-Cheks before every meal and nightly with sliding scale insulin coverage Monitor glycemic control Plan Hypothyroidism-stable TSH is 1.787 Continue levothyroxine 50 mcg p.o. daily Hypomagnesemia Magnesium replacement CODE STATUS: Full code, but Palliative discussion pending for 06/29 DVT prophylaxis: Bilateral SCDs, avoid chemical prophylaxis due to SDH PT has recommended 24-hour home care with home PT, but may likely will need placement. Palliative Consult pending to discuss further goals of care [facility] ([phone]) Admission and Anticipated Discharge Date Admission Date: June 22, 2024 Subjective Pt drowsy but does wake up and follow some commands. Oriented only to person When asked how she was doing today, she replied "I'm alive." Denies pain Physical Exam Constitutional: WD/WN, vitals as above Cardiovascular: Rate/Rhythm: regular rate and + irregularly irregular Heart Sounds: no murmur Extremities: no edema Gastrointestinal (Abdomen): normal bowel sounds, soft, nontender, no hepatosplenomegaly Psychiatric: Orientation: oriented to person and cooperative; + not alert, + not oriented to place and + not oriented to time Results & Data Results & Data Vital Signs (Past 12 Hours) Vital Signs Temp Pulse Resp BP Pulse Ox O2 Del Method 06/28/24 08:00 Room Air 06/28/24 07:24 36.4 C L 74 18 128/52 L 92 Room Air Laboratory Results no labs PG Care Time/CCT Total # of Minutes Spent Total Time Spent with Patient: Total time spent is greater than 50% in coordination of care (as documented) at patient's floor/unit and/or counseling patient: Coding Level of Care Code 91123 SUB INP/OBS CARE 08/25MIN Diagnoses Acute subdural hematoma S06.5XAA Dementia F03.90 CAD (coronary artery disease) I25.10 Urge and stress incontinence N39.46 Chronic obstructive pulmonary disease, unspecified COPD type J44.9 COPD type: unspecified COPD Type 2 diabetes mellitus with other circulatory complication, without long-term current use of insulin E11.59 Diabetes mellitus chcf insulin use: without chcf use Diabetes mellitus complication status: with circulatory complication Diabetes mellitus complication detail: with other circulatory complications (5) COPD (chronic obstructive pulmonary disease) COPD type: unspecified COPD Qualified Code(s): J44.9 - Chronic obstructive pulmonary disease, unspecified (6) Type 2 diabetes mellitus Diabetes mellitus ad terminal makeup operator insulin use: without chcf use Diabetes mellitus complication status: with circulatory complication Diabetes mellitus complication detail: with other circulatory complications Qualified Code(s): E11.59 - Type 2 diabetes mellitus with other circulatory complications
--- NOTE | 2024-06-29 12:21 | Palliative Family Discussion ---
Date of Service June 29, 2024 Patient Directed Conference Time of [id number] Participants: Amee Gonzalez DNP Patient participation: no / lacks capacity d/t adv dementia Patient Support System: , dtr, son in law Other Healthcare Provider Participation: None Meeting Location: telemed, dtr is in [place] Advanced Directive available: shared details, see discussion below The patient's surrogate medical decision maker participated: A telemed ACP meeting was held for BROOKE KAT. This meeting was necessary for determining the appropriate course of treatment. Topics of Discussion Topics of Discussion: A telemedicine ACP family meeting was held for Mrs Kat with her , daughter and son in law. Extensive discussion regarding LBD and expected course/progression/prognosis; advised family she is in a moderate to severe state given the course of decline over the past years. Everyone is in agreement for dementia care placement with a rehab trial and they would like [facility], then [facility] as second. They do not want [facility] under any condition. We also discussed long-term care planning/code status and goals. They want more time to speak about code status as a family. I reviewed survival date for CPR in advanced illness and effects on advanced dementia, etc. They will discuss and let us know, they also agreed to complete a POLST prior to SNF dc but not right now. We briefly discussed hospice and I did advise that while hospice in the future will be beneficial in the context of advanced/and stage or terminal dementia, I did not feel at this junction. She was appropriate for hospice as the goal is still to see how much benefit, if any, she can derive from rehab. I will drop this into a note in the chart as well. Please page me for any urgent issues through the weekend if needed. Other Content of Meetin. Opportunity given for participants to speak and ask questions. 2. Participants were assured of attention to patient comfort. 3. Reassurance provided. 4. Support was provided for informed, good-brittni decisions. 5. Emotions expressed by family were acknowledged and addressed. 6. Follow-up Outpatient: family agreed to ongoing OP pall med clinic I spent 105 minutes overall addressing this case: 10 min in medical data review/discussion with referring provider(s) and/or preparation for the visit 70 min in Advance Care Planning/Goals of Care discussions as detailed above in note (must be >16min) 10min in subsequent review and synthesis of assessment and plan 15 min communicating with other providers regarding the patient's case: care mgt, primary team, nursing Thank you for allowing us to participate in the ongoing care of this patient. Please page with any additional concerns. Ghulam Gonzalez DNP Director, Palliative Medicine
--- NOTE | 2024-06-29 14:39 | Hospitalist Progress Note ---
Date of Service June 29, 2024 Assessment & Plan (1) Acute subdural hematoma: Plan: 84-year-old female with past medical history of dementia, hypothyroidism, COPD, type 2 diabetes mellitus, atrial fibrillation on anticoagulation with Xarelto, coronary artery disease status post stents, peripheral vascular disease status post stent, urinary urge and stress incontinence, dementia who has been having recurrent falls, visual and auditory hallucinations with 2 recent falls on 06/19/2024 and , 06/21/2024 with outpatient MRI showing trace acute/subacute subdural hematoma. She was sent to the ED and CT scan was reviewed by neurosurgery at [facility], neurosurgery recommended monitoring at [facility] along with giving Kcentra for reversal of Xarelto which she received in ED Acute SDH -Secondary to mechanical fall at home, she has dementia and visual and auditory hallucinations at home Mechanical fall resulted in small, non surgical hematoma while on Xarelto, Xarelto reversal with Kcentra,trauma consult did not recommend transfer Four CT head non con here all without change in size, 3.2mm SDH Holding home Xarelto and would not resume for 4 weeks if at all Appreciate consult Acute metabolic encephalopathy: secondary to fall with head trauma, subdural hematoma and underlying UTI( caro sensitive Klebsiella poa) in setting of dementia: Present on admission (2) Dementia: Plan: Psychiatry recommendations are as follows Continue Paxil, start mirtazapine 7.5 mg p.o. nightly and can later titrate as needed up to 15 mg nightly to help with recent increase anxiety and insomnia. Discontinue lorazepam on discharge and avoid benzodiazepines If auditory hallucinations and visual hallucinations become more distressing, could consider use of Abilify 2.5 mg daily or Seroquel 12.5 mg nightly though caution given increased risk of mortality in setting of dementia. Do not use Haldol given concern for Lewy body dementia and EPS risk. For behavioral emergency, could trial Seroquel 12.5 mg p.o. twice daily as needed for agitation or olanzapine 2.5 mg IM x 1 (do not exceed 10 mg per 24 hours and check EKG if IM dose required) Seroquel 12.5 mg p.o. nightly started: They are aware of the increased risk of mortality Palliative care had family meeting today 06/29. Family is leaning towards comfort care but no definitive decision has been made. For now they would like her to go to dementia unit and trial rehab.. Case management involved. Likely discharge on Tuesday. (3) CAD (coronary artery disease): Plan: CAD status post LAD and RCA stent in May 2022 Essential hypertension Chronic atrial fibrillation on anticoagulation Xarelto, neurology recommended that is elected to restart Xarelto, wait at least 4 weeks to restart (07/20/24) Peripheral vascular disease status post stent to common iliac 2D echo from September 2022 shows EF of 55% with mild tricuspid regurgitation Continue metoprolol and digoxin for rate control Holding Xarelto COntinue statin, Zetia (4) Urge and stress incontinence: Plan: likely lead to UTI poa, and metabolic encephalopathy resulting in fall and subdural hematoma Outpatient urologist Dr. Rollins Patient is scheduled for outpatient procedure with Dr. Rollins on 07/05/2024 Urine culture from 06/23/2024 shows Klebsiella pneumoniae-Continue IV ceftriaxone 1 g daily last day of tx 06/29/24 (5) COPD (chronic obstructive pulmonary disease): Plan: Patient not in acute exacerbation Chest x-ray did not show any evidence of infiltrates or consolidation or vascular congestion Continue inhalers (6) Type 2 diabetes mellitus: Plan: A1c 6.2 Diabetic diet Accu-Cheks before every meal and nightly with sliding scale insulin coverage Monitor glycemic control Plan Hypothyroidism-stable TSH is 1.787 Continue levothyroxine 50 mcg p.o. daily Hypomagnesemia Magnesium replacement CODE STATUS: Full code DVT prophylaxis: Bilateral SCDs, avoid chemical prophylaxis due to SDH Plan is for the patient to go to dementia unit and trial rehab. Likely discharge on Monday 07/02 Olu Kaye ([phone]) Admission and Anticipated Discharge Date Admission Date: June 22, 2024 Subjective Patient was seen and examined at 10:15 AM. Patient was able to answer some simple questions. Pleasantly confused. Review of Systems Review of Systems: All systems reviewed & are unremarkable except as noted in Subjective Physical Exam Physical Exam: General: Awake, conversant Heart: S1, S2/regular rate and rhythm, no murmur rubs or gallops Lungs: Clear to auscultation bilaterally. Normal effort Abdomen: Soft/nontender/nondistended. No hepatosplenomegaly Extremities: No clubbing/cyanosis. No edema Behavior: Appropriate, cooperative Results & Data Results & Data Vital Signs (Past 12 Hours) Vital Signs Temp Pulse Resp BP Pulse Ox O2 Del Method 06/29/24 08:00 Room Air 06/29/24 05:50 36.7 C 73 17 127/71 93 Room Air Laboratory Results Abnormal lab results 06/28/24 06/28/24 06/29/24 Range/Units 16:34 21:21 06:26 POC Glucose 130 H 137 H 145 H (70-99) mg/dl 06/29/24 06/29/24 Range/Units 07:45 11:40 POC Glucose 131 H 155 H (70-99) mg/dl PG Care Time/CCT Total # of Minutes Spent Total Time Spent with Patient: Total time spent is greater than 50% in coordination of care (as documented) at patient's floor/unit and/or counseling patient: Coding Level of Care Code 58683 SUB INP/OBS CARE 235MIN Diagnoses Acute subdural hematoma S06.5XAA Dementia F03.90 CAD (coronary artery disease) I25.10 Urge and stress incontinence N39.46 Chronic obstructive pulmonary disease, unspecified COPD type J44.9 COPD type: unspecified COPD Type 2 diabetes mellitus with other circulatory complication, without long-term current use of insulin E11.59 Diabetes mellitus intermediate school teacher insulin use: without [facility] use Diabetes mellitus complication status: with circulatory complication Diabetes mellitus complication detail: with other circulatory complications (5) COPD (chronic obstructive pulmonary disease) COPD type: unspecified COPD Qualified Code(s): J44.9 - Chronic obstructive pulmonary disease, unspecified (6) Type 2 diabetes mellitus Diabetes mellitus intermediate school teacher insulin use: without [facility] use Diabetes mellitus complication status: with circulatory complication Diabetes mellitus complication detail: with other circulatory complications Qualified Code(s): E11.59 - Type 2 diabetes mellitus with other circulatory complications
--- NOTE | 2024-06-30 15:02 | Hospitalist Progress Note ---
Date of Service June 30, 2024 Assessment & Plan (1) Acute subdural hematoma: Plan: 84-year-old female with past medical history of dementia, hypothyroidism, COPD, type 2 diabetes mellitus, atrial fibrillation on anticoagulation with Xarelto, coronary artery disease status post stents, peripheral vascular disease status post stent, urinary urge and stress incontinence, dementia who has been having recurrent falls, visual and auditory hallucinations with 2 recent falls on 06/19/2024 and , 06/21/2024 with outpatient MRI showing trace acute/subacute subdural hematoma. She was sent to the ED and CT scan was reviewed by neurosurgery at [facility], neurosurgery recommended monitoring at [facility] along with giving Kcentra for reversal of Xarelto which she received in ED Acute SDH -Secondary to mechanical fall at home, she has dementia and visual and auditory hallucinations at home Mechanical fall resulted in small, non surgical hematoma while on Xarelto, Xarelto reversal with Kcentra,trauma consult did not recommend transfer Four CT head non con here all without change in size, 3.2mm SDH Holding home Xarelto and would not resume for 4 weeks if at all Appreciate consult Acute metabolic encephalopathy: secondary to fall with head trauma, subdural hematoma and underlying UTI( caro sensitive Klebsiella poa) in setting of dementia: Present on admission (2) Dementia: Plan: Psychiatry recommendations are as follows Continue Paxil, start mirtazapine 7.5 mg p.o. nightly and can later titrate as needed up to 15 mg nightly to help with recent increase anxiety and insomnia. Discontinue lorazepam on discharge and avoid benzodiazepines If auditory hallucinations and visual hallucinations become more distressing, could consider use of Abilify 2.5 mg daily or Seroquel 12.5 mg nightly though caution given increased risk of mortality in setting of dementia. Do not use Haldol given concern for Lewy body dementia and EPS risk. For behavioral emergency, could trial Seroquel 12.5 mg p.o. twice daily as needed for agitation or olanzapine 2.5 mg IM x 1 (do not exceed 10 mg per 24 hours and check EKG if IM dose required) Seroquel 12.5 mg p.o. nightly started: They are aware of the increased risk of mortality Palliative care had family meeting today 06/29. Family is leaning towards comfort care but no definitive decision has been made. For now they would like her to go to dementia unit and trial rehab.. Case management involved. Likely discharge on Tuesday. (3) CAD (coronary artery disease): Plan: CAD status post LAD and RCA stent in May 2022 Essential hypertension Chronic atrial fibrillation on anticoagulation Xarelto, neurology recommended that is elected to restart Xarelto, wait at least 4 weeks to restart (07/20/24) Peripheral vascular disease status post stent to common iliac 2D echo from September 2022 shows EF of 55% with mild tricuspid regurgitation Continue metoprolol and digoxin for rate control Holding Xarelto COntinue statin, Zetia (4) Urge and stress incontinence: Plan: likely lead to UTI poa, and metabolic encephalopathy resulting in fall and subdural hematoma Outpatient urologist Dr. Rollins Patient is scheduled for outpatient procedure with Dr. Rollins on 07/05/2024 Urine culture from 06/23/2024 shows Klebsiella pneumoniae-completed IV ceftriaxone close (5) COPD (chronic obstructive pulmonary disease): Plan: Patient not in acute exacerbation Chest x-ray did not show any evidence of infiltrates or consolidation or vascular congestion Continue inhalers (6) Type 2 diabetes mellitus: Plan: A1c 6.2 Diabetic diet Accu-Cheks before every meal and nightly with sliding scale insulin coverage Monitor glycemic control Plan Hypothyroidism-stable TSH is 1.787 Continue levothyroxine 50 mcg p.o. daily Hypomagnesemia Magnesium replacement CODE STATUS: Full code DVT prophylaxis: Bilateral SCDs, avoid chemical prophylaxis due to SDH Plan is for the patient to go to dementia unit and trial rehab. Likely discharge on Monday 07/02 Olu Kaye ([phone]) Admission and Anticipated Discharge Date Admission Date: June 22, 2024 Subjective Patient was seen and examined at 8:55 AM. No new complaints. No chest pain or shortness of breath. Review of Systems Review of Systems: All systems reviewed & are unremarkable except as noted in Subjective Physical Exam Physical Exam: General: Awake, conversant. Pleasantly confused Heart: S1, S2/regular rate and rhythm, no murmur rubs or gallops Lungs: Clear to auscultation bilaterally. Normal effort Abdomen: Soft/nontender/nondistended. No hepatosplenomegaly Extremities: No clubbing/cyanosis. No edema Behavior: Appropriate, cooperative Results & Data Results & Data Vital Signs (Past 12 Hours) Vital Signs Temp Pulse Resp BP Pulse Ox O2 Del Method 06/30/24 08:00 36.8 C 77 18 146/73 H 91 Room Air 06/30/24 07:45 Room Air Laboratory Results Abnormal lab results 06/29/24 06/29/24 06/30/24 Range/Units 16:50 20:45 08:03 POC Glucose 135 H 169 H 132 H (70-99) mg/dl 06/30/24 Range/Units 11:39 POC Glucose 156 H (70-99) mg/dl PG Care Time/CCT Total # of Minutes Spent Total Time Spent with Patient: Total time spent is greater than 50% in coordination of care (as documented) at patient's floor/unit and/or counseling patient: Coding Level of Care Code 71912 SUB INP/OBS CARE 235MIN Diagnoses Acute subdural hematoma S06.5XAA Dementia F03.90 CAD (coronary artery disease) I25.10 Urge and stress incontinence N39.46 Chronic obstructive pulmonary disease, unspecified COPD type J44.9 COPD type: unspecified COPD Type 2 diabetes mellitus with other circulatory complication, without long-term current use of insulin E11.59 Diabetes mellitus prison insulin use: without terminal gauger use Diabetes mellitus complication status: with circulatory complication Diabetes mellitus complication detail: with other circulatory complications (5) COPD (chronic obstructive pulmonary disease) COPD type: unspecified COPD Qualified Code(s): J44.9 - Chronic obstructive pulmonary disease, unspecified (6) Type 2 diabetes mellitus Diabetes mellitus prison insulin use: without terminal gauger use Diabetes mellitus complication status: with circulatory complication Diabetes mellitus complication detail: with other circulatory complications Qualified Code(s): E11.59 - Type 2 diabetes mellitus with other circulatory complications
--- NOTE | 2024-07-01 14:03 | Hospitalist Progress Note ---
Date of Service July 01, 2024 Assessment & Plan (1) Acute subdural hematoma: Plan: 84-year-old female with past medical history of dementia, hypothyroidism, COPD, type 2 diabetes mellitus, atrial fibrillation on anticoagulation with Xarelto, coronary artery disease status post stents, peripheral vascular disease status post stent, urinary urge and stress incontinence, dementia who has been having recurrent falls, visual and auditory hallucinations with 2 recent falls on 06/19/2024 and , 06/21/2024 with outpatient MRI showing trace acute/subacute subdural hematoma. She was sent to the ED and CT scan was reviewed by neurosurgery at [facility], neurosurgery recommended monitoring at [facility] along with giving Kcentra for reversal of Xarelto which she received in ED Acute SDH -Secondary to mechanical fall at home, she has dementia and visual and auditory hallucinations at home Mechanical fall resulted in small, non surgical hematoma while on Xarelto, Xarelto reversal with Kcentra,trauma consult did not recommend transfer Four CT head non con here all without change in size, 3.2mm SDH Holding home Xarelto and would not resume for 4 weeks if at all Appreciate consult Acute metabolic encephalopathy: secondary to fall with head trauma, subdural hematoma and underlying UTI( caro sensitive Klebsiella poa) in setting of dementia: Present on admission (2) Dementia: Plan: Psychiatry recommendations are as follows Continue Paxil, start mirtazapine 7.5 mg p.o. nightly and can later titrate as needed up to 15 mg nightly to help with recent increase anxiety and insomnia. Discontinue lorazepam on discharge and avoid benzodiazepines If auditory hallucinations and visual hallucinations become more distressing, could consider use of Abilify 2.5 mg daily or Seroquel 12.5 mg nightly though caution given increased risk of mortality in setting of dementia. Do not use Haldol given concern for Lewy body dementia and EPS risk. For behavioral emergency, could trial Seroquel 12.5 mg p.o. twice daily as needed for agitation or olanzapine 2.5 mg IM x 1 (do not exceed 10 mg per 24 hours and check EKG if IM dose required) Seroquel 12.5 mg p.o. nightly started: They are aware of the increased risk of mortality Palliative care had family meeting 06/29. Family is leaning towards comfort care but no definitive decision has been made. For now they would like her to go to dementia unit and trial rehab.. Case management involved. Likely discharge on Tuesday. (3) CAD (coronary artery disease): Plan: CAD status post LAD and RCA stent in May 2022 Essential hypertension Chronic atrial fibrillation on anticoagulation Xarelto, neurology recommended that is elected to restart Xarelto, wait at least 4 weeks to restart (07/20/24) Peripheral vascular disease status post stent to common iliac 2D echo from September 2022 shows EF of 55% with mild tricuspid regurgitation Continue metoprolol and digoxin for rate control Holding Xarelto COntinue statin, Zetia (4) Urge and stress incontinence: Plan: likely lead to UTI poa, and metabolic encephalopathy resulting in fall and subdural hematoma Outpatient urologist Dr. Rollins Patient is scheduled for outpatient procedure with Dr. Rollins on 07/05/2024 Urine culture from 06/23/2024 shows Klebsiella pneumoniae-completed IV ceftriaxone close (5) COPD (chronic obstructive pulmonary disease): Plan: Patient not in acute exacerbation Chest x-ray did not show any evidence of infiltrates or consolidation or vascular congestion Continue inhalers (6) Type 2 diabetes mellitus: Plan: A1c 6.2 Diabetic diet Accu-Cheks before every meal and nightly with sliding scale insulin coverage Monitor glycemic control Plan Hypothyroidism-stable TSH is 1.787 Continue levothyroxine 50 mcg p.o. daily Hypomagnesemia Magnesium replacement CODE STATUS: Full code DVT prophylaxis: Bilateral SCDs, avoid chemical prophylaxis due to SDH Plan is for the patient to go to dementia unit and trial rehab. Likely dis charge on Monday 07/02 Olu Kaye ([phone]) Admission and Anticipated Discharge Date Admission Date: June 22, 2024 Subjective Patient was seen and examined at 11 AM. She denied any chest pain or shortness of breath. Review of Systems Review of Systems: All systems reviewed & are unremarkable except as noted in Subjective Physical Exam 2 Physical Exam: General: Awake, conversant. Pleasantly confused Heart: S1, S2/regular rate and rhythm, no murmur rubs or gallops Lungs: Clear to auscultation bilaterally. Normal effort Abdomen: Soft/nontender/nondistended. No hepatosplenomegaly Extremities: No clubbing/cyanosis. No edema Behavior: Appropriate, cooperative Results & Data Results & Data Vital Signs (Past 12 Hours) Vital Signs Temp Pulse Resp BP Pulse Ox O2 Del Method 07/01/24 07:33 36.4 C L 62 18 176/74 H 93 Room Air 07/01/24 07:00 Room Air Laboratory Results Abnormal lab results 06/30/24 06/30/24 07/01/24 Range/Units 16:37 19:37 07:33 POC Glucose 130 H 165 H 128 H (70-99) mg/dl 07/01/24 Range/Units 11:30 POC Glucose 129 H (70-99) mg/dl PG Care Time/CCT Total # of Minutes Spent Total Time Spent with Patient: Total time spent is greater than 50% in coordination of care (as documented) at patient's floor/unit and/or counseling patient: Coding Level of Care Code 70389 SUB INP/OBS CARE 2MIN Diagnoses Acute subdural hematoma S06.5XAA Dementia F03.90 CAD (coronary artery disease) I25.10 Urge and stress incontinence N39.46 Chronic obstructive pulmonary disease, unspecified COPD type J44.9 COPD type: unspecified COPD Type 2 diabetes mellitus with other circulatory complication, without long-term current use of insulin E11.59 Diabetes mellitus [facility] insulin use: without [facility] use Diabetes mellitus complication status: with circulatory complication Diabetes mellitus complication detail: with other circulatory complications (5) COPD (chronic obstructive pulmonary disease) COPD type: unspecified COPD Qualified Code(s): J44.9 - Chronic obstructive pulmonary disease, unspecified (6) Type 2 diabetes mellitus Diabetes mellitus endodontic assistant insulin use: without endodontic assistant use Diabetes mellitus complication status: with circulatory complication Diabetes mellitus complication detail: with other circulatory complications Qualified Code(s): E11.59 - Type 2 diabetes mellitus with other circulatory complications
--- NOTE | 2024-07-02 15:00 | Hospitalist Progress Note ---
Date of Service July 02, 2024 Assessment & Plan (1) Acute subdural hematoma: Plan: 84-year-old female with past medical history of dementia, hypothyroidism, COPD, type 2 diabetes mellitus, atrial fibrillation on anticoagulation with Xarelto, coronary artery disease status post stents, peripheral vascular disease status post stent, urinary urge and stress incontinence, dementia who has been having recurrent falls, visual and auditory hallucinations with 2 recent falls on 06/19/2024 and , 06/21/2024 with outpatient MRI showing trace acute/subacute subdural hematoma. She was sent to the ED and CT scan was reviewed by neurosurgery at [facility], neurosurgery recommended monitoring at [facility] along with giving Kcentra for reversal of Xarelto which she received in ED Acute SDH -Secondary to mechanical fall at home, she has dementia and visual and auditory hallucinations at home Mechanical fall resulted in small, non surgical hematoma while on Xarelto, Xarelto reversal with Kcentra,trauma consult did not recommend transfer Four CT head non con here all without change in size, 3.2mm SDH Holding home Xarelto and would not resume for 4 weeks if at all Acute metabolic encephalopathy: secondary to fall with head trauma, subdural hematoma and underlying UTI( caro sensitive Klebsiella poa) in setting of dementia: Present on admission (2) Dementia: Plan: Psychiatry recommendations are as follows Continue Paxil, start mirtazapine 7.5 mg p.o. nightly and can later titrate as needed up to 15 mg nightly to help with recent increase anxiety and insomnia. Discontinue lorazepam on discharge and avoid benzodiazepines If auditory hallucinations and visual hallucinations become more distressing, could consider use of Abilify 2.5 mg daily or Seroquel 12.5 mg nightly though caution given increased risk of mortality in setting of dementia. Do not use Haldol given concern for Lewy body dementia and EPS risk. For behavioral emergency, could trial Seroquel 12.5 mg p.o. twice daily as needed for agitation or olanzapine 2.5 mg IM x 1 (do not exceed 10 mg per 24 hours and check EKG if IM dose required) Seroquel 12.5 mg p.o. nightly started: They are aware of the increased risk of mortality Palliative care had family meeting 06/29. Family is leaning towards comfort care but no definitive decision has been made. For now they would like her to go to dementia unit and trial rehab.. Case management involved. Likely discharge 07/03. (3) CAD (coronary artery disease): Plan: CAD status post LAD and RCA stent in May 2022 Essential hypertension Chronic atrial fibrillation on anticoagulation Xarelto, neurology recommended that is elected to restart Xarelto, wait at least 4 weeks to restart (07/20/24) Peripheral vascular disease status post stent to common iliac 2D echo from September 2022 shows EF of 55% with mild tricuspid regurgitation Continue metoprolol and digoxin for rate control Holding Xarelto COntinue statin, Zetia (4) Urge and stress incontinence: Plan: likely lead to UTI poa, and metabolic encephalopathy resulting in fall and subdural hematoma Outpatient urologist Dr. Rollins Patient is scheduled for outpatient procedure with Dr. Rollins on 07/05/2024 Urine culture from 06/23/2024 shows Klebsiella pneumoniae-completed IV ceftriaxone close (5) COPD (chronic obstructive pulmonary disease): Plan: Patient not in acute exacerbation Chest x-ray did not show any evidence of infiltrates or consolidation or vascular congestion Continue inhalers (6) Type 2 diabetes mellitus: Plan: A1c 6.2 Diabetic diet Accu-Cheks before every meal and nightly with sliding scale insulin coverage Monitor glycemic control Plan Hypothyroidism-stable TSH is 1.787 Continue levothyroxine 50 mcg p.o. daily Hypomagnesemia Magnesium replacement CODE STATUS: Full code DVT prophylaxis: Bilateral SCDs, avoid chemical prophylaxis due to SDH Plan is for the patient to go to dementia unit and trial rehab. Likely discharge on 07/03 Olu Kaye ([phone]) Admission and Anticipated Discharge Date Admission Date: June 22, 2024 Subjective Patient was seen and examined at 10:15 AM. She denies any chest pain or shortness of breath. No new complaints. Review of Systems Review of Systems: All systems reviewed & are unremarkable except as noted in Subjective Physical Exam Physical Exam: General: Awake, conversant. Pleasantly confused Heart: S1, S2/regular rate and rhythm, no murmur rubs or gallops Lungs: Clear to auscultation bilaterally. Normal effort Abdomen: Soft/nontender/nondistended. No hepatosplenomegaly Extremities: No clubbing/cyanosis. No edema Behavior: Appropriate, cooperative Results & Data Results & Data Vital Signs (Past 12 Hours) Vital Signs Temp Pulse Resp BP Pulse Ox O2 Del Method O2 Flow Rate 07/02/24 07:45 Nasal Cannula 2 07/02/24 07:31 36.9 C 70 18 125/76 97 Room Air Laboratory Results Abnormal lab results 07/01/24 07/02/24 07/02/24 Range/Units 16:32 07:35 11:50 POC Glucose 125 H 115 H 236 H (70-99) mg/dl PG Care Time/CCT Total # of Minutes Spent Total Time Spent with Patient: Total time spent is greater than 50% in coordination of care (as documented) at patient's floor/unit and/or counseling patient: Coding Level of Care Code 02179 SUB INP/OBS CARE MIN Diagnoses Acute subdural hematoma S06.5XAA Dementia F03.90 CAD (coronary artery disease) I25.10 Urge and stress incontinence N39.46 Chronic obstructive pulmonary disease, unspecified COPD type J44.9 COPD type: unspecified COPD Type 2 diabetes mellitus with other circulatory complication, without long-term current use of insulin E11.59 Diabetes mellitus complication detail: with other circulatory complications Diabetes mellitus complication status: with circulatory complication Diabetes mellitus terminal operations manager insulin use: without nursing home use (5) COPD (chronic obstructive pulmonary disease) COPD type: unspecified COPD Qualified Code(s): J44.9 - Chronic obstructive pulmonary disease, unspecified (6) Type 2 diabetes mellitus Diabetes mellitus complication detail: with other circulatory complications Diabetes mellitus complication status: with circulatory complication Diabetes mellitus terminal operations manager insulin use: without terminal operations manager use Qualified Code(s): E11.59 - Type 2 diabetes mellitus with other circulatory complications
--- NOTE | 2024-07-03 11:12 | Hospitalist Progress Note ---
Date of Service July 03, 2024 Assessment & Plan (1) Acute subdural hematoma: (2) Falls frequently: (3) Dementia: (4) Visual hallucinations: (5) Auditory hallucinations: (6) Hypothyroidism: (7) COPD (chronic obstructive pulmonary disease): (8) Urge and stress incontinence: (9) Type 2 diabetes mellitus: (10) Peripheral vascular disease: (11) Atrial fibrillation: (12) CAD (coronary artery disease): (13) Essential hypertension: Plan 84-year-old female with past medical history of dementia, hypothyroidism, COPD, type 2 diabetes mellitus, atrial fibrillation on anticoagulation with Xarelto, coronary artery disease status post stents, peripheral vascular disease status post stent, urinary urge and stress incontinence, dementia who has been having recurrent falls, visual and auditory hallucinations with 2 recent falls on 06/19/2024 and , 06/21/2024 with outpatient MRI showing trace acute/subacute subdural hematoma. She was sent to the ED and CT scan was reviewed by neurosurgery at [facility], neurosurgery recommended monitoring at [facility] along with giving Kcentra for reversal of Xarelto which she received in ED #Acute metabolic encephalopathy: Likely secondary to fall with head trauma, subdural hematoma and underlying UTI in setting of dementia: Present on admission #Acute/subacute subdural hematoma #Recurrent falls #Dementia #Auditory/visual hallucinations Outpatient MRI showed acute/subacute subdural hematoma ED discussed this with neurosurgery at [facility] (Dr. Rosales) who reviewed MRI and repeat CT done in ED and showed no significant change and recommended Xarelto reversal with Kcentra and monitoring at [facility] without need to transfer at present. Patient received Kcentra in ED H&H is stable Check orthostatic vital signs: Patient's blood pressure dropped significantly when she stands B12 is 440 TSH is 1.787 Folate is greater than 22.3 Neurology saw the patient and recommended blood pressure control, repeat head CT this morning which did not show any change and have recommended waiting minimum 4 weeks before starting anticoagulation therapy and only if patient is clinically stable and follow-up imaging is reassuring Psychiatry saw the patient Psychiatry recommendations are as follows -Continue Paxil, start mirtazapine 7.5 mg p.o. nightly and can later titrate as needed up to 15 mg nightly to help with recent increase anxiety and insomnia. -discontinue lorazepam on discharge and avoid benzodiazepines -if auditory hallucinations and visual hallucinations become more distressing, could consider use of Abilify 2.5 mg daily or Seroquel 12.5 mg nightly though caution given increased risk of mortality in setting of dementia. -Do not use Haldol given concern for Lewy body dementia and EPS risk. For behav ioral emergency, could trial Seroquel 12.5 mg p.o. twice daily as needed for agitation or olanzapine 2.5 mg IM x 1 (do not exceed 10 mg per 24 hours and check EKG if IM dose required) As discussed with patient's family including and daughter on 06/24/2024: Seroquel 12.5 mg p.o. nightly was started: They are aware of the increased risk of mortality #Coronary artery disease status post LAD and RCA stent in May 2022 #Essential hypertension #Hyperlipidemia #Chronic atrial fibrillation on anticoagulation Xarelto #Peripheral vascular disease status post stent Outpatient associate financial advisor is Dr. Wiggins Outpatient vascular surgeon is Dr. Samara Lawrence held secondary to subdural hematoma Continue metoprolol for rate control Continue statin 2D echo from September 2022 shows EF of 55% with mild tricuspid regurgitation #Hypothyroidism TSH is 1.787 Continue levothyroxine 50 mcg p.o. daily #Type 2 diabetes mellitus A1c 6.2 Diabetic diet Accu-Cheks before every meal and nightly with sliding scale insulin coverage Monitor glycemic control #COPD Patient not in acute exacerbation Chest x-ray did not show any evidence of infiltrates or consolidation or vascular congestion #Hypomagnesemia Magnesium replacement as needed Monitor levels intermittently #Urinary stress and urge incontinence #Urinary tract infection Outpatient urologist Dr. Rollins Patient is scheduled for outpatient procedure with Dr. Rollins on 07/05/2024 Urine culture from 06/23/2024 shows Klebsiella pneumoniae Patient finished 5 days of IV ceftriaxone CODE STATUS: Full code DVT prophylaxis: Bilateral SCDs, avoid chemical prophylaxis Discharge planning to short-term rehab when bed available Care plan discussed with patient, nursing staff message left for [employer] ([phone]) to update on the phone Admission and Anticipated Discharge Date Admission Date: June 22, 2024 Physical Exam Physical Exam: General: No acute distress Psych: Awake and oriented to place and self HEENT: Anicteric sclera, moist oral mucosa CVS: irregular rate and rhythm Lungs: Bilateral air entry, no wheezing noted Abdomen: Soft, nontender, no rebound, no guarding Ext: No lower extremity edema, no calf tenderness, right hip ecchymosis improving, no tenderness noted Results & Data Results & Data Vital Signs (Past 12 Hours) Vital Signs Temp Pulse Resp BP Pulse Ox O2 Del Method 07/03/24 08:05 36.3 C L 62 18 163/66 H 98 Room Air Laboratory Results Laboratory Results - last 24 hr 07/02/24 07/02/24 07/02/24 11:50 16:32 20:07 POC Glucose 236 H 99 116 H 07/03/24 08:12 POC Glucose 126 H PG Care Time/CCT Total # of Minutes Spent Total Time Spent with Patient: Total time spent is greater than 50% in coordination of care (as documented) at patient's floor/unit and/or counseling patient: Coding Level of Care Code 47321 SUB INP/OBS CARE 08/25MIN Diagnoses Acute subdural hematoma S06.5XAA Falls frequently R29.6 Dementia F03.90 Visual hallucinations R44.1 Auditory hallucinations R44.0 Hypothyroidism E03.9 Chronic obstructive pulmonary disease, unspecified COPD type J44.9 COPD type: unspecified COPD Urge and stress incontinence N39.46 Type 2 diabetes mellitus with other circulatory complication, without long-term current use of insulin E11.59 Diabetes mellitus complication detail: with other circulatory complications Diabetes mellitus complication status: with circulatory complication Diabetes mellitus skilled nursing insulin use: without manager intermediate use Peripheral vascular disease I73.9 Chronic atrial fibrillation I48.20 Atrial fibrillation type: unspecified chronic CAD (coronary artery disease) I25.10 Essential hypertension I10 (7) COPD (chronic obstructive pulmonary disease) COPD type: unspecified COPD Qualified Code(s): J44.9 - Chronic obstructive pulmonary disease, unspecified (9) Type 2 diabetes mellitus Diabetes mellitus complication detail: with other circulatory complications Diabetes mellitus complication status: with circulatory complication Diabetes mellitus skilled nursing insulin use: without manager intermediate use Qualified Code(s): E11.59 - Type 2 diabetes mellitus with other circulatory complications (11) Atrial fibrillation Atrial fibrillation type: unspecified chronic Qualified Code(s): I48.20 - Chronic atrial fibrillation, unspecified
--- NOTE | 2024-07-03 17:25 | Palliative Care Progress Note ---
Date of Service July 03, 2024 Assessment & Plan (1) Falls frequently: (2) Dementia: (3) Acute alteration in mental status: (4) Visual hallucinations: (5) Auditory hallucinations: (6) Palliative care by specialist: Plan Placement pending Offered OP pall med followup, we will schedule Thank you for allowing us to participate in the ongoing care of this patient. Please page with any additional concerns. Ghulam Gonzalez DNP Director, Palliative Medicine Admission and Anticipated Discharge Date Admission Date: June 22, 2024 Subjective No acute issues, pleasantly confused Awaiting placement Family would like a trial of rehab then moving to LTC with focus on comfort and QOL. They are undecided re code status bc pt always said "keep me alive for as long as possible." Review of Systems Review of Systems: Unobtainable due to cognitive status Physical Exam Physical Exam: Confused at baseline slightly restless, trying to get out of bed but easily redirected and responds well to distraction therapy bitemp wasting perrla unable to follow commands MM sl dry neck supple, no thyromegaly or stridor Lungs CTA though diminished S1S2, irreg irreg, no gross JVD noted abd soft, NTP, BS+ RAMSAY, strength intact but unable to follow commands skin pink/warm Results & Data Vital Signs (Past 12 Hours) Vital Signs Temp Pulse Pulse Pulse Resp BP Pulse Ox 07/03/24 17:09 66 07/03/24 17:08 66 07/03/24 14:55 36.6 C 76 18 132/83 96 07/03/24 08:05 36.3 C L 62 18 163/66 H 98 O2 Del Method 07/03/24 17:09 07/03/24 17:08 07/03/24 14:55 Room Air 07/03/24 08:05 Room Air Laboratory Results 07/03/24 07/03/24 07/03/24 Range/Units 16:41 11:34 08:12 WBC (4.8-10.8) K/ul RBC (4.20-5.40) M/uL Hgb (12.0-16.0) g/dl Hct (37.0-47.0) % MCV (80.0-100.0) fL MCH (25.0-34.0) pg MCHC (32.0-36.0) g/dL RDW Std Deviation (36.4-46.3) fL RDW Coeff of Loli (11.5-14.5) % Plt Count (130-400) K/uL MPV (9.4-12.4) fL Immature Gran % (Auto) % Neut % (Auto) % Lymph % (Auto) % [place] % (Auto) % Eos % (Auto) % Baso % (Auto) % Neut # (Auto) (1.40-6.50) K/uL Lymph # (Auto) (1.20-3.40) K/uL [place] # (Auto) (0.11-0.59) K/uL Eos # (Auto) (0.00-0.50) K/uL Baso # (Auto) (0.00-0.20) K/uL Immature Gran # (Auto) (0.01-0.20) K/uL Sodium (136-145) mmol/L Potassium (3.5-5.1) mmol/L Chloride (98-107) mmol/L Carbon Dioxide (21-32) mmol/L Anion Gap (3-11) BUN (6-23) mg/dl Creatinine (0.6-1.2) mg/dl Est Cr Clr Drug Dosing ml/min eGFR BUN/Creatinine Ratio (10-20) Glucose (70-99(Fasting)) mg/dl POC Glucose 132 H 208 H 126 H (70-99) mg/dl Calcium (8.6-10.3) mg/dl Magnesium (1.7-2.4) mg/dl Total Bilirubin (0.2-1.0) mg/dl AST (13-39) U/L ALT (7-52) U/L Alkaline Phosphatase (34-104) U/L Total Protein (6.0-8.3) gm/dl Albumin (3.4-5.0) gm/dl Globulin (2.5-4.0) gm/dl Albumin/Globulin Ratio (0.9-2) 07/02/24 07/02/24 07/02/24 Range/Units 20:07 16:32 11:50 WBC (4.8-10.8) K/ul RBC (4.20-5.40) M/uL Hgb (12.0-16.0) g/dl Hct (37.0-47.0) % MCV (80.0-100.0) fL MCH (25.0-34.0) pg MCHC (32.0-36.0) g/dL RDW Std Deviation (36.4-46.3) fL RDW Coeff of Loli (11.5-14.5) % Plt Count (130-400) K/uL MPV (9.4-12.4) fL Immature Gran % (Auto) % Neut % (Auto) % Lymph % (Auto) % [place] % (Auto) % Eos % (Auto) % Baso % (Auto) % Neut # (Auto) (1.40-6.50) K/uL Lymph # (Auto) (1.20-3.40) K/uL [place] # (Auto) (0.11-0.59) K/uL Eos # (Auto) (0.00-0.50) K/uL Baso # (Auto) (0.00-0.20) K/uL Immature Gran # (Auto) (0.01-0.20) K/uL Sodium (136-145) mmol/L Potassium (3.5-5.1) mmol/L Chloride (98-107) mmol/L Carbon Dioxide (21-32) mmol/L Anion Gap (3-11) BUN (6-23) mg/dl Creatinine (0.6-1.2) mg/dl Est Cr Clr Drug Dosing ml/min eGFR BUN/Creatinine Ratio (10-20) Glucose (70-99(Fasting)) mg/dl POC Glucose 116 H 99 236 H (70-99) mg/dl Calcium (8.6-10.3) mg/dl Magnesium (1.7-2.4) mg/dl Total Bilirubin (0.2-1.0) mg/dl AST (13-39) U/L ALT (7-52) U/L Alkaline Phosphatase (34-104) U/L Total Protein (6.0-8.3) gm/dl Albumin (3.4-5.0) gm/dl Globulin (2.5-4.0) gm/dl Albumin/Globulin Ratio (0.9-2) 07/02/24 07/01/24 07/01/24 Range/Units 07:35 21:02 16:32 WBC (4.8-10.8) K/ul RBC (4.20-5.40) M/uL Hgb (12.0-16.0) g/dl Hct (37.0-47.0) % MCV (80.0-100.0) fL MCH (25.0-34.0) pg MCHC (32.0-36.0) g/dL RDW Std Deviation (36.4-46.3) fL RDW Coeff of Loli (11.5-14.5) % Plt Count (130-400) K/uL MPV (9.4-12.4) fL Immature Gran % (Auto) % Neut % (Auto) % Lymph % (Auto) % [place] % (Auto) % Eos % (Auto) % Baso % (Auto) % Neut # (Auto) (1.40-6.50) K/uL Lymph # (Auto) (1.20-3.40) K/uL [place] # (Auto) (0.11-0.59) K/uL Eos # (Auto) (0.00-0.50) K/uL Baso # (Auto) (0.00-0.20) K/uL Immature Gran # (Auto) (0.01-0.20) K/uL Sodium (136-145) mmol/L Potassium (3.5-5.1) mmol/L Chloride (98-107) mmol/L Carbon Dioxide (21-32) mmol/L Anion Gap (3-11) BUN (6-23) mg/dl Creatinine (0.6-1.2) mg/dl Est Cr Clr Drug Dosing ml/min eGFR BUN/Creatinine Ratio (10-20) Glucose (70-99(Fasting)) mg/dl POC Glucose 115 H 99 125 H (70-99) mg/dl Calcium (8.6-10.3) mg/dl Magnesium (1.7-2.4) mg/dl Total Bilirubin (0.2-1.0) mg/dl AST (13-39) U/L ALT (7-52) U/L Alkaline Phosphatase (34-104) U/L Total Protein (6.0-8.3) gm/dl Albumin (3.4-5.0) gm/dl Globulin (2.5-4.0) gm/dl Albumin/Globulin Ratio (0.9-2) 07/01/24 07/01/24 06/30/24 Range/Units 11:30 07:33 19:37 WBC (4.8-10.8) K/ul RBC (4.20-5.40) M/uL Hgb (12.0-16.0) g/dl Hct (37.0-47.0) % MCV (80.0-100.0) fL MCH (25.0-34.0) pg MCHC (32.0-36.0) g/dL RDW Std Deviation (36.4-46.3) fL RDW Coeff of Loli (11.5-14.5) % Plt Count (130-400) K/uL MPV (9.4-12.4) fL Immature Gran % (Auto) % Neut % (Auto) % Lymph % (Auto) % [place] % (Auto) % Eos % (Auto) % Baso % (Auto) % Neut # (Auto) (1.40-6.50) K/uL Lymph # (Auto) (1.20-3.40) K/uL [place] # (Auto) (0.11-0.59) K/uL Eos # (Auto) (0.00-0.50) K/uL Baso # (Auto) (0.00-0.20) K/uL Immature Gran # (Auto) (0.01-0.20) K/uL Sodium (136-145) mmol/L Potassium (3.5-5.1) mmol/L Chloride (98-107) mmol/L Carbon Dioxide (21-32) mmol/L Anion Gap (3-11) BUN (6-23) mg/dl Creatinine (0.6-1.2) mg/dl Est Cr Clr Drug Dosing ml/min eGFR BUN/Creatinine Ratio (10-20) Glucose (70-99(Fasting)) mg/dl POC Glucose 129 H 128 H 165 H (70-99) mg/dl Calcium (8.6-10.3) mg/dl Magnesium (1.7-2.4) mg/dl Total Bilirubin (0.2-1.0) mg/dl AST (13-39) U/L ALT (7-52) U/L Alkaline Phosphatase (34-104) U/L Total Protein (6.0-8.3) gm/dl Albumin (3.4-5.0) gm/dl Globulin (2.5-4.0) gm/dl Albumin/Globulin Ratio (0.9-2) 06/30/24 06/30/24 06/30/24 Range/Units 16:37 11:39 08:03 WBC (4.8-10.8) K/ul RBC (4.20-5.40) M/uL Hgb (12.0-16.0) g/dl Hct (37.0-47.0) % MCV (80.0-100.0) fL MCH (25.0-34.0) pg MCHC (32.0-36.0) g/dL RDW Std Deviation (36.4-46.3) fL RDW Coeff of Loli (11.5-14.5) % Plt Count (130-400) K/uL MPV (9.4-12.4) fL Immature Gran % (Auto) % Neut % (Auto) % Lymph % (Auto) % [place] % (Auto) % Eos % (Auto) % Baso % (Auto) % Neut # (Auto) (1.40-6.50) K/uL Lymph # (Auto) (1.20-3.40) K/uL [place] # (Auto) (0.11-0.59) K/uL Eos # (Auto) (0.00-0.50) K/uL Baso # (Auto) (0.00-0.20) K/uL Immature Gran # (Auto) (0.01-0.20) K/uL Sodium (136-145) mmol/L Potassium (3.5-5.1) mmol/L Chloride (98-107) mmol/L Carbon Dioxide (21-32) mmol/L Anion Gap (3-11) BUN (6-23) mg/dl Creatinine (0.6-1.2) mg/dl Est Cr Clr Drug Dosing ml/min eGFR BUN/Creatinine Ratio (10-20) Glucose (70-99(Fasting)) mg/dl POC Glucose 130 H 156 H 132 H (70-99) mg/dl Calcium (8.6-10.3) mg/dl Magnesium (1.7-2.4) mg/dl Total Bilirubin (0.2-1.0) mg/dl AST (13-39) U/L ALT (7-52) U/L Alkaline Phosphatase (34-104) U/L Total Protein (6.0-8.3) gm/dl Albumin (3.4-5.0) gm/dl Globulin (2.5-4.0) gm/dl Albumin/Globulin Ratio (0.9-2) 06/29/24 06/29/24 06/29/24 Range/Units 20:45 16:50 11:40 WBC (4.8-10.8) K/ul RBC (4.20-5.40) M/uL Hgb (12.0-16.0) g/dl Hct (37.0-47.0) % MCV (80.0-100.0) fL MCH (25.0-34.0) pg MCHC (32.0-36.0) g/dL RDW Std Deviation (36.4-46.3) fL RDW Coeff of Loli (11.5-14.5) % Plt Count (130-400) K/uL MPV (9.4-12.4) fL Immature Gran % (Auto) % Neut % (Auto) % Lymph % (Auto) % [place] % (Auto) % Eos % (Auto) % Baso % (Auto) % Neut # (Auto) (1.40-6.50) K/uL Lymph # (Auto) (1.20-3.40) K/uL [place] # (Auto) (0.11-0.59) K/uL Eos # (Auto) (0.00-0.50) K/uL Baso # (Auto) (0.00-0.20) K/uL Immature Gran # (Auto) (0.01-0.20) K/uL Sodium (136-145) mmol/L Potassium (3.5-5.1) mmol/L Chloride (98-107) mmol/L Carbon Dioxide (21-32) mmol/L Anion Gap (3-11) BUN (6-23) mg/dl Creatinine (0.6-1.2) mg/dl Est Cr Clr Drug Dosing ml/min eGFR BUN/Creatinine Ratio (10-20) Glucose (70-99(Fasting)) mg/dl POC Glucose 169 H 135 H 155 H (70-99) mg/dl Calcium (8.6-10.3) mg/dl Magnesium (1.7-2.4) mg/dl Total Bilirubin (0.2-1.0) mg/dl AST (13-39) U/L ALT (7-52) U/L Alkaline Phosphatase (34-104) U/L Total Protein (6.0-8.3) gm/dl Albumin (3.4-5.0) gm/dl Globulin (2.5-4.0) gm/dl Albumin/Globulin Ratio (0.9-2) 06/29/24 06/29/24 06/28/24 Range/Units 07:45 06:26 21:21 WBC (4.8-10.8) K/ul RBC (4.20-5.40) M/uL Hgb (12.0-16.0) g/dl Hct (37.0-47.0) % MCV (80.0-100.0) fL MCH (25.0-34.0) pg MCHC (32.0-36.0) g/dL RDW Std Deviation (36.4-46.3) fL RDW Coeff of Loli (11.5-14.5) % Plt Count (130-400) K/uL MPV (9.4-12.4) fL Immature Gran % (Auto) % Neut % (Auto) % Lymph % (Auto) % [place] % (Auto) % Eos % (Auto) % Baso % (Auto) % Neut # (Auto) (1.40-6.50) K/uL Lymph # (Auto) (1.20-3.40) K/uL [place] # (Auto) (0.11-0.59) K/uL Eos # (Auto) (0.00-0.50) K/uL Baso # (Auto) (0.00-0.20) K/uL Immature Gran # (Auto) (0.01-0.20) K/uL Sodium (136-145) mmol/L Potassium (3.5-5.1) mmol/L Chloride (98-107) mmol/L Carbon Dioxide (21-32) mmol/L Anion Gap (3-11) BUN (6-23) mg/dl Creatinine (0.6-1.2) mg/dl Est Cr Clr Drug Dosing ml/min eGFR BUN/Creatinine Ratio (10-20) Glucose (70-99(Fasting)) mg/dl POC Glucose 131 H 145 H 137 H (70-99) mg/dl Calcium (8.6-10.3) mg/dl Magnesium (1.7-2.4) mg/dl Total Bilirubin (0.2-1.0) mg/dl AST (13-39) U/L ALT (7-52) U/L Alkaline Phosphatase (34-104) U/L Total Protein (6.0-8.3) gm/dl Albumin (3.4-5.0) gm/dl Globulin (2.5-4.0) gm/dl Albumin/Globulin Ratio (0.9-2) 06/28/24 06/28/24 06/28/24 Range/Units 16:34 11:35 07:28 WBC (4.8-10.8) K/ul RBC (4.20-5.40) M/uL Hgb (12.0-16.0) g/dl Hct (37.0-47.0) % MCV (80.0-100.0) fL MCH (25.0-34.0) pg MCHC (32.0-36.0) g/dL RDW Std Deviation (36.4-46.3) fL RDW Coeff of Loli (11.5-14.5) % Plt Count (130-400) K/uL MPV (9.4-12.4) fL Immature Gran % (Auto) % Neut % (Auto) % Lymph % (Auto) % [place] % (Auto) % Eos % (Auto) % Baso % (Auto) % Neut # (Auto) (1.40-6.50) K/uL Lymph # (Auto) (1.20-3.40) K/uL [place] # (Auto) (0.11-0.59) K/uL Eos # (Auto) (0.00-0.50) K/uL Baso # (Auto) (0.00-0.20) K/uL Immature Gran # (Auto) (0.01-0.20) K/uL Sodium (136-145) mmol/L Potassium (3.5-5.1) mmol/L Chloride (98-107) mmol/L Carbon Dioxide (21-32) mmol/L Anion Gap (3-11) BUN (6-23) mg/dl Creatinine (0.6-1.2) mg/dl Est Cr Clr Drug Dosing ml/min eGFR BUN/Creatinine Ratio (10-20) Glucose (70-99(Fasting)) mg/dl POC Glucose 130 H 118 H 129 H (70-99) mg/dl Calcium (8.6-10.3) mg/dl Magnesium (1.7-2.4) mg/dl Total Bilirubin (0.2-1.0) mg/dl AST (13-39) U/L ALT (7-52) U/L Alkaline Phosphatase (34-104) U/L Total Protein (6.0-8.3) gm/dl Albumin (3.4-5.0) gm/dl Globulin (2.5-4.0) gm/dl Albumin/Globulin Ratio (0.9-2) 06/27/24 06/27/24 06/27/24 Range/Units 20:18 16:40 11:32 WBC (4.8-10.8) K/ul RBC (4.20-5.40) M/uL Hgb (12.0-16.0) g/dl Hct (37.0-47.0) % MCV (80.0-100.0) fL MCH (25.0-34.0) pg MCHC (32.0-36.0) g/dL RDW Std Deviation (36.4-46.3) fL RDW Coeff of Loli (11.5-14.5) % Plt Count (130-400) K/uL MPV (9.4-12.4) fL Immature Gran % (Auto) % Neut % (Auto) % Lymph % (Auto) % [place] % (Auto) % Eos % (Auto) % Baso % (Auto) % Neut # (Auto) (1.40-6.50) K/uL Lymph # (Auto) (1.20-3.40) K/uL [place] # (Auto) (0.11-0.59) K/uL Eos # (Auto) (0.00-0.50) K/uL Baso # (Auto) (0.00-0.20) K/uL Immature Gran # (Auto) (0.01-0.20) K/uL Sodium (136-145) mmol/L Potassium (3.5-5.1) mmol/L Chloride (98-107) mmol/L Carbon Dioxide (21-32) mmol/L Anion Gap (3-11) BUN (6-23) mg/dl Creatinine (0.6-1.2) mg/dl Est Cr Clr Drug Dosing ml/min eGFR BUN/Creatinine Ratio (10-20) Glucose (70-99(Fasting)) mg/dl POC Glucose 167 H 135 H 192 H (70-99) mg/dl Calcium (8.6-10.3) mg/dl Magnesium (1.7-2.4) mg/dl Total Bilirubin (0.2-1.0) mg/dl AST (13-39) U/L ALT (7-52) U/L Alkaline Phosphatase (34-104) U/L Total Protein (6.0-8.3) gm/dl Albumin (3.4-5.0) gm/dl Globulin (2.5-4.0) gm/dl Albumin/Globulin Ratio (0.9-2) 06/27/24 06/26/24 Range/Units 08:02 20:32 WBC 9.98 (4.8-10.8) K/ul RBC 3.94 L (4.20-5.40) M/uL Hgb 11.8 L (12.0-16.0) g/dl Hct 36.5 L (37.0-47.0) % MCV 92.6 (80.0-100.0) fL MCH 29.9 (25.0-34.0) pg MCHC 32.3 (32.0-36.0) g/dL RDW Std Deviation 46.2 (36.4-46.3) fL RDW Coeff of Loli 13.5 (11.5-14.5) % Plt Count 247 (130-400) K/uL MPV 11.3 (9.4-12.4) fL Immature Gran % (Auto) 1.3 % Neut % (Auto) 61.6 % Lymph % (Auto) 24.0 % [place] % (Auto) 10.4 % Eos % (Auto) 2.3 % Baso % (Auto) 0.4 % Neut # (Auto) 6.14 (1.40-6.50) K/uL Lymph # (Auto) 2.40 (1.20-3.40) K/uL [place] # (Auto) 1.04 H (0.11-0.59) K/uL Eos # (Auto) 0.23 (0.00-0.50) K/uL Baso # (Auto) 0.04 (0.00-0.20) K/uL Immature Gran # (Auto) 0.13 (0.01-0.20) K/uL Sodium 144 (136-145) mmol/L Potassium 3.9 (3.5-5.1) mmol/L Chloride 109 H (98-107) mmol/L Carbon Dioxide 29 (21-32) mmol/L Anion Gap 6 (3-11) BUN 29 H (6-23) mg/dl Creatinine 0.74 (0.6-1.2) mg/dl Est Cr Clr Drug Dosing 64.9 ml/min eGFR 79.73 BUN/Creatinine Ratio 39.2 H (10-20) Glucose 138 H (70-99(Fasting)) mg/dl POC Glucose 122 H 195 H (70-99) mg/dl Calcium 9.0 (8.6-10.3) mg/dl Magnesium 1.8 (1.7-2.4) mg/dl Total Bilirubin 1.1 H (0.2-1.0) mg/dl AST 20 (13-39) U/L ALT 14 (7-52) U/L Alkaline Phosphatase 53 (34-104) U/L Total Protein 6.2 (6.0-8.3) gm/dl Albumin 3.2 L (3.4-5.0) gm/dl Globulin 3.0 (2.5-4.0) gm/dl Albumin/Globulin Ratio 1.1 (0.9-2) Diagnostic Findings Cervical Spine CT 06/22/24 18:58 Exam(s): CT C SPINE EXAM: CT Cervical Spine Without Intravenous Contrast CLINICAL HISTORY: Reason for exam: Trauma. TECHNIQUE: Axial computed tomography images of the cervical spine without intravenous contrast. CTDI is 21.82 mGy and DLP is 423.06 mGy-cm. Automated exposure control was utilized for the study. A dose lowering technique was utilized adhering to the principles of ALARA. COMPARISON: None FINDINGS: Bones: Normal alignment. No acute fracture or bony lesion. Disc spaces: No subluxation. Degenerative changes of the spine. Soft tissues: Normal. Other: Atherosclerotic changes of the vasculature. IMPRESSION: No acute traumatic abnormality. Electronically signed by: Blane Collaoz M.D. 06/22/24 20:13 PM Chest X-Ray 06/22/24 18:58 Exam(s): XR CXR 1 VIEW EXAM: XR Chest, 1 View CLINICAL HISTORY: Reason for exam: Trauma. TECHNIQUE: Frontal view of the chest. COMPARISON: Chest radiograph on 10/23/2022 FINDINGS: Hardware: None. Lungs/pleura: Prominent lung markings. No focal consolidation. No pleural effusion or pneumothorax. Heart/mediastinum: Enlargement of the cardiac silhouette. Atherosclerotic changes in aorta. Soft tissues: Unremarkable. Bones: No acute fracture. Upper abdomen: Normal. IMPRESSION: Prominent lung markings may be secondary to technique versus pulmonary vasculature congestion. Electronically signed by: Blane Collazo M.D. 06/22/24 20:[address] 06/22/24 18:58 CR Exam(s): CT HEAD Without Contrast EXAM: CT Head Without Intravenous Contrast CLINICAL HISTORY: Reason for exam: Trauma. TECHNIQUE: Axial computed tomography images of the head/brain without intravenous contrast. CTDI is 38.49 mGy and DLP is 624.41 mGy-cm. Automated exposure control was utilized for the study. A dose lowering technique was utilized adhering to the principles of ALARA. COMPARISON: MRI brain on 06/22/2024 FINDINGS: Brain: No acute infarct identified. Trace acute subdural blood along the interhemispheric falx and right tentorium. No mass effect or midline shift. Scattered areas of hypoattenuation in the supratentorial white matter likely represent chronic small vessel ischemic changes. Ventricles and sulci: Prominence of the ventricles and sulci is likely secondary to cerebral volume loss. Bones: Normal. No bony lesion or acute fracture. Subcutaneous tissues: Normal. Sinuses: Normal. No air-fluid levels or mucosal thickening. Mastoid air cells: Normal. Orbits: Bilateral lens implants. Other: Atherosclerotic calcifications in the intracranial vasculature. IMPRESSION: 1. Trace acute subdural blood along the interhemispheric falx and right tentorium. 2. Chronic small vessel ischemic changes and cerebral volume loss. Communications: Call Doctor Intracranial Hemorrhage Electronically signed by: Blane Collazo M.D. 06/22/24 20:16 PM Pelvis X-Ray 06/22/24 18:58 Exam(s): XR PELVIS, 1-2 views EXAM: XR Pelvis, 1 or 2 Views CLINICAL HISTORY: Reason for exam: Trauma. TECHNIQUE: Frontal view of the pelvis. COMPARISON: Pelvis and hip radiographs on 08/11/2015 FINDINGS: Bones/joints: No displaced fracture or dislocation identified. Mild degenerative changes of the hips. No bony lesion. Soft tissues: Normal. No radiopaque foreign body identified. Other: Vascular calcifications. Stent noted over the lower lumbar spine. IMPRESSION: No displaced fracture or dislocation identified. Electronically signed by: Blane Collazo M.D. 06/22/24 20:[address] 06/23/24 08:00 CT OF THE HEAD WITHOUT CONTRAST CLINICAL HISTORY: subdural follow up COMPARISON STUDY: MRI of the brain and head CT June 22, 2024. CT DOSE: 688.24 mGy.cm TECHNIQUE: Helical axial images of the head were obtained without IV contrast. Automated exposure control was utilized for the study. A dose lowering technique was utilized adhering to the principles of ALARA. FINDINGS: Trace acute subdural hemorrhage along the right falx and right tentorium is unchanged. This measures 2 mm in thickness. The ventricular system is stable. White matter hypodensities are unchanged and represent small vessel disease. The basal cisterns are patent. No extra-axial collections are present. There are no findings to suggest acute dural sinus thrombosis or acute territorial infarct. No significant calvarial abnormalities are present. Visualized portions of the sinuses and mastoid air cells are clear. IMPRESSION: No change in trace acute subdural hemorrhage along the right falx and tentorium. ACT 112: Negative or not required by law. Electronically signed by: Kendell Perez M.D. 06/23/2024 10:55 AM Hip/Pelvis X-Ray 06/23/24 11:45 EXAM: Radiographs of the Right Hip 3 Views INDICATION: Full. TECHNIQUE: Front view pelvis and AP and frog leg lateral views of the right hip. COMPARISON: 06/22/2016 FINDINGS: Limitations: None. Bones/joints: No fracture, erosion or dislocation. Soft tissues: There is soft tissue contusion adjacent to the right proximal femur. No soft tissue gas collection or radiopaque foreign body. Atherosclerosis of the proximal thighs noted. There is a stent in the right common iliac artery. IMPRESSION: No evident fracture. If additional imaging is clinically warranted, CT is more sensitive. ACT 112: Negative or not required by law. Electronically signed by Eleanor Collazo 06-23-2024 3:50 PM Shoulder X-Ray 06/23/24 11:45 EXAM: Radiographs of the Left Shoulder Complete 3 views INDICATION: Trauma. TECHNIQUE: 3 views of the left shoulder. COMPARISON: Comparison made to chest x-ray including the left shoulder 10/23/2022 FINDINGS: Bones/joints: No fracture, subluxation or dislocation. Visualized left ribs intact. There is mild glenohumeral and acromioclavicular spurring. Probable mild glenohumeral narrowing. There is no change in a room sclerotic focus of lucent expansion of the anterior glenoid consistent with a chronic benign lesion or consequence of prior trauma. Soft tissues: No abnormality noted. No radiopaque foreign body noted. IMPRESSION: No acute abnormality of the left shoulder. ACT 112: Negative or not required by law. Electronically signed by Eleanor Collazo 06-23-2024 3:[address] 06/24/24 07:00 EXAM: CT head/brain wo con CLINICAL HISTORY: reassess subdural hematoma approx. 24 hour follow up jr TECHNIQUE: Axial noncontrast CT scan of the brain was performed from the skull base to the high parietal region, and sagittal and coronal reconstructed images were obtained. One of the following dose reduction techniques was utilized for this exam: Automated exposure control, adjustment of the mA and/or kV according to patient size, and use of iterative reconstruction. COMPARISON: 06/22/2024 FINDINGS: Posterior falx acute subdural hematoma measures 3.2 mm in depth. No definite intracerebral hematoma. No definite calvarium fractures. There are confluent ill-defined [id number] areas noted in the periventricular white matter as well as tiny hypodense areas in the subcortical white matter bilaterally, suggestive of microvascular ischemic changes. The ventricular system, cortical sulci, and basal cisterns are prominent and consistent with senile changes. The visualized brain parenchyma shows a normal appearance. Trevizo-white matter differentiation is maintained. No midline shifts or deformity. Normal CT appearance of the posterior fossa structures namely the cerebellar hemispheres, brainstem, and cerebellar peduncles. The IACs are unremarkable. The cerebello-pontine angles are clear. The osseous structures in the skull base are unremarkable. The scanned paranasal sinuses are clear. Atherosclerotic calcifications of the vertebral arteries are noted. IMPRESSION: 1. Posterior falx acute subdural hematoma measures 3.2 mm in depth. Unchanged. 2. No definite intracerebral hematomas. 3. Microvascular ischemic changes and senile changes. 4. No significant interval changes. 5. MRI with diffusion imaging is advised to detect any acute evolving ischemic insult if clinically warranted. Electronically signed by Ez Mcguire 06-24-2024 08:25 AM Chest X-Ray 06/24/24 11:06 XR chest 2V PA/lateral CLINICAL HISTORY: ?CHF ?PNEUMONIA COMPARISON STUDY: Chest CT October 23, 2022. Chest radiograph June 22, 2024. FINDINGS: The patient is mildly rotated. Lung volumes are normal. Lungs are clear. There is no pneumothorax or pleural effusion. Cardiomegaly is unchanged. Mediastinal contours are normal. There is no evidence for pulmonary edema. IMPRESSION: No acute cardiopulmonary findings. Stable cardiomegaly. No radiographic evidence for pulmonary edema. ACT 112: Negative or not required by law. Electronically signed by: Kendell Perez M.D. 06/24/2024 12:[address] 06/26/24 10:32 CT OF THE HEAD WITHOUT CONTRAST CLINICAL HISTORY: change in mentation, SDH COMPARISON STUDY: MRI of the brain June 22, [address] June 24, 2024. CT DOSE: 859.95 mGy.cm TECHNIQUE: Helical axial images of the head were obtained without IV contrast. Automated exposure control was utilized for the study. A dose lowering technique was utilized adhering to the principles of ALARA. FINDINGS: This exam is mildly compromised by motion artifact trace acute subdural hemorrhage along the posterior falx and right aspect of the tentorium is unchanged. No new sites of hemorrhage are present. There is no mass effect. Ventricular system is stable. Basal cisterns are patent. There are no findings to suggest acute dural sinus thrombosis or acute territorial infarct. White matter hypodensities are unchanged and favor small vessel disease. IMPRESSION: 1. No change in trace acute subdural hemorrhage along the posterior falx and right tentorium. No new sites of hemorrhage. 2. No change in appearance of the brain. Exam mildly compromised by motion artifact. ACT 112: Negative or not required by law. Electronically signed by: Kendell Perez M.D. 06/26/2024 11:25 AM PG Care Time/CCT Total # of Minutes Spent Total Time Spent: 45 Total Time Spent with Patient: Total time spent is greater than 50% in coordination of care (as documented) at patient's floor/unit and/or counseling patient: [place] [address] SUB INP/OBS CARE 3/50MIN Patient Type Established History Comprehensive Exam Comprehensive Medical Decision Making High Complexity Diagnoses Falls frequently R29.6 Dementia F03.90 Acute alteration in mental status R41.82 Visual hallucinations R44.1 Auditory hallucinations R44.0 Palliative care by specialist Z51.5
[2024-07-04 10:43] LABS: Hematocrit (blood only) 33.6 % (37.0-47.0); Hemoglobin 11.3 g/dl (12.0-16.0); Mean Corpuscular Hemoglobin 30.4 pg (25.0-34.0); Mean Corpuscular Hgb Conc 33.6 g/dL (32.0-36.0); Mean Corpuscular Volume 90.3 fL (80.0-100.0); Mean Platelet Volume 10.7 fL (9.4-12.4); Platelet Count 266 K/uL (130-400); RDW Coefficient of Variation 13.2 % (11.5-14.5); Red Blood Count 3.72 M/uL (4.20-5.40); White Blood Count 8.18 K/ul (4.8-10.8)
[2024-07-04 10:58] LABS: BUN Creatinine Ratio 34.6 (10-20); Calcium 9.2 mg/dl (8.6-10.3); Creatinine Clr Calc Pharmacy 59.7 ml/min; Magnesium 1.8 mg/dl (1.7-2.4); Potassium 3.7 mmol/L (3.5-5.1)
--- NOTE | 2024-07-04 11:42 | Hospitalist Progress Note ---
Date of Service July 04, 2024 Assessment & Plan (1) Acute subdural hematoma: (2) Falls frequently: (3) Dementia: (4) Visual hallucinations: (5) Auditory hallucinations: (6) Hypothyroidism: (7) COPD (chronic obstructive pulmonary disease): (8) Urge and stress incontinence: (9) Type 2 diabetes mellitus: (10) Peripheral vascular disease: (11) Atrial fibrillation: (12) CAD (coronary artery disease): (13) Essential hypertension: Plan 84-year-old female with past medical history of dementia, hypothyroidism, COPD, type 2 diabetes mellitus, atrial fibrillation on anticoagulation with Xarelto, coronary artery disease status post stents, peripheral vascular disease status post stent, urinary urge and stress incontinence, dementia who has been having recurrent falls, visual and auditory hallucinations with 2 recent falls on 06/19/2024 and , 06/21/2024 with outpatient MRI showing trace acute/subacute subdural hematoma. She was sent to the ED and CT scan was reviewed by neurosurgery at [facility], neurosurgery recommended monitoring at [facility] along with giving Kcentra for reversal of Xarelto which she received in ED #Acute metabolic encephalopathy: Likely secondary to fall with head trauma, subdural hematoma and underlying UTI in setting of dementia: Present on admission #Acute/subacute subdural hematoma #Recurrent falls #Dementia #Auditory/visual hallucinations Outpatient MRI showed acute/subacute subdural hematoma ED discussed this with neurosurgery at [facility] (Dr. Rosales) who reviewed MRI and repeat CT done in ED and showed no significant change and recommended Xarelto reversal with Kcentra and monitoring at [facility] without need to transfer at present. Patient received Kcentra in ED H&H is stable Monitor orthostatic vital signs: Patient's blood pressure drops when she stands B12 is 440 TSH is 1.787 Folate is greater than 22.3 Neurology saw the patient and recommended blood pressure control, repeat head CT this morning which did not show any change and have recommended waiting minimum 4 weeks before starting anticoagulation therapy and only if patient is clinically stable and follow-up imaging is reassuring Psychiatry saw the patient Psychiatry recommendations are as follows -Continue Paxil, start mirtazapine 7.5 mg p.o. nightly and can later titrate as needed up to 15 mg nightly to help with recent increase anxiety and insomnia. -discontinue lorazepam on discharge and avoid benzodiazepines -if auditory hallucinations and visual hallucinations become more distressing, could consider use of Abilify 2.5 mg daily or Seroquel 12.5 mg nightly though caution given increased risk of mortality in setting of dementia. -Do not use Haldol given concern for Lewy body dementia and EPS risk. For behavioral emergency, could trial Seroquel 12.5 mg p.o. twice daily as needed for agitation or olanzapine 2.5 mg IM x 1 (do not exceed 10 mg per 24 hours and check EKG if IM dose required) As discussed with patient's family including and daughter on 06/24/2024: Seroquel 12.5 mg p.o. nightly was started: They are aware of the increased risk of mortality #Coronary artery disease status post LAD and RCA stent in May 2022 #Essential hypertension #Hyperlipidemia #Chronic atrial fibrillation on anticoagulation Xarelto #Peripheral vascular disease status post stent Outpatient bushler is Dr. Wiggins Outpatient vascular surgeon is Dr. Samara Lawrence held secondary to subdural hematoma Continue metoprolol for rate control Continue statin 2D echo from September 2022 shows EF of 55% with mild tricuspid regurgitation #Hypothyroidism TSH is 1.787 Continue levothyroxine 50 mcg p.o. daily #Type 2 diabetes mellitus A1c 6.2 Diabetic diet Accu-Cheks before every meal and nightly with sliding scale insulin coverage Monitor glycemic control #COPD Patient not in acute exacerbation Chest x-ray did not show any evidence of infiltrates or consolidation or vascular congestion #Hypomagnesemia Magnesium replacement as needed Monitor levels intermittently #Urinary stress and urge incontinence #Urinary tract infection Outpatient urologist Dr. Rollins Patient is scheduled for outpatient procedure with Dr. Rollins on 07/05/2024 Urine culture from 06/23/2024 shows Klebsiella pneumoniae Patient finished 5 days of IV ceftriaxone CODE STATUS: Full code DVT prophylaxis: Bilateral SCDs, avoid chemical prophylaxis Discharge planning to short-term rehab when bed available: Patient is medically stable for discharge Care plan discussed with patient, nursing staff message left for Vargas ([phone]) to update on the phone Admission and Anticipated Discharge Date Admission Date: June 22, 2024 Subjective Patient seen and examined Labs reviewed No new complaints: Resting comfortably Physical Exam Physical Exam: General: No acute distress Psych: Awake and oriented to place and self HEENT: Anicteric sclera, moist oral mucosa CVS: irregular rate and rhythm Lungs: Bilateral air entry, no wheezing noted Abdomen: Soft, nontender, no rebound, no guarding Ext: No lower extremity edema, no calf tenderness, right hip ecchymosis improving, no tenderness noted Results & Data Results & Data Vital Signs (Past 12 Hours) Vital Signs Temp Pulse Resp BP Pulse Ox O2 Del Method 07/04/24 07:31 36.4 C L 51 L 18 140/60 95 Room Air Laboratory Results Laboratory Results - last 24 hr 07/03/24 07/03/24 07/04/24 16:41 21:04 07:27 WBC RBC Hgb Hct MCV MCH MCHC RDW Std Deviation RDW Coeff of Loli Plt Count MPV Sodium Potassium Chloride Carbon Dioxide Anion Gap BUN Creatinine Est Cr Clr Drug Dosing eGFR BUN/Creatinine Ratio Glucose POC Glucose 132 H 103 H 147 H Calcium Magnesium 07/04/24 07/04/24 10:08 11:09 WBC 8.18 RBC 3.72 L Hgb 11.3 L Hct 33.6 L MCV 90.3 MCH 30.4 MCHC 33.6 RDW Std Deviation 43.0 RDW Coeff of Loli 13.2 Plt Count 266 MPV 10.7 Sodium 140 Potassium 3.7 Chloride 106 Carbon Dioxide 29 Anion Gap 5 BUN 28 H Creatinine 0.81 Est Cr Clr Drug Dosing 59.7 eGFR 71.54 BUN/Creatinine Ratio 34.6 H Glucose 185 H POC Glucose 184 H Calcium 9.2 Magnesium 1.8 PG Care Time/CCT Total # of Minutes Spent Total Time Spent with Patient: Total time spent is greater than 50% in coordination of care (as documented) at patient's floor/unit and/or counseling patient: Coding Level of Care Code 71304 SUB INP/OBS CARE 08/25MIN Diagnoses Acute subdural hematoma S06.5XAA Falls frequently R29.6 Dementia F03.90 Visual hallucinations R44.1 Auditory hallucinations R44.0 Hypothyroidism E03.9 Chronic obstructive pulmonary disease, unspecified COPD type J44.9 COPD type: unspecified COPD Urge and stress incontinence N39.46 Type 2 diabetes mellitus with other circulatory complication, without long-term current use of insulin E11.59 Diabetes mellitus complication detail: with other circulatory complications Diabetes mellitus complication status: with circulatory complication Diabetes mellitus roasterman insulin use: without roasterman use Peripheral vascular disease I73.9 Chronic atrial fibrillation I48.20 Atrial fibrillation type: unspecified chronic CAD (coronary artery disease) I25.10 Essential hypertension I10 (7) COPD (chronic obstructive pulmonary disease) COPD type: unspecified COPD Qualified Code(s): J44.9 - Chronic obstructive pulmonary disease, unspecified (9) Type 2 diabetes mellitus Diabetes mellitus complication detail: with other circulatory complications Diabetes mellitus complication status: with circulatory complication Diabetes mellitus roasterman insulin use: without roasterman use Qualified Code(s): E11.59 - Type 2 diabetes mellitus with other circulatory complications (11) Atrial fibrillation Atrial fibrillation type: unspecified chronic Qualified Code(s): I48.20 - Chronic atrial fibrillation, unspecified
--- NOTE | 2024-07-05 10:14 | Hospitalist Progress Note ---
Date of Service July 05, 2024 Assessment & Plan (1) Acute subdural hematoma: (2) Falls frequently: (3) Dementia: (4) Visual hallucinations: (5) Auditory hallucinations: (6) Hypothyroidism: (7) COPD (chronic obstructive pulmonary disease): (8) Urge and stress incontinence: (9) Type 2 diabetes mellitus: (10) Peripheral vascular disease: (11) Atrial fibrillation: (12) CAD (coronary artery disease): (13) Essential hypertension: Plan 84-year-old female with past medical history of dementia, hypothyroidism, COPD, type 2 diabetes mellitus, atrial fibrillation on anticoagulation with Xarelto, coronary artery disease status post stents, peripheral vascular disease status post stent, urinary urge and stress incontinence, dementia who has been having recurrent falls, visual and auditory hallucinations with 2 recent falls on 06/19/2024 and , 06/21/2024 with outpatient MRI showing trace acute/subacute subdural hematoma. She was sent to the ED and CT scan was reviewed by neurosurgery at [facility], neurosurgery recommended monitoring at [facility] along with giving Kcentra for reversal of Xarelto which she received in ED #Acute metabolic encephalopathy: Likely secondary to fall with head trauma, subdural hematoma and underlying UTI in setting of dementia: Present on admission #Acute/subacute subdural hematoma #Recurrent falls #Dementia #Auditory/visual hallucinations Outpatient MRI showed acute/subacute subdural hematoma ED discussed this with neurosurgery at [facility] (Dr. Rosales) who reviewed MRI and repeat CT done in ED and showed no significant change and recommended Xarelto reversal with Kcentra and monitoring at [facility] without need to transfer at present. Patient received Kcentra in ED H&H is stable Monitor orthostatic vital signs: Patient's blood pressure drops when she stands B12 is 440 TSH is 1.787 Folate is greater than 22.3 Neurology saw the patient and recommended blood pressure control, repeat head CT this morning which did not show any change and have recommended waiting minimum 4 weeks before starting anticoagulation therapy and only if patient is clinically stable and follow-up imaging is reassuring Psychiatry saw the patient Psychiatry recommendations are as follows -Continue Paxil, start mirtazapine 7.5 mg p.o. nightly and can later titrate as needed up to 15 mg nightly to help with recent increase anxiety and insomnia. -discontinue lorazepam on discharge and avoid benzodiazepines -if auditory hallucinations and visual hallucinations become more distressing, could consider use of Abilify 2.5 mg daily or Seroquel 12.5 mg nightly though caution given increased risk of mortality in setting of dementia. -Do not use Haldol given concern for Lewy body dementia and EPS risk. For behavioral emergency, could trial Seroquel 12.5 mg p.o. twice daily as needed for agitation or olanzapine 2.5 mg IM x 1 (do not exceed 10 mg per 24 hours and check EKG if IM dose required) As discussed with patient's family including and daughter on 06/24/2024: Seroquel 12.5 mg p.o. nightly was started: They are aware of the increased risk of mortality #Coronary artery disease status post LAD and RCA stent in May 2022 #Essential hypertension #Hyperlipidemia #Chronic atrial fibrillation on anticoagulation Xarelto #Peripheral vascular disease status post stent Outpatient coal washer tender is Dr. Wiggins Outpatient vascular surgeon is Dr. Samara Lawrence held secondary to subdural hematoma Continue metoprolol for rate control Continue statin 2D echo from September 2022 shows EF of 55% with mild tricuspid regurgitation #Hypothyroidism TSH is 1.787 Continue levothyroxine 50 mcg p.o. daily #Type 2 diabetes mellitus A1c 6.2 Diabetic diet Accu-Cheks before every meal and nightly with sliding scale insulin coverage Monitor glycemic control #COPD Patient not in acute exacerbation Chest x-ray did not show any evidence of infiltrates or consolidation or vascular congestion #Hypomagnesemia Magnesium replacement as needed Monitor levels intermittently #Urinary stress and urge incontinence #Urinary tract infection Outpatient urologist Dr. Rollins Patient was scheduled for outpatient procedure with Dr. Rollins on 07/06/2024: Received message from urology via secure chat today that they have canceled appointment and will reschedule as needed Urine culture from 06/23/2024 shows Klebsiella pneumoniae Patient finished 5 days of IV ceftriaxone CODE STATUS: Full code DVT prophylaxis: Bilateral SCDs, avoid chemical prophylaxis Discharge planning to short-term rehab when bed available: Patient is medically stable for discharge Care plan discussed with patient, nursing staff Vargas ([phone]) updated on the phone Admission and Anticipated Discharge Date Admission Date: June 22, 2024 Subjective Patient seen and examined No new complaints Sitting in a chair resting comfortably Physical Exam Physical Exam: General: No acute distress Psych: Awake and oriented to place and self HEENT: Anicteric sclera, moist oral mucosa CVS: irregular rate and rhythm Lungs: Bilateral air entry, no wheezing noted Abdomen: Soft, nontender, no rebound, no guarding Ext: No lower extremity edema, no calf tenderness, right hip ecchymosis improving, no tenderness noted Results & Data Results & Data Vital Signs (Past 12 Hours) Vital Signs Temp Pulse Pulse Resp BP Pulse Ox O2 Del Method 07/05/24 08:06 36.6 C 74 18 102/67 93 Room Air 07/05/24 06:19 36.8 C 96 H 16 131/68 94 Room Air 07/05/24 06:17 98 H 16 132/72 85 L Room Air 07/05/24 06:16 36.8 C 75 16 154/77 H 95 Room Air PG Care Time/CCT Total # of Minutes Spent Total Time Spent with Patient: Total time spent is greater than 50% in coordination of care (as documented) at patient's floor/unit and/or counseling patient: Coding Level of Care Code 90320 SUB INP/OBS CARE 08/25MIN Diagnoses Acute subdural hematoma S06.5XAA Falls frequently R29.6 Dementia F03.90 Visual hallucinations R44.1 Auditory hallucinations R44.0 Hypothyroidism E03.9 Chronic obstructive pulmonary disease, unspecified COPD type J44.9 COPD type: unspecified COPD Urge and stress incontinence N39.46 Type 2 diabetes mellitus with other circulatory complication, without long-term current use of insulin E11.59 Diabetes mellitus complication detail: with other circulatory complications Diabetes mellitus complication status: with circulatory complication Diabetes mellitus chcf insulin use: without chcf use Peripheral vascular disease I73.9 Chronic atrial fibrillation I48.20 Atrial fibrillation type: unspecified chronic CAD (coronary artery disease) I25.10 Essential hypertension I10 (7) COPD (chronic obstructive pulmonary disease) COPD type: unspecified COPD Qualified Code(s): J44.9 - Chronic obstructive pulmonary disease, unspecified (9) Type 2 diabetes mellitus Diabetes mellitus complication detail: with other circulatory complications Diabetes mellitus complication status: with circulatory complication Diabetes mellitus chcf insulin use: without chcf use Qualified Code(s): E11.59 - Type 2 diabetes mellitus with other circulatory complications (11) Atrial fibrillation Atrial fibrillation type: unspecified chronic Qualified Code(s): I48.20 - Chronic atrial fibrillation, unspecified
--- NOTE | 2024-07-06 09:40 | Hospitalist Progress Note ---
Date of Service July 06, 2024 Assessment & Plan (1) Acute subdural hematoma: (2) Falls frequently: (3) Dementia: (4) Visual hallucinations: (5) Auditory hallucinations: (6) Hypothyroidism: (7) COPD (chronic obstructive pulmonary disease): (8) Urge and stress incontinence: (9) Type 2 diabetes mellitus: (10) Peripheral vascular disease: (11) Atrial fibrillation: (12) CAD (coronary artery disease): (13) Essential hypertension: Plan 84-year-old female with past medical history of dementia, hypothyroidism, COPD, type 2 diabetes mellitus, atrial fibrillation on anticoagulation with Xarelto, coronary artery disease status post stents, peripheral vascular disease status post stent, urinary urge and stress incontinence, dementia who has been having recurrent falls, visual and auditory hallucinations with 2 recent falls on 06/19/2024 and , 06/21/2024 with outpatient MRI showing trace acute/subacute subdural hematoma. She was sent to the ED and CT scan was reviewed by neurosurgery at [facility], neurosurgery recommended monitoring at [facility] along with giving Kcentra for reversal of Xarelto which she received in ED #Acute metabolic encephalopathy: Likely secondary to fall with head trauma, subdural hematoma and underlying UTI in setting of dementia: Present on admission #Acute/subacute subdural hematoma #Recurrent falls #Dementia #Auditory/visual hallucinations Outpatient MRI showed acute/subacute subdural hematoma ED discussed this with neurosurgery at [facility] (Dr. Rosales) who reviewed MRI and repeat CT done in ED and showed no significant change and recommended Xarelto reversal with Kcentra and monitoring at [facility] without need to transfer at present. Patient received Kcentra in ED H&H is stable Monitor orthostatic vital signs: Patient's blood pressure drops when she stands B12 is 440 TSH is 1.787 Folate is greater than 22.3 Neurology saw the patient and recommended blood pressure control, repeat head CT this morning which did not show any change and have recommended waiting minimum 4 weeks before starting anticoagulation therapy and only if patient is clinically stable and follow-up imaging is reassuring Psychiatry saw the patient Psychiatry recommendations are as follows -Continue Paxil, start mirtazapine 7.5 mg p.o. nightly and can later titrate as needed up to 15 mg nightly to help with recent increase anxiety and insomnia. -discontinue lorazepam on discharge and avoid benzodiazepines -if auditory hallucinations and visual hallucinations become more distressing, could consider use of Abilify 2.5 mg daily or Seroquel 12.5 mg nightly though caution given increased risk of mortality in setting of dementia. -Do not use Haldol given concern for Lewy body dementia and EPS risk. For behavioral emergency, could trial Seroquel 12.5 mg p.o. twice daily as needed for agitation or olanzapine 2.5 mg IM x 1 (do not exceed 10 mg per 24 hours and check EKG if IM dose required) As discussed with patient's family including and daughter on 06/24/2024: Seroquel 12.5 mg p.o. nightly was started: They are aware of the increased risk of mortality #Coronary artery disease status post LAD and RCA stent in May 2022 #Essential hypertension #Hyperlipidemia #Chronic atrial fibrillation on anticoagulation Xarelto #Peripheral vascular disease status post stent Outpatient senior architect is Dr. Wiggins Outpatient vascular surgeon is Dr. Samara Lawrence held secondary to subdural hematoma Continue metoprolol for rate control Continue statin 2D echo from September 2022 shows EF of 55% with mild tricuspid regurgitation #Hypothyroidism TSH is 1.787 Continue levothyroxine 50 mcg p.o. daily #Type 2 diabetes mellitus A1c 6.2 Diabetic diet Accu-Cheks before every meal and nightly with sliding scale insulin coverage Monitor glycemic control #COPD Patient not in acute exacerbation Chest x-ray did not show any evidence of infiltrates or consolidation or vascular congestion #Hypomagnesemia Magnesium replacement as needed Monitor levels intermittently #Urinary stress and urge incontinence #Urinary tract infection Outpatient urologist Dr. Rollins Patient was scheduled for outpatient procedure with Dr. Rollins on 07/06/2024: Received message from urology via secure chat today that they have canceled appointment and will reschedule as needed Urine culture from 06/23/2024 shows Klebsiella pneumoniae Patient finished 5 days of IV ceftriaxone CODE STATUS: Full code DVT prophylaxis: Bilateral SCDs, avoid chemical prophylaxis Discharge planning to short-term rehab when bed available: Patient is medically stable for discharge Care plan discussed with patient, nursing staff Vargas ([phone]) updated on the phone yesterday, no new updates Admission and Anticipated Discharge Date Admission Date: June 22, 2024 Subjective Patient seen and examined No new complaints Resting comfortably Physical Exam Physical Exam: General: No acute distress Psych: Awake and oriented to place and self HEENT: Anicteric sclera, moist oral mucosa CVS: irregular rate and rhythm Lungs: Bilateral air entry, no wheezing noted Abdomen: Soft, nontender, no rebound, no guarding Ext: No lower extremity edema Results & Data Results & Data Vital Signs (Past 12 Hours) Vital Signs Temp Pulse Resp BP Pulse Ox O2 Del Method 07/06/24 07:25 36.7 C 66 16 133/63 97 Room Air PG Care Time/CCT Total # of Minutes Spent Total Time Spent with Patient: Total time spent is greater than 50% in coordination of care (as documented) at patient's floor/unit and/or counseling patient: Coding Level of Care Code 88839 SUB INP/OBS CARE 08/25MIN Diagnoses Acute subdural hematoma S06.5XAA Falls frequently R29.6 Dementia F03.90 Visual hallucinations R44.1 Auditory hallucinations R44.0 Hypothyroidism E03.9 Chronic obstructive pulmonary disease, unspecified COPD type J44.9 COPD type: unspecified COPD Urge and stress incontinence N39.46 Type 2 diabetes mellitus with other circulatory complication, without long-term current use of insulin E11.59 Diabetes mellitus complication detail: with other circulatory complications Diabetes mellitus complication status: with circulatory complication Diabetes mellitus laborer marine terminal insulin use: without laborer marine terminal use Peripheral vascular disease I73.9 Chronic atrial fibrillation I48.20 Atrial fibrillation type: unspecified chronic CAD (coronary artery disease) I25.10 Essential hypertension I10 (7) COPD (chronic obstructive pulmonary disease) COPD type: unspecified COPD Qualified Code(s): J44.9 - Chronic obstructive pulmonary disease, unspecified (9) Type 2 diabetes mellitus Diabetes mellitus complication detail: with other circulatory complications Diabetes mellitus complication status: with circulatory complication Diabetes mellitus residential insulin use: without laborer marine terminal use Qualified Code(s): E11.59 - Type 2 diabetes mellitus with other circulatory complications (11) Atrial fibrillation Atrial fibrillation type: unspecified chronic Qualified Code(s): I48.20 - Chronic atrial fibrillation, unspecified
--- NOTE | 2024-07-07 10:42 | Hospitalist Progress Note ---
Date of Service July 07, 2024 Assessment & Plan (1) Acute subdural hematoma: (2) Falls frequently: (3) Dementia: (4) Visual hallucinations: (5) Auditory hallucinations: (6) Hypothyroidism: (7) COPD (chronic obstructive pulmonary disease): (8) Urge and stress incontinence: (9) Type 2 diabetes mellitus: (10) Peripheral vascular disease: (11) Atrial fibrillation: (12) CAD (coronary artery disease): (13) Essential hypertension: Plan 84-year-old female with past medical history of dementia, hypothyroidism, COPD, type 2 diabetes mellitus, atrial fibrillation on anticoagulation with Xarelto, coronary artery disease status post stents, peripheral vascular disease status post stent, urinary urge and stress incontinence, dementia who has been having recurrent falls, visual and auditory hallucinations with 2 recent falls on 06/19/2024 and , 06/21/2024 with outpatient MRI showing trace acute/subacute subdural hematoma. She was sent to the ED and CT scan was reviewed by neurosurgery at [facility], neurosurgery recommended monitoring at [facility] along with giving Kcentra for reversal of Xarelto which she received in ED #Acute metabolic encephalopathy: Likely secondary to fall with head trauma, subdural hematoma and underlying UTI in setting of dementia: Present on admission #Acute/subacute subdural hematoma #Recurrent falls #Dementia #Auditory/visual hallucinations Outpatient MRI showed acute/subacute subdural hematoma ED discussed this with neurosurgery at [facility] (Dr. Rosales) who reviewed MRI and repeat CT done in ED and showed no significant change and recommended Xarelto reversal with Kcentra and monitoring at [facility] without need to transfer at present. Patient received Kcentra in ED H&H is stable Monitor orthostatic vital signs: Patient's blood pressure drops when she stands B12 is 440 TSH is 1.787 Folate is greater than 22.3 Neurology saw the patient and recommended blood pressure control, repeat head CT this morning which did not show any change and have recommended waiting minimum 4 weeks before starting anticoagulation therapy and only if patient is clinically stable and follow-up imaging is reassuring Psychiatry saw the patient Psychiatry recommendations are as follows -Continue Paxil, start mirtazapine 7.5 mg p.o. nightly and can later titrate as needed up to 15 mg nightly to help with recent increase anxiety and insomnia. -discontinue lorazepam on discharge and avoid benzodiazepines -if auditory hallucinations and visual hallucinations become more distressing, could consider use of Abilify 2.5 mg daily or Seroquel 12.5 mg nightly though caution given increased risk of mortality in setting of dementia. -Do not use Haldol given concern for Lewy body dementia and EPS risk. For behavioral emergency, could trial Seroquel 12.5 mg p.o. twice daily as needed for agitation or olanzapine 2.5 mg IM x 1 (do not exceed 10 mg per 24 hours and check EKG if IM dose required) As discussed with patient's family including and daughter on 06/24/2024: Seroquel 12.5 mg p.o. nightly was started: They are aware of the increased risk of mortality #Coronary artery disease status post LAD and RCA stent in May 2022 #Essential hypertension #Hyperlipidemia #Chronic atrial fibrillation on anticoagulation Xarelto #Peripheral vascular disease status post stent Outpatient director fundraising is Dr. Wiggins Outpatient vascular surgeon is Dr. Samara Lawrence held secondary to subdural hematoma Continue metoprolol for rate control Continue statin 2D echo from September 2022 shows EF of 55% with mild tricuspid regurgitation #Hypothyroidism TSH is 1.787 Continue levothyroxine 50 mcg p.o. daily #Type 2 diabetes mellitus A1c 6.2 Diabetic diet Accu-Cheks before every meal and nightly with sliding scale insulin coverage Monitor glycemic control #COPD Patient not in acute exacerbation Chest x-ray did not show any evidence of infiltrates or consolidation or vascular congestion #Hypomagnesemia Magnesium replacement as needed Monitor levels intermittently #Urinary stress and urge incontinence #Urinary tract infection Outpatient urologist Dr. Rollins Patient was scheduled for outpatient procedure with Dr. Rollins on 07/06/2024: Received message from urology via secure chat today that they have canceled appointment and will reschedule as needed Urine culture from 06/23/2024 shows Klebsiella pneumoniae Patient finished 5 days of IV ceftriaxone CODE STATUS: Full code DVT prophylaxis: Bilateral SCDs, avoid chemical prophylaxis Discharge planning to short-term rehab when bed available: Patient is medically stable for discharge Care plan discussed with patient, nursing staff Vargas ([phone]) updated on the phone on 07/05, no new updates Admission and Anticipated Discharge Date Admission Date: June 22, 2024 Subjective Patient seen and examined No new complaints Physical Exam Physical Exam: General: No acute distress Psych: Awake and oriented to place and self HEENT: Anicteric sclera, moist oral mucosa CVS: irregular rate and rhythm Lungs: Bilateral air entry, no wheezing noted Abdomen: Soft, nontender, no rebound, no guarding Ext: No lower extremity edema Results & Data Results & Data Vital Signs (Past 12 Hours) Vital Signs Temp Pulse Resp BP Pulse Ox O2 Del Method 07/07/24 09:39 36.6 C 79 16 169/69 H Room Air 07/07/24 08:55 79 169/69 H 07/07/24 07:33 36.2 C L 59 L 16 152/56 H 97 Room Air PG Care Time/CCT Total # of Minutes Spent Total Time Spent with Patient: Total time spent is greater than 50% in coordination of care (as documented) at patient's floor/unit and/or counseling patient: Coding Level of Care Code 18901 SUB INP/OBS CARE 08/25MIN Diagnoses Acute subdural hematoma S06.5XAA Falls frequently R29.6 Dementia F03.90 Visual hallucinations R44.1 Auditory hallucinations R44.0 Hypothyroidism E03.9 Chronic obstructive pulmonary disease, unspecified COPD type J44.9 COPD type: unspecified COPD Urge and stress incontinence N39.46 Type 2 diabetes mellitus with other circulatory complication, without long-term current use of insulin E11.59 Diabetes mellitus complication detail: with other circulatory complications Diabetes mellitus complication status: with circulatory complication Diabetes mellitus residential insulin use: without termite treater use Peripheral vascular disease I73.9 Chronic atrial fibrillation I48.20 Atrial fibrillation type: unspecified chronic CAD (coronary artery disease) I25.10 Essential hypertension I10 (7) COPD (chronic obstructive pulmonary disease) COPD type: unspecified COPD Qualified Code(s): J44.9 - Chronic obstructive pulmonary disease, unspecified (9) Type 2 diabetes mellitus Diabetes mellitus complication detail: with other circulatory complications Diabetes mellitus complication status: with circulatory complication Diabetes mellitus termite treater insulin use: without termite treater use Qualified Code(s): E11.59 - Type 2 diabetes mellitus with other circulatory complications (11) Atrial fibrillation Atrial fibrillation type: unspecified chronic Qualified Code(s): I48.20 - Chronic atrial fibrillation, unspecified
--- NOTE | 2024-07-08 09:53 | Hospitalist Progress Note ---
Date of Service July 08, 2024 Assessment & Plan (1) Acute subdural hematoma: (2) Falls frequently: (3) Dementia: (4) Visual hallucinations: (5) Auditory hallucinations: (6) Hypothyroidism: (7) COPD (chronic obstructive pulmonary disease): (8) Urge and stress incontinence: (9) Type 2 diabetes mellitus: (10) Peripheral vascular disease: (11) Atrial fibrillation: (12) CAD (coronary artery disease): (13) Essential hypertension: Plan 84-year-old female with past medical history of dementia, hypothyroidism, COPD, type 2 diabetes mellitus, atrial fibrillation on anticoagulation with Xarelto, coronary artery disease status post stents, peripheral vascular disease status post stent, urinary urge and stress incontinence, dementia who has been having recurrent falls, visual and auditory hallucinations with 2 recent falls on 06/19/2024 and , 06/21/2024 with outpatient MRI showing trace acute/subacute subdural hematoma. She was sent to the ED and CT scan was reviewed by neurosurgery at [facility], neurosurgery recommended monitoring at [facility] along with giving Kcentra for reversal of Xarelto which she received in ED #Acute metabolic encephalopathy: Likely secondary to fall with head trauma, subdural hematoma and underlying UTI in setting of dementia: Present on admission #Acute/subacute subdural hematoma #Recurrent falls #Dementia #Auditory/visual hallucinations Outpatient MRI showed acute/subacute subdural hematoma ED discussed this with neurosurgery at [facility] (Dr. Rosales) who reviewed MRI and repeat CT done in ED and showed no significant change and recommended Xarelto reversal with Kcentra and monitoring at [facility] without need to transfer at present. Patient received Kcentra in ED H&H is stable Monitor orthostatic vital signs: Patient's blood pressure drops when she stands B12 is 440 TSH is 1.787 Folate is greater than 22.3 Neurology saw the patient and recommended blood pressure control, repeat head CT this morning which did not show any change and have recommended waiting minimum 4 weeks before starting anticoagulation therapy and only if patient is clinically stable and follow-up imaging is reassuring Psychiatry saw the patient Psychiatry recommendations are as follows -Continue Paxil, start mirtazapine 7.5 mg p.o. nightly and can later titrate as needed up to 15 mg nightly to help with recent increase anxiety and insomnia. -discontinue lorazepam on discharge and avoid benzodiazepines -if auditory hallucinations and visual hallucinations become more distressing, could consider use of Abilify 2.5 mg daily or Seroquel 12.5 mg nightly though caution given increased risk of mortality in setting of dementia. -Do not use Haldol given concern for Lewy body dementia and EPS risk. For behavioral emergency, could trial Seroquel 12.5 mg p.o. twice daily as needed for agitation or olanzapine 2.5 mg IM x 1 (do not exceed 10 mg per 24 hours and check EKG if IM dose required) As discussed with patient's family including and daughter on 06/24/2024: Seroquel 12.5 mg p.o. nightly was started: They are aware of the increased risk of mortality #Coronary artery disease status post LAD and RCA stent in May 2022 #Essential hypertension #Hyperlipidemia #Chronic atrial fibrillation on anticoagulation Xarelto #Peripheral vascular disease status post stent Outpatient stage technician is Dr. Wiggins Outpatient vascular surgeon is Dr. Samara Lawrence held secondary to subdural hematoma Continue metoprolol for rate control Continue statin 2D echo from September 2022 shows EF of 55% with mild tricuspid regurgitation #Hypothyroidism TSH is 1.787 Continue levothyroxine 50 mcg p.o. daily #Type 2 diabetes mellitus A1c 6.2 Diabetic diet Accu-Cheks before every meal and nightly with sliding scale insulin coverage Monitor glycemic control #COPD Patient not in acute exacerbation Chest x-ray did not show any evidence of infiltrates or consolidation or vascular congestion #Hypomagnesemia Magnesium replacement as needed Monitor levels intermittently #Urinary stress and urge incontinence #Urinary tract infection Outpatient urologist Dr. Rollins Patient was scheduled for outpatient procedure with Dr. Rollins on 07/06/2024: Received message from urology via secure chat today that they have canceled appointment and will reschedule as needed Urine culture from 06/23/2024 shows Klebsiella pneumoniae Patient finished 5 days of IV ceftriaxone CODE STATUS: Full code DVT prophylaxis: Bilateral SCDs, avoid chemical prophylaxis Discharge planning to short-term rehab when bed available: Patient is medically stable for discharge Care plan discussed with patient, nursing staff Vargas ([phone]) updated on the phone on 07/05, no new updates Admission and Anticipated Discharge Date Admission Date: June 22, 2024 Subjective Patient sitting in a chair and resting comfortably She has no new complaints She did ask me about her discharge Physical Exam Physical Exam: General: No acute distress Psych: Awake and oriented to place and self HEENT: Anicteric sclera, moist oral mucosa CVS: irregular rate and rhythm Lungs: Bilateral air entry, no wheezing noted Abdomen: Soft, nontender, no rebound, no guarding Ext: No lower extremity edema Results & Data Results & Data Vital Signs (Past 12 Hours) Vital Signs Temp Pulse Resp BP Pulse Ox O2 Del Method 07/08/24 08:04 36.6 C 57 L 18 137/73 96 Room Air Laboratory Results Laboratory Results - last 24 hr 07/07/24 07/07/24 07/07/24 11:35 16:24 20:42 POC Glucose 197 H 149 H 101 H 07/08/24 07:41 POC Glucose 131 H PG Care Time/CCT Total # of Minutes Spent Total Time Spent with Patient: Total time spent is greater than 50% in coordination of care (as documented) at patient's floor/unit and/or counseling patient: Coding Level of Care Code 01537 SUB INP/OBS CARE 08/25MIN Diagnoses Acute subdural hematoma S06.5XAA Falls frequently R29.6 Dementia F03.90 Visual hallucinations R44.1 Auditory hallucinations R44.0 Hypothyroidism E03.9 Chronic obstructive pulmonary disease, unspecified COPD type J44.9 COPD type: unspecified COPD Urge and stress incontinence N39.46 Type 2 diabetes mellitus with other circulatory complication, without long-term current use of insulin E11.59 Diabetes mellitus complication detail: with other circulatory complications Diabetes mellitus complication status: with circulatory complication Diabetes mellitus fci insulin use: without fci use Peripheral vascular disease I73.9 Chronic atrial fibrillation I48.20 Atrial fibrillation type: unspecified chronic CAD (coronary artery disease) I25.10 Essential hypertension I10 (7) COPD (chronic obstructive pulmonary disease) COPD type: unspecified COPD Qualified Code(s): J44.9 - Chronic obstructive pulmonary disease, unspecified (9) Type 2 diabetes mellitus Diabetes mellitus complication detail: with other circulatory complications Diabetes mellitus complication status: with circulatory complication Diabetes mellitus dairy department manager insulin use: without dairy department manager use Qualified Code(s): E11.59 - Type 2 diabetes mellitus with other circulatory complications (11) Atrial fibrillation Atrial fibrillation type: unspecified chronic Qualified Code(s): I48.20 - Chronic atrial fibrillation, unspecified
[2024-07-08 15:06] VITALS: RESP 16
--- NOTE | 2024-07-09 10:47 | Hospitalist Progress Note ---
Date of Service July 09, 2024 Assessment & Plan (1) Acute subdural hematoma: (2) Falls frequently: (3) Dementia: (4) Visual hallucinations: (5) Auditory hallucinations: (6) Hypothyroidism: (7) COPD (chronic obstructive pulmonary disease): (8) Urge and stress incontinence: (9) Type 2 diabetes mellitus: (10) Peripheral vascular disease: (11) Atrial fibrillation: (12) CAD (coronary artery disease): (13) Essential hypertension: Plan 84-year-old female with past medical history of dementia, hypothyroidism, COPD, type 2 diabetes mellitus, atrial fibrillation on anticoagulation with Xarelto, coronary artery disease status post stents, peripheral vascular disease status post stent, urinary urge and stress incontinence, dementia who has been having recurrent falls, visual and auditory hallucinations with 2 recent falls on 06/19/2024 and , 06/21/2024 with outpatient MRI showing trace acute/subacute subdural hematoma. She was sent to the ED and CT scan was reviewed by neurosurgery at [facility], neurosurgery recommended monitoring at [facility] along with giving Kcentra for reversal of Xarelto which she received in ED #Acute metabolic encephalopathy: Likely secondary to fall with head trauma, subdural hematoma and underlying UTI in setting of dementia: Present on admission #Acute/subacute subdural hematoma #Recurrent falls #Dementia #Auditory/visual hallucinations Outpatient MRI showed acute/subacute subdural hematoma ED discussed this with neurosurgery at [facility] (Dr. Rosales) who reviewed MRI and repeat CT done in ED and showed no significant change and recommended Xarelto reversal with Kcentra and monitoring at [facility] without need to transfer at present. Patient received Kcentra in ED H&H is stable Monitor orthostatic vital signs: Patient's blood pressure drops when she stands B12 is 440 TSH is 1.787 Folate is greater than 22.3 Neurology saw the patient and recommended blood pressure control, repeat head CT this morning which did not show any change and have recommended waiting minimum 4 weeks before starting anticoagulation therapy and only if patient is clinically stable and follow-up imaging is reassuring Psychiatry saw the patient Psychiatry recommendations are as follows -Continue Paxil, start mirtazapine 7.5 mg p.o. nightly and can later titrate as needed up to 15 mg nightly to help with recent increase anxiety and insomnia. -discontinue lorazepam on discharge and avoid benzodiazepines -if auditory hallucinations and visual hallucinations become more distressing, could consider use of Abilify 2.5 mg daily or Seroquel 12.5 mg nightly though caution given increased risk of mortality in setting of dementia. -Do not use Haldol given concern for Lewy body dementia and EPS risk. For behavioral emergency, could trial Seroquel 12.5 mg p.o. twice daily as needed for agitation or olanzapine 2.5 mg IM x 1 (do not exceed 10 mg per 24 hours and check EKG if IM dose required) As discussed with patient's family including and daughter on 06/24/2024: Seroquel 12.5 mg p.o. nightly was started: They are aware of the increased risk of mortality #Coronary artery disease status post LAD and RCA stent in May 2022 #Essential hypertension #Hyperlipidemia #Chronic atrial fibrillation on anticoagulation Xarelto #Peripheral vascular disease status post stent Outpatient gas plumbing inspector is Dr. Wiggins Outpatient vascular surgeon is Dr. Samara Lawrence held secondary to subdural hematoma Continue metoprolol for rate control Continue statin 2D echo from September 2022 shows EF of 55% with mild tricuspid regurgitation #Hypothyroidism TSH is 1.787 Continue levothyroxine 50 mcg p.o. daily #Type 2 diabetes mellitus A1c 6.2 Diabetic diet Accu-Cheks before every meal and nightly with sliding scale insulin coverage Monitor glycemic control #COPD Patient not in acute exacerbation Chest x-ray did not show any evidence of infiltrates or consolidation or vascular congestion #Hypomagnesemia Magnesium replacement as needed Monitor levels intermittently #Urinary stress and urge incontinence #Urinary tract infection Outpatient urologist Dr. Rollins Patient was scheduled for outpatient procedure with Dr. Rollins on 07/06/2024: Received message from urology via secure chat today that they have canceled appointment and will reschedule as needed Urine culture from 06/23/2024 shows Klebsiella pneumoniae Patient finished 5 days of IV ceftriaxone CODE STATUS: Full code DVT prophylaxis: Bilateral SCDs, avoid chemical prophylaxis Discharge planning to short-term rehab when bed available: Patient is medically stable for discharge: As per case management, discharge planning to [facility] tomorrow Care plan discussed with patient, nursing staff Vargas ([phone]) updated on the phone Admission and Anticipated Discharge Date Admission Date: June 22, 2024 Subjective Patient seen and examined Sitting up in a chair Denies any new complaints Inquiring about discharge Physical Exam Physical Exam: General: No acute distress Psych: Awake and oriented to place and self HEENT: Anicteric sclera, moist oral mucosa CVS: irregular rate and rhythm Lungs: Bilateral air entry, no wheezing noted Abdomen: Soft, nontender, no rebound, no guarding Ext: No lower extremity edema Results & Data Results & Data Vital Signs (Past 12 Hours) Vital Signs Temp Pulse Resp BP Pulse Ox O2 Del Method 07/09/24 07:51 36.4 C L 61 16 147/70 H 97 Room Air Laboratory Results Laboratory Results - last 24 hr 07/08/24 07/08/24 07/08/24 11:40 16:24 20:42 POC Glucose 191 H 104 H 251 H 07/09/24 07:20 POC Glucose 163 H PG Care Time/CCT Total # of Minutes Spent Total Time Spent with Patient: Total time spent is greater than 50% in coordination of care (as documented) at patient's floor/unit and/or counseling patient: Coding Level of Care Code 50684 SUB INP/OBS CARE 08/25MIN Diagnoses Acute subdural hematoma S06.5XAA Falls frequently R29.6 Dementia F03.90 Visual hallucinations R44.1 Auditory hallucinations R44.0 Hypothyroidism E03.9 Chronic obstructive pulmonary disease, unspecified COPD type J44.9 COPD type: unspecified COPD Urge and stress incontinence N39.46 Type 2 diabetes mellitus with other circulatory complication, without long-term current use of insulin E11.59 Diabetes mellitus complication detail: with other circulatory complicatio ns Diabetes mellitus complication status: with circulatory complication Diabetes mellitus manager farm insulin use: without shelter use Peripheral vascular disease I73.9 Chronic atrial fibrillation I48.20 Atrial fibrillation type: unspecified chronic CAD (coronary artery disease) I25.10 Essential hypertension I10 (7) COPD (chronic obstructive pulmonary disease) COPD type: unspecified COPD Qualified Code(s): J44.9 - Chronic obstructive pulmonary disease, unspecified (9) Type 2 diabetes mellitus Diabetes mellitus complication detail: with other circulatory complications Diabetes mellitus complication status: with circulatory complication Diabetes mellitus shelter insulin use: without shelter use Qualified Code(s): E11.59 - Type 2 diabetes mellitus with other circulatory complications (11) Atrial fibrillation Atrial fibrillation type: unspecified chronic Qualified Code(s): I48.20 - Chronic atrial fibrillation, unspecified
[2024-07-10 07:49] VITALS: BP 134/56; PULSE 52; TEMP 97.5; O2SAT 98
--- NOTE | 2024-07-10 14:21 | Discharge Summary ---
Discharge Summary Date of Service July 10, 2024 Principal Dx & Hospital Course #1 = Principal Diagnosis (1) Acute subdural hematoma: (2) Falls frequently: (3) Dementia: (4) Visual hallucinations: (5) Auditory hallucinations: (6) Hypothyroidism: (7) COPD (chronic obstructive pulmonary disease): (8) Urge and stress incontinence: (9) Type 2 diabetes mellitus: (10) Peripheral vascular disease: (11) Atrial fibrillation: (12) CAD (coronary artery disease): (13) Essential hypertension: Plan 84-year-old female with past medical history of dementia, hypothyroidism, COPD, type 2 diabetes mellitus, atrial fibrillation on anticoagulation with Xarelto, coronary artery disease status post stents, peripheral vascular disease status post stent, urinary urge and stress incontinence, dementia who has been having recurrent falls, visual and auditory hallucinations with 2 recent falls on 06/19/2024 and , 06/21/2024 with outpatient MRI showing trace acute/subacute subdural hematoma. She was sent to the ED and CT scan was reviewed by neurosurgery at [facility], neurosurgery recommended monitoring at [facility] along with giving Kcentra for reversal of Xarelto which she received in ED #Acute metabolic encephalopathy: Likely secondary to fall with head trauma, subdural hematoma and underlying UTI in setting of dementia: Present on admission #Acute/subacute subdural hematoma #Recurrent falls #Dementia #Auditory/visual hallucinations Outpatient MRI showed acute/subacute subdural hematoma ED discussed this with neurosurgery at [facility] (Dr. Rosales) who reviewed MRI and repeat CT done in ED and showed no significant change and recommended Xarelto reversal with Kcentra and monitoring at [facility] without need to transfer at present. Patient received Kcentra in ED H&H is stable Monitor orthostatic vital signs: Patient's blood pressure drops when she stands B12 is 440 TSH is 1.787 Folate is greater than 22.3 Neurology saw the patient and recommended blood pressure control, serial head CT (last 06/26) did not show any change and have recommended waiting minimum 4 weeks before starting anticoagulation therapy and only if patient is clinically stable and follow-up imaging is reassuring Psychiatry saw the patient Psychiatry recommendations are as follows -Continue Paxil, start mirtazapine 7.5 mg p.o. nightly and can later titrate as needed up to 15 mg nightly to help with recent increase anxiety and insomnia. -discontinued lorazepam on discharge and avoid benzodiazepines -if auditory hallucinations and visual hallucinations become more distressing, could consider use of Abilify 2.5 mg daily or Seroquel 12.5 mg nightly though caution given increased risk of mortality in setting of dementia. -Do not use Haldol given concern for Lewy body dementia and EPS risk. For behavioral emergency, could trial Seroquel 12.5 mg p.o. twice daily as needed for agitation or olanzapine 2.5 mg IM x 1 (do not exceed 10 mg per 24 hours and check EKG if IM dose required) As discussed with patient's family including and daughter on 06/24/2024: Seroquel 12.5 mg p.o. nightly was started: They are aware of the increased risk of mortality #Coronary artery disease status post LAD and RCA stent in May 2022 #Essential hypertension #Hyperlipidemia #Chronic atrial fibrillation on anticoagulation Xarelto #Peripheral vascular disease status post stent Outpatient it technical specialist is Dr. Wiggins Outpatient vascular surgeon is Dr. Samara Larwence held secondary to subdural hematoma Continue metoprolol for rate control Continue statin 2D echo from September 2022 shows EF of 55% with mild tricuspid regurgitation #Hypothyroidism TSH is 1.787 Continue levothyroxine 50 mcg p.o. daily #Type 2 diabetes mellitus A1c 6.2 Diabetic diet Accu-Cheks before every meal and nightly with sliding scale insulin coverage Monitor glycemic control #COPD Patient not in acute exacerbation Chest x-ray did not show any evidence of infiltrates or consolidation or vascular congestion #Hypomagnesemia Magnesium replacement as needed Monitor levels intermittently #Urinary stress and urge incontinence #Urinary tract infection Outpatient urologist Dr. Rollins Patient was scheduled for outpatient procedure with Dr. Rollins on 07/06/2024: Received message from urology via secure chat today that they have canceled appointment and will reschedule as needed Urine culture from 06/23/2024 shows Klebsiella pneumoniae Patient finished 5 days of IV ceftriaxone CODE STATUS: Full code Notes For Next Care Provider follow-up in neurology clinic hold anticoagulation for at least 1 month following this admission, repeat head CT to ensure stability prior to reinitiation of anticoagulation try discontinue Seroquel in 1-2 weeks if no further issues with agitation or hallucinations Medication Changes From Visit rivaroxaban was stopped mirtazapine 7.5 mg at bedtime and Seroquel 12.5 mg at bedtime were initiated Admission HPI Per Admitting Provider The patient is an 84-year-old female with a past medical history including dementia, hypothyroidism, urinary urge and stress incontinence, neurogenic bladder, recurrent urine tract infection, pulm hypertension, COPD, diabetes mellitus type 2, SNHL bilaterally, essential hypertension, atrial fibrillation and CAD. Her notes that she has been having gradual worsening confusion over the past few months, has been falling frequently over the past month. Her 2 most recent falls were on Tuesday 06/19, and 06/21. Due to worsening confusion and increased frequency of falling, and worsening auditory visual loose nations, she had an MRI performed in the outpatient setting, which also showed a trace acute/subacute subdural hematoma. Her reports that during the middle of the night last evening, she had gone out to the front door, and he found her out lying on the road, reporting that she was walking with friends, that she fell, and they left her alone. reports that he has s sobia rearranged housing and doors locking that she can no longer do that. CT scan of brain in the ED this evening, as reviewed by [facility] neurosurgery, reports that there was no significant change from the previous MRI done earlier today, patient to be admitted to [facility] for monitoring. She has been taking her Xarelto regularly, and she did receive Kcentra reversal while in the ED. Discharge Exam PHYSICAL EXAMINATION Last 24h vital signs reviewed, see documentation in flowsheet General: awake alert sitting up in the chair, appears comfortable HEENT: Normocephalic, atraumatic, pupils round and equal, sclerae anicteric, no conjunctival injection, moist mucus membranes Lungs: Normal respiratory effort. Clear to auscultation bilaterally. No RRW Heart: Regular rate and rhythm, no murmurs. No JVD Abdomen: Soft, nontender, nondistended. Bowel sounds present. Extremities: Warm, dry, well-perfused. No extremity edema. Neuro: Alert and oriented x hospital and immediate situation though is confused, face symmetric, moves 4 extremities well Psych: Normal affect and behavior, cooperative, no agitation Discharge Plan Discharge Items Patient Disposition: Transfer [facility] Reason For Visit: SUBDURAL HEMORRHAGE Discharge Diagnosis: #Subdural hematoma secondary to fall #Recurrent falls #Dementia #Coronary artery disease status post LAD and RCA stent in May 2022 #Essential hypertension #Hyperlipidemia #Chronic atrial fibrillation on anticoagulation Xarelto #Peripheral vascular disease status post stent #Hypothyroidism #Type 2 diabetes mellitus #COPD #Urinary stress and urge incontinence #Urinary tract infection: Treated Condition on Discharge: Fair Activity: As commented below Activity Comment: As tolerated with assistance only Driving/Machine Use: No driving Non-emergency contact: Primary Care Provider Call non-emergency contact if: you have any medication questions, your symptoms worsen and you have a fever Follow-up/Referrals: Ben Wiggins MD [Physician] - Yusuf Chaudhry III, CRNP [Primary Care Provider] - Tip Rollins MD [Physician] - Romeo Moreno MD [Physician] - Diet: Carb Consistent or DM2 and Heart Healthy Addtl Attending Provider Instructions: DISCHARGE INSTRUCTION TO PATIENT/FAMILY/SNF: Follow-up with your primary care provider within 1 week regarding: Posthospital discharge, medication review, medication refills and follow-up on all your medical problems Please take all your discharge medications, discharge information and discharge instructions to all your doctors appointments. Avoid all NSAIDs including ibuprofen, Motrin, Advil, Aleve, naproxen, meloxicam, Toradol, diclofenac Labs at SNF in 1 week: CBC, CMP, MG Out of bed to chair for all meals, no meals in bed Please check orthostatic vital signs twice daily at SNF You were seen by neurologist Dr. Romeo Moreno regarding subdural hematoma. Neurology has recommended waiting minimum 4 weeks before starting anticoagulation therapy only if you are clinically stable and follow-up imaging is reassuring. Please follow-up with neurology and your it technical specialist Dr. Wiggins as per outpatient regarding recommendations regarding resuming anticoagulation. Follow-up with neurologist as outpatient regarding dementia. Please also follow-up with psychiatrist of your choice as outpatient for medication management Follow-up with your urologist Dr. Rollins as outpatient in 1 to 2 weeks time Pending Studies at Discharge: No Stand-Alone Forms: My [employer] Skilled Items Patient informed of condition?: Yes DNR: No Discharge Level of Care: Skilled Communicable Disease: No Discharge Prognosis: Stable Lines: None Urinary Catheter: No Medications and DC Order Prescriptions: New quetiapine 25 mg Tablet 12.5 mg PO HS 30 Days Qty: 15 0RF mirtazapine 15 mg Tablet 7.5 mg PO HS 30 Days Qty: 15 0RF vitamin B complex [Vitamins B Complex] Capsule 1 cap PO QAM Qty: 30 0RF Rx Instructions: available over the counter Continued (DME) blood-glucose meter [OneTouch Verio Flex meter] [facility] See Rx Instructions .ROUTE .MEDSUPPLY Qty: 1 0RF Rx Instructions: Test once daily; Dx code- E11.9 umeclidinium-vilanterol [Anoro Ellipta] 62.5-25 mcg/actuation blister with device 1 inh inhalation DAILY 0RF Anoro Ellipta 62.5-25 mcg/actuation blister with device 1 inh INH DAILY Qty: 1 0RF albuterol sulfate 90 mcg/actuation HFA aerosol inhaler 2 puff INH Q6H PRN (Reason: Shortness Of Breath Or Wheezing) Qty: 18 3RF atorvastatin 80 mg tablet 80 mg PO DAILY Qty: 90 3RF digoxin 125 mcg (0.125 mg) tablet 125 mcg PO DAILY Qty: 90 3RF ezetimibe [Zetia] 10 mg tablet 10 mg PO DAILY Qty: 90 3RF nitroglycerin 0.4 mg tablet, sublingual 0.4 mg SL UD PRN (Reason: Chest Pain) Qty: 7 1RF ergocalciferol (vitamin D2) 1,250 mcg (50,000 unit) capsule 1,250 mcg PO WEEKLY Qty: 12 1RF metoprolol succinate 100 mg tablet extended release 24 hr 150 mg PO .COMPLEX Qty: 225 3RF Rx Instructions: 150 mg PO in the morning and 100MG in the afternoon diclofenac sodium 1 % gel 2 g topical QID Qty: 100 3RF Rx Instructions: apply to single elbow, wrist or hand; for hand includes palm/fingers/back of hand Ocuvite Adult 50 Plus 250 mg (90 mg-160 mg) capsule 1 cap PO DAILY coenzyme Q10 200 mg tablet 200 mg PO DAILY (DME) lancets [OneTouch UltraSoft Lancets[place] [facility] [place] Dose Instructions .ROUTE .MEDSUPPLY Qty: 50 Rx Instructions: As directed (DME) OneTouch Verio test strips strip See Dose Instructions .ROUTE .MEDSUPPLY Qty: 10 Rx Instructions: As directed Slow-Mag 71.5 mg tablet,delayed release (DR/EC) 71.5 mg PO DAILY levothyroxine [Synthroid] 50 mcg tablet 50 mcg PO DAILY Qty: 90 1RF Rx Instructions: Take first thing in the morning on an empty stomach. Do not take other medications or eat for 30 minutes after taking levothyroxine. melatonin 5 mg capsule PO HS Adult Multivitamin Gummies 200 mcg tablet,chewable 200 mcg PO DAILY paroxetine HCl 40 mg tablet 40 mg PO DAILY Discontinued rivaroxaban 20 mg tablet 20 mg PO DAILY Qty: 90 3RF Hold Instructions: per Neuro Rx Instructions: must administer with evening meal glimepiride 1 mg tablet 1 mg PO DAILY Qty: 90 3RF paroxetine HCl 40 mg tablet See Rx Instructions .ROUTE .COMPLEX Qty: 90 3RF Dose Instruction: TAKE ONE TABLET BY MOUTH DAILY Rx Instructions: TAKE ONE TABLET BY MOUTH DAILY cephalexin 500 mg capsule 500 mg PO BID 7 Days Qty: 14 0RF lorazepam 0.5 mg tablet 0.5 mg PO BID PRN (Reason: anxiety) Qty: 30 2RF lorazepam 0.5 mg tablet 0.5 mg PO .COMPLEX PRN (Reason: anxiety) 1 Days Qty: 2 0RF Rx Instructions: take 1 hour prior to procedure, may repeat at time of procedure prn atorvastatin 80 mg tablet 80 mg PO DAILY metoprolol succinate 100 mg tablet extended release 24 hr PO Discharge Orders: Discharge Order (Routine); Ordered 07/10/24 Ordered By: Karla Snyder/Other Patient Handouts: Urinary Tract Infections in Women, ED Hematoma Admission Data Admit Date/Time: 06/22/24 22:49 Attending Provider: Karla Roblero Admit Provider: Gwyn Austin Primary Care Provider: Yusuf Chaudhry III Other Providers: Gwyn Austin; Romeo Moreno; Lana Hernandez; Gilbert Layton; Aubrie Mckay; Christal Rodriguez; Josef Roger; Jessica Velasquez; Fernanda Espinal; [place] [place]; Autumn Richards [facility] Other Interventions: Discharge Summary Assessment (RN) Last Done: 07/10/24 11:17 Hospital Stay Data Consultations 06/22/24 21:51 ED Decision to Admit Stat 06/23/24 01:06 Consult Neurology Routine 06/23/24 09:14 Consult Psychiatry Routine 06/26/24 16:43 Consult Palliative Care Routine Diagnostic Imagining Performed 06/22/24 18:58 CT cervical spine wo con Stat CT head/brain wo con Stat 06/23/24 08:00 CT head/brain wo con Routine 06/24/24 07:00 CT head/brain wo con Routine 06/26/24 10:32 CT head/brain wo con Stat Pending Results Patient Have Any Pending Studies at Discharge: No Discharge Instructions Given to Patient (Per Discharging Provider) DISCHARGE INSTRUCTION TO PATIENT/FAMILY/SNF: Follow-up with your primary care provider within 1 week regarding: Posthospital discharge, medication review, medication refills and follow-up on all your medical problems Please take all your discharge medications, discharge information and discharge instructions to all your doctors appointments. Avoid all NSAIDs including ibuprofen, Motrin, Advil, Aleve, naproxen, meloxicam, Toradol, diclofenac Labs at SNF in 1 week: CBC, CMP, MG Out of bed to chair for all meals, no meals in bed Please check orthostatic vital signs twice daily at SNF You were seen by neurologist Dr. Romeo Moreno regarding subdural hematoma. Neurology has recommended waiting minimum 4 weeks before starting anticoagulation therapy only if you are clinically stable and follow-up imaging is reassuring. Please follow-up with neurology and your it technical specialist Dr. Wiggins as per outpatient regarding recommendations regarding resuming anticoagulation. Follow-up with neurologist as outpatient regarding dementia. Please also follow-up with psychiatrist of your choice as outpatient for medication management Follow-up with your urologist Dr. Rollins as outpatient in 1 to 2 weeks time Total Time Total Time Spent Total Time Spent (In Minutes): I personally spent: 35 minutes today on clinical care activities including: reviewing chart notes and vital signs discussion with care provider examining and counseling the patient writing orders writing prescriptions, discharge instructions documentation Coding Level of Care Code 41704 INP/OBS DISCH >30 MIN Diagnoses Acute subdural hematoma S06.5XAA Falls frequently R29.6 Dementia F03.90 Visual hallucinations R44.1 Auditory hallucinations R44.0 Hypothyroidism E03.9 Chronic obstructive pulmonary disease, unspecified COPD type J44.9 COPD type: unspecified COPD Urge and stress incontinence N39.46 Type 2 diabetes mellitus with other circulatory complication, without long-term current use of insulin E11.59 Diabetes mellitus moth exterminator insulin use: without moth exterminator use Diabetes mellitus complication status: with circulatory complication Diabetes mellitus complication detail: with other circulatory complications Peripheral vascular disease I73.9 Chronic atrial fibrillation I48.20 Atrial fibrillation type: unspecified chronic CAD (coronary artery disease) I25.10 Essential hypertension I10
== END 2024-07-10 13:28 | DRG 85 ==
LOC: ED 18:36 → SUATTDRO 22:49 → 2E 22:49 → 3N 06-25 13:46